=== PATIENT | male | born 1955 | race Caucasian/White ===

== ENCOUNTER 2019-09-17 15:30 | Outpatient (RCR) | payer MEDICARE, SELFPAY ==
--- NOTE | 2019-08-28 13:31 | PTOPEVAL ---
PHYSICAL THERAPY EVALUATION AND PLAN OF CARE 08-28-2019 The PT evaluation was completed for the diagnosis of decreased gait balance. The plan of treatment is 2x/week for 3 weeks. Thank you for referring Mr. Kirkland to [facility]. Please review, sign, date and return this plan of care JEREMI. I agree with and certify that the following plan of care is medically necessary. Referring Physician Date Attending Provider: Victor M Leslie MD *PT Outpatient Evaluation Start: 08/28/19 12:39 Document 08/28/19 12:35 [facility] Outpatient Past Medical History Neurological History Hx Other Neurological Disorders Yes: cerebral aneurysm-sugery '98 Cardiovascular History Hx Hypercholesterolemia Yes: meds Hx Hypertension Yes: meds Respiratory History Hx Respiratory Disorders No Significant History Gastrointestinal History Hx Gastrointestinal Disorders No Significant History Genitourinary History Hx Genitourinary Disorders No Significant History Musculoskeletal History Hx Arthritis Yes: R and L knee arthritis Hematological History Hx Hematological Disorders No Significant History Endocrine History Hx Endocrine Disorders No Significant History HEENT History Hx HEENT Disorders No Significant History Integumentary History Hx Skin Disorders No Significant History Psychosocial History Hx Anxiety Yes: meds control Hx Depression Yes: on meds Evaluation Information Problem Diagnosis balance disturbance Onset Jun 2019 Subjective Information reports gradual increase in Query Text:As Reported By Patient/ falls and off balance with Family walking; in Jul reports 3 falls-1- slipped getting out of bathtub ; 2- slipped on ice outside; 3 - fell getting out of car; Previous Treatments Previous Treatments For This Problem no previous PT for balance/ walking Prior Level of Function Activity Level (Last 3 Months) Occupation retired/disability Hand Dominance Right Medications Home Meds (Include: OTC, RX, Vitamins, atorvastatin, fluoxetine, Herbals, Dose, Route,and Frequency) omeprazole, Query Text:Home Med Entries Will No Longer Recall From Past Visits. Home Meds Must Be Re-entered With Each Visit. Home Setting Home Type House,Multiple Levels Living Situation With Relatives Support Available Local Family Support Mobility Assistive Devices (Used Last 3 None,Cane, Small Based Quad Months) Bathroom Environment Bathtub, Standard Bathing Equipment
--- NOTE | 2019-09-03 12:25 | PCPTNOTE ---
Patient called & cancelled scheduled appointment this date due to weather
--- NOTE | 2019-09-05 12:52 | PCPTNOTE ---
Patient called & cancelled scheduled appointment this date due to illness
--- NOTE | 2019-09-17 16:12 | PTOPEVAL ---
PHYSICAL THERAPY DISCHARGE 09-17-2019 Zenon has received 5 Physical Therapy sessions, from August 28 to today, for the diagnosis of balance issues. Compared to the initial evaluation: increased strength of L ankle DF and PF; improved Kelly balance score; TUG and SLS on L are the same; he has been educated on a home exercise program and is going to obtain a L AFO to prevent L toe drag. The goals were partially achieved. He will be discharged at this time. And is to continue with his home exercises and obtain an ankle brace. Thank you for referring Mr. Kirkland to [facility]. Please review, sign, date and return this discharge plan of care [facility]. I agree with and certify that the following discharge. Referring Physician Date Attending Provider: Victor M Leslie MD *PT Outpatient Discharge Document 09/17/19 15:37 KENNY (Rec: 09/17/19 16:12 KENNY [id number]) Subjective Information Zenon reports: doing his leg Query Text:As Reported By Patient/ exercises, feel like legs are Family stronger; using cane when going out, but not in his house; Pain Assessment Timing of Pain Assessment Timing of Pain Assessment Assessment Self Report Self Report Pain Level 0 Pain Scale Pain Scale Used Numeric (1 - 10) Self Report Pain Assessment Bilateral Knee(s) Reported Pain Level 0 Pain Score Pain Score 0: Self Report Lower Extremity Muscle Strength Testing General Lower Extremity Strength Gross Lower Extremity Strength -sitting: L ankle DF to 5-10' x 25 reps; ankle circles with decreased control; ankle inversion/eversion with heel on ground--decreased strength: inversion 3-/5 and eversion 2+/5; stand with one UE support, B PF x 20 reps; Balance Assessment Kelly Balance Assessment Sitting to Standing Independent w/out Hands Unsupported Stance Ability Safely- 2 minutes Sitting Unsupported, Feet on Floor Safely- 2 minutes Standing to Sitting Safely, Minimal Hand Use Transfer Ability Safely, Minimal Hand Use Unsupported Stance- Eyes Closed Safely, 10 seconds Unsupported Stance- Feet Together Independent, 1 minute Reaching Forward while Standing Confidently, 10 inches supervisor shipping Object From Floor Independent/Safe Look Behind Shoulder - Standing Shifts Weight Well Turning 360 Degrees Turns slowly, but safely Unsupported Stance, Alternating Feet on (I)- 8 Steps in 20 secs Stair Unsupported Tandem Stance Small Step- 30 seconds Unilateral Leg Stance Lifts Leg/Holds > 3 secs KELLY Balance Evaluation Total Score (/56 50 points) Time Up Go (TUG) T
== END 2019-09-18 09:32 | disposition home or self-care (01) ==
LOC: ANHPT 15:30
PROVIDERS: PCP Family Medicine; Visit Provider Family Medicine
DX: R26.9 Unspecified abnormalities of gait and mobility (principal)
CPT/HCPCS: 97110; 97161

== ENCOUNTER 2019-11-20 08:10 | Outpatient (CLI) | payer MEDICARE, SELFPAY ==
[2019-11-20 08:43] LABS: Alanine Aminotransferase 13 U/L (4-50); Albumin Level 4.3 g/dL (3.5-5.1); Alkaline Phosphatase 61 U/L (38-126); Aspartate Amino Transferase 21 U/L (17-59); Bilirubin,Total 0.6 mg/dL (0.2-1.3); Blood Urea Nitrogen 14 mg/dL (9-20); Carbon Dioxide 30 mmol/L (22-30); Chloride 104 mmol/L (98-107); Cholesterol 167 mg/dL (0-200); Creatine Kinase 51 U/L (55-170); Estimated Glomerular Filt Rate > 60; Glucose 89 mg/dL (75-110); HDL Direct 49 mg/dL; Potassium 4.3 mmol/L (3.4-5.0); Sodium 140 mmol/L (137-145); Triglycerides 85 mg/dL (<150)
[2019-11-20 08:54] LABS: LDL Cholesterol Direct 94 mg/dL
[2019-11-20 09:16] LABS: Vitamin D 25 Hydroxy 61.7 ng/mL
== END 2019-11-20 08:11 | disposition home or self-care (01) ==
PROVIDERS: PCP Family Medicine; Visit Provider Family Medicine
DX: E78.2 Mixed hyperlipidemia (principal); E55.9 Vitamin D deficiency, unspecified
CPT/HCPCS: 36415; 80053; 80061; 82306; 82550

== ENCOUNTER 2020-06-09 10:51 | Outpatient (CLI) | payer MEDICARE, SELFPAY ==
[2020-06-09 12:49] LABS: Vitamin D 25 Hydroxy 62.5 ng/mL
== END 2020-06-09 10:52 | disposition home or self-care (01) ==
LOC: ANHLAB 10:54
PROVIDERS: PCP Family Medicine; Visit Provider Nurse Practitioner Family
DX: E55.9 Vitamin D deficiency, unspecified (principal)
CPT/HCPCS: 36415; 82306

== ENCOUNTER 2020-10-05 13:19 | Emergency (ER) | payer MEDICARE, SELFPAY ==
[2020-10-05 13:21] VITALS: BP 198/91; PULSE 60; RESP 20; TEMP 36.7; O2SAT 100
[2020-10-05 15:32] VITALS: BP 195/105; PULSE 61; RESP 18; TEMP 36.7; O2SAT 100
--- NOTE | 2020-10-05 15:37 | ECG_ITS ---
Measurements Intervals [place] Rate: 66 P: 57 AK: 231 QRS: 8 QRSD: 97 T: 28 QT: 396 QTc: 415 Interpretive Statements SINUS RHYTHM WITH FIRST DEGREE AV BLOCK VOLTAGE CRITERIA FOR LVH BASELINE ARTIFACT- I, II, III, V3 ABNORMAL ECG Electronically Signed On 10-05-2020 16:35:32 DISABILITY INSURANCE CLAIM EXAMINER by Carlos Caal D.O.
[2020-10-05 15:55] LABS: Basophils Percent Auto 0.5 % (0.2-1.2); Eosinophils Absolute Auto 0.1 K/mm3 (0-0.3); Hematocrit 38.7 % (42.0-52.0); Hemoglobin 12.9 g/dL (14.0-18.0); Immature Granulocyte Absolute 0.02 K/mm3 (0.00-0.031); Immature Granulocyte Percent A 0.4 % (0-0.5); Lymphocytes Percent Auto 25.6 % (18.3-44.2); Mean Corpuscular HGB Conc 33.3 g/dl (32-36); Mean Corpuscular Hemoglobin 28.8 pg (26-34); Mean Corpuscular Volume 86.4 fl (80-100); Mean Platelet Volume 8.9 fl (7.4-10.4); Monocytes Absolute Auto 0.5 K/mm3 (0.1-0.6); Neutrophils Absolute Auto 3.4 K/mm3 (1.3-6.7); Neutrophils Percent Auto 62.5 % (45.5-73.1); Platelet Count Result 201 k/mm3 (150-375); Red Blood Count 4.48 M/mm3 (4.6-6.20); White Blood Count 5.5 K/mm3 (4.5-10.0)
[2020-10-05 16:05] LABS: Anion Gap 5 mmol/L (8-16); Blood Urea Nitrogen 12 mg/dL (9-20); Calcium 8.9 mg/dL (8.4-10.2); Carbon Dioxide 32 mmol/L (22-30); Chloride 104 mmol/L (98-107); Estimated CRCL calculation 104 ml/min; Estimated Glomerular Filt Rate > 60; Glucose 83 mg/dL (75-110); Potassium 3.8 mmol/L (3.4-5.0); Sodium 141 mmol/L (137-145)
--- NOTE | 2020-10-05 16:29 | ED.GENADULT ---
HPI - General Adult General Chief complaint: Recheck/Abnormal Lab/Rx Stated complaint: elevated bp Time Seen by Provider: 10/05/20 15:36 History of Present Illness HPI narrative: Patient is a 65 y/o male complaining of high blood pressure for last 1-2 weeks. He states that his BP was 190/100 prior to arrival. He is on metoprolol and he is compliant. He denies any headache, chest pain, SOB or other complaints. Related Data Allergies Allergy/AdvReac Type Severity Reaction Status Date / Time No Known Allergies Allergy Verified 10/05/20 15:35 Review of Systems Constitutional: Constitutional: Denies chills, Denies fever(s), Denies headache(s) and Denies weakness Eyes: Eyes: Denies blurry vision ENT: Denies headache(s) and Denies neck pain Cardiovascular: Cardiovascular: Denies chest pain and Denies dyspnea Respiratory: Respiratory: Denies cough and Denies dyspnea Gastrointestinal: Gastrointestinal: Denies abdominal pain, Denies diarrhea, Denies nausea and Denies vomiting Genitourinary: Genitourinary: Denies hematuria and Denies dysuria Musculoskeletal: Musculoskeletal: Denies back pain and Denies neck pain Neurologic: Denies headache(s) and Denies weakness [facility] Social History Social History Smoking status: Never smoker Alcohol intake: never Exam Const: General: no acute distress and well developed Orientation/consciousness: oriented to person, oriented to place, oriented to time and patient oriented x3 HENMT: Head: normocephalic Ears: external ears normal General nose exam: Normal external nose present Eyes: General: appearance normal, both eyes and all related structures Conjunctivae: conjunctivae normal Neck: Neck: normal visual inspection and full ROM Chest: Chest palpation & inspection: normal inspection of the chest and no tenderness Resp: Effort & Inspection: normal respiratory effort Auscultation: clear to auscultation bilaterally Cardio: Rate: regular rate Rhythm: regular rhythm GI: GI Palp: No abdominal tenderness and Yes Soft to palpation Skin: General skin exam: normal color and turgor normal Neuro: General: oriented to person, oriented to place, oriented to time and patient oriented x3 Cognition (Neuro): normal cognition Extrem: General: normal to inspection, full ROM and no pedal edema Psych: Appearance: grossly normal Mental Status: mental status grossly normal Affect: normal affect Course Vital Signs Vital signs: Vital Signs Temperature 36.7 C 10/05/20 13:21 Pulse Rate 60 10/05/20 13:21 Respiratory Rate 20 10/05/20 13:21 Blood Pressure 198/91 H 10/05/20 13:21 Pulse Oximetry 100 10/05/20 13:21 Temperature 36.7 C 10/05/20 15:32 Pulse Rate 59 L 10/05/20 18:40 Respiratory Rate 18 10/05/20 18:40 Blood Pressure 154/96 H 10/05/20 18:40 Pulse Oximetry 95 10/05/20 18:40 Medical Decision Making Vital Signs Vital Signs: Vital Signs Temperature 36.7 C 10/05/20 13:21 Pulse Rate 60 10/05/20 13:21 Respiratory Rate 20 10/05/20 13:21 Blood Pressure 198/91 H 10/05/20 13:21 Pulse Oximetry 100 10/05/20 13:21 Temperature 36.7 C 10/05/20 15:32 Pulse Rate 59 L 10/05/20 18:40 Respiratory Rate 18 10/05/20 18:40 Blood Pressure 154/96 H 10/05/20 18:40 Pulse Oximetry 95 10/05/20 18:40 Lab Data Result diagrams: 10/05/20 15:45 10/05/20 15:45 Labs: Lab Results 10/05/20 10/05/20 Range/Units 15:45 15:45 WBC 5.5 (4.5-10.0) K/mm3 RBC 4.48 L (4.6-6.20) M/mm3 Hgb 12.9 L (14.0-18.0) g/dL Hct 38.7 L (42.0-52.0) % MCV 86.4 (80-100) fl MCH 28.8 (26-34) pg MCHC 33.3 (32-36) g/dl RDW 14.0 (11.5-14.5) % Plt Count 201 (150-375) k/mm3 MPV 8.9 (7.4-10.4) fl Immature Gran % (Auto) 0.4 (0-0.5) % Neut % (Auto) 62.5 (45.5-73.1) % Lymph % (Auto) 25.6 (18.3-44.2) % [place] % (Auto) 9.0 H (2.6-8.5
[2020-10-05 16:52] VITALS: BP 177/107; PULSE 62; RESP 20; O2SAT 99
[2020-10-05] MEDS: hydroCHLOROthiazide 25 MG TABLET PO (17:18)
[2020-10-05] MEDS: lisinopriL 20 MG TABLET PO (17:18)
[2020-10-05 17:36] VITALS: BP 160/94; PULSE 52; RESP 18; O2SAT 97
[2020-10-05 18:40] VITALS: BP 154/96; PULSE 59; RESP 18; O2SAT 95
== END 2020-10-05 18:41 | disposition home or self-care (01) ==
PROVIDERS: Emergency Provider Emergency Medicine; PCP Family Medicine
DX: I10 Essential (primary) hypertension (principal); I44.0 Atrioventricular block, first degree; R94.31 Abnormal electrocardiogram [ECG] [EKG]
CPT/HCPCS: 36415; 80048; 85025; 93005; 99283; A9270

== ENCOUNTER 2020-11-25 07:42 | Outpatient (CLI) | payer MEDICARE, SELFPAY ==
[2020-11-25 08:07] LABS: Basophils Absolute Auto 0.1 K/mm3 (0.0-0.1); Basophils Percent Auto 0.7 % (0.2-1.2); Eosinophils Absolute Auto 0.4 K/mm3 (0-0.3); Hematocrit 42.3 % (42.0-52.0); Hemoglobin 14.3 g/dL (14.0-18.0); Immature Granulocyte Absolute 0.01 K/mm3 (0.00-0.031); Immature Granulocyte Percent A 0.1 % (0-0.5); Lymphocytes Absolute Auto 2.41 K/mm3 (0.9-3.2); Lymphocytes Percent Auto 34.3 % (18.3-44.2); Mean Corpuscular HGB Conc 33.8 g/dl (32-36); Mean Corpuscular Hemoglobin 29.6 pg (26-34); Mean Corpuscular Volume 87.6 fl (80-100); Mean Platelet Volume 8.6 fl (7.4-10.4); Monocytes Absolute Auto 0.6 K/mm3 (0.1-0.6); Neutrophils Absolute Auto 3.6 K/mm3 (1.3-6.7); Neutrophils Percent Auto 50.9 % (45.5-73.1); Platelet Count Result 233 k/mm3 (150-375); Red Blood Count 4.83 M/mm3 (4.6-6.20); Red Cell Distribution Width 13.3 % (11.5-14.5)
[2020-11-25 08:18] LABS: Alanine Aminotransferase 16 U/L (4-50); Albumin Level 4.2 g/dL (3.5-5.1); Alkaline Phosphatase 55 U/L (38-126); Anion Gap 5 mmol/L (8-16); Aspartate Amino Transferase 24 U/L (17-59); Bilirubin,Total 0.7 mg/dL (0.2-1.3); Blood Urea Nitrogen 12 mg/dL (9-20); Carbon Dioxide 36 mmol/L (22-30); Chloride 100 mmol/L (98-107); Cholesterol 168 mg/dL (0-200); Estimated Glomerular Filt Rate > 60; Glucose 98 mg/dL (75-110); HDL Direct 54 mg/dL; Potassium 3.5 mmol/L (3.4-5.0); Sodium 141 mmol/L (137-145); Triglycerides 127 mg/dL (<150)
[2020-11-25 08:28] LABS: LDL Cholesterol Direct 85 mg/dL
[2020-11-25 08:46] LABS: Creatinine Urine 163.4 mg/dL
[2020-11-25 08:48] LABS: Total Triiodothyronine (T3) 1.05 NG/ML (0.97-1.69)
[2020-11-25 08:51] LABS: MALB Creatinine Ratio 5.9 mg/g (0-30); Microalbumin Urine Random 9.6 mg/L (0-16.7)
[2020-11-25 08:56] LABS: Prostate Specific Antigen 1.1 ng/mL (< OR = 4.0)
[2020-11-25 09:27] LABS: Free T4 Free Thyroxine 0.99 ng/mL (0.78-2.19)
== END 2020-11-25 07:43 | disposition home or self-care (01) ==
PROVIDERS: PCP Family Medicine; Visit Provider Nurse Practitioner
DX: F41.1 Generalized anxiety disorder (principal); F32.9 Major depressive disorder, single episode, unspecified; I10 Essential (primary) hypertension; E78.2 Mixed hyperlipidemia; E55.9 Vitamin D deficiency, unspecified; R80.9 Proteinuria, unspecified; Z12.5 Encounter for screening for malignant neoplasm of prostate
CPT/HCPCS: 36415; 80053; 80061; 82043; 82306; 84153; 84439; 84443; 84480; 85025; G0103

== ENCOUNTER 2021-07-07 08:22 | Outpatient (CLI) | payer MEDICARE, SELFPAY ==
--- NOTE | ~2021-07-07 | CT_ITS ---
EXAMINATION: CTA abd aorta runoff DATE: 07/07/2021 09:37 INDICATION: Ascending aortic aneurysm TECHNIQUE: Computed tomographic angiography (CTA) of the abdomen, pelvis, and both lower extremities was performed with 150 mL Omnipaque-350 intravenous contrast. The dose-length product (DLP) was 1202. 44 mGy-cm. Maximum intensity projection 3D-reconstructions of the arteries were created by the techno logist on a separate workstation. Automated exposure control and iterative reconstruction technique w ere employed. COMPARISON: None. FINDINGS: ABDOMINAL AORTA AND ITS BRANCHES: There is no aneurysm or dissection of the abdominal aorta. Calcified atherosclerosis is noted. The ce liac axis, superior mesenteric artery, and inferior mesenteric artery appear normal at their origins. Single renal arteries are present bilaterally. PELVIC VASCULATURE: There is calcified atherosclerosis without hemodynamically significant stenosis. RIGHT LOWER EXTREMITY VASCULATURE: There is calcified atherosclerosis of the superficial femoral artery and distal common femoral artery without hemodynamically significant stenosis. The popliteal artery demonstrates atherosclerosis with out hemodynamically significant stenosis. There is atherosclerosis and mild stenosis at the origins o f the anterior and posterior tibial arteries. The peroneal artery is diminutive in its distal aspect. There is a two-vessel runoff at the ankle. LEFT LOWER EXTREMITY VASCULATURE: There is calcified atherosclerosis of the distal common femoral artery and the superficial femoral ar shadi without hemodynamically significant stenosis. There is calcified atherosclerosis of the poplitea l artery without hemodynamically significant stenosis. The anterior and posterior tibial arteries are diminutive in the distal aspects. There is a single vessel posterior tibial artery runoff at the ank le. ADDITIONAL FINDINGS: The liver, spleen, pancreas, gallbladder, and adrenal glands are normal. No pathologically enlarged a bdominal or pelvic lymph nodes are identified. There is no free intraperitoneal gas or evidence of neha wel obstruction. Cysts of the kidneys measure up to 4.6 cm on the right. There is a fat-containing ri ght inguinal hernia. Minimal dependent atelectasis is present in the lung bases. The heart size is no rmal. Calcified loose bodies are noted in the left Arreola's cyst. IMPRESSION: 1. Two-vessel runoff of the right ankle and one vessel runoff at the left ankle. Additional findings as detailed above. Reviewed, dictated and finalized at location A. VITIES ASSISTANT IMPRESSION: 1. Two-vessel runoff of the right ankle and one vessel runoff at the left ankle . Additional findings as detailed above.
--- NOTE | ~2021-07-07 | CT_ITS ---
EXAMINATION: CTA chest DATE: 07/07/2021 16:18 INDICATION: Thoracic aortic aneurysm TECHNIQUE: Computed tomographic angiography (CTA) of the chest was performed with 100 mL Omnipque-350 intravenous contrast. Maximum intensity projection 3D-reconstructions of the aorta and other arterie s were constructed by the technologist on a separate workstation. The dose-length product (DLP) was 4 63.51 mGy-cm. Automated exposure control and iterative reconstruction technique were employed. COMPARISON: None. FINDINGS: There is a 4.5 cm fusiform aneurysm of the ascending aorta measured at the level of the mulugeta n pulmonary artery. There is no dissection. There is mild dependent atelectasis. No pleural effusion or pneumothorax is identified. There is calcified coronary artery atherosclerosis. The heart size is normal. There are no pathologically enlarged thoracic lymph nodes. Cysts of the visualized kidneys me asure up to 4.2 cm on the right. There is advanced osteoarthritis of the right glenohumeral joint. Th ere is a questionable fracture of the proximal right humerus. Internal stabilization hardware is note d in the left humerus. Calcified loose bodies are noted in the right shoulder. IMPRESSION: 1. 4.5 cm fusiform aneurysm of the ascending aorta. No dissection. Reviewed, dictated and finalized at location A. UMER RELATIONS COMPLAINT CLERK
[2021-07-07 09:08] LABS: Alanine Aminotransferase 25 U/L (4-50); Albumin Level 4.3 g/dL (3.5-5.1); Alkaline Phosphatase 56 U/L (38-126); Anion Gap 6 mmol/L (8-16); Aspartate Amino Transferase 28 U/L (17-59); Bilirubin,Total 0.4 mg/dL (0.2-1.3); Blood Urea Nitrogen 26 mg/dL (9-20); Calcium 9.2 mg/dL (8.4-10.2); Carbon Dioxide 33 mmol/L (22-30); Chloride 98 mmol/L (98-107); Cholesterol 150 mg/dL (0-200); Estimated Glomerular Filt Rate > 60; Glucose 106 mg/dL (65-110); HDL Direct 64 mg/dL; Potassium 3.4 mmol/L (3.4-5.0); Sodium 137 mmol/L (137-145); Triglycerides 46 mg/dL (<150)
[2021-07-07 09:18] LABS: Estimated Glomerular Filt Rate > 60
[2021-07-07 09:20] LABS: LDL Cholesterol Direct 71 mg/dL
== END 2021-07-07 08:23 | disposition home or self-care (01) ==
PROVIDERS: PCP Internal Medicine; Visit Provider Internal Medicine
DX: I71.2 Thoracic aortic aneurysm, without rupture (principal); E78.5 Hyperlipidemia, unspecified; E55.9 Vitamin D deficiency, unspecified; I71.4 Abdominal aortic aneurysm, without rupture
CPT/HCPCS: 36415; 71275; 75635; 80053; 80061; 82306; Q9967

== ENCOUNTER 2021-07-21 13:09 | Outpatient (CLI) | payer MEDICARE, SELFPAY ==
[2021-07-21 13:28] LABS: Basophils Percent Auto 0.4 % (0.2-1.2); Eosinophils Percent Auto 0.7 % (0-4.4); Hematocrit 42.3 % (42.0-52.0); Hemoglobin 14.3 g/dL (14.0-18.0); Immature Granulocyte Absolute 0.02 K/mm3 (0.00-0.031); Immature Granulocyte Percent A 0.4 % (0-0.5); Lymphocytes Absolute Auto 0.85 K/mm3 (0.9-3.2); Lymphocytes Percent Auto 18.4 % (18.3-44.2); Mean Corpuscular HGB Conc 33.8 g/dl (32-36); Mean Corpuscular Hemoglobin 30.2 pg (26-34); Mean Corpuscular Volume 89.2 fl (80-100); Mean Platelet Volume 8.3 fl (7.4-10.4); Monocytes Absolute Auto 0.6 K/mm3 (0.1-0.6); Monocytes Percent Auto 13.9 % (2.6-8.5); Neutrophils Absolute Auto 3.1 K/mm3 (1.3-6.7); Neutrophils Percent Auto 66.2 % (45.5-73.1); Platelet Count Result 174 k/mm3 (150-375); Red Blood Count 4.74 M/mm3 (4.6-6.20); Red Cell Distribution Width 13.2 % (11.5-14.5); White Blood Count 4.6 K/mm3 (4.5-10.0)
[2021-07-21 13:52] LABS: Alanine Aminotransferase 39 U/L (4-50); Albumin Level 4.3 g/dL (3.5-5.1); Alkaline Phosphatase 56 U/L (38-126); Anion Gap 8 mmol/L (8-16); Aspartate Amino Transferase 45 U/L (17-59); Bilirubin,Total 0.6 mg/dL (0.2-1.3); Blood Urea Nitrogen 22 mg/dL (9-20); Calcium 8.7 mg/dL (8.4-10.2); Carbon Dioxide 32 mmol/L (22-30); Chloride 92 mmol/L (98-107); Cholesterol 154 mg/dL (0-200); Creatine Kinase 190 U/L (55-170); Estimated Glomerular Filt Rate > 60; Glucose 95 mg/dL (65-110); HDL Direct 49 mg/dL; Magnesium 1.9 mg/dL (1.6-2.3); Sodium 132 mmol/L (137-145); Triglycerides 101 mg/dL (<150)
[2021-07-21 14:03] LABS: LDL Cholesterol Direct 71 mg/dL
[2021-07-21 14:43] LABS: Vitamin D 25 Hydroxy 66.7 ng/mL
== END 2021-07-21 13:10 | disposition home or self-care (01) ==
LOC: ANHLAB 13:13
PROVIDERS: PCP Internal Medicine; Visit Provider Internal Medicine
DX: E78.5 Hyperlipidemia, unspecified (principal); E55.9 Vitamin D deficiency, unspecified; R25.2 Cramp and spasm; U07.1 COVID-19
CPT/HCPCS: 36415; 80053; 80061; 82306; 82550; 83735; 85025

== ENCOUNTER 2021-08-17 01:00 | Day surgery (SDC) | payer MEDICARE, SELFPAY ==
[2021-08-10 11:20] VITALS: BMI 25.1
--- NOTE | 2021-08-17 07:15 | WPDANESEPPF ---
Anes - Initial Pre Proc Eval Procedure: Operation Date: 08/17/21 09:00 Proposed Procedures p Screening Colonoscopy - Rafa Reyna MD Date/Time: 08/17/21 07:15 Surgeon: Rafa Reyna MD Pre Op Diagnosis: family hx of colon ca Patient Data Age: 66 Gender: M Height: 1.73 m Weight: 75 kg Allergies Allergy/AdvReac Type Severity Reaction Status Date / Time No Known Allergies Allergy Verified 08/17/21 07:50 Home Medications Medication Instructions Recorded Confirmed Type aspirin [Adult Low Dose Aspirin] 81 mg PO DAILY 08/10/21 08/17/21 History atorvastatin 20 mg PO DAILY 08/10/21 08/17/21 History benzonatate 100 mg PO TID PRN 08/10/21 08/17/21 History calcium carbonate-vitamin D3 1 tablet PO DAILY 08/10/21 08/17/21 History [Calcium 600 with Vitamin D3] donepezil 10 mg PO DAILY 08/10/21 08/17/21 History ergocalciferol (vitamin D2) 50,000 unit PO WEEKLY 08/10/21 08/17/21 History escitalopram oxalate 20 mg PO DAILY 08/10/21 08/17/21 History krill oil 500 mg PO DAILY 08/10/21 08/17/21 History lisinopril-hydrochlorothiazide 1 tablet PO DAILY 08/10/21 08/17/21 History metoprolol succinate 100 mg PO DAILY 08/10/21 08/17/21 History multivit with min-folic acid 1 tablet PO DAILY 08/10/21 08/17/21 History [Adult One Daily Multivitamin] omeprazole 20 mg PO DAILY 08/10/21 08/17/21 History Patient hx anesthesia problems: none Family hx anesthesia problems: none Results Review: All pre-operative results and documents have been reviewed as part of the pre-operative evaluation. [facility] Past Medical History Medical History (Updated 08/17/21 @ 07:16 by Diogo Dunham DO) Anxiety CVA (cerebral vascular accident) Dementia Hyperlipidemia Hypertension PVD (peripheral vascular disease) Surgical History Surgical History (Updated 08/17/21 @ 07:16 by Diogo Dunham DO) H/O cerebral aneurysm repair Social History Social History Smoking status: Never smoker Tobacco type: cigarettes Alcohol intake: never Living arrangements: with family Spiritual care concerns: No Anes - Eval Final PreProcedure Day of Procedure 08/17/21 07:15 Patient weight: overweight Heart: regular rate and rhythm Lungs: clear to auscultation and normal air movement Airway: Mallampati scale class II Neurological: alert and oriented Last oral intake: >/= 8 hours ASA classification: III Emergent: no Anesthetic plan: proceed Anesthesia type and monitoring: general GIVS and standard monitoring Results Review: All pre-operative results and documents have been reviewed as part of the pre-operative evaluation. Informed Consent: The patient's anesthetic plan and its attendant risks and benefits were discussed with the patient/family/POA. Questions were solicited and answers provided to the satisfaction of the patient/family/POA.
[2021-08-17 07:40] VITALS: BP 131/83; PULSE 73; RESP 16; TEMP 36.7; O2SAT 100; BMI 25.0
[2021-08-17] MEDS: LACTATED RINGERS 1,000 ML 150 ML IV CONT (08:04)
--- NOTE | 2021-08-17 08:49 | PM.HPGS ---
History of Present Illness History of Present Illness Consent: Risks, benefits, and alternatives have been discussed and questions answered. Patient agrees to proceed with procedure. Chief complaint: family hx of colon ca Narrative: Zenon Kirkland is a 66 year old male here for first screening colonoscopy, sister had colon cancer. Review of Systems Constitutional: Constitutional: Denies headache(s) and Denies weakness Eyes: Eyes: Denies blurry vision ENT: Reports Normal hearing present, Denies headache(s) and Denies neck pain Cardiovascular: Cardiovascular: Denies chest pain and Denies dyspnea Respiratory: Respiratory: Denies dyspnea Gastrointestinal: Gastrointestinal: Reports no additional gastrointestinal complaints Genitourinary: Genitourinary: Denies dysuria Musculoskeletal: Musculoskeletal: Denies neck pain Integumentary/Breasts: Skin/Breast: Denies dry skin Neurologic: Reports Normal hearing present, Denies headache(s) and Denies weakness Psychiatric: Psychiatric: Denies anxiety Endocrine: Endocrine: Denies change in body appearance Hematologic/Lymphatic: Hematologic/Lymphatic: Denies easy bleeding Allergic/Immunologic: Allergic/Immunologic: Denies urticaria PMFSH Past Medical History Medical History (Updated 08/17/21 @ 08:49 by Rafa Reyna MD) Anxiety CVA (cerebral vascular accident) Dementia Family history of colon cancer requiring screening colonoscopy Hyperlipidemia Hypertension PVD (peripheral vascular disease) Surgical History Surgical History (Updated 08/17/21 @ 07:16 by Diogo Dunham DO) H/O cerebral aneurysm repair Social History Social History Smoking status: Never smoker Tobacco type: cigarettes Alcohol intake: never Living arrangements: with family Spiritual care concerns: No Meds Home Medications and Allergies Home Medications Medication Instructions Recorded Confirmed Type aspirin [Adult Low Dose Aspirin] 81 mg PO DAILY 08/10/21 08/17/21 History atorvastatin 20 mg PO DAILY 08/10/21 08/17/21 History benzonatate 100 mg PO TID PRN 08/10/21 08/17/21 History calcium carbonate-vitamin D3 1 tablet PO DAILY 08/10/21 08/17/21 History [Calcium 600 with Vitamin D3] donepezil 10 mg PO DAILY 08/10/21 08/17/21 History ergocalciferol (vitamin D2) 50,000 unit PO WEEKLY 08/10/21 08/17/21 History escitalopram oxalate 20 mg PO DAILY 08/10/21 08/17/21 History krill oil 500 mg PO DAILY 08/10/21 08/17/21 History lisinopril-hydrochlorothiazide 1 tablet PO DAILY 08/10/21 08/17/21 History metoprolol succinate 100 mg PO DAILY 08/10/21 08/17/21 History multivit with min-folic acid 1 tablet PO DAILY 08/10/21 08/17/21 History [Adult One Daily Multivitamin] omeprazole 20 mg PO DAILY 08/10/21 08/17/21 History Allergies Allergy/AdvReac Type Severity Reaction Status Date / Time No Known Allergies Allergy Verified 08/17/21 07:50 Vital Signs Vital Signs - 24 hr 08/17/21 07:40 Temperature 98.0 F Pulse Rate 73 Respiratory Rate 16 Blood Pressure 131/83 Pulse Oximetry 100 Exam Const: General: comfortable and no acute distress HENMT: General nose exam: Normal nares present Eyes: General: appearance normal, both eyes and all related structures Neck: Neck: no JVD Resp: Auscultation: clear to auscultation bilaterally Cardio: Rate: regular rate Rhythm: regular rhythm GI: Inspection: non-distended GI Palp: Yes Soft to palpation Skin: General skin exam: normal color Neuro: General: gait normal Speech: normal speech Extrem: General: normal to inspection Psych: Mental Status: mental status grossly normal Assessment and Plan Assessment and plan (1) Family history of colon cancer requiring screening colonoscopy: Code(s): Z80.0 - Family history of malignant neoplasm of digestive organs Status: Acute Assessment and Plan: colonoscopy
[2021-08-17 09:16] VITALS: BP 86/54; PULSE 58; RESP 18; O2SAT 96
[2021-08-17 09:26] VITALS: BP 95/59; PULSE 56; RESP 16; O2SAT 98
[2021-08-17 09:36] VITALS: BP 121/72; PULSE 54; RESP 17; O2SAT 100
== END 2021-08-17 09:53 | disposition home or self-care (01) ==
PROVIDERS: PCP Internal Medicine; Visit Provider Internal Medicine Gastroenterology
PROC: 0DJD8ZZ Inspection of Lower Intestinal Tract, Via Natural or Artificial Opening Endoscopic (ICD-10-PCS; CPT 45378; principal; 2021-08-17 09:00)
DX: Z12.11 Encounter for screening for malignant neoplasm of colon (principal); D12.0 Benign neoplasm of cecum; D12.2 Benign neoplasm of ascending colon; K63.5 Polyp of colon; K64.8 Other hemorrhoids; Z80.0 Family history of malignant neoplasm of digestive organs; I10 Essential (primary) hypertension; E78.5 Hyperlipidemia, unspecified; F03.90 Unspecified dementia, unspecified severity, without behavioral disturbance, psychotic disturbance, mood disturbance, and anxiety; I73.9 Peripheral vascular disease, unspecified; Z86.73 Personal history of transient ischemic attack (TIA), and cerebral infarction without residual deficits; F41.9 Anxiety disorder, unspecified; Z79.82 Long term (current) use of aspirin
CPT/HCPCS: 45385; 88305; J2704; J7120

== ENCOUNTER 2021-11-17 08:59 | Outpatient (CLI) | payer MEDICARE, SELFPAY ==
--- NOTE | ~2021-11-17 | DEXA_ITS ---
Bone Density Report Name: ETTA KEARNEY Age: 66 Sex: Male Ethnicity: White Date of : 1955 Indication: height loss; prior fracture; Referring Provider: SANDI, PROSPER [place] Study: Bone densitometry was performed. Exam Date: November 17, 2021 Accession number: [id number] Bone Density: Region BMD T-score Z-score Classification AP Spine(L1, L2) 1.400 3.2 3.9 Normal Femoral Neck (Left) 0.844 -0.6 0.4 Normal Total Hip (Left) 0.960 -0.5 0.0 Normal Femoral Neck (Right) 0.809 -0.9 0.2 Normal Total Hip (Right) 0.938 -0.6 -0.1 Normal Total Hip Mean 0.949 -0.6 -0.1 Normal World Health Organization criteria for BMD impression classify patients as: Normal (T-score at or above -1.0), Osteopenia (T-score between -1.0 and -2.5), or Osteoporosis (T-score at or below -2.5). 10-year Fracture Risk: FRAX not reported because: All T-scores for Spine Total, Hip Total, Femoral Neck at or above -1.0 Clinical Information Provided by Patient: Has had a low trauma fracture Has used the following medications: Vitamin D, Calcium Patient maximum height was 68 Impression: The patient has normal bone mass. The patient has risk factors, including: previous fracture. Discussion: BONE DENSITY IS ABOVE THE MINIMUM DESIRABLE LEVEL AT ALL SKELETAL SITES TESTED. This patient?s bone mineral density is above the minimum desirable level (T-score -1.0 or better) at all sites measured. The patient should follow a healthful lifestyle (good nutrition with adequate calcium and vitamin D, and appropriate weight-bearing exercise). Follow-Up: Consider repeating this study in 5 years or sooner if there is some new clinical indication. Reported by: LASHANDA on 11/17/2021 9:23:00 AM. Reviewed, dictated and finalized at location AKyara WALTER
== END 2021-11-17 09:00 | disposition home or self-care (01) ==
PROVIDERS: PCP Internal Medicine; Visit Provider Internal Medicine
DX: M85.89 Other specified disorders of bone density and structure, multiple sites (principal)
CPT/HCPCS: 77080

== ENCOUNTER 2021-12-15 09:50 | Outpatient (CLI) | payer MEDICARE, SELFPAY ==
[2021-12-15 10:35] LABS: Appearance Urine Clear (Clear); Bilirubin Urine Negative (Negative); Blood Urine Negative (Negative); Color Urine Yellow (Yellow); Glucose Urine UA Negative (Negative); Ketones Urine Negative (Negative); Leukocyte Esterase Ur Negative LEU/UL (Negative); Nitrate Urine Negative (Negative); Protein Urine Negative (Negative); Specific Grav Ur 1.025 (1.001-1.035); Urobilinogen Urine 0.2 mg/dL (<2.0)
[2021-12-15 10:45] LABS: Add Urine Microscopic? NO
[2021-12-15 10:45] LABS: Basophils Absolute Auto 0.1 K/mm3 (0.0-0.1); Basophils Percent Auto 0.8 % (0.2-1.2); Eosinophils Absolute Auto 0.2 K/mm3 (0-0.3); Eosinophils Percent Auto 2.7 % (0-4.4); Immature Granulocyte Absolute 0.02 K/mm3 (0.00-0.031); Immature Granulocyte Percent A 0.3 % (0-0.5); Lymphocytes Absolute Auto 1.34 K/mm3 (0.9-3.2); Lymphocytes Percent Auto 21.3 % (18.3-44.2); Mean Corpuscular HGB Conc 32.5 g/dl (32-36); Mean Corpuscular Hemoglobin 29.9 pg (26-34); Mean Platelet Volume 8.9 fl (7.4-10.4); Monocytes Absolute Auto 0.6 K/mm3 (0.1-0.6); Neutrophils Absolute Auto 4.1 K/mm3 (1.3-6.7); Neutrophils Percent Auto 64.9 % (45.5-73.1); Platelet Count Result 229 k/mm3 (150-375); Red Blood Count 4.35 M/mm3 (4.6-6.20); Red Cell Distribution Width 13.6 % (11.5-14.5); White Blood Count 6.3 K/mm3 (4.5-10.0)
[2021-12-15 11:18] LABS: Alanine Aminotransferase 17 U/L (6-50); Alkaline Phosphatase 46 U/L (38-126); Anion Gap 9 mmol/L (8-16); Aspartate Amino Transferase 27 U/L (17-59); Bilirubin,Total 0.5 mg/dL (0.2-1.3); Blood Urea Nitrogen 24 mg/dL (9-20); Calcium 8.7 mg/dL (8.4-10.2); Carbon Dioxide 33 mmol/L (22-30); Chloride 98 mmol/L (98-107); Estimated Glomerular Filt Rate > 60; Glucose 99 mg/dL (65-110); Potassium 3.8 mmol/L (3.4-5.0); Sodium 140 mmol/L (137-145)
[2021-12-15 11:56] LABS: Free T4 Free Thyroxine 0.97 ng/mL (0.78-2.19)
[2021-12-15 12:04] LABS: Prostate Specific Antigen 0.9 ng/mL (< OR = 4.0)
[2021-12-19 13:01] LABS: Testosterone Free 47.3 pg/mL (35.0-155.0); Testosterone Total 411 ng/dL (250-1100)
== END 2021-12-15 09:51 | disposition home or self-care (01) ==
LOC: ANHLAB 10:01
PROVIDERS: PCP Internal Medicine; Visit Provider Internal Medicine
DX: R53.83 Other fatigue (principal); E04.1 Nontoxic single thyroid nodule; R35.1 Nocturia; R63.4 Abnormal weight loss
CPT/HCPCS: 36415; 80053; 81003; 84153; 84402; 84403; 84439; 84443; 85025

== ENCOUNTER 2021-12-27 14:09 | Outpatient (CLI) | payer MEDICARE, SELFPAY ==
--- NOTE | ~2021-12-27 | US_ITS ---
EXAMINATION: US thyroid DATE: 12/27/2021 14:46 INDICATION: Thyroid nodule. TECHNIQUE: Multiple ultrasound images of the thyroid were obtained. COMPARISON: None. FINDINGS: The right thyroid lobe measures 4.8 x 2.4 x 1.7 cm. The left thyroid lobe measures 5.2 x 1.6 x 1.8 c m. In the right thyroid lobe, there is a 7 mm solid, isoechoic, wider than tall nodule with ill-defi rick margin and macrocalcifications (TI-RADS TR4). IMPRESSION: 1. Small thyroid nodule, likely not clinically significant. No follow-up is needed. Reviewed, dictated and finalized at location A. IMPRESSION: 1. Small thyroid nodule, likely not clinically significant. No follow-up is nee ded.
--- NOTE | ~2021-12-27 | CT_ITS ---
EXAMINATION: CTA chest DATE: 12/27/2021 14:56 INDICATION: Abdominal aortic aneurysm TECHNIQUE: Computed tomographic angiography (CTA) of the chest was performed with 100 mL Omnipaque-35 0 intravenous contrast. Volume-rendered 3D-reconstructions of the aorta and large arteries were const ructed by the technologist on a separate workstation. Automated exposure control and iterative recons truction technique were employed. The dose-length product was 433.78 mGy-cm. COMPARISON: 07/07/2021 FINDINGS: No significant interval change in a 4.6 x 4.6 cm fusiform ascending thoracic aortic aneurysm. Descend ing thoracic and suprarenal abdominal aorta are normal in caliber. No dissection. Mosaic attenuation in the dependent right lower lobe both groundglass opacity likely related to atelectasis with several small more lucent regions of subsegmental air trapping likely related to small airway disease. No pn eumonia, pulmonary edema, pleural effusion or pneumothorax. Small calcified left lower lobe nodule co nsistent with old granulomatous disease. Heart size is normal. Atherosclerotic coronary artery calcif ication. No pathologically enlarged thoracic lymphadenopathy. Bilateral renal cysts, the larger on th e right measuring 4.8 cm. Severe lower cervical and moderate to thoracic and upper lumbar spondylosis . Moderate left and severe right glenohumeral osteoarthritis. IMPRESSION: 1. 4.6 cm fusiform ascending thoracic aortic aneurysm. Reviewed, dictated and finalized at location B.
== END 2021-12-27 14:10 | disposition home or self-care (01) ==
PROVIDERS: PCP Internal Medicine; Visit Provider Internal Medicine
DX: I71.2 Thoracic aortic aneurysm, without rupture (principal); E04.1 Nontoxic single thyroid nodule
CPT/HCPCS: 71275; 76536; Q9967

== ENCOUNTER 2022-01-03 08:28 | Outpatient (CLI) | payer MEDICARE, SELFPAY ==
[2022-01-03 08:47] LABS: Basophils Absolute Auto 0.1 K/mm3 (0.0-0.1); Basophils Percent Auto 0.8 % (0.2-1.2); Eosinophils Absolute Auto 0.2 K/mm3 (0-0.3); Eosinophils Percent Auto 3.7 % (0-4.4); Hematocrit 39.5 % (42.0-52.0); Hemoglobin 13.5 g/dL (14.0-18.0); Immature Granulocyte Absolute 0.01 K/mm3 (0.00-0.031); Immature Granulocyte Percent A 0.2 % (0-0.5); Immature Reticulocyte Fraction 8.9 % (3.0-15.9); Lymphocytes Absolute Auto 1.53 K/mm3 (0.9-3.2); Lymphocytes Percent Auto 24.7 % (18.3-44.2); Mean Corpuscular HGB Conc 34.2 g/dl (32-36); Mean Corpuscular Hemoglobin 30.6 pg (26-34); Mean Corpuscular Volume 89.6 fl (80-100); Mean Platelet Volume 8.5 fl (7.4-10.4); Monocytes Absolute Auto 0.6 K/mm3 (0.1-0.6); Monocytes Percent Auto 9.2 % (2.6-8.5); Neutrophils Absolute Auto 3.8 K/mm3 (1.3-6.7); Neutrophils Percent Auto 61.4 % (45.5-73.1); Platelet Count Result 198 k/mm3 (150-375); Red Blood Count 4.41 M/mm3 (4.6-6.20); Red Cell Distribution Width 13.5 % (11.5-14.5); Reticulocyte Hemoglobin Conten 35.5 pg (28.2-35.7); Reticulocyte Percent 1.01 % (0.7-4.3); Reticulocytes Absolute 0.04 B/L (32.2-175.7); White Blood Count 6.2 K/mm3 (4.5-10.0)
[2022-01-03 09:19] LABS: Iron 77 ug/dL (49-181)
[2022-01-03 09:29] LABS: Percent Iron Saturation 25 % (20-50)
[2022-01-03 10:06] LABS: Folic Acid 19.4 ng/mL (2.76->20); Vitamin B12 > 1000.0 pg/mL (239-931)
== END 2022-01-03 08:29 | disposition home or self-care (01) ==
LOC: ANHLAB 08:31
PROVIDERS: PCP Internal Medicine; Visit Provider Internal Medicine
DX: D64.9 Anemia, unspecified (principal)
CPT/HCPCS: 36415; 82607; 82728; 82746; 83540; 83550; 85025; 85046

== ENCOUNTER 2022-01-17 12:22 | Outpatient (CLI) | payer MEDICARE, SELFPAY ==
[2022-01-17 13:09] LABS: Basophils Percent Auto 0.6 % (0.2-1.2); Eosinophils Absolute Auto 0.1 K/mm3 (0-0.3); Eosinophils Percent Auto 1.8 % (0-4.4); Hematocrit 40.7 % (42.0-52.0); Hemoglobin 13.5 g/dL (14.0-18.0); Immature Granulocyte Absolute 0.01 K/mm3 (0.00-0.031); Immature Granulocyte Percent A 0.1 % (0-0.5); Lymphocytes Absolute Auto 1.16 K/mm3 (0.9-3.2); Lymphocytes Percent Auto 16.3 % (18.3-44.2); Mean Corpuscular HGB Conc 33.2 g/dl (32-36); Mean Corpuscular Hemoglobin 30.3 pg (26-34); Mean Corpuscular Volume 91.3 fl (80-100); Mean Platelet Volume 8.5 fl (7.4-10.4); Monocytes Absolute Auto 0.7 K/mm3 (0.1-0.6); Neutrophils Absolute Auto 5.1 K/mm3 (1.3-6.7); Neutrophils Percent Auto 71.2 % (45.5-73.1); Platelet Count Result 266 k/mm3 (150-375); Red Blood Count 4.46 M/mm3 (4.6-6.20); Red Cell Distribution Width 13.2 % (11.5-14.5); White Blood Count 7.1 K/mm3 (4.5-10.0)
== END 2022-01-17 12:23 | disposition home or self-care (01) ==
PROVIDERS: PCP Internal Medicine; Visit Provider Internal Medicine
DX: D64.9 Anemia, unspecified (principal)
CPT/HCPCS: 36415; 85025

== ENCOUNTER 2022-05-16 14:38 | Outpatient (CLI) | payer MEDICARE, SELFPAY ==
[2022-05-16 15:51] LABS: Basophils Percent Auto 0.6 % (0.2-1.2); Eosinophils Absolute Auto 0.1 K/mm3 (0-0.3); Eosinophils Percent Auto 1.4 % (0-4.4); Hematocrit 40.8 % (42.0-52.0); Hemoglobin 13.5 g/dL (14.0-18.0); Immature Granulocyte Absolute 0.03 K/mm3 (0.00-0.031); Immature Granulocyte Percent A 0.5 % (0-0.5); Lymphocytes Absolute Auto 1.24 K/mm3 (0.9-3.2); Mean Corpuscular HGB Conc 33.1 g/dl (32-36); Mean Corpuscular Hemoglobin 31.3 pg (26-34); Mean Corpuscular Volume 94.4 fl (80-100); Mean Platelet Volume 9.2 fl (7.4-10.4); Monocytes Absolute Auto 0.5 K/mm3 (0.1-0.6); Neutrophils Absolute Auto 4.7 K/mm3 (1.3-6.7); Neutrophils Percent Auto 71.5 % (45.5-73.1); Platelet Count Result 235 k/mm3 (150-375); Red Blood Count 4.32 M/mm3 (4.6-6.20); Red Cell Distribution Width 13.4 % (11.5-14.5); White Blood Count 6.5 K/mm3 (4.5-10.0)
[2022-05-21 02:26] LABS: Albumin 4.2 g/dL (3.8-4.8); Alpha 1 Globulin 0.3 g/dL (0.2-0.3); Alpha 2 Globulin 0.6 g/dL (0.5-0.9); Beta 1 Globulin 0.4 g/dL (0.4-0.6); Gamma Globulin 0.9 g/dL (0.8-1.7); Protein, Total 6.7 g/dL (6.1-8.1)
[2022-05-21 22:51] LABS: Total Protein/Creatinine Ratio 117 mg/g creat (25-148)
== END 2022-05-16 14:39 | disposition home or self-care (01) ==
LOC: ANHLAB 14:44
PROVIDERS: PCP Internal Medicine; Visit Provider Internal Medicine
DX: R63.4 Abnormal weight loss (principal); D64.9 Anemia, unspecified
CPT/HCPCS: 36415; 82570; 84155; 84156; 84165; 84166; 85025

== ENCOUNTER 2022-06-01 13:04 | Observation (INO) | payer MEDICARE, SELFPAY ==
--- NOTE | ~2022-06-01 | CT_ITS ---
EXAMINATION: CT cervical spine wo con DATE: 06/01/2022 13:56 INDICATION: Fall with head injury TECHNIQUE: Computed tomography (CT) of the cervical spine was performed without intravenous contrast. Automated exposure control and iterative reconstruction technique were employed. The dose-length pro duct was 334.59 mGy-cm. COMPARISON: None FINDINGS: Straightening of the normal cervical lordosis. 3 mm anterolisthesis C4 on C5, 2 mm anterolisthesis C7 on T1 and T1-2 millimeters retrolisthesis C6 on C7. Vertebral body heights are normal. No fractures. Severe disc height loss with degenerative endplate changes at C3-C4, moderate to severe disc height loss at C5-C6 and C6-C7. Moderate disc height loss at C4-C5 and C7-T1 and mild disc height loss at C2 -C3. Posterior disc osteophyte complexes resulting in mild central canal stenosis at C3-C4, C5-C6 and C6-C7. Multilevel severe bilateral cervical facet and uncovertebral osteoarthritis. This contributes to moderate neural foraminal stenosis at the majority of the levels on both the left and right sides of the cervical spine. Atherosclerotic calcification at the bilateral carotid bulbs. Cervical soft t issues are otherwise unremarkable. Visualized apices of lungs are clear. IMPRESSION: 1. Severe cervical spondylosis. No acute osseous abnormality. Reviewed, dictated and finalized at location B.
--- NOTE | ~2022-06-01 | CT_ITS ---
EXAMINATION: CT brain wo con DATE: 06/01/2022 13:55 INDICATION: Fall with headache and dizziness TECHNIQUE: Computed tomography (CT) of the head was performed without intravenous contrast. Sagittal and coronal reconstructions were performed. The mA was adjusted according to patient size. Iterative reconstruction technique was employed. The dose-length product was 605.33 mGy-cm. COMPARISON: head CT dated 04/21/2004 FINDINGS: Again seen are postoperative change of prior right temporal craniotomy with aneurysm clip along the c ourse of the right middle cerebral artery at the sylvian fissure. No fracture. No acute intracranial hemorrhage, acute infarction or abnormal extra axial fluid collection. There is mild scattered white matter hypoattenuation consistent with chronic small vessel ischemic disease. Ventricles are normal a nd symmetric. No mass/mass effect. The orbits, paranasal sinuses and mastoid air cells are normal. IMPRESSION: 1. No fracture or acute intracranial process. 2. Chronic postoperative of right temporal craniotomy and likely right middle cerebral artery aneurys m clipping. Reviewed, dictated and finalized at location B. IMPRESSION: 1. No fracture or acute intracranial process. 2. Chronic postoperative of right temporal craniotomy and likely right middle c erebral artery aneurysm clipping.
--- NOTE | ~2022-06-01 | XR_ITS ---
XR chest 1V portable DATE: 06/01/2022 19:02 INDICATION: Right-sided paralysis. Weakness. L4 fracture. TECHNIQUE: Portable AP chest on 06/18/2022 0856 hours COMPARISON: 12/27/2021 CTA chest FINDINGS: Normal heart size. Aortic calcification of hilar or mediastinal enlargement. No pulmonary infiltrate or consolidation, pleural effusion or pulmonary vascular congestion or pneumo thorax. There is dextroscoliosis and degenerative spurring of the thoracic spine. There is severe osteoarthritic change at both glenohumeral joints. Plate and screws of left humeral s haft. IMPRESSION: No active cardiopulmonary disease Reviewed, dictated and finalized at location A.
--- NOTE | ~2022-06-01 | US_ITS ---
EXAMINATION:US venous doppler LE BI INDICATION:Weakness of the legs TECHNIQUE: Multiple grayscale, color flow and Doppler images of the right and left lower extremity de ep venous systems were obtained and reviewed. COMPARISON:No prior studies for comparison. FINDINGS: The common femoral, superficial femoral and popliteal veins demonstrate normal respiratory variation, augmentation and compressibility. Color flow is also seen within the posterior tibial, pe roneal, greater saphenous and profunda veins. IMPRESSION: 1: No lower extremity deep venous thrombosis. Reviewed, dictated and finalized at location A.
--- NOTE | ~2022-06-01 | CT_ITS ---
EXAMINATION: CT lumbar spine wo con DATE: 06/01/2022 13:56 INDICATION: Low back pain. Fall. TECHNIQUE: Computed tomography (CT) of the lumbar spine was performed without intravenous contrast. A utomated exposure control and iterative reconstruction technique were employed. The dose-length produ ct was 596.88 mGy-cm. COMPARISON: None FINDINGS: There is 15 degrees levoscoliosis of lumbar spine. There are chronic bilateral L5 pars defe cts. There is 6 mm anterolisthesis of L5 on S1. There is 3 mm retrolisthesis of T12 on L1 and L4 on L 5. There is mild chronic anterior wedging of T12 and L1 vertebral bodies. There is severely decreased disc height from T12-L1 through L5-S1 with endplate remodeling. The following disc levels are specif ically discussed: L1-L2: The disc is bulging. There is severe bilateral facet joint osteoarthritis. There is moderate b ilateral neural foraminal stenosis. There is mild central canal stenosis. L2-L3: The disc is bulging. There is severe bilateral facet joint osteoarthritis. There is moderate b ilateral neural foraminal stenosis. There is mild central canal stenosis. L3-L4: The disc is bulging. There is moderate right and severe left facet joint osteoarthritis. There is moderate bilateral neural foraminal stenosis. There is mild central canal stenosis. L4-L5: The disc is bulging. There is severe bilateral facet joint osteoarthritis. There is moderate b ilateral neural foraminal stenosis. There is mild central canal stenosis. L5-S1: The disc is bulging. There is severe bilateral facet joint osteoarthritis. There is moderate b ilateral neural foraminal stenosis. There is mild central canal stenosis. IMPRESSION: 1. Severe lumbar spondylosis. 2. Lumbar levoscoliosis. 3. Chronic bilateral L5 pars defects with grade 1 anterolisthesis of L5 on S1. Reviewed, dictated and finalized at location A.
--- NOTE | ~2022-06-01 | US_ITS ---
EXAMINATION: US carotid duplex BI DATE: 06/02/2022 08:38 INDICATION: Syncope TECHNIQUE: Grayscale, color Doppler, and pulsed Doppler images of the cervical carotid arteries were obtained. The degree of vessel stenosis is placed in one of the following categories: normal, <50%, 5 0-69%, >=70% but less than near-occlusion, near-occlusion, or total occlusion. Note that percent sten osis relative to normal distal artery lumen diameter is indirectly measured from velocity measurement s as described by Manjeet, et al. Radiology 2003; 229:340-346. Notes: Normal: Peak systolic velocity <125 centimeters/sec and no plaque <50%. Peak systolic velocity <125 ( EDV <40; ICA/CCA PSV ratio <2.0; used these factors only a tandem lesions or low cardiac output or co ntralateral disease) 50-69 %: PSV 125-230 (EDV 40-100; ratio 2-4) >= 70% but less than near occlusion: PSV greater than 230 (EDV > 100; ratio> 4.0) Near Occlusion: PSV that is variable; markedly narrowed lumen Occlusion: Absent flow on color/spectral Doppler and no lumen on zapien scale. COMPARISON: None. FINDINGS: RIGHT: The right common carotid artery (CCA) peak systolic velocity (PSV) is 83 cm/s. The right internal car otid artery (ICA) PSV is 71 cm/s. The right ICA end-diastolic velocity (EDV) is 27 cm/s. The right IC A/CCA PSV ratio is 0.9. The external carotid artery (ECA) PSV is 122 cm/s. There is antegrade flow in the right vertebral artery. LEFT: The left CCA PSV is 82 cm/s. The left ICA PSV is 77 cm/s. The left ICA EDV is 27 cm/s. The left ICA/C CA PSV ratio is 0.9. The ECA PSV is 142 cm/s. There is antegrade flow in the left vertebral artery. IMPRESSION: 1. Less than 50% stenosis in the right internal carotid artery by sonographic criteria. 2. Less than 50% stenosis in the left internal carotid artery by sonographic criteria. Reviewed, dictated and finalized at location A. IMPRESSION: 1. Less than 50% stenosis in the right internal carotid artery by sonographic louis nieves. 2. Less than 50% stenosis in the left internal carotid artery by sonographic braeden judd.
[2022-06-01 13:03] VITALS: BP 133/83; PULSE 71; RESP 20; TEMP 36.6; O2SAT 100
--- NOTE | 2022-06-01 13:08 | ECG_ITS ---
Measurements Intervals [place] Rate: 68 P: 53 CA: 236 QRS: 6 QRSD: 103 T: 17 QT: 264 QTc: 282 Interpretive Statements SINUS RHYTHM WITH FIRST DEGREE AV BLOCK NONSPECIFIC T-WAVE ABNORMALITY- INFERIOR LEADS BASELINE ARTIFACT- V3 BORDERLINE ECG COMPARED TO ECG 10/05/2020 15:52:56 T-WAVE ABNORMALITY NOW PRESENT Electronically Signed On 06-01-2022 13:29:35 CDT by Carlos Caal D.O.
--- NOTE | 2022-06-01 13:09 | ED.FALL ---
HPI - Fall General Chief Complaint: Fall Stated Complaint: fall Time Seen by Provider: 06/01/22 13:09 Source: patient, family and EMS Mode of arrival: EMS Limitations: no limitations History of Present Illness HPI Narrative: Patient is a 67-year-old male with a history of hypertension, hyperlipidemia, peripheral vascular disease, CVA with chronic left-sided weakness, presenting to the emergency department for evaluation of recent syncopal event and head trauma. Patient presents emergency department after visiting his primary care physician's office for syncopal event with fall and head trauma. On Sunday, patient states he walked into his bathroom when he lost consciousness, causing himself to hit his head on the toilet. Patient with unknown time of loss of consciousness. This was not witnessed. Patient states that since that time he has had increased weakness in the lower extremities due to back pain. Patient reports middle lower back pain which is aching in nature and worsened with movement. He denies difficulty with bowel or bladder function. He reports mild headache without vision changes, nausea, vomiting. He reports mild neck pain. Patient denies upper extremity pain, hip pain or pelvic pain. Patient was seen by his primary care physician and found to be hypotensive, blood pressure noted to be 80s/40s in office, reporting L4 midline lumbar pain. Patient takes a daily aspirin, no anticoagulation. Related Data Home Medications Medication Instructions Recorded Confirmed aspirin 81 mg tablet 81 mg PO DAILY 08/10/21 08/17/21 atorvastatin 20 mg tablet 20 mg PO DAILY 08/10/21 08/17/21 benzonatate 100 mg capsule 100 mg PO TID PRN Cough 08/10/21 08/17/21 calcium carbonate 600 mg-vitamin 1 tablet PO DAILY 08/10/21 08/17/21 D3 5 mcg (200 unit) tablet donepezil 10 mg tablet 10 mg PO DAILY 08/10/21 08/17/21 ergocalciferol (vitamin D2) 50,000 50,000 unit PO WEEKLY 08/10/21 08/17/21 unit tablet escitalopram oxalate 20 mg tablet 20 mg PO DAILY 08/10/21 08/17/21 krill oil 500 mg capsule 500 mg PO DAILY 08/10/21 08/17/21 lisinopril 20 1 tablet PO DAILY 08/10/21 08/17/21 mg-hydrochlorothiazide 12.5 mg tablet metoprolol succinate 100 mg 100 mg PO DAILY 08/10/21 08/17/21 tablet,extended release 24 hr multivitamin with minerals-folic 1 tablet PO DAILY 08/10/21 08/17/21 acid 0.4 mg tablet omeprazole 20 mg capsule,delayed 20 mg PO DAILY 08/10/21 08/17/21 release Allergies Allergy/AdvReac Type Severity Reaction Status Date / Time No Known Allergies Allergy Verified 08/17/21 07:50 Review of Systems Review of Systems: CONSTITUTIONAL: Denies fever, chills, or sweats. EYES: Denies visual changes, redness, or discharge. ENT: Denies rhinorrhea, congestion, sore throat, or otalgia. CARDIOVASCULAR: Patient denies prodromal symptoms prior to the syncopal event, denies chest pain, palpitations, or edema. RESPIRATORY: Denies cough or dyspnea. GASTROINTESTINAL: Denies abdominal pain, nausea, vomiting, or diarrhea. GENITOURINARY: Denies dysuria or hematuria. SKIN: Denies rash or itching. MUSCULOSKELETAL: Reports lower back pain without other joint pain or myalgias NEUROLOGIC: Denies headache, numbness, reports chronic left upper and left lower extremity weakness, reports increasing weakness generally PMFSH Past Medical History Medical History Anxiety CVA (cerebral vascular accident) Dementia Family history of colon cancer requiring screening colonoscopy Hyperlipidemia Hypertension PVD (peripheral vascular disease) Surgical History Surgical History H/O cerebral aneurysm repair Social History Social History Smoking status: Never smoker Tobacco type: cigarettes Alcohol intake: never Spiritual care concerns: No Exam Narrative: GENERAL: Awake, a
[2022-06-01] MEDS: SODIUM CHLORIDE 0.9% IV 1,000 ML 999 ML IV CONT (13:43)
[2022-06-01 13:45] LABS: Hematocrit 36.4 % (42.0-52.0); Hemoglobin 12.4 g/dL (14.0-18.0); Mean Corpuscular HGB Conc 34.1 g/dl (32-36); Mean Corpuscular Hemoglobin 31.5 pg (26-34); Mean Corpuscular Volume 92.4 fl (80-100); Mean Platelet Volume 8.6 fl (7.4-10.4); Platelet Count Result 186 k/mm3 (150-375); Red Blood Count 3.94 M/mm3 (4.6-6.20); Red Cell Distribution Width 13.2 % (11.5-14.5); White Blood Count 9.5 K/mm3 (4.5-10.0)
--- NOTE | 2022-06-01 13:50 | PC.NURSE ---
Patient to radiology
[2022-06-01 13:59] LABS: Anion Gap 11 mmol/L (8-16); Blood Urea Nitrogen 19 mg/dL (9-20); Calcium 8.4 mg/dL (8.4-10.2); Carbon Dioxide 28 mmol/L (22-30); Chloride 96 mmol/L (98-107); Estimated CRCL calculation 92 ml/min; Estimated Glomerular Filt Rate > 60; Glucose 98 mg/dL (65-110); Potassium 3.6 mmol/L (3.4-5.0); Sodium 135 mmol/L (137-145)
[2022-06-01 14:11] LABS: Troponin I < 0.012 ng/mL (0.000-0.034)
[2022-06-01 14:21] LABS: Appearance Urine Clear (Clear); Bilirubin Urine 1+ (Negative); Blood Urine Negative (Negative); Color Urine Yellow (Yellow); Glucose Urine UA Negative (Negative); Ketones Urine 3+ mg/dL (Negative); Leukocyte Esterase Ur Negative LEU/UL (Negative); Nitrate Urine Negative (Negative); Protein Urine Trace mg/dL (Negative); Urobilinogen Urine 0.2 mg/dL (<2.0); pH Urine 6.5 (5.0-9.0)
[2022-06-01 14:29] LABS: Mucus Urine Rare /lpf; Squamous Epithelial Cell Urine Rare /hpf (Few); WBC Urine 0-3 /hpf
[2022-06-01 14:33] LABS: Band Neutrophils Percent 5 % (0-6); Lymphocytes Absolute Manual 0.57 K/mm3 (1.1-4.5); Monocytes Absolute Manual 0.85 K/mm3 (0.1-0.90); Monocytes Percent Manual 9 % (3-9); Neutrophils Absolute Manual 8.07 K/mm3 (1.3-6.7); Neutrophils Percent Manual 80 % (46-73); Platelet Estimate Decreased (Adequate); Total Cells Counted 100
[2022-06-01 14:34] LABS: Schistocytes None Seen (NORMAL)
[2022-06-01 14:46] LABS: Add Urine Microscopic? YES
[2022-06-01 17:28] VITALS: BP 109/67; PULSE 79; RESP 21; O2SAT 100
[2022-06-01 18:03] VITALS: BP 116/62; PULSE 68; RESP 18; TEMP 36.8; O2SAT 97
[2022-06-01 18:25] VITALS: BMI 21.7
--- NOTE | 2022-06-01 18:37 | ADMGEN ---
This patient, Zenon Kirkland, was admitted to [facility] Surg Room 307-01 at 1720. Patient/family oriented to hospital policies and general routines including ID bracelet, bed and alarms, visiting hours, pain management, procedures, bathroom and other care routines, personal items, smoking policy, room service/diet, and visiting hours. Information on how to activate the Rapid Response Team has been discussed. Patient/Family are encouraged to report perceived risks to care and to ask questions if they do not understand what they are told or what they should do.
[2022-06-01] MEDS: ACETAMINOPHEN 325 MG TABLET 650 MG PO (18:40)
[2022-06-01 20:00] VITALS: PULSE 76
[2022-06-01 22:00] VITALS: BP 127/74; PULSE 70; RESP 20; TEMP 37.4; O2SAT 94
[2022-06-01 22:33] VITALS: O2SAT 95
--- NOTE | 2022-06-01 23:30 | PM.IMHP ---
H&P: HPI History of Present Illness Date/Time: 06/01/22 23:30 Chief Complaint: fall Narrative: this is a 67-year-old male patient who has a history of dementia, hyperlipidemia, hypertension peripheral vascular disease and a CVA with left-sided weakness. The patient came to the emergency room due to a syncopal event and head injury. Sunday night the patient got up to the bathroom and passed out and hit his head on the toilet. He lives with his brother and [id number]. The [id number] found him on the floor and called her in to get the patient up off the floor. The patient lost consciousness and is not aware of how long he has been on the floor. However he stated that he thinks his [id number] heard him fall and came in immediately. The patient has had increased weakness and severe back pain. The patient is having difficulty moving due to the back pain. He also has a mild headache. No visual changes. No nausea vomiting or diarrhea. He is telling me that his left-sided weakness is approximately the same as what it was before. The patient is having difficulty moving his legs due to his lower back pain. The patient followed up with his primary care doctor today and he was sent to the emergency room. His H&H is 12.4 and 36.4. Sodium is 135. Chloride 96. Troponin is negative. Patient's urine is negative for UTI. CT of the cervical spine was read as severe cervical spondylosi. Lumbar spine CT was read as severe lumbar spondylosis. Lumbar levoscoliosis. Chronic bilateral L5 pars defects with grade 1 anterior anterolisthesis of L5 on S1. Head CT was read as the following1. No fracture or acute intracranial process. 2. 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 The patient is being admitted to observation status on the date of service of 06/01/2022. _ Review of Systems Review of Systems: See HPI All systems reviewed & are unremarkable except as noted in HPI and below Constitutional: Constitutional: Reports as per HPI and Reports no additional constitutional complaints Eyes: Eyes: Reports as per HPI and Reports no additional eye complaints ENT: Reports system reviewed and no additional complaints, except as documented and Reports Normal hearing present Cardiovascular: Cardiovascular: Reports no additional cardiovascular complaints Respiratory: Respiratory: Reports no additional respiratory complaints and Reports no additional respiratory complaints Gastrointestinal: Gastrointestinal: Reports as per HPI and Reports no additional gastrointestinal complaints Musculoskeletal: Musculoskeletal: Reports no additional musculoskeletal complaints Integumentary/Breasts: Skin/Breast: Reports system reviewed and no additional complaints, except as docu and Reports as per HPI Neurologic: Reports system reviewed and no additional complaints, except as documented, Reports as per HPI and Reports Normal hearing present Psychiatric: Psychiatric: Reports no additional psychiatric complaints and Reports as per HPI Endocrine: Endocrine: Reports no additional endocrine complaints Hematologic/Lymphatic: Hematologic/Lymphatic: Reports no additional hematologic/lymphatic complaints Allergic/Immunologic: Allergic/Immunologic: Reports no additional allergic/immunologic complaints [facility] Past Medical History Medical History (Updated 06/01/22 @ 23:53 by Karina Miller NP) Anxiety Chronic GERD CVA (cerebral vascular accident) Dementia Depression with anxiety Family history of colon cancer requiring screening colonoscopy Hyperlipidemia Hypertension PVD (peripheral vascular disease) Surgical History Surgical History (Updated 06/01/22 @ 23:53 by Karina Miller NP) H/O cardiac catheterization H/O cerebral aneurysm repair H/O shoulder surgery right History of colonoscopy History of removal of pigmented skin lesion History of surgery on upper extremit
[2022-06-01] MEDS: traMADol HCL (*CRX) 25 MG TABLET PO (23:50)
[2022-06-02] VITALS (13 sets, daily range): BP systolic 93–133; BP diastolic 58–75; PULSE 55–84; RESP 16; TEMP 36.4–37.1; O2SAT 95–97
--- NOTE | 2022-06-02 | ECHO_ITS ---
Patient Info Name: Zenon Kirkland Age: 67 years : 1955 Gender: Male Ht: 67 in Wt: 138 lbs BSA: 1.72 m2 HR: 60 bpm BP: 127 / 74 mmHg Technical Quality: Good Exam Date: 06/02/2022 11:04 AM Exam Location: [facility] Patient Status: Outpatient Admit Date: 06/01/2022 Staff Ordering Physician: Karina Miller NP Automatic Spreader Operator: Lesly Cano RDCS Attending Provider: Kip Keane MD Referring Physician: Paul DUPONT; Exam Type: CA echo doppler color flow Study Info Indications - POSSIBLE CVA Complete two-dimensional, color flow and Doppler transthoracic echocardiogram is performed. Summary 1. Complete two-dimensional, color flow and Doppler transthoracic echocardiogram is performed. 2. Left ventricular chamber dimension is normal. 3. Left ventricular systolic function is normal, estimated at 60-65%. 4. The left ventricular diastolic function is normal. 5. E/e' 5 is not elevated. 6. Global longitudinal strain is normal at -19.8%. 7. Right ventricular chamber dimension is mildly enlarged. 8. Right ventricular systolic function is mildly reduced and with abnormal TAPSE 1.6 cm. 9. There is moderate aortic valve sclerosis. 10. There is mild to moderate aortic valve regurgitation. 11. There is mild tricuspid valve regurgitation. 12. No pulmonary hypertension, estimated pulmonary arterial systolic pressure is 38 mmHg. 13. There is mild pulmonic regurgitation. 14. Dilated inferior vena cava with >50% collapse upon inspiration consistent with elevated right atrial pressure, 10 mmHg. Left Ventricle E/e' 5 is not elevated. Global longitudinal strain is normal at -19.8%. Left ventricular chamber dimension is normal. Left ventricular systolic function is normal, estimated at 60-65%. The left ventricular diastolic function is normal. Right Ventricle Right ventricular systolic function is mildly reduced and with abnormal TAPSE 1.6 cm. Right ventricular chamber dimension is mildly enlarged. Left Atria Left atrial chamber dimension is normal. Right Atria Right atrial chamber dimension is normal. Aortic Valve The aortic valve is trileaflet. There is moderate aortic valve sclerosis. There is no aortic valve stenosis. There is mild to moderate aortic valve regurgitation. Pulmonic Valve There is mild pulmonic regurgitation. Mitral Valve There is no mitral valve stenosis. There is no mitral valve regurgitation. Tricuspid Valve There is mild tricuspid valve regurgitation. No pulmonary hypertension, estimated pulmonary arterial systolic pressure is 38 mmHg. Pericardium/Pleural There is no pericardial effusion. Inferior Vena Cava Dilated inferior vena cava with >50% collapse upon inspiration consistent with elevated right atrial pressure, 10 mmHg. Aorta The aortic root size at the sinus of Valsalva is normal. Left Ventricular Outflow Tract Name Value Normal LVOT 2D LVOT Diameter 2.2 cm LVOT Doppler LVOT Peak Gradient 5 mmHg LVOT Mean Gradient 3 mmHg LVOT VTI 23 cm
[2022-06-02 01:11] LABS: SARS-CoV-2 RNA PCR Negative
[2022-06-02] MEDS: traMADol HCL (*CRX) 25 MG TABLET PO (06:32)
[2022-06-02 06:36] LABS: Basophils Percent Auto 0.1 % (0.2-1.2); Hematocrit 32.9 % (42.0-52.0); Hemoglobin 11.3 g/dL (14.0-18.0); Immature Granulocyte Absolute 0.05 K/mm3 (0.00-0.031); Immature Granulocyte Percent A 0.6 % (0-0.5); Lymphocytes Absolute Auto 0.51 K/mm3 (0.9-3.2); Lymphocytes Percent Auto 6.5 % (18.3-44.2); Mean Corpuscular HGB Conc 34.3 g/dl (32-36); Mean Corpuscular Hemoglobin 31.4 pg (26-34); Mean Corpuscular Volume 91.4 fl (80-100); Mean Platelet Volume 8.9 fl (7.4-10.4); Monocytes Absolute Auto 1.1 K/mm3 (0.1-0.6); Monocytes Percent Auto 13.5 % (2.6-8.5); Neutrophils Absolute Auto 6.2 K/mm3 (1.3-6.7); Neutrophils Percent Auto 79.3 % (45.5-73.1); Platelet Count Result 171 k/mm3 (150-375); Red Cell Distribution Width 13.5 % (11.5-14.5); White Blood Count 7.8 K/mm3 (4.5-10.0)
[2022-06-02 07:29] LABS: Alanine Aminotransferase 19 U/L (6-50); Albumin Level 3.6 g/dL (3.5-5.1); Alkaline Phosphatase 44 U/L (38-126); Anion Gap 7 mmol/L (8-16); Aspartate Amino Transferase 26 U/L (17-59); Bilirubin,Total 0.7 mg/dL (0.2-1.3); Blood Urea Nitrogen 13 mg/dL (9-20); Carbon Dioxide 29 mmol/L (22-30); Chloride 98 mmol/L (98-107); Estimated CRCL calculation 80 ml/min; Estimated Glomerular Filt Rate > 60; Glucose 113 mg/dL (65-110); Magnesium 1.9 mg/dL (1.6-2.3); Potassium 3.3 mmol/L (3.4-5.0); Sodium 134 mmol/L (137-145)
--- NOTE | 2022-06-02 08:38 | PM.IMPN ---
Progress Note: A&P Assessment and Plan (1) Syncope: Code(s): R55 - Syncope and collapse Status: Acute Assessment and Plan: - MRI cancelled due to cerebral aneurysm clips - pt unsure whether or not the fall caused LOC or if he lost consciousness and then fell. - The CT of the brain is normal. - patient is on telemetry at this time. - echo has been ordered and waiting results - Carotid Doppler revealed <50% stenosis in both carotids - Venous Doppler negative for DVT (2) Weakness: Code(s): R53.1 - Weakness Status: Acute Assessment and Plan: - PT OT evaluation ordered - The patient does walk with a 4 pronged cane. - patient has a history of dementia it could be part of his dementia. - neurology has been consulted. - the patient has been complaining of lower back pain neurosurgery has been consulted for his back pain. - critical care unit nurse has been consulted for possible rehab. - continue holding his atorvastatin and hydrochlorothiazide for now due to his weakness. (3) Falls frequently: Code(s): R29.6 - Repeated falls Status: Acute Assessment and Plan: -Neurosurgery has been consulted for back pain -MRI has been cancelled due cerebral aneurysm clippings (4) Back pain: Code(s): M54.9 - Dorsalgia, unspecified Status: Acute Assessment and Plan: -pt has significant back pain since falling -pt unable to roll on his side, sit up, or move legs without eliciting pain -pt denies lower extremity numbness and tingling -pt states that he did not have back pain before his fall and did not taking any pain medication at home. pt discussed with hospitalist yesterday that he has chronic lower back pain but when asked today pt stated that he does not and that this back pain is a new problem. (5) Hyperlipidemia: Code(s): E78.5 - Hyperlipidemia, unspecified Status: Acute Assessment and Plan: - continue holding his atorvastatin for now due to his weakness. (6) CVA (cerebral vascular accident): Code(s): I63.9 - Cerebral infarction, unspecified Status: Acute Assessment and Plan: -The patient stated that he had an old CVA that affected his left side. -The patient has some mild weakness to his left upper and left lower extremity. (7) Anxiety: Code(s): F41.9 - Anxiety disorder, unspecified Status: Acute Assessment and Plan: -continue with Lexapro. (8) Dementia: Code(s): F03.90 - Unspecified dementia, unspecified severity, without behavioral disturbance, psychotic disturbance, mood disturbance, and anxiety Status: Acute Assessment and Plan: -Continue with Aricept (9) Hypertension: Code(s): I10 - Essential (primary) hypertension Status: Acute Assessment and Plan: - continue lisinopril - holding hydrochlorothiazide Time Spent With Patient Time with patient: Greater than 35 minutes Subjective Date/time seen: 06/02/22 08:38 Interval history: Patient laying in bed and appears to be in discomfort. Review of Systems Constitutional: Constitutional: Reports as per HPI, Denies body ache(s), Denies chills, Denies fatigue and Denies lethargy Eyes: Eyes: Reports no additional eye complaints ENT: Reports system reviewed and no additional complaints, except as documented, Reports Normal hearing present, Denies dysphagia and Denies nasal congestion Cardiovascular: Cardiovascular: Reports no additional cardiovascular complaints, Denies chest pain, Denies pedal edema, Denies leg edema and Denies lightheadedness Respiratory: Respiratory: Reports no additional respiratory complaints, Reports no additional respiratory complaints, Denies cough, Denies dyspnea and Denies dyspnea on exertion Gastrointestinal: Gastrointestinal: Reports as per HPI, Reports no additional gastrointestinal complaints, Denies abdominal pain, Denie
[2022-06-02 08:50] LABS: Thyroid Stimulating Hormone Reflex 0.993 uIU/mL (0.465-4.68)
[2022-06-02] MEDS: ASPIRIN 81 MG CHEWABLE TABLET PO (09:04)
[2022-06-02] MEDS: PANTOPRAZOLE 40 MG TABLET PO (09:04)
[2022-06-02] MEDS: METOPROLOL SUCCINATE EXT REL 100 MG TABCR PO (09:04)
[2022-06-02] MEDS: ACETAMINOPHEN 325 MG TABLET 650 MG PO (09:04)
[2022-06-02] MEDS: lisinopriL 20 MG TABLET PO (09:04)
[2022-06-02] MEDS: THERAPEUTIC MULTIVITAMINS/MINERALS TAB (*BKC) 1 TABLET PO (09:04)
[2022-06-02] MEDS: DONEPEZIL HCL 10 MG TABLET PO (09:04)
[2022-06-02] MEDS: ESCITALOPRAM OXALATE 10 MG TABLET 20 MG PO (09:04)
[2022-06-02] MEDS: POTASSIUM CHLORIDE 20 MEQ TABLET 40 MEQ PO (09:05)
--- NOTE | 2022-06-02 10:08 | WPDNEURCNPN ---
Assessment and Plan Assessment and plan (1) Back pain: Code(s): M54.9 - Dorsalgia, unspecified Status: Acute (2) CVA (cerebral vascular accident): Code(s): I63.9 - Cerebral infarction, unspecified Status: Acute (3) Weakness: Code(s): R53.1 - Weakness Status: Acute Plan considering the syncopal episode at home in addition to the history of previous cerebrovascular accident and there is no evidence of any acute fracture physical therapy will be involved with improved the generalize condition and weakness Consult date: 06/02/22 HPI: Zenon Kirkland is a 67 year old male admitted to the hospital through the emergency room for the complaints of recent syncopal episode with head trauma. Patient carries the diagnosis of 1. Hypertension 2. Hyperlipidemia 3. Peripheral vascular disease 4. Cerebrovascular accident with chronic left-sided weakness on Sunday the patient walk due in to his bathroom when he became unconscious for unclear time and was not witnessed by anyone he was noted to have increasing weakness in the lower extremities with the complaints of low back pain mainly located in the middle lower back aching in nature and worse with the movements without difficulties in bowel or bladder control also complained of mild headache without any visual difficulties initially was seen by his primary care physician where he was found to be hypotensive with blood pressure in 80s in 40s in the office and complaining of midline lumbar pain his medications included aspirin 81 mg daily donepezil 10 mg daily [place] rope REM 20 mg daily and metoprolol 100 mg daily. [facility] Past Medical History Medical History (Updated 06/02/22 @ 10:56 by Jonna Christine PA-C) Anxiety Chronic GERD CVA (cerebral vascular accident) Dementia Depression with anxiety Family history of colon cancer requiring screening colonoscopy Hyperlipidemia Hypertension PVD (peripheral vascular disease) Surgical History Surgical History (Updated 06/01/22 @ 23:53 by Karina Miller NP) H/O cardiac catheterization H/O cerebral aneurysm repair H/O shoulder surgery right History of colonoscopy History of removal of pigmented skin lesion History of surgery on upper extremity last Family History Family History (Updated 06/01/22 @ 23:44 by Karina Miller NP) Unknown Family history unknown Social History Social History (Updated 06/01/22 @ 23:52 by Karina Miller NP) Social History: the patient stated that he lives with his brother and [id number]-qk-qcp. His trbzpm-ly-shl Ginny is the durable power business attorney for health care for him. The patient is and has no children. 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 The patient is a former smoker and quit several years ago. He states that he does not use alcohol marijuana or any other illicit drugs. Code status full code Smoking status: Former smoker Alcohol intake: never Substance use: never Has the Lack of Transportation Kept You From Medical Appointments or From Getting Medications?: No Within the Past 12 Months, Were You Worried Whether Your Food Would Run Out Before You Got Money to Buy More?: Never True What is Your Housing Situation Today?: I Have Housing Are You Worried That in the Next 2 Months, You May Not Have Your Own Housing to Live In?: No Do You Have Trouble Paying Your Heating Or Electricity Bill?: No Do You Have Trouble Paying For Medicines?: No Are You Currently Unemployed and Looking for Work?: No Highest Level of Education Completed: Trade/Vocational Certificate Do You Have Trouble With Childcare or the Care of a Family Member?: No Spiritual care concerns: No Meds Home Medications and Allergies Home Medications Medication Instructions Recorded Confirmed Type aspirin 81 mg tablet 81 mg PO DAILY 08/10/21 06/01/22 History atorvastatin 20 mg tablet 20 mg PO DAILY 08/10/21 06/01/22 History benzonatate 100 mg capsule
--- NOTE | 2022-06-02 12:36 | WPDNEUROSGPN ---
Subjective Date/time seen: 06/02/22 12:36 Called regarding Mr. Kirkland due to a fall at home with a history of prior CVA Patient had what sounds like a syncopal episode at home Presents with axial back pain CT Head shows chronic findings with known history of aneurysm clipping CT cervical and lumbar spine show significant multilevel spondylotic changes but without acute fracture or changes concerning for acute stenosis Patient notes back pain (per hospitalist team who I spoke with today and ED notes) but does not have focal deficits. ED records document > 4/5 strenght in lower extremities limited in terms of ROM by back pain but per hospitalist dina has intact strength when in bed Agree with plans for control of back pain with mobilization with PT and OT Agree with plans for neurology consultation Patient unable to have MRI due to history of aneurysm clipping If jacquelynnet does not mobilize with PT or has worsening of symptoms please contact the neurosurgery team. I am happy to see patient or give additioal input if necessary. On discussion with hospitalist team we agreed that they would work to manage the patient's symtpoms and reconsult if there were concern for neurological deficts requiring consultation Objective Data Vital Signs Vital Signs: Vital Signs - 24 hr 06/01/22 13:03 06/01/22 17:28 06/01/22 18:03 Temperature 97.8 F 98.2 F Pulse Rate 71 79 68 Respiratory Rate 20 21 H 18 Blood Pressure 133/83 109/67 116/62 Pulse Oximetry 100 100 97 Oxygen Delivery Room Air 06/01/22 20:00 06/01/22 22:00 06/02/22 00:00 Temperature 99.4 F Pulse Rate 76 70 79 Respiratory Rate 20 Blood Pressure 127/74 Pulse Oximetry 94 Oxygen Delivery 06/01/22 22:33 06/02/22 04:00 06/02/22 06:00 Temperature 98.4 F Pulse Rate 84 76 Respiratory Rate 16 Blood Pressure 133/75 Pulse Oximetry 95 95 Oxygen Delivery Room Air 06/02/22 09:04 Temperature Pulse Rate 76 Respiratory Rate Blood Pressure Pulse Oximetry Oxygen Delivery Intake/Output Intake/Output: Intake & Output 05/30/22 05/31/22 06/01/22 06/02/22 23:59 23:59 23:59 23:59 Intake Total 1000 340 Output Total 1070 Balance 1000 -730 Meds/Results Medications: Active Medications Generic Name Dose Route Start Last Admin Trade Name Freq PRN Reason Stop Dose Admin Acetaminophen 650 mg 06/01/22 16:16 06/02/22 09:04 Acetaminophen 325 Mg Tablet PO 650 mg Q4H PRN Administration Mild Pain (1-3) or Fever Hydrocodone Bitart/Acetaminophen 1 tab 06/02/22 10:39 Hydrocodone/Acetaminophen (*Crx) 5-325 Mg Tablet PO Q4H PRN Pain Rated 7 or Greater Aspirin 81 mg 06/02/22 08:00 06/02/22 09:04 Aspirin 81 Mg Chewable Tablet PO 81 mg DAILY@0800 [facility] Administration Benzonatate 100 mg 06/01/22 23:26 Benzonatate 100 Mg Capsule PO TID PRN Cough Calcium Carbonate 500 mg 06/02/22 09:00 06/02/22 09:04 Calcium/Vitamin D 500 Mg Tablet PO 500 mg QAM [facility] Administration Donepezil HCl 10 mg 06/02/22 09:00 06/02/22 09:04 Donepezil Hcl 10 Mg Tablet PO 10 mg DAILY [facility] Administration Escitalopram Oxalate 20 mg 06/02/22 09:00 06/02/22 09:04 Escitalopram Oxalate 10 Mg Tablet PO 20 mg DAILY [facility] Administration Lisinopril 20 mg 06/02/22 09:00 06/02/22 09:04 Lisinopril 20 Mg Tablet PO 20 mg QAM [facility] Administration Metoprolol Succinate 100 mg 06/02/22 09:00 06/02/22 09:04 Metoprolol Succinate Ext Rel 100 Mg Tabcr PO 100 mg DAILY [facility] Administration Miscellaneous Information 0 each 06/01/22 23:50 Ergocalciferol- What Day Of The Week Does The Patient Take Vitamin-D? XX 07/01/22 23:49 CLARIFY [facility] Multivitamins/Calcium 1 tablet 06/02/22 09:00 06/02/22 09:04 Therapeutic Multivitamins/Minerals Tab (*Bkc) PO 1 tablet DAILY [facility] Administration Non-Formulary Medication 50,000 unit 06/08/22 09:00 Ergocalciferol (Vitamin D2) PO 07/08/22
[2022-06-02] MEDS: ONDANSETRON INJ 4 MG/2 ML VIAL IV PUSH (16:45)
[2022-06-02] MEDS: HYDROcodone/acetaminophen (*CRX) 5-325 MG TABLET 1 TAB PO (19:37)
[2022-06-02] MEDS: TIZANIDINE HCL 2 MG TABLET PO (19:37)
[2022-06-03] VITALS (11 sets, daily range): BP systolic 91–173; BP diastolic 52–81; PULSE 44–66; RESP 14–16; TEMP 36.6–37.4; O2SAT 95–99
[2022-06-03] MEDS: HYDROcodone/acetaminophen (*CRX) 5-325 MG TABLET 1 TAB PO ×2 (01:05→13:45)
[2022-06-03 06:46] LABS: Hematocrit 31.3 % (42.0-52.0); Hemoglobin 10.3 g/dL (14.0-18.0); Mean Corpuscular HGB Conc 32.9 g/dl (32-36); Mean Corpuscular Hemoglobin 31.1 pg (26-34); Mean Corpuscular Volume 94.6 fl (80-100); Mean Platelet Volume 9.2 fl (7.4-10.4); Platelet Count Result 166 k/mm3 (150-375); Red Blood Count 3.31 M/mm3 (4.6-6.20); Red Cell Distribution Width 13.6 % (11.5-14.5); White Blood Count 8.5 K/mm3 (4.5-10.0)
[2022-06-03 06:49] LABS: Anion Gap 7 mmol/L (8-16); Blood Urea Nitrogen 18 mg/dL (9-20); Carbon Dioxide 30 mmol/L (22-30); Chloride 97 mmol/L (98-107); Estimated CRCL calculation 70 ml/min; Estimated Glomerular Filt Rate > 60; Glucose 154 mg/dL (65-110); Magnesium 2.1 mg/dL (1.6-2.3); Potassium 3.5 mmol/L (3.4-5.0); Sodium 134 mmol/L (137-145)
[2022-06-03] MEDS: THERAPEUTIC MULTIVITAMINS/MINERALS TAB (*BKC) 1 TABLET PO (08:56)
[2022-06-03] MEDS: traMADol HCL (*CRX) 25 MG TABLET PO (08:56)
[2022-06-03] MEDS: lisinopriL 20 MG TABLET PO (08:56)
[2022-06-03] MEDS: ESCITALOPRAM OXALATE 10 MG TABLET 20 MG PO (08:56)
[2022-06-03] MEDS: DONEPEZIL HCL 10 MG TABLET PO (08:56)
[2022-06-03] MEDS: PANTOPRAZOLE 40 MG TABLET PO (08:56)
[2022-06-03] MEDS: ASPIRIN 81 MG CHEWABLE TABLET PO (08:56)
[2022-06-03] MEDS: TIZANIDINE HCL 2 MG TABLET PO (10:05)
--- NOTE | 2022-06-03 15:29 | PM.IMPN ---
Progress Note: A&P Assessment and Plan (1) Syncope: Code(s): R55 - Syncope and collapse Status: Acute (2) Weakness: Code(s): R53.1 - Weakness Status: Acute (3) Falls frequently: Code(s): R29.6 - Repeated falls Status: Acute (4) Back pain: Code(s): M54.9 - Dorsalgia, unspecified Status: Acute (5) Hyperlipidemia: Code(s): E78.5 - Hyperlipidemia, unspecified Status: Acute (6) CVA (cerebral vascular accident): Code(s): I63.9 - Cerebral infarction, unspecified Status: Acute (7) Anxiety: Code(s): F41.9 - Anxiety disorder, unspecified Status: Acute (8) Dementia: Code(s): F03.90 - Unspecified dementia, unspecified severity, without behavioral disturbance, psychotic disturbance, mood disturbance, and anxiety Status: Acute (9) Hypertension: Code(s): I10 - Essential (primary) hypertension Status: Acute Plan 06/02/22 - MRI cancelled due to cerebral aneurysm clips - pt unsure whether or not the fall caused LOC or if he lost consciousness and then fell. - The CT of the brain is normal. - patient is on telemetry at this time. - echo has been ordered and waiting results - Carotid Doppler revealed <50% stenosis in both carotids - Venous Doppler negative for DVT - PT OT evaluation ordered - The patient does walk with a 4 pronged cane. - patient has a history of dementia it could be part of his dementia. - neurology has been consulted. - the patient has been complaining of lower back pain neurosurgery has been consulted for his back pain. - daytime caregiver has been consulted for possible rehab. - continue holding his atorvastatin and hydrochlorothiazide for now due to his weakness. -Neurosurgery has been consulted for back pain -MRI has been cancelled due cerebral aneurysm clippings -pt has significant back pain since falling -pt unable to roll on his side, sit up, or move legs without eliciting pain -pt denies lower extremity numbness and tingling -pt states that he did not have back pain before his fall and did not taking any pain medication at home.? pt discussed with hospitalist yesterday that he has chronic lower back pain but when asked today pt stated that he does not and that this back pain is a new problem. - continue holding his atorvastatin for now due to his weakness. -The patient stated that he had an old CVA that affected his left side.? -The patient has some mild weakness to his left upper and left? lower extremity. -continue with Lexapro. ?-Continue with Aricept - continue lisinopril - holding hydrochlorothiazide 06/03/22 control of back pain diazepam x1 methocarbamo and ibuprofenl TID, norco and percocet PRN morphine IV x breakthrough mobilization with PT and OT neurology consultation appreciated Patient unable to have MRI due to history of aneurysm clipping is having R sided pain w plantar extension Subjective Date/time seen: 06/03/22 15:29 patient reporting severe back pain and controlled with tramadol and tizanidine Exam Narrative: GEN: NAD, AAOx3, cooperative HEENT: NCAT, MMM, EOMI Neck: no JVD Heart: S1S2 RRR Lungs: CTA B/l Abd: soft, NT, ND, bowel sounds normoactive Ext: moves all, no cyanosis, no clubbing, no edema, pain with movement Neuro: cognition intact, no focal neurological deficits Psych: mood reduced, affect congruent flattened, poor eye contact Objective Data Vital Signs Vital Signs: Vital Signs - 24 hr 06/02/22 16:00 06/02/22 19:40 06/02/22 19:42 Temperature Pulse Rate 73 Respiratory Rate Blood Pressure 102/69 103/70 Pulse Oximetry Oxygen Delivery 06/02/22 19:45 06/02/22 20:08 06/02/22 20:00 Temperature 98.7 F Pulse Rate 60 60 Respiratory Rate 16 16 Blood Pressure 93/75 L 102/69 Pulse Oximetry 96 96 Oxygen Delivery Room Air 06/02/22 20:00 06/03/22 00:00 06/03/22 05:18 Temperature 97.9 F Pulse Rate 57 L 66 60 Respiratory Ra
[2022-06-03] MEDS: oxyCODONE/ACETAMINOPHEN (*CRX) 5-325 MG TABLET 1 TABLET PO (16:50)
[2022-06-03] MEDS: diazePAM (*CRX) 5 MG TABLET PO (16:50)
[2022-06-03] MEDS: IBUPROFEN 400 MG TABLET 800 MG PO (16:50)
[2022-06-03] MEDS: methocarbamoL 750 MG TABLET PO (22:03)
[2022-06-04] VITALS (11 sets, daily range): BP systolic 94–138; BP diastolic 62–76; PULSE 47–66; RESP 14–21; TEMP 36.6–37.9; O2SAT 97–100
--- NOTE | 2022-06-04 01:14 | PC.NURSE ---
Daylight Savings Time For Daylight Savings Time Ending in the Fall - Clocks are moved back. For Daylight Savings Time Beginning in the Spring - Clocks are moved ahead. For [facility], the time of change occurs at 0200 hrs. Time is taken from the service observer chief. This entry on the patient's chart recognizes the change in time reflected during documentation. Example: 2 entries for vital signs may be charted for 0200 hrs.
[2022-06-04] MEDS: oxyCODONE/ACETAMINOPHEN (*CRX) 5-325 MG TABLET 1 TABLET PO (04:20)
[2022-06-04] MEDS: IBUPROFEN 400 MG TABLET 800 MG PO ×3 (08:21→17:31)
[2022-06-04] MEDS: THERAPEUTIC MULTIVITAMINS/MINERALS TAB (*BKC) 1 TABLET PO (08:22)
[2022-06-04] MEDS: ASPIRIN 81 MG CHEWABLE TABLET PO (08:22)
[2022-06-04] MEDS: DONEPEZIL HCL 10 MG TABLET PO (08:23)
[2022-06-04] MEDS: methocarbamoL 750 MG TABLET PO ×4 (08:23→22:05)
[2022-06-04] MEDS: PANTOPRAZOLE 40 MG TABLET PO (08:23)
[2022-06-04] MEDS: ERGOCALCIFEROL 50,000 UNITS CAPSULE 50000 UNITS PO (08:23)
[2022-06-04] MEDS: ESCITALOPRAM OXALATE 10 MG TABLET 20 MG PO (08:23)
[2022-06-04] MEDS: lisinopriL 20 MG TABLET PO (08:29)
[2022-06-04] MEDS: METOPROLOL SUCCINATE EXT REL 50 MG TABCR PO (08:29)
[2022-06-04] MEDS: ACETAMINOPHEN 325 MG TABLET 650 MG PO (10:14)
[2022-06-04 16:52] LABS: Glucose Point of Care 134 mg/dl (65-105)
--- NOTE | 2022-06-04 17:52 | PM.IMPN ---
Progress Note: A&P Assessment and Plan (1) Back pain: Code(s): M54.9 - Dorsalgia, unspecified Status: Acute (2) Chronic GERD: Code(s): K21.9 - Gastro-esophageal reflux disease without esophagitis Status: Acute (3) Depression with anxiety: Code(s): F41.8 - Other specified anxiety disorders Status: Acute (4) Hypertension: Code(s): I10 - Essential (primary) hypertension Status: Acute (5) Dementia: Code(s): F03.90 - Unspecified dementia, unspecified severity, without behavioral disturbance, psychotic disturbance, mood disturbance, and anxiety Status: Acute (6) Anxiety: Code(s): F41.9 - Anxiety disorder, unspecified Status: Acute (7) CVA (cerebral vascular accident): Code(s): I63.9 - Cerebral infarction, unspecified Status: Chronic (8) Hyperlipidemia: Code(s): E78.5 - Hyperlipidemia, unspecified Status: Acute (9) Weakness: Code(s): R53.1 - Weakness Status: Acute (10) Falls frequently: Code(s): R29.6 - Repeated falls Status: Acute (11) Syncope: Code(s): R55 - Syncope and collapse Status: Acute Plan 06/02/22 - MRI cancelled due to cerebral aneurysm clips - pt unsure whether or not the fall caused LOC or if he lost consciousness and then fell. - The CT of the brain is normal. - patient is on telemetry at this time. - echo has been ordered and waiting results - Carotid Doppler revealed <50% stenosis in both carotids - Venous Doppler negative for DVT - PT OT evaluation ordered - The patient does walk with a 4 pronged cane. - patient has a history of dementia it could be part of his dementia. - neurology has been consulted. - the patient has been complaining of lower back pain neurosurgery has been consulted for his back pain. - palliative care specialist has been consulted for possible rehab. - continue holding his atorvastatin and hydrochlorothiazide for now due to his weakness. -Neurosurgery has been consulted for back pain -MRI has been cancelled due cerebral aneurysm clippings -pt has significant back pain since falling -pt unable to roll on his side, sit up, or move legs without eliciting pain -pt denies lower extremity numbness and tingling -pt states that he did not have back pain before his fall and did not taking any pain medication at home.? pt discussed with hospitalist yesterday that he? has chronic lower back pain but when asked today pt stated that he does not and that this back pain is a new problem. - continue holding his atorvastatin for now due to his weakness. -The patient stated that he had an old CVA that affected his left side.? -The patient has some mild weakness to his left upper and left? lower extremity. -continue with Lexapro. ?-Continue with Aricept - continue lisinopril - holding hydrochlorothiazide 06/03/22 control of back pain diazepam x1 methocarbamol and ibuprofen TID, norco and percocet PRN morphine IV x breakthrough mobilization with PT and OT neurology consultation appreciated Patient unable to have MRI due to history of aneurysm clipping is having R sided pain w plantar extension 06/04/22 syncope workup negative cont telemetry pain improved , no use of morphine today was able to work w PT /OT anticipate dc to SNF tomorrow c/s palliative care specialist for dc planning Subjective Date/time seen: 06/04/22 17:52 pt feeling much better pain improved, no use of morphine today able to work w PT Review of Systems Review of Systems: All systems reviewed & are unremarkable except as noted in HPI and below Exam Narrative: GEN: NAD, AAOx3, cooperative HEENT: NCAT, MMM, EOMI Neck: no JVD Heart: S1S2 RRR Lungs: CTA B/l Ext: moves all, no cyanosis, no clubbing, no edema, less pain with movement today Neuro: cognition intact, no focal neurological deficits Psych: mood and affect congruent Objective Data Vital Signs Vital Signs: Vital Signs - 24 hr
[2022-06-05] VITALS (7 sets, daily range): BP systolic 102–108; BP diastolic 61–69; PULSE 56–66; RESP 16–18; TEMP 36.8–36.9; O2SAT 98–100
[2022-06-05] MEDS: oxyCODONE/ACETAMINOPHEN (*CRX) 5-325 MG TABLET 1 TABLET PO (00:14)
[2022-06-05] MEDS: ONDANSETRON INJ 4 MG/2 ML VIAL IV PUSH (06:20)
[2022-06-05] MEDS: THERAPEUTIC MULTIVITAMINS/MINERALS TAB (*BKC) 1 TABLET PO (08:23)
[2022-06-05] MEDS: ESCITALOPRAM OXALATE 10 MG TABLET 20 MG PO (08:23)
[2022-06-05] MEDS: PANTOPRAZOLE 40 MG TABLET PO (08:23)
[2022-06-05] MEDS: ASPIRIN 81 MG CHEWABLE TABLET PO (08:23)
[2022-06-05] MEDS: lisinopriL 20 MG TABLET PO (08:23)
[2022-06-05] MEDS: methocarbamoL 750 MG TABLET PO ×3 (08:24→16:53)
[2022-06-05] MEDS: METOPROLOL SUCCINATE EXT REL 50 MG TABCR PO (08:24)
[2022-06-05] MEDS: DONEPEZIL HCL 10 MG TABLET PO (08:24)
[2022-06-05] MEDS: IBUPROFEN 400 MG TABLET 800 MG PO (08:26)
[2022-06-05] MEDS: HYDROcodone/acetaminophen (*CRX) 5-325 MG TABLET 1 TAB PO (11:20)
[2022-06-05 17:11] LABS: EDCOVIDSCREEN Negative (Negative)
--- NOTE | 2022-06-05 18:34 | PM.DS ---
DS: Admitting Diagnosis Discharge Date 06/05/22 Admitting Diagnosis (1) Weakness: ?Code(s): R53.1 - Weakness ?Status:?Acute (2) Syncope: ?Code(s): R55 - Syncope and collapse ?Status:?Acute (3) Hyperlipidemia: ?Code(s): E78.5 - Hyperlipidemia, unspecified ?Status:?Acute? (4) CVA (cerebral vascular accident): ?Code(s): I63.9 - Cerebral infarction, unspecified ?Status:?Acute ? (5) Anxiety: ?Code(s): F41.9 - Anxiety disorder, unspecified ?Status:?Acute ? (6) Dementia: ?Code(s): F03.90 - Unspecified dementia, unspecified severity, without behavioral disturbance, psychotic disturbance, mood disturbance, and anxiety ?Status:?Acute ? ? ? (7) Hypertension: ?Code(s): I10 - Essential (primary) hypertension ?Status:?Acute (8) Falls frequently: ?Code(s): R29.6 - Repeated falls ?Status:?Acute ? DS: Summary Hospital Course Reason for hospitalization: Chief Complaint: fall Narrative: ?this is a 67-year-old male patient who has a history of dementia, hyperlipidemia, hypertension peripheral vascular disease and a CVA with left-sided weakness.? The patient came to the emergency room due to a syncopal event and head injury. ? Sunday the patient got up to the bathroom and passed out and hit his head on the toilet.? He lives with his brother and qyyktw-nr-haw.? The xcflye-sz-agx? found him on the floor and called her in to get the patient up off the floor.? The patient lost consciousness and is not aware of how long he has been on the floor.? However he stated that he thinks his libdnt-cx-yyw heard him fall and came in immediately.? The patient has had increased weakness and severe back pain.? The patient is having difficulty moving due to the back pain.? He also has a mild headache.? No visual changes.? No nausea vomiting or diarrhea.? He is telling me that his left-sided weakness is approximately the same as what it was before.? The patient is having difficulty moving his legs due to his lower back pain.? The patient followed up with his primary care doctor today and he was sent to the emergency room.? His H&H is 12.4 and 36.4.? Sodium is 135.? Chloride 96.? Troponin is negative.? Patient's urine is negative for UTI.? CT of the cervical spine was read as severe cervical spondylosi. Lumbar spine CT was read as severe lumbar spondylosis.? Lumbar levoscoliosis.? Chronic bilateral L5 pars defects with grade 1 ? anterior?anterolisthesis?of L5 on S1.? Head CT was read as the following1. No fracture or acute intracranial process. 2. 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 The patient is being admitted to observation status on the date of service of 06/01/2022. Hospital Course: 06/02/22 - MRI cancelled due to cerebral aneurysm clips - pt unsure whether or not the fall caused LOC or if he lost consciousness and then fell. - The CT of the brain is normal. - patient is on telemetry at this time. - echo has been ordered and waiting results - Carotid Doppler revealed <50% stenosis in both carotids - Venous Doppler negative for DVT - PT OT evaluation ordered - The patient does walk with a 4 pronged cane. - patient has a history of dementia it could be part of his dementia. - neurology has been consulted. - the patient has been complaining of lower back pain neurosurgery has been consulted for his back pain. - career development manager has been consulted for possible rehab. - continue holding his atorvastatin and hydrochlorothiazide for now due to his weakness. -Neurosurgery has been consulted for back pain -MRI has been cancelled due cerebral aneurysm clippings -pt has significant back pain since falling -pt unable to roll on his side, sit up, or move legs without eliciting pain -pt denies lower extremity numbness and tingling -pt states that he did not have back pain before his fall and did not taking an
== END 2022-06-05 20:15 ==
LOC: ANHED 14:19 → ANH3MEDSUR 16:55
PROVIDERS: Hospitalist; Internal Medicine Critical Care Medicine; Nurse Practitioner; Admitting Provider Internal Medicine; Emergency Provider Emergency Medicine; PCP Internal Medicine; Visit Provider Internal Medicine
DX: I69.354 Hemiplegia and hemiparesis following cerebral infarction affecting left non-dominant side (principal); R55 Syncope and collapse; M54.9 Dorsalgia, unspecified; M62.81 Muscle weakness (generalized); R29.6 Repeated falls; E78.5 Hyperlipidemia, unspecified; F41.9 Anxiety disorder, unspecified; F03.90 Unspecified dementia, unspecified severity, without behavioral disturbance, psychotic disturbance, mood disturbance, and anxiety; I10 Essential (primary) hypertension; S09.90XA Unspecified injury of head, initial encounter; W22.8XXA Striking against or struck by other objects, initial encounter; Y92.002 Bathroom of unspecified non-institutional (private) residence as the place of occurrence of the external cause; M54.2 Cervicalgia; Z20.822 Contact with and (suspected) exposure to COVID-19; I44.0 Atrioventricular block, first degree; I08.3 Combined rheumatic disorders of mitral, aortic and tricuspid valves; R94.31 Abnormal electrocardiogram [ECG] [EKG]; M47.816 Spondylosis without myelopathy or radiculopathy, lumbar region; M47.812 Spondylosis without myelopathy or radiculopathy, cervical region; I73.9 Peripheral vascular disease, unspecified; D64.9 Anemia, unspecified; Z87.891 Personal history of nicotine dependence; Z98.890 Other specified postprocedural states; Z79.82 Long term (current) use of aspirin; Z79.899 Other long term (current) drug therapy
CPT/HCPCS: 36415; 51701; 70450; 71045; 72125; 72131; 80048; 80053; 81001; 82948; 83735; 84443; 84484; 85025; 85027; 86140; 87426; 93005; 93306; 93880; 93970; 96360; 96361; 96374; 96376; 97110; 97116; 97162; 97166; 97530; 97535; 99285; A9270; C9803; G0378; J2405; J7030; U0003; U0005

== ENCOUNTER 2022-06-19 13:03 | Emergency (ER) | payer MEDICARE, SELFPAY ==
--- NOTE | ~2022-06-19 | CT_ITS ---
EXAMINATION: CT abd pelvis lumbar wo con DATE: 06/19/2022 14:09 INDICATION: Fall. Abdominal injury. Tailbone pain. TECHNIQUE: Computed tomography (CT) of the abdomen and pelvis and lumbar spine was performed without intravenous contrast. Automated exposure control and iterative reconstruction technique were employed . The dose-length product was 346.16 mGy-cm. COMPARISON: CT lumbar spine 06/01/2022, abdomen and pelvis 07/07/2021 FINDINGS: CT ABDOMEN AND PELVIS: The visualized portions of the lung bases demonstrate minimal atelectasis. No pleural effusion. The heart size is normal. There are coronary artery calcifications. No pericardial effusion. The liver, gallbladder, spleen, pancreas, and right adrenal gland are normal. There is [facility] thickening of left adrenal gland, likely benign. There are cysts in the kidneys measuring up to 4 .3 cm on the right. There is a 2 mm stone in right kidney. The bladder is markedly distended. The pro state is mildly enlarged. There are no dilated loops of bowel. The appendix is normal. There are no p athologically enlarged lymph nodes. There is no free intraperitoneal fluid. CT LUMBAR SPINE: There is 11 degrees levoscoliosis of lumbar spine. There are chronic bilateral L5 pa rs defects. There is 7 mm anterolisthesis of L5 on S1. There is 3 mm retrolisthesis of T12 on L1, L1 on L2, and L4 on L5. There is mild chronic anterior wedging of T12 and L1 vertebral bodies. There is moderately decreased disc height at T12-L1 and severely decreased disc height from L1-L2 through L5-S 1. The following disc levels are specifically discussed: T12-L1: The disc is bulging. There is severe bilateral facet joint osteoarthritis. There is mild bila teral neural foraminal stenosis. There is mild central canal stenosis. L1-L2: The disc is bulging. There is severe bilateral facet joint osteoarthritis. There is moderate b ilateral neural foraminal stenosis. There is mild central canal stenosis. L2-L3: The disc is bulging. There is severe bilateral facet joint osteoarthritis. There is moderate b ilateral neural foraminal stenosis. There is mild central canal stenosis. L3-L4: The disc is bulging. There is moderate right and severe left facet joint osteoarthritis. There is moderate bilateral neural foraminal stenosis. There is mild central canal stenosis. L4-L5: The disc is bulging. There is severe bilateral facet joint osteoarthritis. There is moderate b ilateral neural foraminal stenosis. There is mild central canal stenosis. L5-S1: The disc is bulging. There is moderate right and severe left facet joint osteoarthritis. There is moderate bilateral neural foraminal stenosis. There is no central canal stenosis. IMPRESSION: 1. Severe lumbar spondylosis. 2. Lumbar levoscoliosis. 3. Chronic bilateral L5 pars defects with grade 1 anterolisthesis of L5 on S1. Reviewed, dictated and finalized at location A. SERVICE SUPERVISOR
[2022-06-19 13:06] VITALS: BP 130/80; PULSE 57; RESP 18; TEMP 36.6; O2SAT 100
--- NOTE | 2022-06-19 13:50 | ED.FALL ---
HPI - Fall General Chief Complaint: Fall Stated Complaint: GLF, tailbone pain Time Seen by Provider: 06/19/22 13:16 History of Present Illness HPI Narrative: Patient is a 67-year-old male here for evaluation of tailbone pain after a fall today. Patient was leaving his rehab facility where he was admitted for weakness and chronic back pain, states that in the parking lot while he was getting into the car, the wind pushed the door towards the patient, causing him to fall on his buttocks. No head injury or LOC. He was able to stand up for several seconds afterwards but was unable to walk due to pain in his tailbone. He denies any saddle anesthesia, incontinence or retention of bowel or bladder. States that he feels weak. Reportedly he was discharged early from the group home due to insurance issues. He was supposed to be discharged with a walker but was not sent home with one. Related Data Home Medications Medication Instructions Recorded Confirmed aspirin 81 mg tablet 81 mg PO DAILY 08/10/21 06/01/22 atorvastatin 20 mg tablet 20 mg PO DAILY 08/10/21 06/01/22 benzonatate 100 mg capsule 100 mg PO TID PRN Cough 08/10/21 06/01/22 calcium carbonate 600 mg-vitamin 1 tablet PO DAILY 08/10/21 06/01/22 D3 5 mcg (200 unit) tablet donepezil 10 mg tablet 10 mg PO DAILY 08/10/21 06/01/22 ergocalciferol (vitamin D2) 50,000 50,000 unit PO WEEKLY 08/10/21 06/01/22 unit tablet escitalopram oxalate 20 mg tablet 20 mg PO DAILY 08/10/21 06/01/22 krill oil 500 mg capsule 500 mg PO DAILY 08/10/21 06/01/22 lisinopril 20 1 tablet PO DAILY 08/10/21 06/01/22 mg-hydrochlorothiazide 12.5 mg tablet metoprolol succinate 100 mg 100 mg PO DAILY 08/10/21 06/01/22 tablet,extended release 24 hr multivitamin with minerals-folic 1 tablet PO DAILY 08/10/21 06/01/22 acid 0.4 mg tablet omeprazole 20 mg capsule,delayed 20 mg PO DAILY 08/10/21 06/01/22 release quetiapine 25 mg tablet 25 mg PO HS 06/02/22 06/02/22 Allergies Allergy/AdvReac Type Severity Reaction Status Date / Time No Known Allergies Allergy Verified 08/17/21 07:50 Review of Systems Review of Systems: Gen: Denies fevers or chills Eyes: Denies eye pain or visual change ENT: Denies congestion Respiratory: Denies shortness of breath or cough CV: Denies chest pain or palpitations GI: Denies abdominal pain nausea, emesis or diarrhea : denies burning, urgency, frequency or hematuria Musculoskeletal: Reports back pain. Neuro: Denies numbness, tingling, weakness or focal weakness Skin: Denies rash Except as documented, all other systems reviewed and negative [facility] Past Medical History Medical History Anxiety Chronic GERD CVA (cerebral vascular accident) Dementia Depression with anxiety Family history of colon cancer requiring screening colonoscopy Hyperlipidemia Hypertension PVD (peripheral vascular disease) Surgical History Surgical History H/O cardiac catheterization H/O cerebral aneurysm repair H/O shoulder surgery right History of colonoscopy History of removal of pigmented skin lesion History of surgery on upper extremity last Family History Family History (Updated 06/01/22 @ 23:44 by Karina Miller NP) Unknown Family history unknown Social History Social History (Updated 06/01/22 @ 23:52 by Karina Miller NP) Social History: the patient stated that he lives with his brother and fsvmib-tg-vsk. His rajwpu-bv-ejl Ginny is the durable power real estate attorney for health care for him. The patient is and has no children. 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 The patient is a former smoker and quit several years ago. He states that he does not use alcohol marijuana or any other illicit drugs. Code status full code Smoking status: Former smoker Alcohol intake: never Substance use: never Lack of Transp
[2022-06-19] MEDS: HYDROcodone/acetaminophen (*CRX) 5-325 MG TABLET 1 TAB PO (13:52)
[2022-06-19 16:24] VITALS: BP 132/92; PULSE 59; RESP 17; O2SAT 99
== END 2022-06-19 16:28 | disposition home or self-care (01) ==
PROVIDERS: Emergency Provider Emergency Medicine; PCP Internal Medicine
DX: S39.92XA Unspecified injury of lower back, initial encounter (principal); F03.90 Unspecified dementia, unspecified severity, without behavioral disturbance, psychotic disturbance, mood disturbance, and anxiety; E78.5 Hyperlipidemia, unspecified; I10 Essential (primary) hypertension; I73.9 Peripheral vascular disease, unspecified; K21.9 Gastro-esophageal reflux disease without esophagitis; F41.8 Other specified anxiety disorders; Z86.73 Personal history of transient ischemic attack (TIA), and cerebral infarction without residual deficits; Z79.82 Long term (current) use of aspirin; Z87.891 Personal history of nicotine dependence; M47.816 Spondylosis without myelopathy or radiculopathy, lumbar region; W18.39XA Other fall on same level, initial encounter
CPT/HCPCS: 72131; 74176; 99284; A9270

== ENCOUNTER 2022-06-21 08:16 | Outpatient (CLI) | payer MEDICARE, SELFPAY ==
[2022-06-21 09:30] LABS: Appearance Urine Clear (Clear); Basophils Percent Auto 0.3 % (0.2-1.2); Bilirubin Urine Negative (Negative); Blood Urine Negative (Negative); Color Urine Yellow (Yellow); Eosinophils Percent Auto 0.3 % (0-4.4); Glucose Urine UA Negative (Negative); Hematocrit 31.2 % (42.0-52.0); Hemoglobin 10.3 g/dL (14.0-18.0); Immature Granulocyte Absolute 0.04 K/mm3 (0.00-0.031); Immature Granulocyte Percent A 0.5 % (0-0.5); Ketones Urine Negative (Negative); Leukocyte Esterase Ur Negative LEU/UL (Negative); Lymphocytes Absolute Auto 0.86 K/mm3 (0.9-3.2); Lymphocytes Percent Auto 11.4 % (18.3-44.2); Mean Corpuscular Hemoglobin 30.4 pg (26-34); Monocytes Absolute Auto 0.6 K/mm3 (0.1-0.6); Monocytes Percent Auto 7.9 % (2.6-8.5); Neutrophils Percent Auto 79.6 % (45.5-73.1); Nitrate Urine Negative (Negative); Platelet Count Result 342 k/mm3 (150-375); Protein Urine Trace mg/dL (Negative); Red Blood Count 3.39 M/mm3 (4.6-6.20); Red Cell Distribution Width 12.6 % (11.5-14.5); White Blood Count 7.6 K/mm3 (4.5-10.0)
[2022-06-21 09:34] LABS: Alanine Aminotransferase 20 U/L (6-50); Albumin Level 3.8 g/dL (3.5-5.1); Alkaline Phosphatase 84 U/L (38-126); Anion Gap 10 mmol/L (8-16); Aspartate Amino Transferase 28 U/L (17-59); Bilirubin,Total 0.6 mg/dL (0.2-1.3); Blood Urea Nitrogen 12 mg/dL (9-20); Calcium 8.5 mg/dL (8.4-10.2); Carbon Dioxide 30 mmol/L (22-30); Chloride 95 mmol/L (98-107); Estimated Glomerular Filt Rate > 60; Glucose 99 mg/dL (65-110); Potassium 3.5 mmol/L (3.4-5.0); Sodium 135 mmol/L (137-145)
[2022-06-21 10:06] LABS: RBC Urine 0-2 /hpf (0-2); Squamous Epithelial Cell Urine Rare /hpf (Few); WBC Urine 0-3 /hpf
[2022-06-21 10:17] LABS: Add Urine Microscopic? YES
[2022-06-21 10:26] LABS: Platelet Estimate Adequate (Adequate); Schistocytes None Seen (NORMAL)
== END 2022-06-21 08:17 | disposition home or self-care (01) ==
PROVIDERS: PCP Internal Medicine; Visit Provider Internal Medicine
DX: D64.9 Anemia, unspecified (principal); M47.816 Spondylosis without myelopathy or radiculopathy, lumbar region; I10 Essential (primary) hypertension; E78.5 Hyperlipidemia, unspecified; R31.29 Other microscopic hematuria; L89.90 Pressure ulcer of unspecified site, unspecified stage
CPT/HCPCS: 36415; 80053; 81001; 85025

== ENCOUNTER 2022-07-05 10:47 | Inpatient (IN) | payer MEDICARE, MEDICAID, SELFPAY ==
[2022-07-05] VITALS (31 sets, daily range): BP systolic 114–164; BP diastolic 70–90; PULSE 62–100; RESP 14–25; TEMP 36–36.9; O2SAT 95–100; BMI 21.9
--- NOTE | ~2022-07-05 | CT_ITS ---
EXAMINATION: CT biopsy muscle DATE: 07/06/2022 15:05 INDICATION: L4-L5 discitis and osteomyelitis with bilateral psoas muscle abscesses TECHNIQUE: The procedure including the risks and benefits was discussed with the patient. Risks discu ssed included bleeding, infection, nerve injury and allergic reaction. The patient understood the ris ks and agreed to proceed. The skin overlying the right posterior paralumbar region was prepped and d raped in usual sterile fashion. Anesthetic was administered with 1% lidocaine subcutaneously. A 16 gauge outer needle was advanced under CT guidance into the region of the paravertebral fluid collecti on at the level of the L4-L5 disc spaces within the margin of the rim of small displaced bone fragmen ts. Approximately 2 mL of slightly turbid yellowish-orange fluid was aspirated. An 18 gauge core biop sy needle was then advanced into the lesion region and a total of 6 core biopsy specimens were obtain ed, 2 placed in a sterile cup and 4 in formalin. The outer needle was removed and the entry site was cleaned and dressed. There were no immediate complications. The dose-length product was 220.98 mGy-c m. FINDINGS: CT images demonstrate the outer needle tip within a paravertebral fluid collection peripher al to the narrowed L4-L5 disc space and within the more peripheral rim of displaced bone fragments ar ising from the eroded endplates. IMPRESSION: 1. Successful CT-guided aspiration and biopsy of fluid and tissue at the periphery of L4-L5 discitis and osteomyelitis. Reviewed, dictated and finalized at location A. PING ROOM CLEANER IMPRESSION: 1. Successful CT-guided aspiration and biopsy of fluid and tissue at the periph ruiz of L4-L5 discitis and osteomyelitis.
--- NOTE | ~2022-07-05 | XR_ITS ---
XR lumbar spine 2-3V 07/05/2022 11:41 Indication: Status post fall. Low back pain. Procedure: 4 views lumbar spine Comparison: CT dated 06/19/2022 Findings: There is mild chronic wedge compression deformities of T11 and T12. There is severe degener ative disc disease at all lumbar levels. There is advanced facet hypertrophy of the lower lumbar spin e. There is grade 1 spondylolisthesis at L5-S1. There is levoscoliosis. No acute fracture is identifi ed. Impression: 1: No acute fracture. 2: Severe lumbar spondylosis with levoscoliosis. Reviewed, dictated and finalized at location A. ITY CONTROL MICROBIOLOGIST Impression: 1: No acute fracture. 2: Severe lumbar spondylosis with levoscoliosis.
--- NOTE | ~2022-07-05 | CT_ITS ---
EXAMINATION: CT pelvis wo con DATE: 07/05/2022 12:59 INDICATION: Left hip and pelvic pain after fall TECHNIQUE: Computed tomography (CT) of the pelvis was performed without intravenous contrast. The dos e-length product was 152.92 mGy-cm. Automated exposure control and iterative reconstruction technique were employed. COMPARISON: CT dated 06/19/2022 FINDINGS: There is mild osteoarthritis of the hips. There is lytic destruction of the endplates at L4 -5. There is possible pathologic fracture of L5. Findings are suspicious for discitis/osteomyelitis. There is soft tissue extending anterior to the disc space in the retroperitoneal region, likely relat ed to the disc process. Recommend correlation with MRI of the lumbar spine with/without contrast. The re is grade 1 spondylolisthesis at L5-S1 secondary to spondylolysis. There is severe lower lumbar spo ndylosis. There is a coccygeal fracture, age indeterminate. No acute hip fracture is identified. IMPRESSION: 1. Lytic destruction at L4-5 endplates, compatible with discitis/osteomyelitis with possible patholog ic fracture at L5. There is associated soft tissue extending anterior to the disc space. Recommend fu rther evaluation with MRI with contrast. Dr. Go Bai discussed with Dr. Scot Roberts MD at 07/05/2022 13:19 SEMI TRUCK DRIVER. Reviewed, dictated and finalized at location A. TRUCK DRIVER IMPRESSION: 1. Lytic destruction at L4-5 endplates, compatible with discitis/osteomyelitis with possible pathologic fracture at L5. There is associated soft tissue extend ing anterior to the disc space. Recommend further evaluation with MRI with cont rast. Dr. Go Bai discussed with Dr. Scot Roberts MD at 07/05/2022 13:19 SEMI TRUCK DRIVER.
--- NOTE | ~2022-07-05 | XR_ITS ---
EXAMINATION: XR chest 2V 07/05/2022 11:41 INDICATION: Weakness. Falls. PROCEDURE: 2 view chest COMPARISON: Comparison to multiple prior studies sequentially, with oldest reviewed study dated 10/23. FINDINGS: The lungs are clear. The cardiomediastinal silhouette is within normal limits. There are no pleural effusions. There is no pneumothorax suspected. There is scoliosis. There is advanced deg enerative change of the glenohumeral joints. The lungs are hyperinflated which is consistent with, bu t not diagnostic of chronic obstructive pulmonary disease. IMPRESSION: 1: NO ACUTE CARDIOPULMONARY DISEASE. Reviewed, dictated and finalized at location A. P DEALER
--- NOTE | ~2022-07-05 | CT_ITS ---
EXAMINATION: CT cervical spine wo con DATE: 07/06/2022 09:18 INDICATION: Myelopathy. TECHNIQUE: Computed tomography (CT) of the cervical spine was performed without intravenous contrast. Automated exposure control and iterative reconstruction technique were employed. The dose-length pro duct was 395.55 mGy-cm. COMPARISON: CT cervical spine 06/01/2022 FINDINGS: There is kyphosis of cervical spine. There is 2 mm anterolisthesis of C4 on C5, 2 mm retrol isthesis of C5 on C6 and C6 on C7, and 3 mm anterolisthesis of C7 on T1. There is severely decreased disc height at C3-C4, mildly decreased disc height at C4-C5, severely decreased disc height at C5-C6 and C6-C7, and moderately decreased disc height at C7-T1. There is interbody fusion at C5-C6. The fol lowing disc levels are specifically discussed: C2-C3: There is mild right and severe left uncovertebral joint osteoarthritis. There is severe bilate ral facet joint osteoarthritis. There is mild right and moderate left neural foraminal stenosis. Ther e is mild central canal stenosis. C3-C4: There is ankylosis of the uncovertebral joints with severe hypertrophy. There is ankylosis of the facet joints with severe hypertrophy. There is moderate bilateral neural foraminal stenosis. Ther e is moderate central canal stenosis. C4-C5: There is severe right and moderate left uncovertebral joint osteoarthritis. There is severe bi lateral facet joint osteoarthritis. There is moderate bilateral neural foraminal stenosis. There is m ild central canal stenosis. C5-C6: There is ankylosis of the uncovertebral joints with severe hypertrophy. There is moderate bila teral facet joint osteoarthritis. There is mild bilateral neural foraminal stenosis. There is mild ce ntral canal stenosis. C6-C7: There is severe bilateral uncovertebral joint osteoarthritis. There is moderate bilateral face t joint osteoarthritis. There is moderate bilateral neural foraminal stenosis. There is mild central canal stenosis. C7-T1: There is mild bilateral uncovertebral joint osteoarthritis. There is severe bilateral facet galina int osteoarthritis. There is mild bilateral neural foraminal stenosis. There is no central canal sten osis. IMPRESSION: 1. Severe cervical spondylosis, stable from 06/01/2022. Reviewed, dictated and finalized at location E. B NURSE
--- NOTE | ~2022-07-05 | CT_ITS ---
EXAMINATION: CT lumbar spine w con DATE: 07/05/2022 17:04 INDICATION: Discitis/osteomyelitis TECHNIQUE: Computed tomography (CT) of the lumbar spine was performed with 100 cc Omnipaque 350 intra venous contrast. The dose-length product was 449.25 mGy-cm. Automated exposure control and iterative reconstruction technique were employed. COMPARISON: CT pelvis dated 07/05/2022, CT lumbar spine dated 07/05/2022 FINDINGS: There are bilateral renal cysts. There is atherosclerosis and ectasia of the aorta and laura c arteries. There is bladder wall thickening. There are 5 lumbar type vertebral bodies. There is mild levoscoliosis. There is erosive change at the L4-L5 endplates with lytic destruction. There is multi level degenerative retrolisthesis, most severe at L5-S1. There is advanced multilevel disc narrowing at all lumbar levels. There are bilateral L5 pars interarticularis defects with grade 1 spondylolisth esis. There is abnormal soft tissue extending anteriorly to the L4-5 disc space as well as laterally. There are small ring-enhancing lesions in the psoas muscles bilaterally, consistent with psoas absce sses. The largest on the right measures 11 x 7 mm. IMPRESSION: 1. Discitis/osteomyelitis at L4-5 with soft tissue extension anterior to the endplate. There is also abnormal ring-enhancing lesions of the psoas muscles bilaterally, consistent with small abscesses. Co rrelate with follow-up MRI examination to assess for epidural extension of infection. 2: Severe lumbar spondylosis. Reviewed, dictated and finalized at location A. TEACHER IMPRESSION: 1. Discitis/osteomyelitis at L4-5 with soft tissue extension anterior to the en dplate. There is also abnormal ring-enhancing lesions of the psoas muscles bila terally, consistent with small abscesses. Correlate with follow-up MRI examinat ion to assess for epidural extension of infection. 2: Severe lumbar spondylosis.
--- NOTE | ~2022-07-05 | XR_ITS ---
XR hip LT min 3V w AP pelvis 07/05/2022 11:41 Indication: Left hip pain after fall Procedure: AP pelvis and 3 views left hip Comparison: 08/18/2019 Findings: There is mild osteoarthritis of the hips. Pelvic rings are intact. No fracture or traumatic malalignment. No significant soft tissue abnormality. Sacral foramen are symmetric. Impression: 1: No acute fracture. Reviewed, dictated and finalized at location A. L BUILDING ASSEMBLER Impression: 1: No acute fracture.
--- NOTE | ~2022-07-05 | CT_ITS ---
EXAMINATION: CT lumbar spine wo con DATE: 07/05/2022 15:06 INDICATION: low back pain, L5 frac . TECHNIQUE: Computed tomography (CT) of the lumbar spine was performed without intravenous contrast. A utomated exposure control and iterative reconstruction technique were employed. The dose-length produ ct was 364.13 mGy-cm. COMPARISON: CT pelvis, same date. CT abdomen/pelvis lumbar 06/19/2022. CT lumbar spine 06/01/2022. FINDINGS: Urinary bladder wall thickening atherosclerotic aortic and arterial calcifications. Multiple bilatera l simple renal cysts. 5 nonrib-bearing lumbar-type vertebral bodies. Lumbar scoliosis. Partial erosion of the left L5 pedic le. Multilevel degenerative grade 1 listheses, worst at L5-S1, stable. Stable mild presumed physiolog ic wedging at the thoracolumbar junction. Significant interval endplate erosion at L4-5, with a maría melonie soft tissue mass and mild loss of L5 vertebral body height. Multilevel severe degenerative disc disease at the remaining lumbar levels. Bilateral L5 pars defects. Multilevel severe facet arthropat hy. Multilevel severe bilateral neural foraminal narrowing. Severe central canal narrowing at L4-5. IMPRESSION: Osteomyelitis discitis at L4-5 with mild L5 vertebral body height loss and a L4-[address] ease also refer to the report on the pending lumbar spine MRI for additional detail. Reviewed, dictated and finalized at location K. GER PSYCHOLOGY IMPRESSION: Osteomyelitis discitis at L4-5 with mild L5 vertebral body height loss and a L4 -5 paraspinal mass. Please also refer to the report on the pending lumbar spine MRI for additional detail.
--- NOTE | 2022-07-05 10:59 | ECG_ITS ---
Measurements Intervals [place] Rate: 62 P: 67 WA: 219 QRS: 52 QRSD: 89 T: 48 QT: 411 QTc: 419 Interpretive Statements SINUS RHYTHM WITH FIRST DEGREE AV BLOCK NONSPECIFIC ST AND T-WAVE ABNORMALITY COMPARED TO ECG 06/01/2022 13:11:46 NO SIGNIFICANT CHANGES Electronically Signed On 07-05-2022 15:08:43 MATERNAL FETAL PHYSICIAN by Sandra Richardson M.D.
[2022-07-05 11:17] LABS: Basophils Percent Auto 0.6 % (0.2-1.2); Eosinophils Percent Auto 0.3 % (0-4.4); Hematocrit 33.7 % (42.0-52.0); Hemoglobin 11.1 g/dL (14.0-18.0); Immature Granulocyte Absolute 0.02 K/mm3 (0.00-0.031); Immature Granulocyte Percent A 0.3 % (0-0.5); Lymphocytes Absolute Auto 1.06 K/mm3 (0.9-3.2); Mean Corpuscular HGB Conc 32.9 g/dl (32-36); Mean Corpuscular Hemoglobin 29.8 pg (26-34); Mean Corpuscular Volume 90.3 fl (80-100); Mean Platelet Volume 7.6 fl (7.4-10.4); Monocytes Absolute Auto 0.6 K/mm3 (0.1-0.6); Monocytes Percent Auto 8.2 % (2.6-8.5); Neutrophils Absolute Auto 5.4 K/mm3 (1.3-6.7); Neutrophils Percent Auto 75.6 % (45.5-73.1); Platelet Count Result 369 k/mm3 (150-375); Red Blood Count 3.73 M/mm3 (4.6-6.20); Red Cell Distribution Width 13.4 % (11.5-14.5); White Blood Count 7.1 K/mm3 (4.5-10.0)
[2022-07-05 11:26] LABS: Alanine Aminotransferase 21 U/L (6-50); Alkaline Phosphatase 91 U/L (38-126); Anion Gap 9 mmol/L (8-16); Aspartate Amino Transferase 31 U/L (17-59); Bilirubin,Total 0.4 mg/dL (0.2-1.3); Blood Urea Nitrogen 19 mg/dL (9-20); Calcium 8.7 mg/dL (8.4-10.2); Carbon Dioxide 33 mmol/L (22-30); Chloride 96 mmol/L (98-107); Estimated CRCL calculation 92 ml/min; Estimated Glomerular Filt Rate > 60; Glucose 101 mg/dL (65-110); Potassium 3.9 mmol/L (3.4-5.0); Sodium 138 mmol/L (137-145)
--- NOTE | 2022-07-05 12:36 | ED.FALL ---
HPI - Fall General Chief Complaint: Fall Stated Complaint: fall with pain in left lower back and hip Time Seen by Provider: 07/05/22 11:56 History of Present Illness HPI Narrative: 67-year-old male presenting to the emergency department for evaluation of some left hip pain. Patient reports that he fell from his bed this morning as he was trying to get to the commode and injured his left hip. Patient denies striking his head and denies loss consciousness. Patient's primary complaint is left hip pain but denies any other pain or injury. Patient denies any recent illnesses. Patient states he has had longstanding back pain for approximate last 2 months but denies any prior history of cancer and denies any prior history of back surgery. Related Data Home Medications Medication Instructions Recorded Confirmed aspirin 81 mg tablet 81 mg PO DAILY 08/10/21 06/01/22 atorvastatin 20 mg tablet 20 mg PO DAILY 08/10/21 06/01/22 benzonatate 100 mg capsule 100 mg PO TID PRN Cough 08/10/21 06/01/22 calcium carbonate 600 mg-vitamin 1 tablet PO DAILY 08/10/21 06/01/22 D3 5 mcg (200 unit) tablet donepezil 10 mg tablet 10 mg PO DAILY 08/10/21 06/01/22 ergocalciferol (vitamin D2) 50,000 50,000 unit PO WEEKLY 08/10/21 06/01/22 unit tablet escitalopram oxalate 20 mg tablet 20 mg PO DAILY 08/10/21 06/01/22 krill oil 500 mg capsule 500 mg PO DAILY 08/10/21 06/01/22 lisinopril 20 1 tablet PO DAILY 08/10/21 06/01/22 mg-hydrochlorothiazide 12.5 mg tablet metoprolol succinate 100 mg 100 mg PO DAILY 08/10/21 06/01/22 tablet,extended release 24 hr multivitamin with minerals-folic 1 tablet PO DAILY 08/10/21 06/01/22 acid 0.4 mg tablet omeprazole 20 mg capsule,delayed 20 mg PO DAILY 08/10/21 06/01/22 release quetiapine 25 mg tablet 25 mg PO HS 06/02/22 06/02/22 Allergies Allergy/AdvReac Type Severity Reaction Status Date / Time No Known Allergies Allergy Verified 07/05/22 10:48 Review of Systems Review of Systems: CONSTITUTIONAL: Denies fever, chills, or sweats. EYES: Denies visual changes, redness, or discharge. ENT: Denies rhinorrhea, congestion, sore throat, or otalgia. CARDIOVASCULAR: Denies chest pain, palpitations, or edema. RESPIRATORY: Denies cough or dyspnea. GASTROINTESTINAL: Denies abdominal pain, nausea, vomiting, or diarrhea. GENITOURINARY: Denies dysuria or hematuria. SKIN: Denies rash or itching. MUSCULOSKELETAL: Left hip pain NEUROLOGIC: Denies headache, numbness, or weakness. [facility] Past Medical History Medical History Anxiety Chronic GERD CVA (cerebral vascular accident) Dementia Depression with anxiety Family history of colon cancer requiring screening colonoscopy Hyperlipidemia Hypertension PVD (peripheral vascular disease) Surgical History Surgical History H/O cardiac catheterization H/O cerebral aneurysm repair H/O shoulder surgery right History of colonoscopy History of removal of pigmented skin lesion History of surgery on upper extremity last Family History Family History (Updated 06/01/22 @ 23:44 by Karina Miller NP) Unknown Family history unknown Social History Social History (Updated 06/01/22 @ 23:52 by Karina Miller NP) Social History: the patient stated that he lives with his brother and [id number]. His [id number] Ginny is the durable power civil rights attorney for health care for him. The patient is and has no children. 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 The patient is a former smoker and quit several years ago. He states that he does not use alcohol marijuana or any other illicit drugs. Code status full code Smoking status: Former smoker Alcohol intake: never Substance use: never Lack of Transportation: No Lack of Food: Never True Current Housing: I Have Housing Concerned About Future Housing: No Difficulty Pay
[2022-07-05 13:38] LABS: CRP 4.1 mg/dL (<1.0)
[2022-07-05 14:18] LABS: Appearance Urine Clear (Clear); Bilirubin Urine Negative (Negative); Blood Urine Negative (Negative); Color Urine Yellow (Yellow); Glucose Urine UA Negative (Negative); Ketones Urine Negative (Negative); Leukocyte Esterase Ur Negative LEU/UL (Negative); Nitrate Urine Negative (Negative); Protein Urine Negative (Negative); Specific Grav Ur 1.015 (1.001-1.035); Urobilinogen Urine 0.2 mg/dL (<2.0); pH Urine 6.5 (5.0-9.0)
[2022-07-05 14:25] LABS: Erythrocyte Sedimentation Rate 99 mm/hr (0-20)
[2022-07-05 14:28] LABS: Immature Reticulocyte Fraction 19.5 % (3.0-15.9); Reticulocytes Absolute 0.09 B/L (32.2-175.7)
[2022-07-05 14:28] LABS: Add Urine Microscopic? NO
[2022-07-05 15:30] LABS: Influenza A QL RT-PCR Negative (Negative); Influenza B QL RT-PCR Negative (Negative); SARS-CoV-2 RNA PCR Negative
--- NOTE | 2022-07-05 20:30 | PM.IMHP ---
H&P: HPI History of Present Illness Date/Time: 07/05/22 20:30 Chief Complaint: fall Narrative: This is a 67-year-old male with past medical history significant for cerebrovascular accident, GERD, dementia, depression with anxiety, peripheral vascular disease, hypertension, hyperlipidemia, recurrent falls. patient comes to the emergency room today after he fell, no loss of consciousness, patient states that he lost his balance when he was holding on to his car door while getting out of his car, although patient has been falling quite frequently recently 2 weeks ago he had a fall as well, no lightheadedness, no dizziness, no vertigo, no diaphoresis, no loss of consciousness, no chest pain, no PND no orthopnea, has had constipation denies urinary retention has saddle anesthesia denies paresthesia of bilateral lower extremity, denies fevers, rigors, chills, no cough, no sputum production. preliminary workup in the emergency room CT of lumbar spine was significant for: IMPRESSION: 1. Discitis/osteomyelitis at L4-5 with soft tissue extension anterior to the endplate. There is also abnormal ring-enhancing lesions of the psoas muscles bilaterally, consistent with small abscesses. Correlate with follow-up MRI examination to assess for epidural extension of infection. 2: Severe lumbar spondylosis. patient is been admitted for further evaluation management and treatment. Review of Systems Review of Systems: recurrent falls Constitutional: Constitutional: Denies body ache(s), Denies chills, Denies fatigue, Denies fever(s), Reports frequent falls, Denies lethargy, Denies malaise, Denies night sweats and Denies weakness Eyes: Eyes: Denies change in vision ENT: Denies dysphagia, Denies vertigo, Denies dizziness and Denies odynophagia Cardiovascular: Cardiovascular: Denies chest pain, Denies leg edema, Denies lightheadedness, Denies radiating jaw, neck or arm pain, Denies palpitations and Denies dyspnea Respiratory: Respiratory: Denies chest congestion, Denies cough, Denies excessive phlegm production, Denies pain on inspiration and Denies wheezing Gastrointestinal: Gastrointestinal: Denies abdominal pain, Denies dyspepsia, Denies heartburn, Denies diarrhea, Denies nausea and Denies vomiting Genitourinary: Genitourinary: Denies dysuria Musculoskeletal: Musculoskeletal: Reports back pain, Denies myalgias, Denies joint swelling, Denies limited range of motion, Denies muscle weakness and Reports numbness ( saddle anesthesia) Integumentary/Breasts: Skin/Breast: Denies rash Neurologic: Denies syncope, Reports frequent falls, Denies focal weakness, Reports numbness ( saddle anesthesia), Reports Sensory deficit (Neuro), Denies paresthesias and Denies weakness Endocrine: Endocrine: Denies cold intolerance, Denies flushing, Denies heat intolerance, Denies polyphagia, Denies polydipsia and Denies palpitations Hematologic/Lymphatic: Hematologic/Lymphatic: Reports no additional hematologic/lymphatic complaints and Reports as per HPI Allergic/Immunologic: Allergic/Immunologic: Reports no additional allergic/immunologic complaints and Reports as per HPI [facility] Past Medical History Medical History Anxiety Chronic GERD CVA (cerebral vascular accident) Dementia Depression with anxiety Family history of colon cancer requiring screening colonoscopy Hyperlipidemia Hypertension PVD (peripheral vascular disease) Surgical History Surgical History H/O cardiac catheterization H/O cerebral aneurysm repair H/O shoulder surgery right History of colonoscopy History of removal of pigmented skin lesion History of surgery on upper extremity last Family History Family History Unknown Family history unknown Social History Social History (Updated 06/01/22 @ 23:52 by Karina Miller,
--- NOTE | 2022-07-05 21:35 | ADMGEN ---
This patient, Zenon Kirkland, was admitted to 3 [facility] Surg Room 330-01 @ 2029. Patient/family oriented to hospital policies and general routines including ID bracelet, bed and alarms, visiting hours, pain management, procedures, bathroom and other care routines, personal items, smoking policy, room service/diet, and visiting hours. Information on how to activate the Rapid Response Team has been discussed. Patient/Family are encouraged to report perceived risks to care and to ask questions if they do not understand what they are told or what they should do.
[2022-07-06] MEDS: oxyCODONE HCL (*CRX) 5 MG TAB IR PO ×3 (00:41→21:36)
[2022-07-06] MEDS: HYDROcodone/acetaminophen (*CRX) 5-325 MG TABLET 1 TAB PO (05:32)
[2022-07-06 06:00] VITALS: BP 141/84; PULSE 62; RESP 18; TEMP 36.5; O2SAT 98
--- NOTE | 2022-07-06 08:22 | WPDNEUROSGCN ---
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 He has no neurologic deficit on this basis. He also has some hyper reflexia, and a history of some imbalance and loss of dexterity. This may relate to his cerebrovascular disease. This is also consistent with a possible cervical myelopathy that is mild. Plan Recommendations: For management of his probable diskitis osteomyelitis he will need a disc space aspiration /biopsy via Interventional Radiology. He will then need infectious disease consult and long-term management of his probable spinal infection. I understand that this may require transfer to another hospital. This will require probably 6-8 weeks of IV antibiotics and possibly oral antibiotics subsequently. He will need long-term follow-up with an infectious disease specialist. I am going to arrange for him to have a lumbosacral corset to wear when he is out of bed for comfort and stabilization. He also will require a workup for possible cervical myelopathy. Unfortunately, we are unable to perform an MRI because of his aneurysm clips. I will order a CT scan of the cervical spine. A myelogram CT scan may become important in determining whether there is spinal cord compression. This will require a lumbar puncture. We will need to try to defer this until after the lumbar infection has been sufficiently treated. I discussed this with the patient and his power of ip attorney Ginny Kati. her phone number is [phone]. They are aware that I should be contacted immediately with any deterioration in his neurologic status. I will need to see him back in approximately 6-8 weeks time for follow-up of his diskitis and this possible early cervical myelopathy. 60 minutes were spent in the activities documented in this note. Greater than 50% of time was spent [id number] with the patient. Review of Systems Review of Systems: He denies any recent problems with fevers, chills, sweats, excessive weight change, chest pain, shortness of breath, abdominal pain, nausea, vomiting, diarrhea, blood in the stool or urine. He denies any recent infections . [facility] Past Medical History Medical History Anxiety Chronic GERD CVA (cerebral vascular accident) Dementia Depression with anxiety Family history of colon cancer requiring screening colonoscopy Hyperlipidemia Hypertension PVD (peripheral vascular disease) Surgical History Surgical History H/O cardiac catheterization H/O cerebral aneurysm repair H/O shoulder surgery right History of colonoscopy History of removal of pigmented skin lesion History of surgery on upper extremity last Family History Family History Unknown Family history unknown Social History Social History (Updated 06/01/22 @ 23:52 by Karina Miller NP) Social History: the patient stated that he lives with his brother and [id number]. His [id number] Ginny is the durable power ip attorney for health care for him. The patient is and has no children. 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 The patient is a former smoker and quit several years ago. He states that he does not use alcohol marijuana or any other illicit drugs. Code status full code Smoking status: Former smoker Alcohol intake: never Substance use: never Lack of Transportation: No Lack of Food: Never True Current Housing: I Have Housing Concerned About Future Housing: No Difficulty Paying Gas/Electric Bills: No Difficulty Paying for Meds: No Currently Unemployed: No Education: Trade/Vocatio
[2022-07-06 10:50] LABS: INR 1.2; Prothrombin Time 14.5 Seconds (11.1-14.7)
[2022-07-06 10:51] LABS: Partial Thromboplastin Time 32.1 SECONDS (22.3-36.8)
[2022-07-06] MEDS: THERAPEUTIC MULTIVITAMINS/MINERALS TAB (*BKC) 1 TABLET PO (12:13)
[2022-07-06] MEDS: ESCITALOPRAM OXALATE 10 MG TABLET 20 MG PO (12:13)
[2022-07-06] MEDS: PANTOPRAZOLE 40 MG TABLET PO (12:13)
[2022-07-06 12:14] VITALS: PULSE 75
[2022-07-06] MEDS: lisinopriL 20 MG TABLET PO (12:14)
[2022-07-06] MEDS: hydroCHLOROthiazide 12.5 MG CAPSULE PO (12:14)
[2022-07-06] MEDS: DONEPEZIL HCL 5 MG TABLET PO (12:14)
[2022-07-06] MEDS: DICLOFENAC SOD 25 MG TABLET.EC 50 MG PO ×2 (12:14→16:39)
[2022-07-06] MEDS: METOPROLOL SUCCINATE EXT REL 50 MG TABCR PO (12:14)
[2022-07-06] MEDS: buPROPion HCL XL (24 HR) 150 MG TABCR PO (12:14)
[2022-07-06] MEDS: ATORVASTATIN 20 MG TABLET PO (12:16)
--- NOTE | 2022-07-06 14:12 | PM.IMPN ---
Progress Note: A&P Assessment and Plan (1) Discitis of lumbar region: Code(s): M46.46 - Discitis, unspecified, lumbar region Status: Acute Assessment and Plan: Patient admitted to regular medical floor MRI of lumbar spine in a.m. neurosurgery consult supportive care 07/06/2022 interval history, patient is laying in the bed has no new complaints, patient is seen by spinal surgeon, , patient does not need any surgical intervention however there significant risk of spinal infection and patient will need biopsy to r/o OM, I spoke with Dr. Martell, IR, has revieved spinal CT scan and will do biopsy, Spoke with [facility] pharmacy and suggested with can treatment like he has meningitis with ceftriaxone 2g q12 and vacomycin per pharmacy, will start abx after biopsy, will follow up spinal culture and further recommendation to follow. will continue to monitor once patient, once clinically stable will have PT/OT evaluate patient, patient will be seen spinal surgeon and further recommendation to follow. (2) Back pain: Code(s): M54.9 - Dorsalgia, unspecified Status: Acute Assessment and Plan: chronic back pain pain management supportive care (3) Chronic GERD: Code(s): K21.9 - Gastro-esophageal reflux disease without esophagitis Status: Acute Assessment and Plan: continue PPI (4) Hypertension: Code(s): I10 - Essential (primary) hypertension Status: Acute Assessment and Plan: continue home meds continue to monitor (5) Falls frequently: Code(s): R29.6 - Repeated falls Status: Acute Assessment and Plan: likely secondary to neurogenic claudication neurosurgery has been consulted however patient with no significant muscle atrophy in bilateral lower extremities Subjective Date/time seen: 07/06/22 14:12 fall HPI-Narrative: ?This is a 67-year-old male with past medical history significant for cerebrovascular accident, GERD, dementia, depression with anxiety, peripheral vascular disease, hypertension, hyperlipidemia, recurrent falls. patient comes to the emergency room today after he fell, no loss of consciousness, patient states that he lost his balance when he was? holding on to his? car door while getting out of his car, although patient has been falling quite frequently recently 2 weeks ago he had a fall as well, no lightheadedness, no dizziness, no vertigo, no diaphoresis, no loss of consciousness, no chest pain, no PND no orthopnea, has had constipation denies urinary retention has saddle anesthesia denies paresthesia of bilateral lower extremity, denies fevers, rigors, chills, no cough, no sputum production. preliminary workup in the emergency room CT of lumbar spine was significant for: 07/06/2022 interval history, patient is laying in the bed has no new complaints, patient is seen by spinal surgeon, , patient does not need any surgical intervention however there significant risk of spinal infection and patient will need biopsy to r/o OM, I spoke with Dr. Martell, IR, has revieved spinal CT scan and will do biopsy, Spoke with ID pharmacy and suggested with can treatment like he has meningitis with ceftriaxone 2g q12 and vacomycin per pharmacy, will start abx after biopsy, will follow up spinal culture and further recommendation to follow. will continue to monitor once patient, once clinically stable will have PT/OT evaluate patient, patient will be seen spinal surgeon and further recommendation to follow. Review of Systems Review of Systems: He denies any recent problems with fevers, chills, sweats, excessive weight change, chest pain, shortness of breath, abdominal pain, nausea, vomiting, diarrhea, blood in the stool or urine. He denies any recent infections . Constitutional: Constitutional: Denies body ache(s), Denies chills, Denies fatigue, Denies fever(s), Reports frequent falls, Denies lethargy, Denies malaise, Denies night sweats and Denie
[2022-07-06 15:26] VITALS: BP 131/84; PULSE 55; RESP 16; TEMP 36.6; O2SAT 97
[2022-07-06] MEDS: cefTRIAXone 2 GM in SODIUM CHLORIDE 0.9% IV 100 ML 200 ML IVPB (16:38)
[2022-07-06 22:00] VITALS: BP 111/62; PULSE 62; RESP 14; TEMP 36.9; O2SAT 100
[2022-07-07] MEDS: cefTRIAXone 2 GM in SODIUM CHLORIDE 0.9% IV 100 ML 200 ML IVPB ×2 (02:36→15:02)
[2022-07-07 06:00] VITALS: BP 153/82; PULSE 56; RESP 16; TEMP 36.3; O2SAT 98
[2022-07-07 07:08] LABS: Hematocrit 31.3 % (42.0-52.0); Mean Corpuscular HGB Conc 31.9 g/dl (32-36); Mean Corpuscular Hemoglobin 29.5 pg (26-34); Mean Corpuscular Volume 92.3 fl (80-100); Platelet Count Result 343 k/mm3 (150-375); Red Blood Count 3.39 M/mm3 (4.6-6.20); Red Cell Distribution Width 13.4 % (11.5-14.5); White Blood Count 6.2 K/mm3 (4.5-10.0)
[2022-07-07 07:17] LABS: Alanine Aminotransferase 17 U/L (6-50); Albumin Level 3.3 g/dL (3.5-5.1); Alkaline Phosphatase 75 U/L (38-126); Anion Gap 2 mmol/L (8-16); Aspartate Amino Transferase 23 U/L (17-59); Bilirubin,Total 0.3 mg/dL (0.2-1.3); Blood Urea Nitrogen 15 mg/dL (9-20); Calcium 7.9 mg/dL (8.4-10.2); Carbon Dioxide 36 mmol/L (22-30); Chloride 97 mmol/L (98-107); Estimated CRCL calculation 90 ml/min; Estimated Glomerular Filt Rate > 60; Glucose 95 mg/dL (65-110); Magnesium 2.1 mg/dL (1.6-2.3); Potassium 3.8 mmol/L (3.4-5.0); Sodium 135 mmol/L (137-145)
[2022-07-07] MEDS: ATORVASTATIN 20 MG TABLET PO (09:25)
[2022-07-07] MEDS: hydroCHLOROthiazide 12.5 MG CAPSULE PO (09:25)
[2022-07-07] MEDS: ESCITALOPRAM OXALATE 10 MG TABLET 20 MG PO (09:25)
[2022-07-07] MEDS: ASPIRIN 81 MG ENTERIC TABLET PO (09:25)
[2022-07-07] MEDS: lisinopriL 20 MG TABLET PO (09:25)
[2022-07-07] MEDS: DONEPEZIL HCL 5 MG TABLET PO (09:25)
[2022-07-07] MEDS: DICLOFENAC SOD 25 MG TABLET.EC 50 MG PO ×2 (09:25→17:18)
[2022-07-07] MEDS: THERAPEUTIC MULTIVITAMINS/MINERALS TAB (*BKC) 1 TABLET PO (09:25)
[2022-07-07] MEDS: buPROPion HCL XL (24 HR) 150 MG TABCR PO (09:25)
[2022-07-07] MEDS: PANTOPRAZOLE 40 MG TABLET PO (09:25)
[2022-07-07 09:29] VITALS: BP 138/69; PULSE 63
[2022-07-07] MEDS: METOPROLOL SUCCINATE EXT REL 50 MG TABCR PO (09:29)
--- NOTE | 2022-07-07 10:35 | PC.NURSE ---
Spoke with sister Ginny and gave her an update on patients condition.
[2022-07-07 13:57] VITALS: BP 114/69; PULSE 56; RESP 16; TEMP 36.6; O2SAT 99
--- NOTE | 2022-07-07 15:10 | PM.IMPN ---
Progress Note: A&P Assessment and Plan (1) Discitis of lumbar region: Code(s): M46.46 - Discitis, unspecified, lumbar region Status: Acute Assessment and Plan: Patient admitted to regular medical floor MRI of lumbar spine in a.m. neurosurgery consult supportive care 07/07/2022 interval history, patient is laying in the bed has no new complaints, patient was seen by spinal surgeon, , patient does not need any surgical intervention however there significant risk of spinal infection and on 07/06 patient had biopsy to r/o OM, by Dr. Martell, IR, on 07/06 Spoke with ID pharmacy and suggested we can treatment like he has meningitis with ceftriaxone 2g q12 and vacomycin per pharmacy,on 07/06 started abx after biopsy, will follow up spinal culture and further recommendation to follow. will continue to monitor once patient, once clinically stable will have PT/OT evaluate patient, patient will be seen spinal surgeon and further recommendation to follow. (2) Back pain: Code(s): M54.9 - Dorsalgia, unspecified Status: Acute Assessment and Plan: chronic back pain pain management supportive care (3) Chronic GERD: Code(s): K21.9 - Gastro-esophageal reflux disease without esophagitis Status: Acute Assessment and Plan: continue PPI (4) Hypertension: Code(s): I10 - Essential (primary) hypertension Status: Acute Assessment and Plan: continue home meds continue to monitor (5) Falls frequently: Code(s): R29.6 - Repeated falls Status: Acute Assessment and Plan: likely secondary to neurogenic claudication neurosurgery has been consulted however patient with no significant muscle atrophy in bilateral lower extremities Subjective Date/time seen: 07/07/22 15:10 07/07/2022 interval history, patient is laying in the bed has no new complaints, patient was seen by spinal surgeon, , patient does not need any surgical intervention however there significant risk of spinal infection and on 07/06 patient had biopsy to r/o OM, by Dr. Martell, IR, on 07/06 Spoke with ID pharmacy and suggested we can treatment like he has meningitis with ceftriaxone 2g q12 and vacomycin per pharmacy,on 07/06 started abx after biopsy, will follow up spinal culture and further recommendation to follow. will continue to monitor once patient, once clinically stable will have PT/OT evaluate patient, patient will be seen spinal surgeon and further recommendation to follow. Review of Systems Constitutional: Constitutional: Denies body ache(s), Denies chills, Denies fatigue, Denies fever(s), Reports frequent falls, Denies lethargy, Denies malaise, Denies night sweats and Denies weakness Exam Narrative: Patient is comfortable, NAD HEENT: eyes are clear and none icteric LUNGS: normal respiratory effort ABD: not distended Lower extremities: no edema SKIN: nonjaundiced Neuro: grossly intact. Objective Data Vital Signs Vital Signs: Vital Signs - 24 hr 07/06/22 15:26 07/06/22 22:00 07/06/22 20:00 Temperature 97.9 F 98.4 F Pulse Rate 55 L 62 Respiratory Rate 16 14 Blood Pressure 131/84 111/62 Pulse Oximetry 97 100 Oxygen Delivery Room Air 07/07/22 06:00 07/07/22 09:29 07/07/22 09:25 Temperature 97.4 F L Pulse Rate 56 L 63 Respiratory Rate 16 Blood Pressure 153/82 H Pulse Oximetry 98 Oxygen Delivery Room Air 07/07/22 09:29 07/07/22 13:57 Temperature 97.9 F Pulse Rate 56 L Respiratory Rate 16 Blood Pressure 138/69 114/69 Pulse Oximetry 99 Oxygen Delivery Intake/Output Intake/Output: Intake & Output 07/04/22 07/05/22 07/06/22 07/07/22 23:59 23:59 23:59 23:59 Intake Total 890 1040 Output Total 650 Balance 240 1040 Meds/Results Medications: Active Medications Generic Name Dose Route Start Last Admin Trade Name Freq PRN Reason Stop Dose Admin Hydrocodone Bitart/Acetaminophen 1 tab 12
[2022-07-07] MEDS: oxyCODONE HCL (*CRX) 5 MG TAB IR PO (18:00)
[2022-07-07 22:00] VITALS: BP 132/80; PULSE 58; RESP 18; TEMP 35.9; O2SAT 98
[2022-07-07 22:11] LABS: Vancomycin Trough 10.5 ug/mL (10.0-20.0)
[2022-07-08] MEDS: cefTRIAXone 2 GM in SODIUM CHLORIDE 0.9% IV 100 ML 200 ML IVPB ×2 (02:38→14:47)
[2022-07-08 06:00] VITALS: BP 134/82; PULSE 56; RESP 14; TEMP 36.3; O2SAT 98
[2022-07-08] MEDS: oxyCODONE HCL (*CRX) 5 MG TAB IR PO ×2 (08:19→18:20)
[2022-07-08] MEDS: THERAPEUTIC MULTIVITAMINS/MINERALS TAB (*BKC) 1 TABLET PO (08:22)
[2022-07-08] MEDS: ESCITALOPRAM OXALATE 10 MG TABLET 20 MG PO (08:22)
[2022-07-08] MEDS: PANTOPRAZOLE 40 MG TABLET PO (08:22)
[2022-07-08] MEDS: ASPIRIN 81 MG ENTERIC TABLET PO (08:22)
[2022-07-08] MEDS: lisinopriL 20 MG TABLET PO (08:22)
[2022-07-08] MEDS: METOPROLOL SUCCINATE EXT REL 50 MG TABCR PO (08:22)
[2022-07-08] MEDS: buPROPion HCL XL (24 HR) 150 MG TABCR PO (08:22)
[2022-07-08] MEDS: DICLOFENAC SOD 25 MG TABLET.EC 50 MG PO ×2 (08:22→18:09)
[2022-07-08] MEDS: DONEPEZIL HCL 5 MG TABLET PO (08:25)
[2022-07-08] MEDS: ATORVASTATIN 20 MG TABLET PO (08:25)
[2022-07-08] MEDS: hydroCHLOROthiazide 12.5 MG CAPSULE PO (08:25)
[2022-07-08 08:37] LABS: Hematocrit 29.8 % (42.0-52.0); Hemoglobin 9.8 g/dL (14.0-18.0); Mean Corpuscular HGB Conc 32.9 g/dl (32-36); Mean Corpuscular Hemoglobin 29.5 pg (26-34); Mean Corpuscular Volume 89.8 fl (80-100); Mean Platelet Volume 8.1 fl (7.4-10.4); Platelet Count Result 353 k/mm3 (150-375); Red Blood Count 3.32 M/mm3 (4.6-6.20); Red Cell Distribution Width 13.3 % (11.5-14.5); White Blood Count 6.9 K/mm3 (4.5-10.0)
[2022-07-08 08:52] LABS: Alanine Aminotransferase 19 U/L (6-50); Albumin Level 3.4 g/dL (3.5-5.1); Alkaline Phosphatase 74 U/L (38-126); Anion Gap 5 mmol/L (8-16); Aspartate Amino Transferase 25 U/L (17-59); Bilirubin,Total 0.2 mg/dL (0.2-1.3); Blood Urea Nitrogen 14 mg/dL (9-20); Carbon Dioxide 32 mmol/L (22-30); Chloride 97 mmol/L (98-107); Estimated CRCL calculation 105 ml/min; Estimated Glomerular Filt Rate > 60; Glucose 89 mg/dL (65-110); Magnesium 2.1 mg/dL (1.6-2.3); Potassium 3.7 mmol/L (3.4-5.0); Sodium 134 mmol/L (137-145)
[2022-07-08 10:57] LABS: CRP 1.1 mg/dL (<1.0)
--- NOTE | 2022-07-08 13:18 | PM.IMPN ---
Progress Note: A&P Assessment and Plan (1) Discitis of lumbar region: Code(s): M46.46 - Discitis, unspecified, lumbar region Status: Acute Assessment and Plan: Patient admitted to regular medical floor MRI of lumbar spine in a.. neurosurgery consult supportive care 07/08/2022 interval history, patient is laying in the bed has no new complaints, on 07/06 patient was seen by spinal surgeon, patient does not need any surgical intervention however there significant risk of spinal infection and on 07/06 patient had biopsy to r/o OM, by Dr. Martell, IR, on 07/06 Spoke with ID pharmacy and suggested we can treatment like he has meningitis with ceftriaxone 2g q12 and vacomycin per pharmacy,on 07/06 started abx after biopsy, will follow up spinal and blood culture so far no growth will continue to monitor and further recommendation to follow. once clinically stable will have PT/OT evaluate patient, patient will be seen spinal surgeon and further recommendation to follow. (2) Back pain: Code(s): M54.9 - Dorsalgia, unspecified Status: Acute Assessment and Plan: chronic back pain pain management supportive care (3) Chronic GERD: Code(s): K21.9 - Gastro-esophageal reflux disease without esophagitis Status: Acute Assessment and Plan: continue PPI (4) Hypertension: Code(s): I10 - Essential (primary) hypertension Status: Acute Assessment and Plan: continue home meds continue to monitor (5) Falls frequently: Code(s): R29.6 - Repeated falls Status: Acute Assessment and Plan: likely secondary to neurogenic claudication neurosurgery has been consulted however patient with no significant muscle atrophy in bilateral lower extremities Subjective Date/time seen: 07/08/22 13:18 07/08/2022 interval history, patient is laying in the bed has no new complaints, on 07/06 patient was seen by spinal surgeon, patient does not need any surgical intervention however there significant risk of spinal infection and on 07/06 patient had biopsy to r/o OM, by Dr. Martell, IR, on 07/06 Spoke with ID pharmacy and suggested we can treatment like he has meningitis with ceftriaxone 2g q12 and vacomycin per pharmacy,on 07/06 started abx after biopsy, will follow up spinal and blood culture so far no growth will continue to monitor and further recommendation to follow. once clinically stable will have PT/OT evaluate patient, patient will be seen spinal surgeon and further recommendation to follow. Review of Systems Constitutional: Constitutional: Denies body ache(s), Denies chills, Denies fatigue, Denies fever(s), Reports frequent falls, Denies lethargy, Denies malaise, Denies night sweats and Denies weakness Exam Narrative: Patient is comfortable, NAD HEENT: eyes are clear and none icteric LUNGS: normal respiratory effort ABD: not distended Lower extremities: no edema SKIN: nonjaundiced Neuro: grossly intact. Objective Data Vital Signs Vital Signs: Vital Signs - 24 hr 07/07/22 13:57 07/07/22 20:00 07/07/22 22:00 Temperature 97.9 F 96.6 F L Pulse Rate 56 L 58 L Respiratory Rate 16 18 Blood Pressure 114/69 132/80 Pulse Oximetry 99 98 Oxygen Delivery Room Air 07/08/22 06:00 Temperature 97.3 F L Pulse Rate 56 L Respiratory Rate 14 Blood Pressure 134/82 Pulse Oximetry 98 Oxygen Delivery Intake/Output Intake/Output: Intake & Output 07/05/22 07/06/22 07/07/22 07/08/22 23:59 23:59 23:59 23:59 Intake Total 890 1362 2030 Output Total 650 820 Balance 473 001 0739 Meds/Results Medications: Active Medications Generic Name Dose Route Start Last Admin Trade Name Freq PRN Reason Stop Dose Admin Hydrocodone Bitart/Acetaminophen 1 tab 07/06/22 02:15 07/06/22 05:32 Hydrocodone/Acetaminophen (*Crx) 5-325 Mg Tablet PO 1 tab Q6H PRN Administration Pain Rated 4-6 Aspirin 81 mg 07/06/22 09:00
[2022-07-08] MEDS: HYDROcodone/acetaminophen (*CRX) 5-325 MG TABLET 1 TAB PO (13:39)
[2022-07-08] MEDS: SODIUM CHLORIDE 0.9% IV 100 ML (13:40)
[2022-07-08 14:00] VITALS: BP 109/63; PULSE 58; RESP 16; TEMP 36; O2SAT 97
[2022-07-08 22:00] VITALS: BP 123/69; PULSE 55; RESP 18; TEMP 36.7; O2SAT 99
[2022-07-09] MEDS: cefTRIAXone 2 GM in SODIUM CHLORIDE 0.9% IV 100 ML 200 ML IVPB ×2 (02:11→16:01)
[2022-07-09 06:00] VITALS: BP 157/77; PULSE 55; RESP 16; TEMP 36.3; O2SAT 100
[2022-07-09 07:22] LABS: Hematocrit 31.9 % (42.0-52.0); Hemoglobin 10.4 g/dL (14.0-18.0); Mean Corpuscular HGB Conc 32.6 g/dl (32-36); Mean Corpuscular Hemoglobin 29.8 pg (26-34); Mean Corpuscular Volume 91.4 fl (80-100); Mean Platelet Volume 7.9 fl (7.4-10.4); Platelet Count Result 301 k/mm3 (150-375); Red Blood Count 3.49 M/mm3 (4.6-6.20); Red Cell Distribution Width 13.3 % (11.5-14.5); White Blood Count 6.9 K/mm3 (4.5-10.0)
[2022-07-09 07:36] LABS: Alanine Aminotransferase 20 U/L (6-50); Albumin Level 3.3 g/dL (3.5-5.1); Alkaline Phosphatase 72 U/L (38-126); Anion Gap 1 mmol/L (8-16); Aspartate Amino Transferase 27 U/L (17-59); Bilirubin,Total 0.1 mg/dL (0.2-1.3); Blood Urea Nitrogen 12 mg/dL (9-20); CRP 0.9 mg/dL (<1.0); Carbon Dioxide 35 mmol/L (22-30); Chloride 96 mmol/L (98-107); Estimated CRCL calculation 90 ml/min; Estimated Glomerular Filt Rate > 60; Glucose 104 mg/dL (65-110); Potassium 3.5 mmol/L (3.4-5.0); Sodium 132 mmol/L (137-145)
[2022-07-09] MEDS: hydroCHLOROthiazide 12.5 MG CAPSULE PO (09:39)
[2022-07-09] MEDS: buPROPion HCL XL (24 HR) 150 MG TABCR PO (09:39)
[2022-07-09] MEDS: THERAPEUTIC MULTIVITAMINS/MINERALS TAB (*BKC) 1 TABLET PO (09:39)
[2022-07-09] MEDS: lisinopriL 20 MG TABLET PO (09:39)
[2022-07-09] MEDS: ATORVASTATIN 20 MG TABLET PO (09:39)
[2022-07-09] MEDS: ASPIRIN 81 MG ENTERIC TABLET PO (09:39)
[2022-07-09] MEDS: DICLOFENAC SOD 25 MG TABLET.EC 50 MG PO ×2 (09:39→16:02)
[2022-07-09 09:40] VITALS: PULSE 54
[2022-07-09] MEDS: PANTOPRAZOLE 40 MG TABLET PO (09:40)
[2022-07-09] MEDS: ESCITALOPRAM OXALATE 10 MG TABLET 20 MG PO (09:40)
[2022-07-09] MEDS: DONEPEZIL HCL 5 MG TABLET PO (09:40)
[2022-07-09] MEDS: METOPROLOL SUCCINATE EXT REL 50 MG TABCR PO (09:40)
[2022-07-09] MEDS: oxyCODONE HCL (*CRX) 5 MG TAB IR PO (09:51)
[2022-07-09 11:24] LABS: Vancomycin Trough 13.6 ug/mL (10.0-20.0)
[2022-07-09 14:00] VITALS: BP 129/70; PULSE 57; RESP 17; TEMP 36.1; O2SAT 99
--- NOTE | 2022-07-09 14:03 | PM.IMPN ---
Progress Note: A&P Assessment and Plan (1) Discitis of lumbar region: Code(s): M46.46 - Discitis, unspecified, lumbar region Status: Acute Assessment and Plan: Patient admitted to regular medical floor MRI of lumbar spine in a.. neurosurgery consult supportive care 07/09/2022 interval history, patient is laying in the bed has no new complaints, on 07/06 patient was seen by spinal surgeon, patient does not need any surgical intervention however there significant risk of spinal infection and on 07/06 patient had biopsy to r/o OM, by Dr. Martell, IR, on 07/06 Spoke with ID pharmacy and suggested we can treatment like he has meningitis with ceftriaxone 2g q12 and vacomycin per pharmacy,on 07/06 started abx after biopsy, will follow up spinal and blood culture so far no growth, will continue to monitor and further recommendation to follow. once clinically stable will have PT/OT evaluate patient, patient will be seen spinal surgeon and further recommendation to follow. (2) Back pain: Code(s): M54.9 - Dorsalgia, unspecified Status: Acute Assessment and Plan: chronic back pain pain management supportive care (3) Chronic GERD: Code(s): K21.9 - Gastro-esophageal reflux disease without esophagitis Status: Acute Assessment and Plan: continue PPI (4) Hypertension: Code(s): I10 - Essential (primary) hypertension Status: Acute Assessment and Plan: continue home meds continue to monitor (5) Falls frequently: Code(s): R29.6 - Repeated falls Status: Acute Assessment and Plan: likely secondary to neurogenic claudication neurosurgery has been consulted however patient with no significant muscle atrophy in bilateral lower extremities Subjective Date/time seen: 07/09/22 14:03 07/09/2022 interval history, patient is laying in the bed has no new complaints, on 07/06 patient was seen by spinal surgeon, patient does not need any surgical intervention however there significant risk of spinal infection and on 07/06 patient had biopsy to r/o OM, by Dr. Martell, IR, on 07/06 Spoke with ID pharmacy and suggested we can treatment like he has meningitis with ceftriaxone 2g q12 and vacomycin per pharmacy,on 07/06 started abx after biopsy, will follow up spinal and blood culture so far no growth, will continue to monitor and further recommendation to follow. once clinically stable will have PT/OT evaluate patient, patient will be seen spinal surgeon and further recommendation to follow. Review of Systems Constitutional: Constitutional: Denies body ache(s), Denies chills, Denies fatigue, Denies fever(s), Reports frequent falls, Denies lethargy, Denies malaise, Denies night sweats and Denies weakness Exam Narrative: Patient is comfortable, NAD HEENT: eyes are clear and none icteric LUNGS: normal respiratory effort ABD: not distended Lower extremities: no edema SKIN: nonjaundiced Neuro: grossly intact. Objective Data Vital Signs Vital Signs: Vital Signs - 24 hr 07/08/22 22:00 07/08/22 20:00 07/09/22 06:00 Temperature 98.1 F 97.4 F L Pulse Rate 55 L 55 L Respiratory Rate 18 16 Blood Pressure 123/69 157/77 H Pulse Oximetry 99 100 Oxygen Delivery Room Air 07/09/22 09:40 Temperature Pulse Rate 54 L Respiratory Rate Blood Pressure Pulse Oximetry Oxygen Delivery Intake/Output Intake/Output: Intake & Output 07/06/22 07/07/22 07/08/22 07/09/22 23:59 23:59 23:59 23:59 Intake Total 890 1362 3102 430 Output Total 650 820 250 Balance 156 650 2815 180 Meds/Results Medications: Active Medications Generic Name Dose Route Start Last Admin Trade Name Freq PRN Reason Stop Dose Admin Hydrocodone Bitart/Acetaminophen 1 tab 07/06/22 02:15 07/08/22 13:39 Hydrocodone/Acetaminophen (*Crx) 5-325 Mg Tablet PO 1 tab Q6H PRN Administration Pain Rated 4-6 Aspirin 81 mg 07/06/22 09:00 07/09
[2022-07-09 22:00] VITALS: BP 113/67; PULSE 57; RESP 20; TEMP 36.6; O2SAT 94
[2022-07-10] MEDS: cefTRIAXone 2 GM in SODIUM CHLORIDE 0.9% IV 100 ML 200 ML IVPB ×2 (02:23→14:52)
[2022-07-10 06:00] VITALS: BP 142/83; PULSE 56; RESP 18; TEMP 36.3; O2SAT 98
[2022-07-10 07:01] LABS: Hematocrit 30.9 % (42.0-52.0); Hemoglobin 9.9 g/dL (14.0-18.0); Mean Corpuscular Hemoglobin 28.7 pg (26-34); Mean Corpuscular Volume 89.6 fl (80-100); Platelet Count Result 312 k/mm3 (150-375); Red Blood Count 3.45 M/mm3 (4.6-6.20); Red Cell Distribution Width 13.4 % (11.5-14.5); White Blood Count 7.1 K/mm3 (4.5-10.0)
[2022-07-10 07:07] LABS: Alanine Aminotransferase 20 U/L (6-50); Albumin Level 3.4 g/dL (3.5-5.1); Alkaline Phosphatase 72 U/L (38-126); Anion Gap 4 mmol/L (8-16); Aspartate Amino Transferase 30 U/L (17-59); Bilirubin,Total 0.1 mg/dL (0.2-1.3); Blood Urea Nitrogen 12 mg/dL (9-20); CRP 1.3 mg/dL (<1.0); Calcium 7.9 mg/dL (8.4-10.2); Carbon Dioxide 34 mmol/L (22-30); Chloride 94 mmol/L (98-107); Estimated CRCL calculation 90 ml/min; Estimated Glomerular Filt Rate > 60; Glucose 83 mg/dL (65-110); Potassium 3.4 mmol/L (3.4-5.0); Sodium 132 mmol/L (137-145)
[2022-07-10] MEDS: oxyCODONE HCL (*CRX) 5 MG TAB IR PO ×2 (07:49→16:08)
[2022-07-10 07:57] VITALS: PULSE 66
[2022-07-10] MEDS: DICLOFENAC SOD 25 MG TABLET.EC 50 MG PO ×2 (07:57→16:08)
[2022-07-10] MEDS: DONEPEZIL HCL 5 MG TABLET PO (07:57)
[2022-07-10] MEDS: PANTOPRAZOLE 40 MG TABLET PO (07:57)
[2022-07-10] MEDS: buPROPion HCL XL (24 HR) 150 MG TABCR PO (07:57)
[2022-07-10] MEDS: ASPIRIN 81 MG ENTERIC TABLET PO (07:57)
[2022-07-10] MEDS: hydroCHLOROthiazide 12.5 MG CAPSULE PO (07:57)
[2022-07-10] MEDS: METOPROLOL SUCCINATE EXT REL 50 MG TABCR PO (07:57)
[2022-07-10] MEDS: lisinopriL 20 MG TABLET PO (07:57)
[2022-07-10] MEDS: ESCITALOPRAM OXALATE 10 MG TABLET 20 MG PO (07:57)
[2022-07-10] MEDS: ATORVASTATIN 20 MG TABLET PO (07:57)
[2022-07-10] MEDS: THERAPEUTIC MULTIVITAMINS/MINERALS TAB (*BKC) 1 TABLET PO (07:57)
[2022-07-10] MEDS: POTASSIUM CHLORIDE 20 MEQ TABLET 40 MEQ PO (08:04)
[2022-07-10 14:00] VITALS: BP 104/65; PULSE 59; RESP 16; TEMP 36; O2SAT 98
--- NOTE | 2022-07-10 15:19 | PM.IMPN ---
Progress Note: A&P Assessment and Plan (1) Discitis of lumbar region: Code(s): M46.46 - Discitis, unspecified, lumbar region Status: Acute Assessment and Plan: Patient admitted to regular medical floor MRI of lumbar spine in a.m. neurosurgery consult supportive care 07/10/2022 interval history, patient is laying in the bed has no new complaints, on 07/06 patient was seen by spinal surgeon, patient does not need any surgical intervention however there significant risk of spinal infection and on 07/06 patient had biopsy to r/o OM, by Dr. Martell, IR, on 07/06 Spoke with ID pharmacy and suggested we can treatment like he has meningitis with ceftriaxone 2g q12 and vacomycin per pharmacy,on 07/06 started abx after biopsy, will follow up spinal and blood culture so far no growth, will continue to monitor and further recommendation to follow.Patient has no complains, once clinically stable will have PT/OT evaluate patient, patient will have spinal surgeon re-evaluate the patient and further recommendation to follow. (2) Back pain: Code(s): M54.9 - Dorsalgia, unspecified Status: Acute Assessment and Plan: chronic back pain pain management supportive care (3) Chronic GERD: Code(s): K21.9 - Gastro-esophageal reflux disease without esophagitis Status: Acute Assessment and Plan: continue PPI (4) Hypertension: Code(s): I10 - Essential (primary) hypertension Status: Acute Assessment and Plan: continue home meds continue to monitor (5) Falls frequently: Code(s): R29.6 - Repeated falls Status: Acute Assessment and Plan: likely secondary to neurogenic claudication neurosurgery has been consulted however patient with no significant muscle atrophy in bilateral lower extremities Subjective Date/time seen: 07/10/22 15:19 07/10/2022 interval history, patient is laying in the bed has no new complaints, on 07/06 patient was seen by spinal surgeon, patient does not need any surgical intervention however there significant risk of spinal infection and on 07/06 patient had biopsy to r/o OM, by Dr. Martell, IR, on 07/06 Spoke with ID pharmacy and suggested we can treatment like he has meningitis with ceftriaxone 2g q12 and vacomycin per pharmacy,on 07/06 started abx after biopsy, will follow up spinal and blood culture so far no growth, will continue to monitor and further recommendation to follow.Patient has no complains, once clinically stable will have PT/OT evaluate patient, patient will have spinal surgeon re-evaluate the patient and further recommendation to follow. Review of Systems Constitutional: Constitutional: Denies body ache(s), Denies chills, Denies fatigue, Denies fever(s), Reports frequent falls, Denies lethargy, Denies malaise, Denies night sweats and Denies weakness Exam Narrative: Patient is comfortable, NAD HEENT: eyes are clear and none icteric LUNGS: normal respiratory effort ABD: not distended Lower extremities: no edema SKIN: nonjaundiced Neuro: grossly intact. Objective Data Vital Signs Vital Signs: Vital Signs - 24 hr 07/09/22 20:00 07/09/22 22:00 07/10/22 06:00 Temperature 97.9 F 97.4 F L Pulse Rate 57 L 56 L Respiratory Rate 20 18 Blood Pressure 113/67 142/83 H Pulse Oximetry 94 98 Oxygen Delivery Room Air 07/10/22 07:57 07/10/22 07:50 Temperature Pulse Rate 66 Respiratory Rate Blood Pressure Pulse Oximetry Oxygen Delivery Room Air Intake/Output Intake/Output: Intake & Output 07/07/22 07/08/22 07/09/22 07/10/22 23:59 23:59 23:59 23:59 Intake Total 1362 3102 1610 1190 Output Total 820 950 Balance 542 3102 660 1190 Meds/Results Medications: Active Medications Generic Name Dose Route Start Last Admin Trade Name Freq PRN Reason Stop Dose Admin Hydrocodone Bitart/Acetaminophen 1 tab 07/06/22 02:15 07/08/22 13:39 Hydrocodone/Acetaminophe
[2022-07-10] MEDS: diazePAM (*CRX) 2 MG TABLET PO (15:52)
--- NOTE | 2022-07-10 16:15 | PC.NURSE ---
This nurse was called to patient's room during PT eval to assess patient. Physical therapist attempted to stand patient with walker. Patient unable to extend left leg entirely to bear weight. LLE muscles noted to spasm and bent at the knee. Patient noted pain and discomfort was a 10/10. Focused neuro assessment completed. Patient noted to be able to lay leg flat with no discomfort when laying flat in bed. This nurse notified Dr. Peña office of condition update. Office noted would update Dr. Gonzalez and he will call back with questions if needed or come assess if felt medically indicated. This nurse updated patient. Patient laying in bed with call light in reach.
[2022-07-10 22:00] VITALS: BP 110/73; PULSE 70; RESP 16; TEMP 36.6; O2SAT 99
[2022-07-10] MEDS: HYDROcodone/acetaminophen (*CRX) 5-325 MG TABLET 1 TAB PO (23:20)
[2022-07-10 23:35] LABS: Vancomycin Trough 17.2 ug/mL (10.0-20.0)
[2022-07-11] MEDS: oxyCODONE HCL (*CRX) 5 MG TAB IR PO ×2 (01:34→20:42)
[2022-07-11] MEDS: cefTRIAXone 2 GM in SODIUM CHLORIDE 0.9% IV 100 ML 200 ML IVPB ×2 (02:53→14:27)
[2022-07-11 06:00] VITALS: BP 109/62; PULSE 50; RESP 20; TEMP 36.6; O2SAT 98
[2022-07-11 06:38] LABS: Hematocrit 31.3 % (42.0-52.0); Hemoglobin 10.2 g/dL (14.0-18.0); Mean Corpuscular HGB Conc 32.6 g/dl (32-36); Mean Corpuscular Hemoglobin 29.9 pg (26-34); Mean Corpuscular Volume 91.8 fl (80-100); Platelet Count Result 310 k/mm3 (150-375); Red Blood Count 3.41 M/mm3 (4.6-6.20); Red Cell Distribution Width 13.6 % (11.5-14.5)
[2022-07-11 07:00] LABS: Alanine Aminotransferase 25 U/L (6-50); Albumin Level 3.3 g/dL (3.5-5.1); Alkaline Phosphatase 75 U/L (38-126); Anion Gap 4 mmol/L (8-16); Aspartate Amino Transferase 28 U/L (17-59); Bilirubin,Total 0.1 mg/dL (0.2-1.3); Blood Urea Nitrogen 15 mg/dL (9-20); CRP 1.2 mg/dL (<1.0); Calcium 7.9 mg/dL (8.4-10.2); Carbon Dioxide 34 mmol/L (22-30); Chloride 94 mmol/L (98-107); Estimated CRCL calculation 90 ml/min; Estimated Glomerular Filt Rate > 60; Glucose 82 mg/dL (65-110); Potassium 3.6 mmol/L (3.4-5.0); Sodium 132 mmol/L (137-145)
[2022-07-11 08:00] VITALS: PULSE 50; RESP 20; O2SAT 98
[2022-07-11] MEDS: buPROPion HCL XL (24 HR) 150 MG TABCR PO (08:29)
[2022-07-11] MEDS: hydroCHLOROthiazide 12.5 MG CAPSULE PO (08:29)
[2022-07-11] MEDS: ESCITALOPRAM OXALATE 10 MG TABLET 20 MG PO (08:29)
[2022-07-11] MEDS: ASPIRIN 81 MG ENTERIC TABLET PO (08:30)
[2022-07-11] MEDS: ATORVASTATIN 20 MG TABLET PO (08:30)
[2022-07-11] MEDS: PANTOPRAZOLE 40 MG TABLET PO (08:30)
[2022-07-11] MEDS: DICLOFENAC SOD 25 MG TABLET.EC 50 MG PO ×2 (08:30→17:26)
[2022-07-11] MEDS: lisinopriL 20 MG TABLET PO (08:30)
[2022-07-11] MEDS: THERAPEUTIC MULTIVITAMINS/MINERALS TAB (*BKC) 1 TABLET PO (08:30)
[2022-07-11] MEDS: DONEPEZIL HCL 5 MG TABLET PO (08:30)
[2022-07-11] MEDS: METOPROLOL SUCCINATE EXT REL 50 MG TABCR PO (08:30)
[2022-07-11 13:41] VITALS: BP 118/74; PULSE 55; RESP 18; TEMP 36.2; O2SAT 99
[2022-07-11] MEDS: diazePAM (*CRX) 2 MG TABLET PO ×2 (14:27→20:41)
--- NOTE | 2022-07-11 17:24 | WPDNEUROSGPN ---
Subjective Date/time seen: 07/11/22 17:24 Interval history: I spoke with Dr. Rosenberg today regarding this patient. He remains neurologically stable. He is controlling his bowel and bladder function. He has no motor or sensory deficit in his lower extremities. On July 06, he had a percutaneous biopsy of the disc space. The pathology report is consistent with osteomyelitis. The culture results are pending. He remains on broad-spectrum antibiotics. The CT scan of his cervical spine shows advanced spondylosis and some areas of possible mild to moderate central canal stenosis. I would like to see the patient back in approximately 6-8 weeks. We will obtain plain x-rays of his lumbar spine at that time. He will need close follow-up with the infectious disease services and outpatient to follow his serologies and his clinical status and manage his long-term IV antibiotic therapy. I should be contacted immediately with any deterioration in his neurologic status. He should continue to wear his brace for comfort and stabilization when he is out of bed. He may eventually require workup for possible cervical myelopathy. This may require a cervical myelogram CT study. Preferably, this would be performed once the lumbar infection has reliably cleared. Objective Data Vital Signs Vital Signs: Vital Signs - 24 hr 07/10/22 22:00 07/10/22 23:00 07/11/22 06:00 Temperature 97.8 F 97.8 F Pulse Rate 70 50 L Respiratory Rate 16 20 Blood Pressure 110/73 109/62 Pulse Oximetry 99 98 Oxygen Delivery Room Air 07/11/22 08:00 07/11/22 13:41 Temperature 97.2 F L Pulse Rate 50 L 55 L Respiratory Rate 20 18 Blood Pressure 118/74 Pulse Oximetry 98 99 Oxygen Delivery Room Air Intake/Output Intake/Output: Intake & Output 07/08/22 07/09/22 07/10/22 07/11/22 23:59 23:59 23:59 23:59 Intake Total 3102 1610 2030 890 Output Total 950 1100 1050 Balance 3102 660 930 -160 Meds/Results Medications: Active Medications Generic Name Dose Route Start Last Admin Trade Name Freq PRN Reason Stop Dose Admin Hydrocodone Bitart/Acetaminophen 1 tab 07/06/22 02:15 07/10/22 23:20 Hydrocodone/Acetaminophen (*Crx) 5-325 Mg Tablet PO 1 tab Q6H PRN Administration Pain Rated 4-6 Aspirin 81 mg 12/08/22 09:00 07/11/22 08:30 Aspirin 81 Mg Enteric Tablet PO 81 mg QAM JAZMÍN Administration Atorvastatin Calcium 20 mg 07/06/22 09:00 07/11/22 08:30 Atorvastatin 20 Mg Tablet PO 20 mg DAILY JAZMÍN Administration Bupropion HCl 150 mg 07/06/22 09:00 07/11/22 08:29 Bupropion Hcl Xl (24 Hr) 150 Mg Tabcr PO 150 mg DAILY JAZMÍN Administration Diazepam 2 mg 07/06/22 02:15 07/11/22 14:27 Diazepam (*Crx) 2 Mg Tablet PO 2 mg TID PRN Administration muscle spasm Diclofenac Sodium 50 mg 07/06/22 09:00 07/11/22 08:30 Diclofenac Sod 25 Mg Tablet.Ec PO 50 mg BID JAZMÍN Administration Donepezil HCl 5 mg 07/06/22 09:00 07/11/22 08:30 Donepezil Hcl 5 Mg Tablet PO 5 mg DAILY JAZMÍN Administration Escitalopram Oxalate 20 mg 07/06/22 09:00 07/11/22 08:29 Escitalopram Oxalate 10 Mg Tablet PO 20 mg DAILY JAZMÍN Administration Hydrochlorothiazide 12.5 mg 07/06/22 09:00 07/11/22 08:29 Hydrochlorothiazide 12.5 Mg Capsule PO 12.5 mg QAM JAZMÍN Administration Ceftriaxone Sodium 2 gm/ 100 mls @ 200 mls/hr 07/06/22 14:00 07/11/22 14:27 Sodium Chloride IVPB 200 mls/hr Q12H JAZMÍN Administration Vancomycin HCl 1,750 mg in 500 mls @ 250 mls/hr 07/09/22 12:00 07/11/22 12:42 Vancomycin 1,750 Mg/D5w 500 Ml IVPB 250 mls/hr Q12H JAZMÍN Administration Lisinopril 20 mg 07/06/22 09:00 07/11/22 08:30 Lisinopril 20 Mg Tablet PO 20 mg QAM JAZMÍN Administration Metoprolol Succinate 50 mg 07/06/22 09:00 07/11/22 08:30 Metoprolol Succinate Ext Rel 50 Mg Tabcr PO 50 mg DAILY JAZMÍN Administration Multivitamins/Calcium 1 tablet 07/06/22 09:00 07/11/22 08:30 Th
--- NOTE | 2022-07-11 18:09 | PM.IMPN ---
Progress Note: A&P Assessment and Plan (1) Discitis of lumbar region: Code(s): M46.46 - Discitis, unspecified, lumbar region Status: Acute Assessment and Plan: Patient admitted to regular medical floor MRI of lumbar spine in a.m. neurosurgery consult supportive care 07/11/2022 interval history, patient is laying in the bed has no new complaints, on 07/06 patient was seen by spinal surgeon, patient does not need any surgical intervention however there significant risk of spinal infection and on 07/06 patient had biopsy to r/o OM, by Dr. Martell, IR, the biopsy report is concerning for osteomyelitis however biopsy culture has no growth so far similarly blood culture has no growth, on 07/06 Spoke with ID pharmacy and suggested we can treatment like he has meningitis with ceftriaxone 2g q12 and vacomycin per pharmacy,on 07/06 started abx after biopsy, will follow up spinal and blood culture so far no growth, will continue to monitor and further recommendation to follow.Patient has no complains, he has control over his bowel and bladder he denies any numbness in his lower extremities or groin area, he denies any fever or chills, patient will need minimum 4-6 weeks of IV antibiotic, please discuss with ID pharmacist for more details, patient is working with PT/OT to evaluate and treat patient, patient will have spinal surgeon re-evaluate the patient and further recommendation to follow. (2) Back pain: Code(s): M54.9 - Dorsalgia, unspecified Status: Acute Assessment and Plan: chronic back pain pain management supportive care (3) Chronic GERD: Code(s): K21.9 - Gastro-esophageal reflux disease without esophagitis Status: Acute Assessment and Plan: continue PPI (4) Hypertension: Code(s): I10 - Essential (primary) hypertension Status: Acute Assessment and Plan: continue home meds continue to monitor (5) Falls frequently: Code(s): R29.6 - Repeated falls Status: Acute Assessment and Plan: likely secondary to neurogenic claudication neurosurgery has been consulted however patient with no significant muscle atrophy in bilateral lower extremities Subjective Date/time seen: 07/11/22 18:09 07/11/2022 interval history, patient is laying in the bed has no new complaints, on 07/06 patient was seen by spinal surgeon, patient does not need any surgical intervention however there significant risk of spinal infection and on 07/06 patient had biopsy to r/o OM, by Dr. Martell, IR, the biopsy report is concerning for osteomyelitis however biopsy culture has no growth so far similarly blood culture has no growth, on 07/06 Spoke with ID pharmacy and suggested we can treatment like he has meningitis with ceftriaxone 2g q12 and vacomycin per pharmacy,on 07/06 started abx after biopsy, will follow up spinal and blood culture so far no growth, will continue to monitor and further recommendation to follow.Patient has no complains, he has control over his bowel and bladder he denies any numbness in his lower extremities or groin area, he denies any fever or chills, patient will need minimum 4-6 weeks of IV antibiotic, please discuss with ID pharmacist for more details, patient is working with PT/OT to evaluate and treat patient, patient will have spinal surgeon re-evaluate the patient and further recommendation to follow. Review of Systems Constitutional: Constitutional: Denies body ache(s), Denies chills, Denies fatigue, Denies fever(s), Reports frequent falls, Denies lethargy, Denies malaise, Denies night sweats and Denies weakness Exam Narrative: Patient is comfortable, NAD HEENT: eyes are clear and none icteric LUNGS: normal respiratory effort ABD: not distended Lower extremities: no edema SKIN: nonjaundiced Neuro: grossly intact. Objective Data Vital Signs Vital Signs: Vital Signs - 24 hr 07/10/22 22:00 07/10/22 23:00 07/11/22 06
[2022-07-11 19:24] VITALS: BP 103/57; PULSE 56; RESP 18; TEMP 36.1; O2SAT 99
[2022-07-12] MEDS: cefTRIAXone 2 GM in SODIUM CHLORIDE 0.9% IV 100 ML 200 ML IVPB ×2 (02:56→15:05)
[2022-07-12 03:21] VITALS: BP 115/65; PULSE 49; RESP 18; TEMP 36.1; O2SAT 100
[2022-07-12 06:45] LABS: Hematocrit 32.5 % (42.0-52.0); Hemoglobin 10.4 g/dL (14.0-18.0); Mean Corpuscular Hemoglobin 28.7 pg (26-34); Mean Corpuscular Volume 89.8 fl (80-100); Mean Platelet Volume 8.1 fl (7.4-10.4); Platelet Count Result 310 k/mm3 (150-375); Red Blood Count 3.62 M/mm3 (4.6-6.20); Red Cell Distribution Width 13.6 % (11.5-14.5); White Blood Count 5.7 K/mm3 (4.5-10.0)
[2022-07-12 07:03] LABS: Alanine Aminotransferase 26 U/L (6-50); Albumin Level 3.4 g/dL (3.5-5.1); Alkaline Phosphatase 74 U/L (38-126); Anion Gap 3 mmol/L (8-16); Aspartate Amino Transferase 27 U/L (17-59); Bilirubin,Total 0.2 mg/dL (0.2-1.3); Blood Urea Nitrogen 13 mg/dL (9-20); CRP 0.8 mg/dL (<1.0); Calcium 7.9 mg/dL (8.4-10.2); Carbon Dioxide 36 mmol/L (22-30); Chloride 96 mmol/L (98-107); Estimated CRCL calculation 90 ml/min; Estimated Glomerular Filt Rate > 60; Glucose 81 mg/dL (65-110); Sodium 135 mmol/L (137-145)
[2022-07-12] MEDS: DICLOFENAC SOD 25 MG TABLET.EC 50 MG PO ×2 (08:06→17:01)
[2022-07-12 08:07] VITALS: PULSE 66
[2022-07-12] MEDS: METOPROLOL SUCCINATE EXT REL 50 MG TABCR PO (08:07)
[2022-07-12] MEDS: buPROPion HCL XL (24 HR) 150 MG TABCR PO (08:07)
[2022-07-12] MEDS: ESCITALOPRAM OXALATE 10 MG TABLET 20 MG PO (08:07)
[2022-07-12] MEDS: ATORVASTATIN 20 MG TABLET PO (08:07)
[2022-07-12] MEDS: ASPIRIN 81 MG ENTERIC TABLET PO (08:07)
[2022-07-12] MEDS: THERAPEUTIC MULTIVITAMINS/MINERALS TAB (*BKC) 1 TABLET PO (08:07)
[2022-07-12] MEDS: hydroCHLOROthiazide 12.5 MG CAPSULE PO (08:07)
[2022-07-12] MEDS: PANTOPRAZOLE 40 MG TABLET PO (08:10)
[2022-07-12] MEDS: lisinopriL 20 MG TABLET PO (08:10)
[2022-07-12] MEDS: DONEPEZIL HCL 5 MG TABLET PO (08:10)
--- NOTE | 2022-07-12 10:23 | PCNWS ---
Weekly nutritional screen. Patient is tolerating current diet with adequate intake. No weight loss reported. No nutritional needs at this time.
[2022-07-12 11:03] VITALS: O2SAT 98
--- NOTE | 2022-07-12 12:40 | PM.IMPN ---
Progress Note: A&P Assessment and Plan (1) Discitis of lumbar region: Code(s): M46.46 - Discitis, unspecified, lumbar region Status: Acute Assessment and Plan: Patient admitted to regular medical floor MRI of lumbar spine in a.m. neurosurgery consult supportive care 07/11/2022 interval history, patient is laying in the bed has no new complaints, on 07/06 patient was seen by spinal surgeon, patient does not need any surgical intervention however there significant risk of spinal infection and on 07/06 patient had biopsy to r/o OM, by Dr. Martell, IR, the biopsy report is concerning for osteomyelitis however biopsy culture has no growth so far similarly blood culture has no growth, on 07/06 Spoke with ID pharmacy and suggested we can treatment like he has meningitis with ceftriaxone 2g q12 and vacomycin per pharmacy,on 07/06 started abx after biopsy, will follow up spinal and blood culture so far no growth, will continue to monitor and further recommendation to follow.Patient has no complains, he has control over his bowel and bladder he denies any numbness in his lower extremities or groin area, he denies any fever or chills, patient will need minimum 4-6 weeks of IV antibiotic, please discuss with ID pharmacist for more details, patient is working with PT/OT to evaluate and treat patient, patient will have spinal surgeon re-evaluate the patient and further recommendation to follow. 07/12/2022: low back pain L4/L5 discitis. paraspinal mass s/p biopsy. neurosurgery consulted. clostridium raosum infection ceftriaxone 2 g iv q12hr. also on vancomycin. disucssed with ID Need antibiotics for 6 weeks total. No bacteremia Monitor for any worsening neurological sign Mild chronic anemia Mild hyponatremia Severe cervical spondylosis stable DVT prophylaxis SCDs Hypertension on lisinopril metoprolol hydrochlorothiazide Hyperlipidemia on atorvastatin Chest anxiety/depression Chronic GERD History of stroke Dementia Code status full code (2) Back pain: Code(s): M54.9 - Dorsalgia, unspecified Status: Acute Assessment and Plan: chronic back pain pain management supportive care (3) Chronic GERD: Code(s): K21.9 - Gastro-esophageal reflux disease without esophagitis Status: Acute Assessment and Plan: continue PPI (4) Hypertension: Code(s): I10 - Essential (primary) hypertension Status: Acute Assessment and Plan: continue home meds continue to monitor (5) Falls frequently: Code(s): R29.6 - Repeated falls Status: Acute Assessment and Plan: likely secondary to neurogenic claudication neurosurgery has been consulted however patient with no significant muscle atrophy in bilateral lower extremities Subjective Date/time seen: 07/12/22 12:40 Interval history: no new compalints. no fever, chills, sob, chest pain. reports back pain which prohibits from ambulation Review of Systems Review of Systems: All systems reviewed & are unremarkable except as noted in HPI and below Exam Narrative: Patient is comfortable, NAD HEENT: eyes are clear and none icteric LUNGS: normal respiratory effort, clear to auscultation ABD: not distended, soft, nontender Lower extremities: no edema , cyanosis, or clubbing SKIN: nonjaundiced Neuro: grossly intact.alert and oriented x 3 Objective Data Vital Signs Vital Signs: Vital Signs - 24 hr 07/11/22 13:41 07/11/22 19:24 07/12/22 03:21 Temperature 97.2 F L 97 F L 96.9 F L Pulse Rate 55 L 56 L 49 L Respiratory Rate 18 18 18 Blood Pressure 118/74 103/57 L 115/65 Pulse Oximetry 99 99 100 Oxygen Delivery 07/12/22 08:07 07/12/22 11:03 Temperature Pulse Rate 66 Respiratory Rate Blood Pressure Pulse Oximetry 98 Oxygen Delivery Room Air Intake/Output Intake/Output: Intake & Output 07/09/22 07/10/22 07/11/22 07/12/22 23:59 23:59 23:59 23:59 Intake Total 16
--- NOTE | 2022-07-12 12:55 | PCOTNOTE ---
Attempted to see patient twice this date. First attempt, patient declined activity out of bed or edge of bed due to pain. RN notified. Attempted this pm, however patient reported he had still not received a pain pill. RN at break at this time. Charge nurse notified.
[2022-07-12 14:00] VITALS: BP 100/60; PULSE 57; RESP 18; TEMP 36.4; O2SAT 98
[2022-07-12] MEDS: HYDROcodone/acetaminophen (*CRX) 5-325 MG TABLET 1 TAB PO (14:14)
[2022-07-12] MEDS: metroNIDAZOLE 250 MG TABLET 500 MG PO (17:01)
[2022-07-12 21:33] VITALS: BP 104/58; PULSE 55; RESP 18; TEMP 36.6; O2SAT 97
[2022-07-13] MEDS: metroNIDAZOLE 250 MG TABLET 500 MG PO ×5 (00:28→23:54)
[2022-07-13] MEDS: cefTRIAXone 2 GM in SODIUM CHLORIDE 0.9% IV 100 ML 200 ML IVPB ×2 (03:36→13:58)
[2022-07-13 05:36] VITALS: BP 161/83; PULSE 62; RESP 18; TEMP 36.6; O2SAT 99
[2022-07-13 07:39] LABS: Hematocrit 31.2 % (42.0-52.0); Hemoglobin 10.1 g/dL (14.0-18.0); Mean Corpuscular HGB Conc 32.4 g/dl (32-36); Mean Corpuscular Hemoglobin 28.7 pg (26-34); Mean Corpuscular Volume 88.6 fl (80-100); Mean Platelet Volume 8.1 fl (7.4-10.4); Platelet Count Result 294 k/mm3 (150-375); Red Blood Count 3.52 M/mm3 (4.6-6.20); Red Cell Distribution Width 13.7 % (11.5-14.5)
[2022-07-13 07:59] LABS: Alanine Aminotransferase 25 U/L (6-50); Albumin Level 3.4 g/dL (3.5-5.1); Alkaline Phosphatase 74 U/L (38-126); Anion Gap 3 mmol/L (8-16); Aspartate Amino Transferase 27 U/L (17-59); Bilirubin,Total 0.2 mg/dL (0.2-1.3); Blood Urea Nitrogen 15 mg/dL (9-20); CRP 0.8 mg/dL (<1.0); Calcium 7.9 mg/dL (8.4-10.2); Carbon Dioxide 34 mmol/L (22-30); Chloride 94 mmol/L (98-107); Estimated CRCL calculation 90 ml/min; Estimated Glomerular Filt Rate > 60; Glucose 79 mg/dL (65-110); Magnesium 2.1 mg/dL (1.6-2.3); Potassium 3.9 mmol/L (3.4-5.0); Sodium 131 mmol/L (137-145)
[2022-07-13] MEDS: oxyCODONE HCL (*CRX) 5 MG TAB IR PO ×2 (09:27→17:15)
[2022-07-13] MEDS: ESCITALOPRAM OXALATE 10 MG TABLET 20 MG PO (09:29)
[2022-07-13 09:30] VITALS: PULSE 60
[2022-07-13] MEDS: ATORVASTATIN 20 MG TABLET PO (09:30)
[2022-07-13] MEDS: lisinopriL 20 MG TABLET PO (09:30)
[2022-07-13] MEDS: buPROPion HCL XL (24 HR) 150 MG TABCR PO (09:30)
[2022-07-13] MEDS: ASPIRIN 81 MG ENTERIC TABLET PO (09:30)
[2022-07-13] MEDS: THERAPEUTIC MULTIVITAMINS/MINERALS TAB (*BKC) 1 TABLET PO (09:30)
[2022-07-13] MEDS: DONEPEZIL HCL 5 MG TABLET PO (09:30)
[2022-07-13] MEDS: hydroCHLOROthiazide 12.5 MG CAPSULE PO (09:30)
[2022-07-13] MEDS: METOPROLOL SUCCINATE EXT REL 50 MG TABCR PO (09:30)
[2022-07-13] MEDS: DICLOFENAC SOD 25 MG TABLET.EC 50 MG PO ×2 (09:30→17:09)
[2022-07-13] MEDS: PANTOPRAZOLE 40 MG TABLET PO (11:46)
[2022-07-13 14:00] VITALS: BP 128/74; PULSE 60; RESP 18; TEMP 36.6; O2SAT 97
--- NOTE | 2022-07-13 17:27 | PM.IMPN ---
Progress Note: A&P Assessment and Plan (1) Discitis of lumbar region: Code(s): M46.46 - Discitis, unspecified, lumbar region Status: Acute Assessment and Plan: Patient admitted to regular medical floor MRI of lumbar spine in a.m. neurosurgery consult supportive care 07/11/2022 interval history, patient is laying in the bed has no new complaints, on 07/06 patient was seen by spinal surgeon, patient does not need any surgical intervention however there significant risk of spinal infection and on 07/06 patient had biopsy to r/o OM, by Dr. Martell, IR, the biopsy report is concerning for osteomyelitis however biopsy culture has no growth so far similarly blood culture has no growth, on 07/06 Spoke with ID pharmacy and suggested we can treatment like he has meningitis with ceftriaxone 2g q12 and vacomycin per pharmacy,on 07/06 started abx after biopsy, will follow up spinal and blood culture so far no growth, will continue to monitor and further recommendation to follow.Patient has no complains, he has control over his bowel and bladder he denies any numbness in his lower extremities or groin area, he denies any fever or chills, patient will need minimum 4-6 weeks of IV antibiotic, please discuss with ID pharmacist for more details, patient is working with PT/OT to evaluate and treat patient, patient will have spinal surgeon re-evaluate the patient and further recommendation to follow. (2) Back pain: Code(s): M54.9 - Dorsalgia, unspecified Status: Acute Assessment and Plan: chronic back pain pain management supportive care (3) Chronic GERD: Code(s): K21.9 - Gastro-esophageal reflux disease without esophagitis Status: Acute Assessment and Plan: continue PPI (4) Hypertension: Code(s): I10 - Essential (primary) hypertension Status: Acute Assessment and Plan: continue home meds continue to monitor (5) Falls frequently: Code(s): R29.6 - Repeated falls Status: Acute Assessment and Plan: likely secondary to neurogenic claudication neurosurgery has been consulted however patient with no significant muscle atrophy in bilateral lower extremities Plan low back pain L4/L5 discitis. paraspinal mass s/p biopsy. neurosurgery consulted. clostridium raosum infection ceftriaxone 2 g iv q24 hr. also on vancomycin. disucssed with ID pharmacist. stop date:08/17/2022. vancomycin stopped. flagyl oral for 6 weeks as well. picc line placement. SNF placement. Need antibiotics for 6 weeks total. No bacteremia Monitor for any worsening neurological sign Mild chronic anemia Mild hyponatremia Severe cervical spondylosis stable DVT prophylaxis SCDs Hypertension on lisinopril metoprolol hydrochlorothiazide Hyperlipidemia on atorvastatin Chest anxiety/depression Chronic GERD History of stroke Dementia Code status full code Subjective Date/time seen: 07/13/22 17:27 Interval history: compalins of back pain .no weakness or tingling or numbness, no fever, chill, sob, cehst pain. Review of Systems Review of Systems: All systems reviewed & are unremarkable except as noted in HPI and below Exam Narrative: Patient is comfortable, NAD HEENT: eyes are clear and none icteric LUNGS: normal respiratory effort, clear to auscultation ABD: not distended, soft, nontender Lower extremities: no edema , cyanosis, or clubbing SKIN: nonjaundiced Neuro: grossly intact.alert and oriented x 3 Objective Data Vital Signs Vital Signs: Vital Signs - 24 hr 07/12/22 20:10 07/12/22 21:33 07/13/22 05:36 Temperature 98 F 97.9 F Pulse Rate 55 L 62 Respiratory Rate 18 18 Blood Pressure 104/58 L 161/83 H Pulse Oximetry 97 99 Oxygen Delivery Room Air 07/13/22 09:30 07/13/22 09:30 07/13/22 14:00 Temperature 97.8 F Pulse Rate 60 60 Respiratory Rate 18 Blood Pressure 128/74 Pulse Oximetry 97 Oxygen Delivery Room Air
[2022-07-13 20:00] VITALS: PULSE 60; RESP 18; O2SAT 97
[2022-07-13 20:31] VITALS: BP 124/72; PULSE 52; RESP 18; TEMP 36.1; O2SAT 97
[2022-07-14] MEDS: cefTRIAXone 2 GM in SODIUM CHLORIDE 0.9% IV 100 ML 200 ML IVPB ×2 (03:19→13:33)
[2022-07-14 03:29] VITALS: BP 123/68; PULSE 52; RESP 18; TEMP 36; O2SAT 96
[2022-07-14] MEDS: metroNIDAZOLE 250 MG TABLET 500 MG PO ×3 (06:00→16:53)
[2022-07-14 07:08] LABS: Hematocrit 30.5 % (42.0-52.0); Hemoglobin 9.9 g/dL (14.0-18.0); Mean Corpuscular HGB Conc 32.5 g/dl (32-36); Mean Corpuscular Hemoglobin 28.9 pg (26-34); Mean Corpuscular Volume 89.2 fl (80-100); Platelet Count Result 278 k/mm3 (150-375); Red Blood Count 3.42 M/mm3 (4.6-6.20); Red Cell Distribution Width 13.9 % (11.5-14.5); White Blood Count 5.3 K/mm3 (4.5-10.0)
[2022-07-14 07:27] LABS: Alanine Aminotransferase 28 U/L (6-50); Albumin Level 3.2 g/dL (3.5-5.1); Alkaline Phosphatase 78 U/L (38-126); Anion Gap 5 mmol/L (8-16); Aspartate Amino Transferase 29 U/L (17-59); Bilirubin,Total 0.2 mg/dL (0.2-1.3); Blood Urea Nitrogen 23 mg/dL (9-20); CRP 0.8 mg/dL (<1.0); Carbon Dioxide 34 mmol/L (22-30); Chloride 97 mmol/L (98-107); Estimated CRCL calculation 78 ml/min; Estimated Glomerular Filt Rate > 60; Glucose 79 mg/dL (65-110); Magnesium 2.1 mg/dL (1.6-2.3); Sodium 136 mmol/L (137-145)
[2022-07-14] MEDS: LIDOCAINE HCL 1% PF INJ 5 ML VIAL INFILTRATE (08:40)
[2022-07-14] MEDS: ESCITALOPRAM OXALATE 10 MG TABLET 20 MG PO (09:01)
[2022-07-14] MEDS: hydroCHLOROthiazide 12.5 MG CAPSULE PO (09:01)
[2022-07-14] MEDS: DICLOFENAC SOD 25 MG TABLET.EC 50 MG PO ×2 (09:01→16:53)
[2022-07-14 09:02] VITALS: PULSE 60
[2022-07-14] MEDS: THERAPEUTIC MULTIVITAMINS/MINERALS TAB (*BKC) 1 TABLET PO (09:02)
[2022-07-14] MEDS: METOPROLOL SUCCINATE EXT REL 50 MG TABCR PO (09:02)
[2022-07-14] MEDS: ATORVASTATIN 20 MG TABLET PO (09:02)
[2022-07-14] MEDS: lisinopriL 20 MG TABLET PO (09:02)
[2022-07-14] MEDS: DONEPEZIL HCL 5 MG TABLET PO (09:02)
[2022-07-14] MEDS: PANTOPRAZOLE 40 MG TABLET PO (09:02)
[2022-07-14] MEDS: ASPIRIN 81 MG ENTERIC TABLET PO (09:05)
[2022-07-14] MEDS: buPROPion HCL XL (24 HR) 150 MG TABCR PO (09:05)
[2022-07-14] MEDS: CENTRAL LINE FLUSH 10 ML IV PUSH (13:33)
[2022-07-14] MEDS: HYDROcodone/acetaminophen (*CRX) 5-325 MG TABLET 1 TAB PO (15:00)
[2022-07-14 15:22] VITALS: BP 125/73; PULSE 53; RESP 18; TEMP 36.6; O2SAT 98
--- NOTE | 2022-07-14 16:06 | PM.DS ---
DS: Admitting Diagnosis Discharge Date 07/14/2022 Admitting Diagnosis Back pain DS: Discharge Diagnosis Discharge Diagnosis (1) Back pain: Code(s): M54.9 - Dorsalgia, unspecified Status: Acute (2) Chronic GERD: Code(s): K21.9 - Gastro-esophageal reflux disease without esophagitis Status: Acute (3) Hypertension: Code(s): I10 - Essential (primary) hypertension Status: Acute (4) Falls frequently: Code(s): R29.6 - Repeated falls Status: Acute DS: Summary Hospital Course Hospital Course: Discitis of lumbar region: low back pain L4/L5 discitis. paraspinal mass s/p biopsy. neurosurgery consulted. clostridium raosum in culture from the biopsy ceftriaxone 2 g iv q24 hr.?he was also on vancomycin initially which has now been discontinued. discussed with ID pharmacits. will continue for total 6 weeks course. will give ceftriaxone iv and flagyl oral for total 6 weeks. stop date: 08/17/2022. PICC line placed. No bacteremia Monitor for any worsening neurological sign. he is able to move his extremities, except for due to pain. pain control with oxycodone prn and muscle relaxant Mild chronic anemia Mild hyponatremia Severe cervical spondylosis stable need fu as op basis. DVT prophylaxis SCDs Hypertension on lisinopril metoprolol hydrochlorothiazide Hyperlipidemia on atorvastatin Chest anxiety/depression Chronic GERD History of stroke Dementia Code status full code Time Spent with Patient Time attestation: Total time spent providing and/or coordinating discharge services:50 mins Exam Narrative: Patient is comfortable, NAD HEENT: eyes are clear and none icteric LUNGS: normal respiratory effort, clear to auscultation ABD: not distended, soft, nontender Lower extremities: no edema , cyanosis, or clubbing SKIN: nonjaundiced Neuro: grossly intact.alert and oriented x 3 DS: Data Data Completed and Pending Labs on day of discharge: Labs from last 24 hours 07/14/22 07/14/22 06:16 06:16 WBC 5.3 RBC 3.42 L Hgb 9.9 L Hct 30.5 L MCV 89.2 MCH 28.9 MCHC 32.5 RDW 13.9 Plt Count 278 MPV 8.0 Sodium 136 L Potassium 4.0 Chloride 97 L Carbon Dioxide 34 H Anion Gap 5 L BUN 23 H Creatinine 0.70 Estim Creat Clear Calc 78 Estimated GFR > 60 Glucose 79 Calcium 8.0 L Magnesium 2.1 Total Bilirubin 0.2 AST 29 ALT 28 Alkaline Phosphatase 78 C-Reactive Protein 0.8 Total Protein 6.0 L Albumin 3.2 L Imaging Radiologist's impression: ITS Impressions Chest X-Ray 07/05/22 11:45 IMPRESSION: 1: NO ACUTE CARDIOPULMONARY DISEASE. Hip/Pelvis X-Ray 07/05/22 11:47 Impression: 1: No acute fracture. Lumbar Spine X-Ray 07/05/22 12:09 Impression: 1: No acute fracture. 2: Severe lumbar spondylosis with levoscoliosis. Pelvis CT 07/05/22 13:13 IMPRESSION: 1. Lytic destruction at L4-5 endplates, compatible with discitis/osteomyelitis with possible pathologic fracture at L5. There is associated soft tissue extending anterior to the disc space. Recommend further evaluation with MRI with contrast. Dr. Go Bai discussed with Dr. Scot Roberts MD at 07/05/2022 13:19 BLIND TEACHER. Lumbar Sp[address] 07/05/22 15:20 IMPRESSION: Osteomyelitis discitis at L4-5 with mild L5 vertebral body height loss and a L4-5 paraspinal mass. Please also refer to the report on the pending lumbar spine MRI for additional detail. Lumbar Spine CT 07/05/22 17:04 IMPRESSION: 1. Discitis/osteomyelitis at L4-5 with soft tissue extension anterior to the endplate. There is also abnormal ring-enhancing lesions of the psoas muscles bilaterally, consistent with small abscesses. Correlate with follow-up MRI examination to assess for epidural extension of infection. 2: Severe lumbar spondylosis. Cervical Spine CT 07/06/22 09:21 IMPRESSION: 1. Severe cervical spondylosis, stable from 06/01/2022. Mus
[2022-07-14 17:42] LABS: EDCOVIDSCREEN Negative (Negative)
[2022-07-14 20:20] VITALS: PULSE 53; RESP 18; O2SAT 98
== END 2022-07-14 21:30 | DRG 501 ==
LOC: ANHED 13:11 → ANH3MEDSUR 19:30
PROVIDERS: Emergency Medicine; Family Medicine; Admitting Provider Student in an Organized Health Care Education/Training Program; Emergency Provider Emergency Medicine; PCP Internal Medicine; Visit Provider Internal Medicine
DX: M46.46 Discitis, unspecified, lumbar region (principal); M46.26 Osteomyelitis of vertebra, lumbar region; E78.5 Hyperlipidemia, unspecified; I10 Essential (primary) hypertension; I73.9 Peripheral vascular disease, unspecified; K21.9 Gastro-esophageal reflux disease without esophagitis; M48.062 Spinal stenosis, lumbar region with neurogenic claudication; M47.812 Spondylosis without myelopathy or radiculopathy, cervical region; R29.6 Repeated falls; B96.89 Other specified bacterial agents as the cause of diseases classified elsewhere; F03.90 Unspecified dementia, unspecified severity, without behavioral disturbance, psychotic disturbance, mood disturbance, and anxiety; F32.A Depression, unspecified; F41.9 Anxiety disorder, unspecified; Z20.822 Contact with and (suspected) exposure to COVID-19; Z87.891 Personal history of nicotine dependence; Z79.82 Long term (current) use of aspirin; Z86.73 Personal history of transient ischemic attack (TIA), and cerebral infarction without residual deficits; Z80.0 Family history of malignant neoplasm of digestive organs; Z23 Encounter for immunization
CPT/HCPCS: 20206; 36415; 36569; 71046; 72100; 72125; 72131; 72132; 72192; 73502; 77012; 80053; 80202; 81003; 83735; 85025; 85027; 85046; 85610; 85652; 85730; 86140; 87040; 87070; 87075; 87076; 87185; 87205; 87426; 87636; 88304; 90471; 90694; 93005; 97110; 97162; 97166; 97530; 97535; 99285; A9270; C1751; C9803; G0008; J0696; J3370; Q9967

== ENCOUNTER 2022-08-16 10:35 | Outpatient (CLI) | payer MEDICARE, MEDICAID, SELFPAY ==
--- NOTE | ~2022-08-16 | CT_ITS ---
Non-contrast CT scan of the Abdomen Clinical indication: Discitis Technique: 2.5 mm axial scans were obtained through the abdomen without intravenous or oral contrast. Dose reduction technique was used on this scan by utilizing automated exposure control and iterative reconstruction technique. The dose-length product (DLP) was 245.39 mGy-cm. COMPARISON: 06/19/2022 Findings: Images through the lung bases reveal no abnormalities. Stable nonobstructing right renal stone. Bilateral renal cysts are present. The liver, spleen, pancreas, gallbladder, and adrenals appear normal. There is no aortic aneurysm. Visualized bowel loops are unremarkable. No ascites. There is extensive erosive/destructive change centered about the L4-L5 disc space, suspicious for dis citis/osteomyelitis at this level. There is an approximate 1 cm retrolisthesis of L4 over L5. Degener ative disc changes are present in the remainder of the lumbar spine. Impression: Extensive erosive/destructive changes centered about the L4-L5 disc space, suspicious for osteomyelit is/discitis at this level. Consider MR for further imaging evaluation as indicated. Approximate 1 cm retrolisthesis of L4 over L5. Right nephrolithiasis. Reviewed, dictated and finalized at location . OFFICE MANAGER Impression: Extensive erosive/destructive changes centered about the L4-L5 disc space, susp icious for osteomyelitis/discitis at this level. Consider MR for further imagin g evaluation as indicated. Approximate 1 cm retrolisthesis of L4 over L5. Right nephrolithiasis.
--- NOTE | ~2022-08-16 | CT_ITS ---
Noncontrast CT scan of the lumbar spine CLINICAL HISTORY: Discitis TECHNIQUE: Axial noncontrast imaging of the lumbar spine was performed. Sagittal and coronal reformat diamond images were constructed. Dose reduction technique was used on this scan by utilizing automated ex posure control and iterative reconstruction technique. COMPARISON: 07/05/2022 FINDINGS: Extensive erosive/destructive changes centered about the L4-L5 disc space are again present , somewhat similar to prior exam. There is increased reactive sclerosis about the destructive changes . Retrolisthesis of L4 over L5 is present, measuring approximately 9 mm. Underlying chronic bilateral L5 pars interarticularis defects are present, with 7 mm anterolisthesis of L5 over S1. Additional moderate to severe degenerative disc narrowing is present at the remaining lumbar levels, similar to prior exam. At L1-L2, there is facet joint arthropathy with disc bulge and probable mild thecal sac compression. There is probable severe right neural foraminal narrowing and moderate left neural foraminal narrowin g. At L2-L3, disc bulge and facet arthropathy are present. No south spinal canal stenosis. There is mode rate to severe right neural foraminal narrowing and moderate left neural foraminal narrowing. At L3-L4, disc bulge and facet arthropathy resulting in probable mild to moderate thecal sac compress ion. There is moderate right neural foraminal narrowing and mild left neural foraminal narrowing. At L4-L5, disc bulge and facet arthropathy are present. There is probable moderate to possibly severe thecal sac compression. Evaluation for epidural abscess is limited on this exam. There is severe maryuri ateral neural foraminal compromise, left worse than right. At L5-S1, there is disc bulge and facet arthropathy. No definite canal stenosis. There is severe bila teral neural foraminal compromise. There is probable mild anterior paravertebral soft tissue thickening about the L4-L5 level, consisten t with underlying discitis present. No definite fluid collection evident on this exam. IMPRESSION: Osteomyelitis/discitis centered about the L4-L5 disc space, similar overall appearance to prior exam. Chronic L5 pars interarticularis defects, with 7 mm anterolisthesis of L5 over S1. 9 mm retrolisthesis of L4 over L5. Advanced degenerative spondylosis, as detailed above. There is multilevel thecal sac compression or n eural foraminal narrowing. Reviewed, dictated and finalized at location M. L [employer] HELIC[employer]TER IMPRESSION: Osteomyelitis/discitis centered about the L4-L5 disc space, similar overall marylu earance to prior exam. Chronic L5 pars interarticularis defects, with 7 mm anterolisthesis of L5 over S1. 9 mm retrolisthesis of L4 over L5. Advanced degenerative spondylosis, as detailed above. There is multilevel theca l sac compression or neural foraminal narrowing.
== END 2022-08-16 10:36 | disposition home or self-care (01) ==
PROVIDERS: PCP Internal Medicine; Visit Provider Internal Medicine
DX: M46.40 Discitis, unspecified, site unspecified (principal); M47.896 Other spondylosis, lumbar region; N20.0 Calculus of kidney
CPT/HCPCS: 72131; 74150

== ENCOUNTER 2022-08-19 14:47 | Emergency (ER) | payer MEDICARE, MEDICAID, SELFPAY ==
--- NOTE | ~2022-08-19 | CT_ITS ---
EXAMINATION: CT lumbar spine wo con DATE: 08/19/2022 15:35 INDICATION: trauma . TECHNIQUE: Computed tomography (CT) of the lumbar spine was performed without intravenous contrast. A utomated exposure control and iterative reconstruction technique were employed. The dose-length produ ct was 524.14 mGy-cm. COMPARISON: CT lumbar spine 08/16/2022. FINDINGS: 5 nonrib-bearing lumbar-type vertebral bodies. 4 mm retrolisthesis at L3-4. 6 mm anterolist hesis at L5-S1. Stable erosive change at the L4-5 disc space. Severe degenerative disc disease at all lumbar levels. Bilateral pars defect at L5. Multilevel severe facet arthropathy. Stable mild anterio r wedge deformity at T12. Multilevel severe neural foraminal narrowing. Multilevel moderate central c anal narrowing. Urinary bladder wall thickening. Atherosclerotic calcifications. Likely simple right renal cyst. IMPRESSION: No acute fracture or traumatic malalignment in the lumbar spine. Stable changes of osteoarthritis dis citis at L4-5. Reviewed, dictated and finalized at location K. IGURATION MANAGEMENT CONSULTANT IMPRESSION: No acute fracture or traumatic malalignment in the lumbar spine. Stable changes of osteoarthritis discitis at L4-5.
[2022-08-19 14:52] VITALS: BP 138/72; PULSE 60; RESP 16; TEMP 36.6; O2SAT 100
--- NOTE | 2022-08-19 17:21 | ED.FALL ---
HPI - Fall General Chief Complaint: Fall Stated Complaint: fall Time Seen by Provider: 08/19/22 17:13 History of Present Illness HPI Narrative: 67-year-old male presents from [facility] for injury sustained in a fall. Patient states that he has had multiple falls recently involving his lower back. Patient states today he was assisting a friend when he attempted to sit backwards into his wheelchair, but forgot to lock the brakes. This caused a wheelchair to roll backwards and patient landed on his lower back and buttocks. Patient is normally ambulatory. States that he was able to stand up after the injury. Denies any numbness or tingling in his legs. No saddle anesthesia. No changes with bowel or bladder habits. Pain is worse with rotation and lateral bend currently wearing back brace. Related Data Home Medications Medication Instructions Recorded Confirmed aspirin 81 mg tablet 81 mg PO DAILY 08/10/21 07/05/22 donepezil 10 mg tablet 5 mg PO DAILY 08/10/21 07/05/22 escitalopram oxalate 20 mg tablet 20 mg PO DAILY 08/10/21 07/05/22 metoprolol succinate 100 mg 50 mg PO DAILY 08/10/21 07/05/22 tablet,extended release 24 hr multivitamin with minerals-folic 1 tablet PO DAILY 08/10/21 07/05/22 acid 0.4 mg tablet omeprazole 20 mg capsule,delayed 20 mg PO DAILY 08/10/21 07/05/22 release atorvastatin 20 mg tablet 20 mg PO DAILY 07/05/22 07/05/22 bupropion HCl 150 mg 24 hr tablet, 150 mg PO DAILY 07/05/22 07/05/22 extended release diclofenac sodium 50 mg 50 mg PO BID 07/05/22 07/05/22 tablet,delayed release hydrocodone 5 mg-acetaminophen 325 1 tablet PO Q6H PRN Pain 07/05/22 07/05/22 mg tablet lisinopril 20 1 tablet PO DAILY 07/05/22 07/05/22 mg-hydrochlorothiazide 12.5 mg tablet Allergies Allergy/AdvReac Type Severity Reaction Status Date / Time No Known Allergies Allergy Verified 08/19/22 14:55 Review of Systems Review of Systems: CONSTITUTIONAL: Denies fever, chills, or sweats. EYES: Denies visual changes, redness, or discharge. ENT: Denies rhinorrhea, congestion, sore throat, or otalgia. CARDIOVASCULAR: Denies chest pain, palpitations, or edema. RESPIRATORY: Denies cough or dyspnea. GASTROINTESTINAL: Denies abdominal pain, nausea, vomiting, or diarrhea. GENITOURINARY: Denies dysuria or hematuria. SKIN: Denies rash or itching. MUSCULOSKELETAL: Reports lower back pain NEUROLOGIC: Denies headache, numbness, dizziness, or weakness. PSYCHIATRIC: Denies anxiety or depression. [facility] Past Medical History Medical History Anxiety Chronic GERD CVA (cerebral vascular accident) Dementia Depression with anxiety Family history of colon cancer requiring screening colonoscopy Hyperlipidemia Hypertension PVD (peripheral vascular disease) Surgical History Surgical History H/O cardiac catheterization H/O cerebral aneurysm repair H/O shoulder surgery right History of colonoscopy History of removal of pigmented skin lesion History of surgery on upper extremity last Family History Family History Unknown Family history unknown Social History Social History (Updated 06/01/22 @ 23:52 by Karina Miller NP) Social History: the patient stated that he lives with his brother and [id number]. His [id number] Ginny is the durable power reporting analyst for health care for him. The patient is and has no children. 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 The patient is a former smoker and quit several years ago. He states that he does not use alcohol marijuana or any other illicit drugs. Code status full code Smoking status: Former smoker Alcohol intake: never Substance use: never Lack of Transportation: No Lack of Food: Never True Current Housing: I Have Housing Concerned About Future Housing: No
[2022-08-19 17:31] VITALS: BP 129/84; PULSE 64; RESP 16; O2SAT 99
== END 2022-08-19 19:00 ==
PROVIDERS: Emergency Provider Nurse Practitioner Family; PCP Internal Medicine
DX: S30.0XXA Contusion of lower back and pelvis, initial encounter (principal); F03.90 Unspecified dementia, unspecified severity, without behavioral disturbance, psychotic disturbance, mood disturbance, and anxiety; E78.5 Hyperlipidemia, unspecified; K21.9 Gastro-esophageal reflux disease without esophagitis; F41.8 Other specified anxiety disorders; Z86.73 Personal history of transient ischemic attack (TIA), and cerebral infarction without residual deficits; Z79.82 Long term (current) use of aspirin; Z87.891 Personal history of nicotine dependence; W05.0XXA Fall from non-moving wheelchair, initial encounter
CPT/HCPCS: 72131; 99284

== ENCOUNTER 2022-09-02 08:05 | Outpatient (CLI) | payer MEDICARE, MEDICAID, SELFPAY ==
[2022-09-02 08:32] LABS: Hematocrit 37.2 % (42.0-52.0); Hemoglobin 12.1 g/dL (14.0-18.0); Mean Corpuscular HGB Conc 32.5 g/dl (32-36); Mean Corpuscular Hemoglobin 30.3 pg (26-34); Mean Platelet Volume 8.4 fl (7.4-10.4); Platelet Count Result 225 k/mm3 (150-375); Red Cell Distribution Width 15.4 % (11.5-14.5); White Blood Count 5.3 K/mm3 (4.5-10.0)
[2022-09-02 08:49] LABS: CRP 0.6 mg/dL (<1.0)
[2022-09-02 10:18] LABS: Erythrocyte Sedimentation Rate 22 mm/hr (0-20)
== END 2022-09-02 08:06 | disposition home or self-care (01) ==
PROVIDERS: PCP Internal Medicine; Visit Provider Nurse Practitioner Adult Health
DX: M47.812 Spondylosis without myelopathy or radiculopathy, cervical region (principal); M46.46 Discitis, unspecified, lumbar region; R55 Syncope and collapse
CPT/HCPCS: 36415; 85027; 85652; 86140

== ENCOUNTER 2022-09-13 08:23 | Outpatient (CLI) | payer MEDICARE, MEDICAID, SELFPAY ==
--- NOTE | ~2022-09-13 | CT_ITS ---
EXAMINATION: CT lumbar spine w con DATE: 09/13/2022 09:34 INDICATION: Back pain. TECHNIQUE: Computed tomography (CT) of the lumbar spine was performed with 100 mL Omnipaque 350 intra venous contrast. Automated exposure control and iterative reconstruction technique were employed. The dose-length product was 1051.51 mGy-cm. COMPARISON: CT lumbar spine 08/19/22, 08/16/22 FINDINGS: Partially visualized are cysts in the kidneys. There is 14 degrees levoscoliosis of lumbar spine. There is 3 mm retrolisthesis of T12 on L1 and L1 on L2, 6 mm retrolisthesis of L4 on L5, and 8 mm anterolisthesis of L5 on S1. There is mild chronic anterior wedging of T12 vertebral body. There is severely decreased disc height from T12-L1 through L5-S1 with vacuum disc phenomenon at all levels . At L4-L5, there are endplate erosions with 1/5 height loss of L4 and 2/5 height loss of L5. There a re chronic bilateral L5 pars defects. The following disc levels are specifically discussed: L1-L2: The disc is bulging. There is severe bilateral facet joint osteoarthritis. There is severe rig ht and moderate left neural foraminal stenosis. There is mild central canal stenosis. L2-L3: The disc is bulging. There is severe bilateral facet joint osteoarthritis. There is moderate b ilateral neural foraminal stenosis. There is mild central canal stenosis. L3-L4: The disc is bulging. There is moderate right and severe left facet joint osteoarthritis. There is moderate bilateral neural foraminal stenosis. There is moderate central canal stenosis. L4-L5: The disc is bulging. There is severe bilateral facet joint osteoarthritis. There is moderate b ilateral neural foraminal stenosis. There is mild central canal stenosis. L5-S1: The disc is bulging. There is moderate bilateral facet joint osteoarthritis. There is moderate bilateral neural foraminal stenosis. There is mild central canal stenosis. IMPRESSION: 1. Discitis/osteomyelitis at L4-L5, stable from 08/16/2022. 2. Severe lumbar spondylosis. 3. Chronic bilateral L5 pars defects with grade 1 anterolisthesis of L5 on S1. Reviewed, dictated and finalized at location A. SHIP SUPERVISOR
[2022-09-13 09:27] LABS: Estimated Glomerular Filt Rate > 60
== END 2022-09-13 08:24 | disposition home or self-care (01) ==
PROVIDERS: PCP Internal Medicine; Visit Provider Nurse Practitioner Adult Health
DX: M46.46 Discitis, unspecified, lumbar region (principal); M47.896 Other spondylosis, lumbar region
CPT/HCPCS: 72132; Q9967

== ENCOUNTER 2022-09-14 02:42 | Outpatient (CLI) | payer MEDICARE, MEDICAID, SELFPAY ==
[2022-09-06 09:50] VITALS: BMI 23.7
--- NOTE | 2022-09-06 09:50 | PC.NURSE ---
Pre Radiology instructions Report to the outpatient ana laura palmakelso on date _09/14/22 @ 0830____ Procedure Time: 1030____ YOU MAY BE MONITORED AT HOSPITAL FOR UP TO 4 HOURS AFTER YOUR PROCEDURE. A visitors will be allowed to accompany the patient into the hospital. ?The visitor will be instructed to remain with patient at all times or leave the building due to restrictions.? We will allow the visitor to come back to the postoperative area when patient is ready.? NO children visitors allowed at this time. You and your visitor will be asked to self-screen and do not enter if you have any COVID symptoms. A mask is OPTIONAL within the hospital. Patients are to have no food or drink 6 hours prior to procedure time Driving will be restricted after the procedure, you must have a person to drive you home. Labs will be drawn in preop area and once reviewed, you will be taken to radiology area for procedure. When the procedure is completed, you will be taken to outpatient where you will be monitored for several hours. You may have one visitor in this area. Other than holding anti-coagulants, patient may take other medication(s) as scheduled. Prior to your appointment date patients are instructed to hold anti-coagulants after discussing with ordering provider to stop. If unable to discontinue anti-coagulants please notify radiologist. ? No aspirin or warfarin (Coumadin) for 7 days prior to the procedure. ? No clopidogrel (Plavix), ticagrelor (Brilinta), prasugrel (Effient) or dabigatran (Pradaxa) for 5 days prior to the procedure. ? No rivaroxaban (Xarelto), apixaban (Eliquis), dipyridamole (Aggrenox or Persantine) or cilostazol (Pletal) for 2 days prior to the procedure. Medications to discontinue per physician: _ASPIRIN 7 DAYS PRE OP Date to take last dose: _09/06/22 Please leave all valuables, including medications, at home the day of procedure. The hospital will not accept responsibility for valuables. Wear comfortable, loose fitting clothing.? Follow any additional instructions given to you from ordering provider. Telephone instructions given to __PT'S SISTER IN LAW RAMESH AND FAXED TO [facility] ATTEN : MATEUSZ and asked if any additional questions and then verbalized understanding. Patient advised to call scheduling provider office or registration scheduling [phone] if any additional questions.
--- NOTE | ~2022-09-14 | XR_ITS ---
EXAMINATION: 1. CT cervical spine w con 2. XR myelogram spine cervical DATE: 09/14/2022 10:17 INDICATION: Neck pain. TECHNIQUE: The procedure including the risks, benefits, and alternatives was discussed with the patie nt. Risks discussed included headache, bleeding, and infection. The patient understood the risks and agreed to proceed. A timeout was performed to verify the patient's name, date of , and proced ure to be performed. The skin overlying the L2-L3 level was prepped and draped in usual sterile fash ion. Subcutaneous 1% lidocaine was used for local anesthesia. A 22 gauge spinal needle was advanced under fluoroscopic guidance. 10 mL Omnipaque 300 was injected. The needle was removed and the entry site was cleaned and dressed. There were no immediate complications. The table and patient were tilt ed with the patient's head down to allow contrast to flow to the cervical spine. Fluoroscopy exposure time was 0.5 minutes. The total number of images was 4. Computed tomography (CT) of the cervical spi ne was performed without intravenous contrast. Automated exposure control and iterative reconstructio n technique were employed. The dose-length product was 395.04 mGy-cm. COMPARISON: CT cervical spine 07/06/2022 FINDINGS: CERVICAL MYELOGRAM: Real-time fluoroscopy demonstrates the needle at the L2-L3 level. There is indent ation of the thecal sac at multiple levels that will be further described on the postmyelogram CT. POST MYELOGRAM CERVICAL SPINE CT: There is 3 degrees dextrocurvature of cervical spine. There is 3 mm anterolisthesis of C4 on C5, 2 mm retrolisthesis of C5 on C6 and C6 on C7, and 3 mm anterolisthesis of C7 on T1. There is kyphosis of cervical spine. Vertebral body heights are normal. There is mildly decreased disc height at C2-C3, severely decreased disc height at C3-C4, moderately decreased disc he ight at C4-C5, severely decreased disc height at C5-C6 and C6-C7, and moderately decreased disc heigh t at C7-T1 with endplate remodeling. The following disc levels are specifically discussed: C2-C3: There is moderate right and severe left uncovertebral joint osteoarthritis. There is severe bi lateral facet joint osteoarthritis. There is mild right and moderate left neural foraminal stenosis. There is mild central canal stenosis. C3-C4: There is severe bilateral uncovertebral joint osteoarthritis. There is severe bilateral facet joint osteoarthritis. There is moderate bilateral neural foraminal stenosis. There is moderate centra l canal stenosis. There is focal volume loss of the spinal cord, consistent with myelomalacia. C4-C5: There is severe right and mild left uncovertebral joint osteoarthritis. There is severe bilate ral facet joint osteoarthritis. There is moderate bilateral neural foraminal stenosis. There is mild central canal stenosis. C5-C6: There is severe bilateral uncovertebral joint osteoarthritis. There is moderate bilateral face t joint osteoarthritis. There is mild bilateral neural foraminal stenosis. There is mild central pete l stenosis. C6-C7: There is severe bilateral uncovertebral joint osteoarthritis. There is moderate bilateral face t joint osteoarthritis. There is mild right and moderate left neural foraminal stenosis. There is mil d central canal stenosis. C7-T1: There is mild bilateral uncovertebral joint osteoarthritis. There is severe bilateral facet galina int osteoarthritis. There is mild bilateral neural foraminal stenosis. There is mild central canal st enosis. IMPRESSION: 1. Myelomalacia at C3-C4. 2. Severe cervical spondylosis. Reviewed, dictated and finalized at location A. ERCIAL REAL ESTATE AGENT IMPRESSION: 1. Myelomalacia at C3-C4. 2. Severe cervical spondylosis. IMPRESSION: 1. Myelomalaci
[2022-09-14 09:05] VITALS: BP 136/79; PULSE 59; RESP 14; TEMP 36.9; O2SAT 99
[2022-09-14 09:08] LABS: Mean Platelet Volume 8.5 fl (7.4-10.4); Platelet Count Result 202 k/mm3 (150-375)
[2022-09-14 09:21] LABS: Prothrombin Time 13.2 Seconds (11.1-14.7)
[2022-09-14 10:20] VITALS: BP 133/83; PULSE 54; RESP 16; O2SAT 99
[2022-09-14 10:35] VITALS: BP 125/80; PULSE 55; RESP 16; O2SAT 100
[2022-09-14 10:50] VITALS: BP 117/69; PULSE 50; RESP 14; O2SAT 99
[2022-09-14 11:05] VITALS: BP 118/64; PULSE 49; RESP 16; O2SAT 98
[2022-09-14 12:05] VITALS: BP 120/70; PULSE 52; RESP 16; O2SAT 100
--- NOTE | 2022-09-14 12:20 | SUR.PHASEII ---
1220- Patient has met discharge criteria per MD's orders. Patient voided and changed into clothing for discharge home.
== END 2022-09-14 12:37 | disposition home or self-care (01) ==
PROVIDERS: PCP Internal Medicine; Referring Provider Nurse Practitioner Adult Health; Visit Provider Radiology Diagnostic Radiology
DX: M47.12 Other spondylosis with myelopathy, cervical region (principal); M47.812 Spondylosis without myelopathy or radiculopathy, cervical region
CPT/HCPCS: 36415; 62302; 72126; 85049; 85610

== ENCOUNTER 2022-09-23 16:57 | Emergency (ER) | payer MEDICARE, MEDICAID, SELFPAY ==
--- NOTE | ~2022-09-23 | XR_ITS ---
EXAM: XR hip LT 2V w AP pelvis DATE: 09/23/2022 18:28 HISTORY: hip pain s/p fall . COMPARISON: 07/05/2022. FINDINGS: Normal mineralization. No fracture or dislocation. No lytic or blastic lesion. Severe lumb ar degenerative disc disease. Moderate bilateral hip osteoarthritis. No erosion or periosteal change. Soft tissues within normal limits. IMPRESSION: No acute osseous finding in the pelvis or left hip. Reviewed, dictated and finalized at location K. NICAL SALES SUPPORT MANAGER
--- NOTE | ~2022-09-23 | CT_ITS ---
EXAMINATION: CT brain wo con DATE: 09/23/2022 18:19 INDICATION: fall, head injury, on AC . TECHNIQUE: Computed tomography (CT) of the head was performed without intravenous contrast. The mA wa s adjusted according to patient size. Iterative reconstruction technique was employed. The dose-lengt h product was 681.00 mGy-cm. COMPARISON: 06/01/2022. FINDINGS: No acute intracranial hemorrhage or extra-axial fluid collection. No hydrocephalus, mass, or herniation. Exit vacuo dilation of the right lateral ventricle. No acute ischemic infarct. Unremarkable dural venous sinus attenuation. No acute osseous abnormality. Right temporal craniotomy defect. The aerated spaces are clear. Mild atrophy and chronic white matter change. Right temporal encephalomalacia. Atherosclerotic intrac ranial calcification. Right middle cranial fossa aneurysm clip. IMPRESSION: No acute intracranial process. Reviewed, dictated and finalized at [facility] K. SPORTATION EQUIPMENT PAINTER
--- NOTE | ~2022-09-23 | CT_ITS ---
EXAMINATION: CT cervical spine wo con DATE: 09/23/2022 18:19 INDICATION: pain after fall TECHNIQUE: Computed tomography (CT) of the cervical spine was performed without intravenous contrast. Automated exposure control and iterative reconstruction technique were employed. The dose-length pro duct was 408.37 mGy-cm. COMPARISON: 09/14/2022. FINDINGS: Vertebral Body Alignment: Intact. Reversed cervical lordosis. Multilevel stable listheses. Craniocervical and atlantoaxial alignment: Severe degenerative change. Alignment intact. Osseous structures/fracture: No evidence of a lytic or blastic process in the visualized spine. No e vidence of acute fracture. . Cervical soft tissues: The paraspinal soft tissues planes are maintained. Degenerative changes: Multilevel severe degenerative disc disease and facet arthropathy. Multilevel m oderate bilateral neural foraminal narrowing and central canal narrowing. IMPRESSION: No acute fracture or traumatic malalignment in the cervical spine. Reviewed, dictated and finalized at location K. OW GLASS CUTTER OFF
[2022-09-23 16:59] VITALS: BP 134/85; PULSE 54; RESP 16; TEMP 36.6; O2SAT 100
--- NOTE | 2022-09-23 17:20 | ED.FALL ---
HPI - Fall General Chief Complaint: Fall Stated Complaint: fall, hi Time Seen by Provider: 09/23/22 17:11 History of Present Illness HPI Narrative: Patient is a 67-year-old male here for evaluation after a fall. Patient states that while he was transferring from a wheelchair to another chair he sustained a fall, causing him to strike his forehead against the ground. He denies loss of consciousness. He was able to get up back in the chair with assistance. Currently complaining of acute on chronic left hip pain and headache. He takes 81 mg aspirin. He was in his usual state of health this morning and per chart review it is noted he has frequent falls. He uses a wheelchair at baseline, and is currently wearing a back brace. Related Data Home Medications Medication Instructions Recorded Confirmed aspirin 81 mg tablet 81 mg PO DAILY 08/10/21 09/06/22 donepezil 10 mg tablet 5 mg PO DAILY 08/10/21 09/06/22 escitalopram oxalate 20 mg tablet 20 mg PO DAILY 08/10/21 09/06/22 metoprolol succinate 100 mg 50 mg PO DAILY 08/10/21 09/06/22 tablet,extended release 24 hr multivitamin with minerals-folic 1 tablet PO DAILY 08/10/21 09/06/22 acid 0.4 mg tablet omeprazole 20 mg capsule,delayed 20 mg PO DAILY 08/10/21 09/06/22 release atorvastatin 20 mg tablet 20 mg PO DAILY 07/05/22 09/06/22 bupropion HCl 150 mg 24 hr tablet, 150 mg PO DAILY 07/05/22 09/06/22 extended release diclofenac sodium 50 mg 50 mg PO BID 07/05/22 09/06/22 tablet,delayed release hydrocodone 5 mg-acetaminophen 325 1 tablet PO Q6H PRN Pain 07/05/22 09/06/22 mg tablet lisinopril 20 1 tablet PO DAILY 07/05/22 09/06/22 mg-hydrochlorothiazide 12.5 mg tablet buspirone 5 mg tablet 5 mg PO BID 09/06/22 09/06/22 diazepam 2 mg tablet 2 mg PO PRN PRN Muscle Spasm 09/06/22 09/06/22 Allergies Allergy/AdvReac Type Severity Reaction Status Date / Time No Known Allergies Allergy Verified 09/06/22 09:38 Review of Systems Review of Systems: Gen.: Denies fevers or chills Eyes: Denies eye pain or visual change ENT: Denies congestion Respiratory: Denies shortness of breath or cough CV: Denies chest pain or palpitations GI: Denies abdominal pain nausea, emesis or diarrhea denies burning, urgency, frequency or hematuria Musculoskeletal: Reports back pain Neuro: Reports frontal headache. Denies numbness, tingling, weakness or focal weakness Skin: Denies rash Except as documented, all other systems reviewed and negative [facility] Past Medical History Medical History Anxiety Cervical spondylosis Chronic GERD CVA (cerebral vascular accident) Dementia Depression with anxiety Family history of colon cancer requiring screening colonoscopy Hyperlipidemia Hypertension PVD (peripheral vascular disease) Surgical History Surgical History H/O cardiac catheterization H/O cerebral aneurysm repair H/O shoulder surgery right History of colonoscopy History of removal of pigmented skin lesion History of surgery on upper extremity last Family History Family History Unknown Family history unknown Social History Social History Social History: the patient stated that he lives with his brother and [id number]. His [id number] Ginny is the durable power state's attorney for health care for him. The patient is and has no children. 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 The patient is a former smoker and quit several years ago. He states that he does not use alcohol marijuana or any other illicit drugs. Code status full code Smoking status: Former smoker Alcohol intake: never Substance use: never Lack of Transportation: No Lack of Food: Never True Current Housing: I Have Housing Concerned About Future Hous
[2022-09-23] MEDS: HYDROcodone/acetaminophen (*CRX) 5-325 MG TABLET 1 TAB PO (17:33)
[2022-09-23 19:15] VITALS: BP 128/86; PULSE 62; RESP 16; O2SAT 99
== END 2022-09-23 19:20 ==
PROVIDERS: Emergency Provider Physician Assistant; PCP Internal Medicine
DX: S00.81XA Abrasion of other part of head, initial encounter (principal); S79.912A Unspecified injury of left hip, initial encounter; F03.90 Unspecified dementia, unspecified severity, without behavioral disturbance, psychotic disturbance, mood disturbance, and anxiety; E78.5 Hyperlipidemia, unspecified; I10 Essential (primary) hypertension; I73.9 Peripheral vascular disease, unspecified; K21.9 Gastro-esophageal reflux disease without esophagitis; F41.8 Other specified anxiety disorders; Z86.73 Personal history of transient ischemic attack (TIA), and cerebral infarction without residual deficits; Z79.82 Long term (current) use of aspirin; Z87.891 Personal history of nicotine dependence; W05.0XXA Fall from non-moving wheelchair, initial encounter
CPT/HCPCS: 70450; 72125; 73502; 99284; A9270

== ENCOUNTER 2022-10-02 18:48 | Emergency (ER) | payer MEDICARE, MEDICAID, SELFPAY ==
--- NOTE | ~2022-10-02 | XR_ITS ---
EXAMINATION: XR pelvis 1-2V DATE: 10/03/2022 01:37 INDICATION: Left pelvic pain. Fall. TECHNIQUE: An anteroposterior view of the pelvis was obtained. COMPARISON: Pelvis and left hip radiographs 09/23/2022 FINDINGS: There is lumbar levoscoliosis and severe spondylosis. No fracture. There is moderate osteoa rthritis of the hips. IMPRESSION: 1. Moderate osteoarthritis of the hips. Reviewed, dictated and finalized at location A. CAL RECORDS SUPERVISOR
--- NOTE | ~2022-10-02 | CT_ITS ---
EXAMINATION: CT lumbar spine wo con DATE: 10/03/2022 02:03 INDICATION: Low back injury. Fall. TECHNIQUE: Computed tomography (CT) of the lumbar spine was performed without intravenous contrast. A utomated exposure control and iterative reconstruction technique were employed. The dose-length produ ct was 572.38 mGy-cm. COMPARISON: Lumbar spine CT 09/13/2022 FINDINGS: There is a 2.2 cm cyst in left kidney. There is 10 degrees levoscoliosis of lumbar spine. T here are chronic bilateral L5 pars defects. There is 3 mm additional listhesis of T12 on L1, L1 on L2 , and L2 on L3, 5 mm retrolisthesis of L4 on L5, and 6 mm anterolisthesis of L5 on S1. There is mild chronic anterior wedging of T11-L1 vertebral bodies. There is severely decreased disc height from T12 -L1 through L5-S1 with endplate remodeling. There are erosions of the endplates at L4-L5 with 1/5 hei ght loss of L4 and 2/5 height loss of L5. The following disc levels are specifically discussed: L1-L2: The disc is bulging. There is severe bilateral facet joint osteoarthritis. There is moderate b ilateral neural foraminal stenosis. There is mild central canal stenosis. L2-L3: The disc is bulging. There is severe bilateral facet joint osteoarthritis. There is moderate b ilateral neural foraminal stenosis. There is mild central canal stenosis. L3-L4: The disc is bulging. There is moderate right and severe left facet joint osteoarthritis. There is moderate bilateral neural foraminal stenosis. There is mild central canal stenosis. L4-L5: The disc is bulging. There is severe bilateral facet joint osteoarthritis. There is moderate b ilateral neural foraminal stenosis. There is mild central canal stenosis. L5-S1: The disc is bulging. There is severe bilateral facet joint osteoarthritis. There is moderate b ilateral neural foraminal stenosis. There is no central canal stenosis. IMPRESSION: 1. Discitis/osteomyelitis at L4-L5, stable from 09/13/2022. 2. Stable severe lumbar spondylosis. 3. Chronic bilateral L5 pars defects with grade 1 anterolisthesis of L5 on S1. 4. Lumbar levoscoliosis. Reviewed, dictated and finalized at location A. SAW INSPECTOR
[2022-10-02 19:12] VITALS: BP 115/67; PULSE 56; RESP 16; TEMP 36.9; O2SAT 100
[2022-10-02 22:22] VITALS: BP 128/73; PULSE 52; RESP 18; O2SAT 100
--- NOTE | 2022-10-03 01:41 | ED.GENADULT ---
HPI - General Adult General Chief complaint: Fall Stated complaint: fall, incontinence Time Seen by Provider: 10/03/22 01:10 History of Present Illness HPI narrative: 67-year-old male presenting ED following a fall at the detention. Patient said that he was trying to get up from bed because he has been having urinary urgency and frequency. While getting up he tripped and fell landed on his right buttock. jail then sent into the ER for evaluation. This time patient is actually denying any pain to his buttocks or lower back despite previous L4-L5 fractures. Denies numbness tingling or weakness to the lower extremities. He denies fever, chills, chest pain difficulty breathing or abdominal pain. He denies head trauma or blood thinners. Related Data Home Medications Medication Instructions Recorded Confirmed aspirin 81 mg tablet 81 mg PO DAILY 08/10/21 09/06/22 donepezil 10 mg tablet 5 mg PO DAILY 08/10/21 09/06/22 escitalopram oxalate 20 mg tablet 20 mg PO DAILY 08/10/21 09/06/22 metoprolol succinate 100 mg 50 mg PO DAILY 08/10/21 09/06/22 tablet,extended release 24 hr multivitamin with minerals-folic 1 tablet PO DAILY 08/10/21 09/06/22 acid 0.4 mg tablet omeprazole 20 mg capsule,delayed 20 mg PO DAILY 08/10/21 09/06/22 release atorvastatin 20 mg tablet 20 mg PO DAILY 07/05/22 09/06/22 bupropion HCl 150 mg 24 hr tablet, 150 mg PO DAILY 07/05/22 09/06/22 extended release diclofenac sodium 50 mg 50 mg PO BID 07/05/22 09/06/22 tablet,delayed release hydrocodone 5 mg-acetaminophen 325 1 tablet PO Q6H PRN Pain 07/05/22 09/06/22 mg tablet lisinopril 20 1 tablet PO DAILY 07/05/22 09/06/22 mg-hydrochlorothiazide 12.5 mg tablet buspirone 5 mg tablet 5 mg PO BID 09/06/22 09/06/22 diazepam 2 mg tablet 2 mg PO PRN PRN Muscle Spasm 09/06/22 09/06/22 Allergies Allergy/AdvReac Type Severity Reaction Status Date / Time No Known Allergies Allergy Verified 09/06/22 09:38 [facility] Past Medical History Medical History Anxiety Cervical spondylosis Chronic GERD CVA (cerebral vascular accident) Dementia Depression with anxiety Family history of colon cancer requiring screening colonoscopy Hyperlipidemia Hypertension PVD (peripheral vascular disease) Surgical History Surgical History H/O cardiac catheterization H/O cerebral aneurysm repair H/O shoulder surgery right History of colonoscopy History of removal of pigmented skin lesion History of surgery on upper extremity last Family History Family History Unknown Family history unknown Social History Social History Social History: the patient stated that he lives with his brother and [id number]. His [id number] Ginny is the durable power director of athletics for health care for him. The patient is and has no children. 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 The patient is a former smoker and quit several years ago. He states that he does not use alcohol marijuana or any other illicit drugs. Code status full code Smoking status: Former smoker Alcohol intake: never Substance use: never Lack of Transportation: No Lack of Food: Never True Current Housing: I Have Housing Concerned About Future Housing: No Difficulty Paying Gas/Electric Bills: No Difficulty Paying for Meds: No Currently Unemployed: No Education: Trade/Vocational Certificate Difficulty w/ Childcare or Family Care: No Living arrangements: with family Spiritual care concerns: No Exam Narrative: APPEARANCE: No apparent distress., he is wearing a brace Head: atraumatic. EYES: EOMI, NOSE: Atraumatic NECK: Trachea midline RESPIRATORY: No increased rate of breathing CARDIOVASCULAR: RRR, ABDOMINAL: Non-distended MUSCULOSKELET
[2022-10-03] MEDS: ACETAMINOPHEN 500 MG TABLET 1000 MG PO (02:16)
[2022-10-03 02:20] LABS: Appearance Urine Clear (Clear); Bilirubin Urine Negative (Negative); Blood Urine Negative (Negative); Color Urine Yellow (Yellow); Glucose Urine UA Negative (Negative); Ketones Urine Negative (Negative); Leukocyte Esterase Ur Negative LEU/UL (Negative); Nitrate Urine Negative (Negative); Protein Urine Negative (Negative); Specific Grav Ur 1.021 (1.001-1.035); Urobilinogen Urine 0.2 mg/dL (<2.0)
[2022-10-03 02:21] LABS: Basophils Percent Auto 0.6 % (0.2-1.2); Eosinophils Absolute Auto 0.3 K/mm3 (0-0.3); Eosinophils Percent Auto 3.7 % (0-4.4); Hematocrit 38.6 % (42.0-52.0); Hemoglobin 12.6 g/dL (14.0-18.0); Immature Granulocyte Absolute 0.02 K/mm3 (0.00-0.031); Immature Granulocyte Percent A 0.3 % (0-0.5); Lymphocytes Absolute Auto 2.07 K/mm3 (0.9-3.2); Lymphocytes Percent Auto 30.7 % (18.3-44.2); Mean Corpuscular HGB Conc 32.6 g/dl (32-36); Mean Corpuscular Hemoglobin 30.3 pg (26-34); Mean Corpuscular Volume 92.8 fl (80-100); Mean Platelet Volume 8.8 fl (7.4-10.4); Monocytes Absolute Auto 0.7 K/mm3 (0.1-0.6); Monocytes Percent Auto 10.7 % (2.6-8.5); Neutrophils Absolute Auto 3.6 K/mm3 (1.3-6.7); Platelet Count Result 209 k/mm3 (150-375); Red Blood Count 4.16 M/mm3 (4.6-6.20); Red Cell Distribution Width 14.4 % (11.5-14.5); White Blood Count 6.7 K/mm3 (4.5-10.0)
[2022-10-03 02:26] LABS: Alanine Aminotransferase 21 U/L (6-50); Albumin Level 4.1 g/dL (3.5-5.1); Alkaline Phosphatase 71 U/L (38-126); Anion Gap 6 mmol/L (8-16); Aspartate Amino Transferase 29 U/L (17-59); Bilirubin,Total 0.5 mg/dL (0.2-1.3); Blood Urea Nitrogen 20 mg/dL (9-20); Calcium 8.4 mg/dL (8.4-10.2); Carbon Dioxide 31 mmol/L (22-30); Chloride 103 mmol/L (98-107); Estimated CRCL calculation 96 ml/min; Estimated Glomerular Filt Rate > 60; Glucose 84 mg/dL (65-110); Potassium 3.6 mmol/L (3.4-5.0); Sodium 140 mmol/L (137-145)
[2022-10-03 02:27] LABS: Add Urine Microscopic? YES
[2022-10-03 06:00] VITALS: BP 110/68; PULSE 65; RESP 16; O2SAT 98
== END 2022-10-03 06:00 ==
PROVIDERS: Emergency Provider Emergency Medicine; PCP Internal Medicine
DX: S39.92XA Unspecified injury of lower back, initial encounter (principal); R29.6 Repeated falls; F03.90 Unspecified dementia, unspecified severity, without behavioral disturbance, psychotic disturbance, mood disturbance, and anxiety; E78.5 Hyperlipidemia, unspecified; I10 Essential (primary) hypertension; I73.9 Peripheral vascular disease, unspecified; K21.9 Gastro-esophageal reflux disease without esophagitis; F41.8 Other specified anxiety disorders; Z87.891 Personal history of nicotine dependence; Z79.82 Long term (current) use of aspirin; M47.816 Spondylosis without myelopathy or radiculopathy, lumbar region; M46.46 Discitis, unspecified, lumbar region; M46.26 Osteomyelitis of vertebra, lumbar region; W01.0XXA Fall on same level from slipping, tripping and stumbling without subsequent striking against object, initial encounter
CPT/HCPCS: 36415; 72131; 72170; 80053; 81001; 85025; 99284; A9270

== ENCOUNTER 2022-10-27 18:52 | Emergency (ER) | payer MEDICARE, MEDICAID, SELFPAY ==
--- NOTE | ~2022-10-27 | CT_ITS ---
EXAMINATION: CT brain wo con INDICATION: Head injury COMPARISON: 09/23/2022 TECHNIQUE: Standard unenhanced head CT. The dose-length product (DLP) was 605.33 mGy-cm. The mA was a djusted according to patient size. Iterative reconstruction technique was employed. FINDINGS: There is no acute intraparenchymal hemorrhage. No evidence of mass lesion. No evidence of a cute infarction. There are changes of aneurysm clipping in the right temporal fossa with encephalomal acia in the anterior aspect of the right temporal lobe and ex vacuo enlargement of the right lateral ventricle. Intracranial calcified cerebral atherosclerosis is noted. There are no extra-axial collect ions. There is no mass effect or midline shift. The orbits and soft tissues are unremarkable. The vis ualized sinuses and mastoid air cells are well aerated. IMPRESSION: 1. No acute intracranial abnormality. 2. Age related findings. Reviewed, dictated and finalized at location F.
[2022-10-27 18:57] VITALS: BP 148/81; PULSE 53; RESP 19; O2SAT 100
[2022-10-27 19:15] VITALS: BP 131/73; PULSE 54; RESP 17; TEMP 36.7; O2SAT 99
--- NOTE | 2022-10-27 20:15 | ED.FALL ---
HPI - Fall General Chief Complaint: Fall Stated Complaint: fall Source: RN notes reviewed History of Present Illness HPI Narrative: Patient presents emergency department from [facility] via EMS for a fall. Patient states he is currently at rehab for a lumbar spine fracture. He states that he was in wheelchair and was standing to transfer when one of the wheels was locked and the other was not causing him to fall states he fell forward striking the right side of his head. States he did not have any loss of consciousness. Since that time he is reported a mild headache and he also notes that he has had some mild blurred vision. He denies any neck pain he denies any chest pain shortness of breath abdominal pain numbness or tingling in the extremities or any other symptoms. He denies striking his eye patient states that the blurred vision was in both eyes equally Related Data Home Medications Medication Instructions Recorded Confirmed aspirin 81 mg tablet 81 mg PO DAILY 08/10/21 09/06/22 donepezil 10 mg tablet 5 mg PO DAILY 08/10/21 09/06/22 escitalopram oxalate 20 mg tablet 20 mg PO DAILY 08/10/21 09/06/22 metoprolol succinate 100 mg 50 mg PO DAILY 08/10/21 09/06/22 tablet,extended release 24 hr multivitamin with minerals-folic 1 tablet PO DAILY 08/10/21 09/06/22 acid 0.4 mg tablet omeprazole 20 mg capsule,delayed 20 mg PO DAILY 08/10/21 09/06/22 release atorvastatin 20 mg tablet 20 mg PO DAILY 07/05/22 09/06/22 bupropion HCl 150 mg 24 hr tablet, 150 mg PO DAILY 07/05/22 09/06/22 extended release diclofenac sodium 50 mg 50 mg PO BID 07/05/22 09/06/22 tablet,delayed release hydrocodone 5 mg-acetaminophen 325 1 tablet PO Q6H PRN Pain 07/05/22 09/06/22 mg tablet lisinopril 20 1 tablet PO DAILY 07/05/22 09/06/22 mg-hydrochlorothiazide 12.5 mg tablet buspirone 5 mg tablet 5 mg PO BID 09/06/22 09/06/22 diazepam 2 mg tablet 2 mg PO PRN PRN Muscle Spasm 09/06/22 09/06/22 Allergies Allergy/AdvReac Type Severity Reaction Status Date / Time No Known Allergies Allergy Verified 10/05/22 10:41 Review of Systems Review of Systems: Gen.: Denies fevers or chills Eyes: See HPI ENT: Denies congestion Respiratory: Denies shortness of breath or cough CV: Denies chest pain or palpitations GI: Denies abdominal pain nausea, emesis or diarrhea Musculoskeletal: Denies back pain or muscle pain Neuro: Denies numbness, tingling, weakness or focal weakness Skin: Denies rash Except as documented, all other systems reviewed and negative PMFSH Past Medical History Medical History Anxiety Cervical spondylosis Chronic GERD CVA (cerebral vascular accident) Dementia Depression with anxiety Family history of colon cancer requiring screening colonoscopy Hyperlipidemia Hypertension PVD (peripheral vascular disease) Surgical History Surgical History H/O cardiac catheterization H/O cerebral aneurysm repair H/O shoulder surgery right History of colonoscopy History of removal of pigmented skin lesion History of surgery on upper extremity last Family History Family History Unknown Family history unknown Social History Social History Social History: the patient stated that he lives with his brother and [id number]. His [id number] Ginny is the durable power ip attorney for health care for him. The patient is and has no children. 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 The patient is a former smoker and quit several years ago. He states that he does not use alcohol marijuana or any other illicit drugs. Code status full code Smoking status: Former smoker Alcohol intake: never Substance use: never Lack of Transportation: No Lack of Food: Never True Current Housing: I Have Housing
[2022-10-27] MEDS: ACETAMINOPHEN 500 MG TABLET 1000 MG PO (20:17)
[2022-10-27 21:30] VITALS: BP 136/65; PULSE 54; RESP 19; O2SAT 96
[2022-10-27 21:41] VITALS: BP 140/82; PULSE 55; RESP 19; O2SAT 100
[2022-10-27 23:55] VITALS: BP 136/89; PULSE 60; RESP 17; O2SAT 99
== END 2022-10-27 23:55 | disposition home or self-care (01) ==
PROVIDERS: Emergency Provider Emergency Medicine; PCP Internal Medicine
DX: S00.93XA Contusion of unspecified part of head, initial encounter (principal); H53.8 Other visual disturbances; I10 Essential (primary) hypertension; E78.5 Hyperlipidemia, unspecified; F03.90 Unspecified dementia, unspecified severity, without behavioral disturbance, psychotic disturbance, mood disturbance, and anxiety; Z86.73 Personal history of transient ischemic attack (TIA), and cerebral infarction without residual deficits; Z87.891 Personal history of nicotine dependence; W05.0XXA Fall from non-moving wheelchair, initial encounter
CPT/HCPCS: 70450; 99284; A9270

== ENCOUNTER 2022-11-16 09:42 | Outpatient (CLI) | payer MEDICARE, MEDICAID, SELFPAY ==
--- NOTE | 2022-11-16 11:00 | NEURO_ITS ---
Impression: # Complains of numbness and pain in hands. # Normal nerve conduction study. # No Carpal Tunnel Syndrome or ulnar neuropathy. # Normal needle/EMG exam. # Clinical correlation recommended. Nerve Conduction Studies Anti Sensory Summary Table Stim Site NR Peak (ms) P-T Amp (?V) Site1 Site2 Delta-P (ms) Dist (cm) Julian (m/s) Left Median Anti Sensory (2-3nd Digit) Wrist 2.8 41.0 Wrist 2-3nd Digit 2.8 14.0 50 Wrist 2.9 40.5 Wrist 2-3nd Digit 2.8 14.0 50 Right Median Anti Sensory (2-3nd Digit) Wrist 3.5 24.7 Wrist 2-3nd Digit 3.5 14.0 40 Wrist 3.7 14.5 Wrist 2-3nd Digit 3.5 14.0 40 Left Radial Anti Sensory (Base 1st Digit) Wrist 1.9 25.5 Wrist Base 1st Digit 1.9 0.0 Right Radial Anti Sensory (Base 1st Digit) Wrist 2.4 10.4 Wrist Base 1st Digit 2.4 0.0 Left Ulnar Anti Sensory (5th Digit) Wrist 2.1 40.1 Wrist 5th Digit 2.1 14.0 67 Right Ulnar Anti Sensory (5th Digit) Wrist 2.3 46.1 Wrist 5th Digit 2.3 14.0 61 Motor Summary Table Stim Site NR Onset (ms) O-P Amp (mV) Site1 Site2 Delta-0 (ms) Dist (cm) Julian (m/s) Left Median Motor (Abd Poll Brev) Wrist 2.8 3.3 Elbow Wrist 4.9 28.0 57 Elbow 7.7 2.5 Right Median Motor (Abd Poll Brev) Wrist 3.8 3.2 Elbow Wrist 5.7 32.0 56 Elbow 9.5 2.1 Left Ulnar Motor (Abd Dig Minimi) Wrist 2.3 5.7 A Elbow Wrist 4.9 29.0 59 A Elbow 7.2 4.0 Right Ulnar Motor (Abd Dig Minimi) Wrist 2.3 5.0 A Elbow Wrist 5.2 30.0 58 A Elbow 7.5 3.8 F Wave Studies NR F-Lat (ms) L-R F-Lat (ms) Left Median (Mrkrs) (Abd Poll Brev) 28.95 0.00 Right Median (Mrkrs) (Abd Poll Brev) 28.95 0.00 Left Ulnar (Mrkrs) (Abd Dig Min) 27.97 0.70 Right Ulnar (Mrkrs) (Abd Dig Min) 27.27 0.70 EMG Side Muscle Nerve Root Ins Act Fibs Amp Dur Recrt Comment Right 1stDorInt Ulnar C8-T1 Nml Nml Nml Nml Nml Right Ext Indicis Radial (Post Int) C7-8 Nml Nml Nml Nml Nml Right Ext Digitorum Radial (Post Int) C7-8 Nml Nml Nml Nml Nml Right BrachioRad Radial C5-6 Nml Nml Nml Nml Nml Right PronatorTeres Median C6-7 Nml Nml Nml Nml Nml Right Abd Poll Brev Median C8-T1 Nml Nml Nml Nml Nml Left 1stDorInt Ulnar C8-T1 Nml Nml Nml Nml Nml Left Ext Indicis Radial (Post Int) C7-8 Nml Nml Nml Nml Nml Left Ext Digitorum Radial (Post Int) C7-8 Nml Nml Nml Nml Nml Left BrachioRad Radial C5-6 Nml Nml Nml Nml Nml Left PronatorTeres Median C6-7 Nml Nml Nml Nml Nml Left Abd Poll Brev Median C8-T1 Nml Nml Nml Nml Nml Right ABD Dig Min Ulnar C8-T1 Nml Nml Nml Nml Nml Left ABD Dig Min Ulnar C8-T1 Nml Nml Nml Nml Nml MTDD
== END 2022-11-16 09:43 | disposition home or self-care (01) ==
LOC: ANHNEURO 09:44
PROVIDERS: PCP Internal Medicine; Visit Provider Neurological Surgery
DX: R20.2 Paresthesia of skin (principal)
CPT/HCPCS: 95886; 95911

== ENCOUNTER → 2022-11-20 08:51 | Outpatient (CLI) | payer MEDICARE, MEDICAID, SELFPAY ==
--- NOTE | ~2022-11-20 | CT_ITS ---
EXAMINATION: CT brain wo con DATE: 11/20/2022 09:11 INDICATION: Head injury. Tinnitus. TECHNIQUE: Computed tomography (CT) of the head was performed without intravenous contrast. The mA wa s adjusted according to patient size. Iterative reconstruction technique was employed. The dose-lengt h product was 726.40 mGy-cm. COMPARISON: Head CT 10/27/2022 FINDINGS: There are changes of right-sided craniotomy. There is a surgical clip in the right sylvian fissure. There is chronic encephalomalacia involving right frontotemporal region. There is no intracr anial hemorrhage, acute infarction, or abnormal intracranial mass lesion. There is ex vacuo dilatatio n of right lateral ventricle. There is mild mucosal thickening in the paranasal sinuses. The orbits a re normal. The mastoid air cells are normal. IMPRESSION: 1. Chronic encephalomalacia in right frontotemporal region. Reviewed, dictated and finalized at location A.
== END ==
PROVIDERS: PCP Hospitalist; Visit Provider Hospitalist
DX: R42 Dizziness and giddiness (principal)
CPT/HCPCS: 70450

== ENCOUNTER 2022-12-06 11:10 | Emergency (ER) | payer OTHER, SELFPAY ==
--- NOTE | ~2022-12-06 | CT_ITS ---
EXAMINATION: CT brain wo con DATE: 12/06/2022 12:24 INDICATION: Head injury TECHNIQUE: Computed tomography (CT) of the head was performed without intravenous contrast. Sagittal and coronal reconstructions were performed. The mA was adjusted according to patient size. Iterative reconstruction technique was employed. The dose-length product was 605.33 mGy-cm. COMPARISON: head CT dated 11/20/22 FINDINGS: No fracture. Again seen are postoperative changes and chronic right temporal craniotomy with likely a neurysm clip at the right sylvian fissure. Stable appearance of chronic mild encephalomalacia in the right frontotemporal region mild ex vacuo dilation of the frontal and temporal horns of the right lat eral ventricle. No acute intracranial hemorrhage, acute infarction or abnormal extra axial fluid damien ection. No mass/mass effect. Mucosal thickening in the bilateral ethmoid and maxillary sinuses. The orbits and mastoid air cells are normal. Intracranial calcified cerebral atherosclerosis is noted. IMPRESSION: 1. Stable appearance of chronic and subtle malacia in the right frontotemporal region where there are changes of prior right temporal craniotomy and aneurysm clip in the right sylvian fissure. Reviewed, dictated and finalized at location A.
[2022-12-06 11:09] VITALS: BP 131/86; PULSE 60; TEMP 36.9; O2SAT 97
[2022-12-06 11:15] VITALS: BP 131/86; PULSE 67; RESP 18; TEMP 36.9; O2SAT 95
[2022-12-06 12:40] VITALS: BP 120/72; PULSE 52; O2SAT 97
[2022-12-06 13:20] VITALS: BP 112/74; PULSE 62; RESP 19; O2SAT 99
--- NOTE | 2022-12-06 13:25 | ED.FALL ---
HPI - Fall General Chief Complaint: Fall Stated Complaint: fall - hit head Time Seen by Provider: 12/06/22 11:48 History of Present Illness HPI Narrative: Patient is a 67-year-old male who presents ER status post minor head injury. Patient history of intracranial hemorrhage from aneurysm in the past. Patient would like to be evaluated make sure there is no bleeding related to his fall. He fell onto his hands and knees and then struck his head. No LOC. No change in vision or hearing. Patient takes a baby aspirin. Related Data Home Medications Medication Instructions Recorded Confirmed aspirin 81 mg tablet 81 mg PO DAILY 08/10/21 09/06/22 donepezil 10 mg tablet 5 mg PO DAILY 08/10/21 09/06/22 escitalopram oxalate 20 mg tablet 20 mg PO DAILY 08/10/21 09/06/22 metoprolol succinate 100 mg 50 mg PO DAILY 08/10/21 09/06/22 tablet,extended release 24 hr multivitamin with minerals-folic 1 tablet PO DAILY 08/10/21 09/06/22 acid 0.4 mg tablet omeprazole 20 mg capsule,delayed 20 mg PO DAILY 08/10/21 09/06/22 release atorvastatin 20 mg tablet 20 mg PO DAILY 07/05/22 09/06/22 bupropion HCl 150 mg 24 hr tablet, 150 mg PO DAILY 07/05/22 09/06/22 extended release diclofenac sodium 50 mg 50 mg PO BID 07/05/22 09/06/22 tablet,delayed release hydrocodone 5 mg-acetaminophen 325 1 tablet PO Q6H PRN Pain 07/05/22 09/06/22 mg tablet lisinopril 20 1 tablet PO DAILY 07/05/22 09/06/22 mg-hydrochlorothiazide 12.5 mg tablet buspirone 5 mg tablet 5 mg PO BID 09/06/22 09/06/22 diazepam 2 mg tablet 2 mg PO PRN PRN Muscle Spasm 09/06/22 09/06/22 Allergies Allergy/AdvReac Type Severity Reaction Status Date / Time No Known Allergies Allergy Verified 10/05/22 10:41 Review of Systems Review of Systems: All systems reviewed & are unremarkable except as noted in HPI and below Constitutional: Constitutional: Denies chills, Denies fatigue and Denies fever(s) Eyes: Eyes: Denies change in vision Neurologic: Denies syncope, Denies headache(s), Denies focal weakness and Denies numbness PMFSH Past Medical History Medical History Anxiety Cervical spondylosis Chronic GERD CVA (cerebral vascular accident) Dementia Depression with anxiety Family history of colon cancer requiring screening colonoscopy Hyperlipidemia Hypertension PVD (peripheral vascular disease) Surgical History Surgical History H/O cardiac catheterization H/O cerebral aneurysm repair H/O shoulder surgery right History of colonoscopy History of removal of pigmented skin lesion History of surgery on upper extremity last Family History Family History Unknown Family history unknown Social History Social History Social History: the patient stated that he lives with his brother and [id number]. His [id number] Ginny is the durable power managing attorney for health care for him. The patient is and has no children. The patient is retired from [employer]. The patient is a former smoker and quit several years ago. He states that he does not use alcohol marijuana or any other illicit drugs. Code status full code Smoking status: Former smoker Alcohol intake: never Substance use: never Lack of Transportation: No Lack of Food: Never True Current Housing: I Have Housing Concerned About Future Housing: No Difficulty Paying Gas/Electric Bills: No Difficulty Paying for Meds: No Currently Unemployed: No Education: Trade/Vocational Certificate Difficulty w/ Childcare or Family Care: No Living arrangements: with family Spiritual care concerns: No Exam Narrative: GENERAL: Well-appearing, well-nourished, and in no acute distress. HEAD: Normocephalic, atraumatic. EYES: PERRL and EOMI. ENT: Mucous
--- NOTE | 2022-12-06 13:44 | PC.NURSE ---
report called to Hillary at [facility]
== END 2022-12-06 13:45 | disposition home or self-care (01) ==
PROVIDERS: Emergency Provider Emergency Medicine; PCP Hospitalist
DX: S09.90XA Unspecified injury of head, initial encounter (principal); F03.90 Unspecified dementia, unspecified severity, without behavioral disturbance, psychotic disturbance, mood disturbance, and anxiety; E78.5 Hyperlipidemia, unspecified; I10 Essential (primary) hypertension; I73.9 Peripheral vascular disease, unspecified; K21.9 Gastro-esophageal reflux disease without esophagitis; F41.8 Other specified anxiety disorders; Z86.73 Personal history of transient ischemic attack (TIA), and cerebral infarction without residual deficits; Z87.891 Personal history of nicotine dependence; Z79.82 Long term (current) use of aspirin; W19.XXXA Unspecified fall, initial encounter
CPT/HCPCS: 70450; 99284

== ENCOUNTER 2022-12-10 22:20 | Emergency (ER) | payer OTHER, SELFPAY ==
[2022-12-10 22:18] VITALS: BP 149/82; PULSE 59; RESP 18; TEMP 36.6; O2SAT 98
--- NOTE | 2022-12-10 22:31 | ED.FALL ---
HPI - Fall General Chief Complaint: Fall <Giselle Mcbride PA-C - Last Filed: 12/11/22 02:58> Stated Complaint: fall <Giselle Mcbride PA-C - Last Filed: 12/11/22 02:58> Time Seen by Provider: 12/10/22 22:21 <Giselle Mcbride PA-C - Last Filed: 12/11/22 02:58> History of Present Illness HPI Narrative: 67 y/o M reports via EMS from [facility] after a fall that occurred just prior to arrival. Pt states he was attempting to transfer himself from his bed to his wheelchair, lost his footing and fell the ground, landing on all 4's. Denies hitting his head or losing consciousness. He is only complaining of low back pain which is unchanged from his baseline. Patient was diagnosed with an L4-L5 fracture in June due to a fall. States since his fall in June, he has had numbness in his RUE. He denies chest pain, SOB, headache, new onset focal numbness or weakness, extremity pain, pedal anesthesia, loss of bowel or bladder control or retention, fever. Patient reports he has a prescription of oxycodone for pain at home. <Giselle Mcbride PA-C - Last Filed: 12/11/22 02:58> Related Data Home Medications: Home Medications Medication Instructions Recorded Confirmed aspirin 81 mg tablet 81 mg PO DAILY 08/10/21 09/06/22 donepezil 10 mg tablet 5 mg PO DAILY 08/10/21 09/06/22 escitalopram oxalate 20 mg tablet 20 mg PO DAILY 08/10/21 09/06/22 metoprolol succinate 100 mg 50 mg PO DAILY 08/10/21 09/06/22 tablet,extended release 24 hr multivitamin with minerals-folic 1 tablet PO DAILY 08/10/21 09/06/22 acid 0.4 mg tablet omeprazole 20 mg capsule,delayed 20 mg PO DAILY 08/10/21 09/06/22 release atorvastatin 20 mg tablet 20 mg PO DAILY 07/05/22 09/06/22 bupropion HCl 150 mg 24 hr tablet, 150 mg PO DAILY 07/05/22 09/06/22 extended release diclofenac sodium 50 mg 50 mg PO BID 07/05/22 09/06/22 tablet,delayed release hydrocodone 5 mg-acetaminophen 325 1 tablet PO Q6H PRN Pain 07/05/22 09/06/22 mg tablet lisinopril 20 1 tablet PO DAILY 07/05/22 09/06/22 mg-hydrochlorothiazide 12.5 mg tablet buspirone 5 mg tablet 5 mg PO BID 09/06/22 09/06/22 diazepam 2 mg tablet 2 mg PO PRN PRN Muscle Spasm 09/06/22 09/06/22 <Giselle Mcbride PA-C - Last Filed: 12/11/22 02:58> Allergies/Adverse Reactions: Allergies Allergy/AdvReac Type Severity Reaction Status Date / Time No Known Allergies Allergy Verified 12/10/22 22:31 <Giselle Mcbride PA-C - Last Filed: 12/11/22 02:58> Review of Systems Review of Systems: CONSTITUTIONAL: Denies fever, chills EYES: Denies visual changes, redness, or discharge. ENT: Denies rhinorrhea, congestion, sore throat, or otalgia. CARDIOVASCULAR: Denies chest pain, palpitations, or edema. RESPIRATORY: Denies cough or dyspnea. GASTROINTESTINAL: Denies abdominal pain, nausea, vomiting, or diarrhea. GENITOURINARY: Denies dysuria or hematuria. SKIN: Denies rash or itching. MUSCULOSKELETAL: See HPI NEUROLOGIC: Denies headache, numbness, dizziness, or weakness. PSYCHIATRIC: Denies anxiety or depression. <Giselle Mcbride PA-C - Last Filed: 12/11/22 02:58> [facility] Past Medical History Medical History: Medical History Anxiety Cervical spondylosis Chronic GERD CVA (cerebral vascular accident) Dementia Depression with anxiety Family history of colon cancer requiring screening colonoscopy Hyperlipidemia Hypertension PVD (peripheral vascular disease) <Giselle Mcbride PA-C - Last Filed: 12/11/22 02:58> Surgical History Surgical History: Surgical History H/O cardiac catheterization H/O cerebral aneurysm repair H/O shoulder surgery right History of colonoscopy History of removal of pigmented skin lesion History of surgery on upper extremity last <Giselle Mcbride PA-C - Last Filed: 12/11/22 02:58> Family
[2022-12-10 23:12] VITALS: BP 134/81; PULSE 56; RESP 15; O2SAT 99
[2022-12-11 01:33] VITALS: BP 140/85; PULSE 60; RESP 16
--- NOTE | 2022-12-11 01:47 | PC.NURSE ---
EMS arrived to transport pt, bedside report given
== END 2022-12-11 01:48 ==
LOC: ANHED 22:46
PROVIDERS: Emergency Provider Physician Assistant; PCP Hospitalist
DX: M54.50 Low back pain, unspecified (principal); F03.90 Unspecified dementia, unspecified severity, without behavioral disturbance, psychotic disturbance, mood disturbance, and anxiety; E78.5 Hyperlipidemia, unspecified; I10 Essential (primary) hypertension; I73.9 Peripheral vascular disease, unspecified; K21.9 Gastro-esophageal reflux disease without esophagitis; F41.8 Other specified anxiety disorders; Z86.73 Personal history of transient ischemic attack (TIA), and cerebral infarction without residual deficits; Z87.891 Personal history of nicotine dependence; W06.XXXA Fall from bed, initial encounter
CPT/HCPCS: 99282

== ENCOUNTER 2022-12-21 05:56 | Emergency (ER) | payer OTHER, SELFPAY ==
--- NOTE | ~2022-12-21 | CT_ITS ---
CT Facial Bones and Cervical Spine Clinical Indication: Status post fall Technique: Contiguous axial scans were obtained through the facial bones and cervical spine followed by coronal and sagittal reconstructions. Dose reduction technique was used on this scan by utilizing automated exposure control and iterative reconstruction technique. The dose-length product (DLP) was 654.86 mGy-cm. Findings: CT facial bones: No fractures are identified. The visualized paranasal sinuses are clear. Intraorbita l soft tissues appear normal. CT cervical spine: No fracture identified. 3 mm anterolisthesis of C4 over C5 present. 3 mm retrolist hesis of C5 over C6 noted. 2 mm anterolisthesis of C7 over T1 noted.. There is mild reversal normal c ervical lordosis. There is severe degenerative disc narrowing at C3-C4, C5-C6, and C6-C7. There is se jaylen degenerative change at the articulation of the odontoid process with the anterior arch of C1. Th ere is left neural foraminal narrowing at C2-C3 related to prominent left facet arthropathy. There is right neural foraminal narrowing at C3-C4 with probable mild central canal stenosis, disc osteophyte complex, and bilateral facet arthropathy. There is probable mild bilateral neural foraminal narrowin g at C4-C5 predominantly related to facet arthropathy bilaterally. There is bilateral neural foramina l narrowing at C5-C6 and C6-C7 as well. No prevertebral soft tissue swelling. Impression: No fracture is seen in the facial bones. No fracture or subluxation of the cervical spine. Advanced degenerative spondylosis of the cervical spine, with multiple grade 1 listheses, as detailed above. Reviewed, dictated and finalized at [facility]. Impression: No fracture is seen in the facial bones. No fracture or subluxation of the cervical spine. Advanced degenerative spondylosis of the cervical spine, with multiple grade 1 listheses, as detailed above.
--- NOTE | ~2022-12-21 | CT_ITS ---
Non-contrast Head CT History: Status post fall COMPARISON: 12/06/2022 Technique: Axial non-contrast imaging of the brain was performed. Dose reduction technique was used on this scan by utilizing automated exposure control and iterative reconstruction technique. The dose -length product (DLP) was 681.00 mGy-cm. Findings: There is no evidence of intracranial hemorrhage, mass lesion, or acute infarct. Stable pro bable focal encephalomalacia the right temporal lobe with right temporal craniotomy and aneurysm clip . The ventricles and subarachnoid spaces are normal in size. The calvarium otherwise appears normal . The visualized paranasal sinuses and mastoid air cells are clear. Impression: No acute abnormality seen. Stable encephalomalacia and postoperative changes in the right temporal region. Reviewed, dictated and finalized at [facility]. Impression: No acute abnormality seen. Stable encephalomalacia and postoperative changes in the right temporal region.
[2022-12-21 05:56] VITALS: BP 160/82; PULSE 56; RESP 12; TEMP 36.3; O2SAT 100
[2022-12-21] MEDS: ACETAMINOPHEN 500 MG TABLET 1000 MG PO (06:09)
--- NOTE | 2022-12-21 06:28 | ED.FALL ---
HPI - Fall General Chief Complaint: Fall <Ishan Higuera MD - Last Filed: 12/21/22 06:58> Stated Complaint: glf <Ishan Higuera MD - Last Filed: 12/21/22 06:58> Time Seen by Provider: 12/21/22 06:04 <Ishan Higuera MD - Last Filed: 12/21/22 06:58> History of Present Illness HPI Narrative: This is a 67-year-old male, with past history of peripheral artery disease on aspirin, brought in by EMS after a ground-level fall at his [facility]. Patient states he was getting out of bed, when he slipped and fell striking the right side of his head on the floor. He denies loss of consciousness. He denies chest pain, palpitations, lightheadedness or shortness of breath before or after the fall. He complains of 7/10 right-sided facial and head pain. <Ishan Higuera MD - Last Filed: 12/21/22 06:58> Related Data Home Medications: Home Medications Medication Instructions Recorded Confirmed aspirin 81 mg tablet 81 mg PO DAILY 08/10/21 12/21/22 donepezil 10 mg tablet 5 mg PO DAILY 08/10/21 12/21/22 escitalopram oxalate 20 mg tablet 20 mg PO DAILY 08/10/21 12/21/22 metoprolol succinate 100 mg 50 mg PO DAILY 08/10/21 12/21/22 tablet,extended release 24 hr multivitamin with minerals-folic 1 tablet PO DAILY 08/10/21 12/21/22 acid 0.4 mg tablet omeprazole 20 mg capsule,delayed 20 mg PO DAILY 08/10/21 12/21/22 release atorvastatin 20 mg tablet 20 mg PO DAILY 07/05/22 12/21/22 bupropion HCl 150 mg 24 hr tablet, 150 mg PO DAILY 07/05/22 12/21/22 extended release diclofenac sodium 50 mg 50 mg PO BID 07/05/22 12/21/22 tablet,delayed release hydrocodone 5 mg-acetaminophen 325 1 tablet PO Q6H PRN Pain 07/05/22 12/21/22 mg tablet lisinopril 20 1 tablet PO DAILY 07/05/22 12/21/22 mg-hydrochlorothiazide 12.5 mg tablet buspirone 5 mg tablet 5 mg PO BID 09/06/22 12/21/22 diazepam 2 mg tablet 2 mg PO PRN PRN Muscle Spasm 09/06/22 09/06/22 ondansetron 4 mg oral soluble film 4 mg PO Q6H PRN Nausea 12/21/22 12/21/22 <Ishan Higuera MD - Last Filed: 12/21/22 06:58> Allergies/Adverse Reactions: Allergies Allergy/AdvReac Type Severity Reaction Status Date / Time No Known Allergies Allergy Verified 12/10/22 22:31 <Ishan Higuera MD - Last Filed: 12/21/22 06:58> Review of Systems Review of Systems: CONSTITUTIONAL: Denies fever, chills, or sweats. EYES: Denies visual changes, redness, or discharge. CARDIOVASCULAR: Denies chest pain, palpitations, or edema. RESPIRATORY: Denies cough or dyspnea. GASTROINTESTINAL: Denies abdominal pain, nausea, vomiting, or diarrhea. GENITOURINARY: Denies dysuria or hematuria. SKIN: Denies rash or itching. MUSCULOSKELETAL: Denies back pain, joint pain, or myalgia. NEUROLOGIC: Headache denies numbness, dizziness, or weakness. PSYCHIATRIC: Denies anxiety or depression. <Ishan Higuera MD - Last Filed: 12/21/22 06:58> PMF Past Medical History Medical History: Medical History Anxiety Cervical spondylosis Chronic GERD CVA (cerebral vascular accident) Dementia Depression with anxiety Family history of colon cancer requiring screening colonoscopy Hyperlipidemia Hypertension PVD (peripheral vascular disease) <Ishan Higuera MD - Last Filed: 12/21/22 06:58> Surgical History Surgical History: Surgical History H/O cardiac catheterization H/O cerebral aneurysm repair H/O shoulder surgery right History of colonoscopy History of removal of pigmented skin lesion History of surgery on upper extremity last <Ishan Higuera MD - Last Filed: 12/21/22 06:58> Family History Family History: Family History Unknown Family history unknown <Ishan Higuera MD - Last Filed: 12/21/22 06:58> Social History Social History: Soc
[2022-12-21 06:58] VITALS: BP 117/79; PULSE 52; RESP 15; O2SAT 98
--- NOTE | 2022-12-21 07:26 | PC.NURSE ---
[facility] called for [facility] return-waiting for acceptance
--- NOTE | 2022-12-21 07:49 | PC.NURSE ---
report given to Tiffanie at [facility]
[2022-12-21 08:30] VITALS: BP 132/79; PULSE 55; RESP 13; O2SAT 97
== END 2022-12-21 08:32 ==
PROVIDERS: Emergency Provider Preventive Medicine Aerospace Medicine; PCP Hospitalist
DX: S00.83XA Contusion of other part of head, initial encounter (principal); F03.90 Unspecified dementia, unspecified severity, without behavioral disturbance, psychotic disturbance, mood disturbance, and anxiety; I73.9 Peripheral vascular disease, unspecified; I10 Essential (primary) hypertension; E78.5 Hyperlipidemia, unspecified; F41.8 Other specified anxiety disorders; Z86.73 Personal history of transient ischemic attack (TIA), and cerebral infarction without residual deficits; Z87.891 Personal history of nicotine dependence; Z79.82 Long term (current) use of aspirin; W06.XXXA Fall from bed, initial encounter
CPT/HCPCS: 70450; 70486; 72125; 99284; A9270

== ENCOUNTER 2023-02-03 19:22 | Emergency (ER) | payer OTHER, SELFPAY ==
[2023-02-03] VITALS (12 sets, daily range): BP systolic 137–147; BP diastolic 77–89; PULSE 54; RESP 17; TEMP 36.6–36.7; O2SAT 96–100
--- NOTE | ~2023-02-03 | CT_ITS ---
EXAMINATION: CT facial & cervical spine wo DATE: 02/03/2023 19:43 INDICATION: Fall head injury forehead abrasion/nasal abrasion TECHNIQUE: Computed tomography (CT) of the maxillofacial region and cervical spine was performed with out intravenous contrast. Automated exposure control and iterative reconstruction technique were empl oyed. The dose-length product was 465.68 mGy-cm. COMPARISON: 12/21/2022 FINDINGS: CERVICAL: Vertebral Body Alignment: Unchanged 2 mm anterolisthesis at C4-5. Unchanged 2 mm retrolisthesis at C5 -6. Unchanged 3 mm anterolisthesis at C7-T1. Reversed lordosis centered at C5. Craniocervical and atlantoaxial alignment: Moderate severe degenerative change. Alignment intact. Osseous structures/fracture: No evidence of a lytic or blastic process in the visualized spine. No e vidence of acute fracture. Cervical soft tissues: The paraspinal soft tissues planes are maintained. Degenerative changes: Multilevel severe degenerative disc disease and facet arthropathy. Multilevel s evere bilateral neural foraminal narrowing. No severe central canal narrowing. FACE: Soft Tissues: Mild bifrontal and left cheek soft tissue swelling. Facial bones: No acute fracture. No lytic or blastic process. Eyes: The globes are intact. The soft tissue planes of the orbits are maintained. Paranasal Sinuses: Mild somewhat nodular appearing mucosal thickening in the ethmoid air cells and i nferior maxillary sinuses, the remaining aerated spaces are clear. Foreign Bodies: No radiopaque foreign bodies. Other Findings: None. IMPRESSION: No acute fracture or traumatic malalignment in the cervical spine. No acute facial bone fracture. Reviewed, dictated and finalized at location [facility]. IMPRESSION: No acute fracture or traumatic malalignment in the cervical spine. No acute fac ial bone fracture.
--- NOTE | ~2023-02-03 | CT_ITS ---
EXAMINATION: CT brain wo con DATE: 02/03/2023 19:43 INDICATION: Fall head injury on aspirin . TECHNIQUE: Computed tomography (CT) of the head was performed without intravenous contrast. The mA wa s adjusted according to patient size. Iterative reconstruction technique was employed. The dose-lengt h product was 681.00 mGy-cm. COMPARISON: 12/21/2022. FINDINGS: No acute intracranial hemorrhage or extra-axial fluid collection. No hydrocephalus, mass, or herniation. No acute ischemic infarct. Unremarkable dural venous sinus attenuation. No acute osseous abnormality. The aerated spaces are clear. Right sided craniotomy defect. Aneurysm clip in the right middle fossa. Right temporal encephalomalac ia. Mild atrophy and chronic white matter change. Atherosclerotic intracranial calcification. Ex vacu o dilation of the right frontal and temporal horns. IMPRESSION: No acute intracranial process. Reviewed, dictated and finalized at location [facility].
--- NOTE | 2023-02-03 19:31 | ED.GENADULT ---
HPI - General Adult General Chief complaint: Fall Stated complaint: FALL; HIT HEAD Time Seen by Provider: 02/03/23 19:24 History of Present Illness HPI narrative: Patient is a 67-year-old gentleman who presents the emergency department with chief complaint of head injury. Patient reports that he had a ground-level fall at the facility where he lives that reports that he struck his forehead on the concrete floor and reports that he has a small abrasion to his nose and reports that he has some pain in his neck. Patient denies loss of consciousness reports that he takes a daily aspirin Related Data Home Medications Medication Instructions Recorded Confirmed aspirin 81 mg tablet 81 mg PO DAILY 08/10/21 12/21/22 donepezil 10 mg tablet 5 mg PO DAILY 08/10/21 12/21/22 escitalopram oxalate 20 mg tablet 20 mg PO DAILY 08/10/21 12/21/22 metoprolol succinate 100 mg 50 mg PO DAILY 08/10/21 12/21/22 tablet,extended release 24 hr multivitamin with minerals-folic 1 tablet PO DAILY 08/10/21 12/21/22 acid 0.4 mg tablet omeprazole 20 mg capsule,delayed 20 mg PO DAILY 08/10/21 12/21/22 release atorvastatin 20 mg tablet 20 mg PO DAILY 07/05/22 12/21/22 bupropion HCl 150 mg 24 hr tablet, 150 mg PO DAILY 07/05/22 12/21/22 extended release diclofenac sodium 50 mg 50 mg PO BID 07/05/22 12/21/22 tablet,delayed release hydrocodone 5 mg-acetaminophen 325 1 tablet PO Q6H PRN Pain 07/05/22 12/21/22 mg tablet lisinopril 20 1 tablet PO DAILY 07/05/22 12/21/22 mg-hydrochlorothiazide 12.5 mg tablet buspirone 5 mg tablet 5 mg PO BID 09/06/22 12/21/22 diazepam 2 mg tablet 2 mg PO PRN PRN Muscle Spasm 09/06/22 09/06/22 ondansetron 4 mg oral soluble film 4 mg PO Q6H PRN Nausea 12/21/22 12/21/22 Allergies Allergy/AdvReac Type Severity Reaction Status Date / Time No Known Allergies Allergy Verified 12/10/22 22:31 Review of Systems Review of Systems: A 10 system review of systems was completed on the patient and is negative except for what is stated in the HPI. Nursing and ancillary documentation was reviewed. [facility] Past Medical History Medical History Anxiety Cervical spondylosis Chronic GERD CVA (cerebral vascular accident) Dementia Depression with anxiety Family history of colon cancer requiring screening colonoscopy Hyperlipidemia Hypertension PVD (peripheral vascular disease) Surgical History Surgical History H/O cardiac catheterization H/O cerebral aneurysm repair H/O shoulder surgery right History of colonoscopy History of removal of pigmented skin lesion History of surgery on upper extremity last Family History Family History Unknown Family history unknown Social History Social History Social History: the patient stated that he lives with his brother and [id number]. His [id number] Ginny is the durable power contract attorney for health care for him. The patient is and has no children. The patient is retired from [employer]. The patient is a former smoker and quit several years ago. He states that he does not use alcohol marijuana or any other illicit drugs. Code status full code Smoking status: Former smoker Alcohol intake: never Substance use: never Lack of Transportation: No Lack of Food: Never True Current Housing: I Have Housing Concerned About Future Housing: No Difficulty Paying Gas/Electric Bills: No Difficulty Paying for Meds: No Currently Unemployed: No Education: Trade/Vocational Certificate Difficulty w/ Childcare or Family Care: No Living arrangements: with family Spiritual care concerns: No Exam Narrative: GENERAL: Well-appearing, well-nourished, and in no acute distress. HEAD: Normocep
== END 2023-02-03 21:25 ==
PROVIDERS: Emergency Provider Emergency Medicine; PCP Hospitalist
DX: S00.83XA Contusion of other part of head, initial encounter (principal); S00.31XA Abrasion of nose, initial encounter; S16.1XXA Strain of muscle, fascia and tendon at neck level, initial encounter; R29.6 Repeated falls; F03.90 Unspecified dementia, unspecified severity, without behavioral disturbance, psychotic disturbance, mood disturbance, and anxiety; I10 Essential (primary) hypertension; I73.9 Peripheral vascular disease, unspecified; E78.5 Hyperlipidemia, unspecified; K21.9 Gastro-esophageal reflux disease without esophagitis; Z86.73 Personal history of transient ischemic attack (TIA), and cerebral infarction without residual deficits; Z87.891 Personal history of nicotine dependence; Z79.82 Long term (current) use of aspirin; W18.30XA Fall on same level, unspecified, initial encounter
CPT/HCPCS: 70450; 70486; 72125; 99284

== ENCOUNTER 2023-03-06 20:00 | Emergency (ER) | payer OTHER, SELFPAY ==
--- NOTE | ~2023-03-06 | CT_ITS ---
EXAMINATION: CT brain wo con DATE: 03/06/2023 20:55 INDICATION: fall . TECHNIQUE: Computed tomography (CT) of the head was performed without intravenous contrast. The mA wa s adjusted according to patient size. Iterative reconstruction technique was employed. The dose-lengt h product was 681.00 mGy-cm. COMPARISON: 02/03/2023. FINDINGS: No acute intracranial hemorrhage or extra-axial fluid collection. No hydrocephalus, mass, or herniation. No acute ischemic infarct. Unremarkable dural venous sinus attenuation. No acute osseous abnormality. Old right frontotemporal craniotomy. The aerated spaces are clear. Mild atrophy and chronic white matter change. Atherosclerotic intracranial calcification. Aneurysm cl ip in the right middle cranial fossa. Right temporal encephalomalacia. Ex vacuo dilation of the left frontal and temporal horns. Old bilateral basal ganglia lacunar infarcts. IMPRESSION: No acute intracranial process. Reviewed, dictated and finalized at location [facility].
--- NOTE | ~2023-03-06 | CT_ITS ---
EXAMINATION: CT cervical spine wo con DATE: 03/06/2023 20:55 INDICATION: fall TECHNIQUE: Computed tomography (CT) of the cervical spine was performed without intravenous contrast. Automated exposure control and iterative reconstruction technique were employed. The dose-length pro duct was 536.56 mGy-cm. COMPARISON: 02/01/2023. FINDINGS: Vertebral Body Alignment: Intact. Stable reversed lordosis and multilevel listheses. Craniocervical and atlantoaxial alignment: Severe degenerative change. Alignment intact. Osseous structures/fracture: No evidence of a lytic or blastic process in the visualized spine. No e vidence of acute fracture. Cervical soft tissues: The paraspinal soft tissues planes are maintained. Degenerative changes: Multilevel severe degenerative disc disease and severe bilateral neural foramin al narrowing. Congenitally narrow appearing canal, no severe central canal narrowing. IMPRESSION: No acute fracture or traumatic malalignment in the cervical spine. Reviewed, dictated and finalized at location [facility].
[2023-03-06 20:31] VITALS: BP 137/84; PULSE 73; RESP 16; TEMP 36.4; O2SAT 97
[2023-03-06 22:09] VITALS: BP 123/92; PULSE 90; RESP 18; TEMP 36.9; O2SAT 92
[2023-03-06 23:13] VITALS: BP 110/80; PULSE 68; RESP 16; O2SAT 97
--- NOTE | 2023-03-06 23:30 | PC.NURSE ---
pt sts that he fell out of the shower and hit the back of his head.A small hematoma is noted. No bleeding and neuro is intact
--- NOTE | 2023-03-06 23:30 | ED.FALL ---
HPI - Fall General Chief Complaint: Fall <Giselle Mcbride PA-C - Last Filed: 03/07/23 02:46> Stated Complaint: fell out of wheelchair, hit back of head <Giselle Mcbride PA-C - Last Filed: 03/07/23 02:46> Time Seen by Provider: 03/06/23 22:29 <Giselle Mcbride PA-C - Last Filed: 03/07/23 02:46> History of Present Illness HPI Narrative: 67-year-old male with history of normal pressure hydrocephalus, GERD, hypertension, dementia, CVA reports for evaluation from [facility] after a fall that occurred prior to arrival. 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 States he hit the left occiput of his head on the ground, denies LOC. He is currently reporting midline cervical pain. He denies pain elsewhere including back pain, chest pain or shortness of breath, abdominal pain, upper or lower extremity pain. He denies headache, vision changes, focal numbness or weakness. <Giselle Mcbride PA-C - Last Filed: 03/07/23 02:46> Related Data Home Medications: Home Medications Medication Instructions Recorded Confirmed aspirin 81 mg tablet 81 mg PO DAILY 08/10/21 12/21/22 donepezil 10 mg tablet 5 mg PO DAILY 08/10/21 12/21/22 escitalopram oxalate 20 mg tablet 20 mg PO DAILY 08/10/21 12/21/22 metoprolol succinate 100 mg 50 mg PO DAILY 08/10/21 12/21/22 tablet,extended release 24 hr multivitamin with minerals-folic 1 tablet PO DAILY 08/10/21 12/21/22 acid 0.4 mg tablet omeprazole 20 mg capsule,delayed 20 mg PO DAILY 08/10/21 12/21/22 release atorvastatin 20 mg tablet 20 mg PO DAILY 07/05/22 12/21/22 bupropion HCl 150 mg 24 hr tablet, 150 mg PO DAILY 07/05/22 12/21/22 extended release diclofenac sodium 50 mg 50 mg PO BID 07/05/22 12/21/22 tablet,delayed release hydrocodone 5 mg-acetaminophen 325 1 tablet PO Q6H PRN Pain 07/05/22 12/21/22 mg tablet lisinopril 20 1 tablet PO DAILY 07/05/22 12/21/22 mg-hydrochlorothiazide 12.5 mg tablet buspirone 5 mg tablet 5 mg PO BID 09/06/22 12/21/22 diazepam 2 mg tablet 2 mg PO PRN PRN Muscle Spasm 09/06/22 09/06/22 ondansetron 4 mg oral soluble film 4 mg PO Q6H PRN Nausea 12/21/22 12/21/22 <Giselle Mcbride PA-C - Last Filed: 03/07/23 02:46> Allergies/Adverse Reactions: Allergies Allergy/AdvReac Type Severity Reaction Status Date / Time No Known Allergies Allergy Verified 12/10/22 22:31 <Giselle Mcbride PA-C - Last Filed: 03/07/23 02:46> Review of Systems Review of Systems: CONSTITUTIONAL: Denies fever, chills EYES: Denies visual changes, redness, or discharge. ENT: Denies rhinorrhea, congestion, sore throat, or otalgia. CARDIOVASCULAR: Denies chest pain, palpitations, or edema. RESPIRATORY: Denies cough or dyspnea. GASTROINTESTINAL: Denies abdominal pain, nausea, vomiting, or diarrhea. GENITOURINARY: Denies dysuria or hematuria. SKIN: Denies rash or itching. MUSCULOSKELETAL: See HPI NEUROLOGIC: See HPI PSYCHIATRIC: Denies anxiety or depression. <Giselle Mcbride PA-C - Last Filed: 03/07/23 02:46> [facility] Past Medical History Medical History: Medical History Anxiety Cervical spondylosis Chronic GERD CVA (cerebral vascular accident) Dementia Depression with anxiety Family history of colon cancer requiring screening colonoscopy Hyperlipidemia Hypertension PVD (peripheral vascular disease) <Giselle Mcbride PA-C - Last Filed: 03/07/23 02:46> Surgical History Surgical History: Surgical History H/O cardiac catheterization H/O cerebral aneurysm repair H/O shoulder surgery right History of colonoscopy History of removal of pigmented skin lesion History of surgery on upper extremity last <Giselle Mcbride PA-C - Last Filed: 03/07/23 02:46> Family History Family Histo
[2023-03-06 23:42] VITALS: PULSE 68; RESP 16; O2SAT 95
[2023-03-06 23:45] VITALS: BP 110/82; PULSE 62; RESP 20; O2SAT 94
[2023-03-06] MEDS: ACETAMINOPHEN 500 MG TABLET 1000 MG PO (23:50)
[2023-03-07] VITALS: PULSE 60; RESP 21
--- NOTE | 2023-03-07 00:09 | PC.NURSE ---
report given to j carlos. ems is Enroute
--- NOTE | 2023-03-07 00:24 | PC.NURSE ---
TRANSPORT TO [facility] DECIDED: [id number] CALLED CLAIRE @ 0009; ACCEPTED; ETA: 0230 CALLED NAYE- DECLINED; NO TRANSPORT EMS CALLED JANNA- DECLINED; SHORT STAFFED NO TRANSPORT EMS CALLED REDDY @ 0019; ACCEPTED; ETA: 0115 CANCELED CLAIRE @ 0025
== END 2023-03-07 02:11 ==
PROVIDERS: Emergency Provider Physician Assistant; PCP Hospitalist
DX: S16.1XXA Strain of muscle, fascia and tendon at neck level, initial encounter (principal); S09.90XA Unspecified injury of head, initial encounter; F41.9 Anxiety disorder, unspecified; K21.9 Gastro-esophageal reflux disease without esophagitis; F03.90 Unspecified dementia, unspecified severity, without behavioral disturbance, psychotic disturbance, mood disturbance, and anxiety; F32.A Depression, unspecified; I10 Essential (primary) hypertension; E78.5 Hyperlipidemia, unspecified; Z86.73 Personal history of transient ischemic attack (TIA), and cerebral infarction without residual deficits; G91.2 (Idiopathic) normal pressure hydrocephalus; W07.XXXA Fall from chair, initial encounter
CPT/HCPCS: 70450; 72125; 99284; A9270

== ENCOUNTER 2023-05-15 21:41 | Emergency (ER) | payer OTHER, SELFPAY ==
--- NOTE | ~2023-05-15 | XR_ITS ---
EXAMINATION: XR chest 1V portable DATE: 05/15/2023 22:14 INDICATION: Fever and cough. TECHNIQUE: A single frontal view of the chest was obtained. COMPARISON: Chest 2 views 07/05/2022 FINDINGS: There is mild elevation of right hemidiaphragm. No pneumonia, pleural effusion, or pneumoth orax. The heart size is normal. There is plate and screw fixation of left humerus. IMPRESSION: 1. No acute cardiopulmonary disease. Reviewed, dictated and finalized at location [facility].
[2023-05-15 21:40] VITALS: BP 135/82; PULSE 59; RESP 19; TEMP 37.3; O2SAT 97
[2023-05-15 22:01] VITALS: BP 126/77; PULSE 56; RESP 22; O2SAT 97
[2023-05-15 22:03] VITALS: O2SAT 98
[2023-05-15 22:46] LABS: SARS-CoV-2 RNA PCR Positive (Negative)
--- NOTE | 2023-05-15 23:20 | ED.GENADULT ---
HPI - General Adult General Chief complaint: Fever Stated complaint: NOT FEELING WELL Time Seen by Provider: 05/15/23 22:53 Source: patient Mode of arrival: ambulatory Limitations: no limitations History of Present Illness HPI narrative: This is a 67-year-old male who presents to the ED via EMS from [facility] for chief complaint of fevers and generally feeling unwell beginning this afternoon. Patient reports he had a temperature of 100.4 around 1730. He has additional complaints of possible high blood pressure. Patient reports slight cough over the last day or so. Denies shortness of breath, chest pain, leg swelling, headache, LOC, abdominal pain, nausea, vomiting. [facility] recent history of lumbar spine fracture. Related Data Home Medications Medication Instructions Recorded Confirmed aspirin 81 mg tablet 81 mg PO DAILY 08/10/21 12/21/22 donepezil 10 mg tablet 5 mg PO DAILY 08/10/21 12/21/22 escitalopram oxalate 20 mg tablet 20 mg PO DAILY 08/10/21 12/21/22 metoprolol succinate 100 mg 50 mg PO DAILY 08/10/21 12/21/22 tablet,extended release 24 hr multivitamin with minerals-folic 1 tablet PO DAILY 08/10/21 12/21/22 acid 0.4 mg tablet omeprazole 20 mg capsule,delayed 20 mg PO DAILY 08/10/21 12/21/22 release atorvastatin 20 mg tablet 20 mg PO DAILY 07/05/22 12/21/22 bupropion HCl 150 mg 24 hr tablet, 150 mg PO DAILY 07/05/22 12/21/22 extended release diclofenac sodium 50 mg 50 mg PO BID 07/05/22 12/21/22 tablet,delayed release hydrocodone 5 mg-acetaminophen 325 1 tablet PO Q6H PRN Pain 07/05/22 12/21/22 mg tablet lisinopril 20 1 tablet PO DAILY 07/05/22 12/21/22 mg-hydrochlorothiazide 12.5 mg tablet buspirone 5 mg tablet 5 mg PO BID 09/06/22 12/21/22 diazepam 2 mg tablet 2 mg PO PRN PRN Muscle Spasm 09/06/22 09/06/22 ondansetron 4 mg oral soluble film 4 mg PO Q6H PRN Nausea 12/21/22 12/21/22 Allergies Allergy/AdvReac Type Severity Reaction Status Date / Time No Known Allergies Allergy Verified 05/15/23 21:45 Review of Systems Review of Systems: All systems as dictated in [facility] Past Medical History Medical History Anxiety Cervical spondylosis Chronic GERD CVA (cerebral vascular accident) Dementia Depression with anxiety Family history of colon cancer requiring screening colonoscopy Hyperlipidemia Hypertension PVD (peripheral vascular disease) Surgical History Surgical History H/O cardiac catheterization H/O cerebral aneurysm repair H/O shoulder surgery right History of colonoscopy History of removal of pigmented skin lesion History of surgery on upper extremity last Family History Family History Unknown Family history unknown Social History Social History Social History: the patient stated that he lives with his brother and [id number]. His [id number] Ginny is the durable power claims attorney for health care for him. The patient is and has no children. 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 The patient is a former smoker and quit several years ago. He states that he does not use alcohol marijuana or any other illicit drugs. Code status full code Smoking status: Former smoker Alcohol intake: never Substance use: never Lack of Transportation: No Lack of Food: Never True Current Housing: I Have Housing Concerned About Future Housing: No Difficulty Paying Gas/Electric Bills: No Difficulty Paying for Meds: No Currently Unemployed: No Education: Trade/Vocational Certificate Difficulty w/ Childcare or Family Care: No Living arrangements: with family Spiritual care concerns: No Exam Narrative: GENERAL: Well-appearing, well-nourished, and in no acute distr
[2023-05-15 23:24] LABS: Basophils Percent Auto 0.4 % (0.2-1.2); Eosinophils Absolute Auto 0.1 K/mm3 (0-0.3); Eosinophils Percent Auto 1.8 % (0-4.4); Hematocrit 37.7 % (42.0-52.0); Hemoglobin 12.2 g/dL (14.0-18.0); Immature Granulocyte Absolute 0.02 K/mm3 (0.00-0.031); Immature Granulocyte Percent A 0.3 % (0-0.5); Lymphocytes Absolute Auto 1.01 K/mm3 (0.9-3.2); Lymphocytes Percent Auto 13.9 % (18.3-44.2); Mean Corpuscular HGB Conc 32.4 g/dl (32-36); Mean Corpuscular Hemoglobin 30.5 pg (26-34); Mean Corpuscular Volume 94.3 fl (80-100); Mean Platelet Volume 9.1 fl (7.4-10.4); Monocytes Absolute Auto 0.7 K/mm3 (0.1-0.6); Monocytes Percent Auto 9.4 % (2.6-8.5); Neutrophils Absolute Auto 5.4 K/mm3 (1.3-6.7); Neutrophils Percent Auto 74.2 % (45.5-73.1); Platelet Count Result 188 k/mm3 (150-375); Red Cell Distribution Width 13.5 % (11.5-14.5); White Blood Count 7.3 K/mm3 (4.5-10.0)
[2023-05-15 23:31] VITALS: BP 130/80; PULSE 54; RESP 14; O2SAT 100
[2023-05-15 23:37] LABS: Alanine Aminotransferase 25 U/L (6-50); Albumin Level 4.1 g/dL (3.5-5.1); Alkaline Phosphatase 57 U/L (38-126); Anion Gap 7 mmol/L (8-16); Aspartate Amino Transferase 30 U/L (17-59); Bilirubin,Total 0.5 mg/dL (0.2-1.3); Blood Urea Nitrogen 29 mg/dL (9-20); Calcium 8.4 mg/dL (8.4-10.2); Carbon Dioxide 28 mmol/L (22-30); Chloride 101 mmol/L (98-107); Estimated CRCL calculation 66 ml/min; Estimated Glomerular Filt Rate > 60; Glucose 87 mg/dL (65-110); Potassium 3.9 mmol/L (3.4-5.0); Sodium 136 mmol/L (137-145)
[2023-05-16 00:47] VITALS: BP 131/76; PULSE 57; RESP 18; O2SAT 98
[2023-05-16 01:15] VITALS: PULSE 64; RESP 15
[2023-05-16 01:46] VITALS: BP 129/81; PULSE 58; RESP 16
[2023-05-16 02:31] VITALS: BP 144/75; PULSE 57; RESP 16; O2SAT 99
[2023-05-16 04:01] VITALS: BP 137/89; PULSE 64; RESP 20; O2SAT 98
== END 2023-05-16 04:38 ==
PROVIDERS: Emergency Medicine; Emergency Provider Physician Assistant; PCP Hospitalist
DX: U07.1 COVID-19 (principal); F03.90 Unspecified dementia, unspecified severity, without behavioral disturbance, psychotic disturbance, mood disturbance, and anxiety; I10 Essential (primary) hypertension; I73.9 Peripheral vascular disease, unspecified; E78.5 Hyperlipidemia, unspecified; F41.8 Other specified anxiety disorders; Z86.73 Personal history of transient ischemic attack (TIA), and cerebral infarction without residual deficits; Z87.891 Personal history of nicotine dependence; Z79.82 Long term (current) use of aspirin
CPT/HCPCS: 36415; 71045; 80053; 85025; 87635; 99283

== ENCOUNTER 2023-05-19 05:59 | Emergency (ER) | payer OTHER, SELFPAY ==
--- NOTE | ~2023-05-19 | CT_ITS ---
EXAMINATION: CT brain wo con DATE: 05/19/2023 07:53 INDICATION: Head injury TECHNIQUE: Computed tomography (CT) of the head was performed without intravenous contrast. The dose- length product was 605.33 mGy-cm. Automated exposure control and iterative reconstruction technique w ere employed. COMPARISON: CT dated 03/06/2023 FINDINGS: There is a right temporal parietal craniotomy defect. There is aneurysm clips of the right middle cranial fossa. There is mild encephalomalacia of the right temporal lobe. There is mild ventri culomegaly. No midline shift. There is intracranial atherosclerosis. There are scattered mild periven tricular and subcortical white matter changes, most likely related to small vessel ischemic disease ( microangiopathy). Small chronic bilateral lacunar infarctions. Mild mucosal thickening of the ethmoid and sphenoid sinuses. Mastoids are pneumatized. There is right frontal scalp hematoma. IMPRESSION: 1. No acute intracranial abnormality. 2: Mild ventriculomegaly, likely ex vacuo. Postoperative changes consistent with aneurysm repair righ t middle cranial fossa with overlying craniotomy defect. Reviewed, dictated and finalized at location [facility]. IMPRESSION: 1. No acute intracranial abnormality. 2: Mild ventriculomegaly, likely ex vacuo. Postoperative changes consistent wit h aneurysm repair right middle cranial fossa with overlying craniotomy defect.
[2023-05-19 06:00] VITALS: BP 133/87; PULSE 64; RESP 14; TEMP 36.4; O2SAT 99
--- NOTE | 2023-05-19 08:26 | ED.FALL ---
HPI - Fall General Chief Complaint: Fall Stated Complaint: fall Time Seen by Provider: 05/19/23 07:00 History of Present Illness HPI Narrative: Patient is a 68-year-old male who presents ER status post fall out of bed. Reports he rolled out of 5:30 in the morning. He struck his head on the ground. No LOC. He has a 1 cm abrasion to the forehead with some soft tissue swelling. No change in vision or hearing. No additional complaints. No neck pain Related Data Home Medications Medication Instructions Recorded Confirmed aspirin 81 mg tablet 81 mg PO DAILY 08/10/21 12/21/22 donepezil 10 mg tablet 5 mg PO DAILY 08/10/21 12/21/22 escitalopram oxalate 20 mg tablet 20 mg PO DAILY 08/10/21 12/21/22 metoprolol succinate 100 mg 50 mg PO DAILY 08/10/21 12/21/22 tablet,extended release 24 hr multivitamin with minerals-folic 1 tablet PO DAILY 08/10/21 12/21/22 acid 0.4 mg tablet omeprazole 20 mg capsule,delayed 20 mg PO DAILY 08/10/21 12/21/22 release atorvastatin 20 mg tablet 20 mg PO DAILY 07/05/22 12/21/22 bupropion HCl 150 mg 24 hr tablet, 150 mg PO DAILY 07/05/22 12/21/22 extended release diclofenac sodium 50 mg 50 mg PO BID 07/05/22 12/21/22 tablet,delayed release hydrocodone 5 mg-acetaminophen 325 1 tablet PO Q6H PRN Pain 07/05/22 12/21/22 mg tablet lisinopril 20 1 tablet PO DAILY 07/05/22 12/21/22 mg-hydrochlorothiazide 12.5 mg tablet buspirone 5 mg tablet 5 mg PO BID 09/06/22 12/21/22 diazepam 2 mg tablet 2 mg PO PRN PRN Muscle Spasm 09/06/22 09/06/22 ondansetron 4 mg oral soluble film 4 mg PO Q6H PRN Nausea 12/21/22 12/21/22 Allergies Allergy/AdvReac Type Severity Reaction Status Date / Time No Known Allergies Allergy Verified 05/19/23 06:06 Review of Systems Review of Systems: All systems reviewed & are unremarkable except as noted in HPI and below Constitutional: Constitutional: Denies chills and Denies fever(s) Eyes: Eyes: Denies change in vision Integumentary/Breasts: Skin/Breast: Reports erythema Comments: Ordered abrasion Neurologic: Denies syncope, Denies headache(s), Denies focal weakness and Denies numbness PMFSH Past Medical History Medical History Anxiety Cervical spondylosis Chronic GERD CVA (cerebral vascular accident) Dementia Depression with anxiety Family history of colon cancer requiring screening colonoscopy Hyperlipidemia Hypertension PVD (peripheral vascular disease) Surgical History Surgical History H/O cardiac catheterization H/O cerebral aneurysm repair H/O shoulder surgery right History of colonoscopy History of removal of pigmented skin lesion History of surgery on upper extremity last Family History Family History Unknown Family history unknown Social History Social History Social History: the patient stated that he lives with his brother and [id number]. His [id number]-pja Ginny is the durable power litigation attorney for health care for him. The patient is and has no children. 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 The patient is a former smoker and quit several years ago. He states that he does not use alcohol marijuana or any other illicit drugs. Code status full code Smoking status: Former smoker Alcohol intake: never Substance use: never Lack of Transportation: No Lack of Food: Never True Current Housing: I Have Housing Concerned About Future Housing: No Difficulty Paying Gas/Electric Bills: No Difficulty Paying for Meds: No Currently Unemployed: No Education: Trade/Vocational Certificate Difficulty w/ Childcare or Family Care: No Living arrangements: with family Spiritual care concerns: No Exam Narrative: GENERAL: Well-appearing, well-nourished, and
--- NOTE | 2023-05-19 08:28 | PC.NURSE ---
0826 attempted to call [facility] to give report, no answer.
--- NOTE | 2023-05-19 08:31 | PC.NURSE ---
0831 attempted to call report, no answer.
== END 2023-05-19 09:06 | disposition home or self-care (01) ==
PROVIDERS: Emergency Provider Emergency Medicine; PCP Hospitalist
DX: S00.81XA Abrasion of other part of head, initial encounter (principal); F03.90 Unspecified dementia, unspecified severity, without behavioral disturbance, psychotic disturbance, mood disturbance, and anxiety; I10 Essential (primary) hypertension; I73.9 Peripheral vascular disease, unspecified; E78.5 Hyperlipidemia, unspecified; K21.9 Gastro-esophageal reflux disease without esophagitis; M47.812 Spondylosis without myelopathy or radiculopathy, cervical region; F41.8 Other specified anxiety disorders; Z86.73 Personal history of transient ischemic attack (TIA), and cerebral infarction without residual deficits; Z79.82 Long term (current) use of aspirin; Z87.891 Personal history of nicotine dependence; G93.89 Other specified disorders of brain; W06.XXXA Fall from bed, initial encounter
CPT/HCPCS: 12011; 70450; 99284

== ENCOUNTER 2023-09-12 11:29 | Emergency (ER) | payer MEDICARE, SELFPAY ==
--- NOTE | ~2023-09-12 | CT_ITS ---
EXAMINATION: CT brain wo con DATE: 09/12/2023 12:36 INDICATION: Fall. Struck head on nightstand. TECHNIQUE: Computed tomography (CT) of the head was performed without intravenous contrast. The mA wa s adjusted according to patient size. Iterative reconstruction technique was employed. Exam dose: 68 1.00 mGy-cm total exam DLP. COMPARISON: 05/19/2023 CT brain FINDINGS: Aneurysm clip in the right anterior temporal area, with overlying bone flap in position. Bilateral vertebral artery and bilateral carotid siphon internal carotid artery calcifications. Nonsp ecific mildly diminished attenuation of the cerebral white matter, likely due to chronic small vessel ischemic changes. No intracranial mass lesion or hemorrhage is evident. No recent cerebrovascular accident. No midline shift or mass effect. No subdural or epidural hematoma is detected. No fracture or bone destruction of the cranial vault. IMPRESSION: Status post right aneurysm surgical repair with bone flap in place Cerebral atherosclerosis No acute intracranial finding or skull fracture Reviewed, dictated and finalized at [facility]. Reviewed, dictated and finalized at location [facility]. PROCUREMENT COORDINATOR
--- NOTE | ~2023-09-12 | CT_ITS ---
EXAMINATION: CT cervical spine wo con DATE: 09/12/2023 12:36 INDICATION: Head injury. TECHNIQUE: Computed tomography (CT) of the cervical spine was performed without intravenous contrast. Automated exposure control and iterative reconstruction technique were employed. The dose-length pro duct was 513.57 mGy-cm. COMPARISON: CT cervical spine 03/06/2023 FINDINGS: There is kyphosis of cervical spine. There is 2 mm anterolisthesis of C3 on C4 and C4 on C5 , 2 mm retrolisthesis of C5 on C6 and C6 on C7, and 2 mm anterolisthesis of C7 on T1. There is severe ly decreased disc height at C3-C4, mildly decreased disc height at C4-C5, severely decreased disc hei ght at C5-C6 and C6-C7, and moderately decreased disc height at C7-T1. The following disc levels are specifically discussed: C2-C3: There is severe bilateral uncovertebral joint osteoarthritis. There is severe bilateral facet joint osteoarthritis. There is mild right and moderate left neural foraminal stenosis. There is mild central canal stenosis. C3-C4: There is severe bilateral uncovertebral joint osteoarthritis. There is severe bilateral facet joint osteoarthritis. There is moderate bilateral neural foraminal stenosis. There is moderate centra l canal stenosis. C4-C5: There is severe right and moderate left uncovertebral joint osteoarthritis. There is severe bi lateral facet joint osteoarthritis. There is moderate bilateral neural foraminal stenosis. There is m ild central canal stenosis. C5-C6: There is severe bilateral uncovertebral joint osteoarthritis. There is severe right and modera te left facet joint osteoarthritis. There is mild bilateral neural foraminal stenosis. There is mild central canal stenosis. C6-C7: There is severe bilateral uncovertebral joint osteoarthritis. There is severe bilateral facet joint osteoarthritis. There is mild right and moderate left neural foraminal stenosis. There is mild central canal stenosis. C7-T1: There is mild bilateral uncovertebral joint osteoarthritis. There is severe bilateral facet galina int osteoarthritis. There is mild bilateral neural foraminal stenosis. There is no central canal sten osis. IMPRESSION: 1. No fracture. 2. Severe cervical spondylosis. Reviewed, dictated and finalized at location [facility]. EMS SECURITY CONSULTANT
[2023-09-12 11:36] VITALS: BP 157/84; PULSE 57; RESP 16; TEMP 36.5; O2SAT 100
--- NOTE | 2023-09-12 12:47 | ED.FALL ---
HPI - Fall General Chief Complaint: Fall Stated Complaint: fall Time Seen by Provider: 09/12/23 11:58 History of Present Illness HPI Narrative: Patient is a 68-year-old male who presents to the emergency department this afternoon fall. Patient states that he was being transferred from his wheelchair to his bed when he fell down and tried to brace himself using his right. Patient states that he did end up hitting his head against the nightstand 8 along the left side of his forehead/temporal region. Patient denies any loss of consciousness and remembers the full event. He denies any blood thinner use. Patient does have a small abrasion to his left forehead/temporal region. When asked regarding any additional pain including hip pain and chest pain and rib pain, patient denies all of the above. Patient is able to move his bilateral upper and lower extremity spontaneously. The remainder of history of present illness and review of systems negative unless stated otherwise in HPI. Related Data Home Medications Medication Instructions Recorded Confirmed aspirin 81 mg tablet 81 mg PO DAILY 08/10/21 12/21/22 donepezil 10 mg tablet 5 mg PO DAILY 08/10/21 12/21/22 escitalopram oxalate 20 mg tablet 20 mg PO DAILY 08/10/21 12/21/22 metoprolol succinate 100 mg 50 mg PO DAILY 08/10/21 12/21/22 tablet,extended release 24 hr multivitamin with minerals-folic 1 tablet PO DAILY 08/10/21 12/21/22 acid 0.4 mg tablet omeprazole 20 mg capsule,delayed 20 mg PO DAILY 08/10/21 12/21/22 release atorvastatin 20 mg tablet 20 mg PO DAILY 07/05/22 12/21/22 bupropion HCl 150 mg 24 hr tablet, 150 mg PO DAILY 07/05/22 12/21/22 extended release diclofenac sodium 50 mg 50 mg PO BID 07/05/22 12/21/22 tablet,delayed release hydrocodone 5 mg-acetaminophen 325 1 tablet PO Q6H PRN Pain 07/05/22 12/21/22 mg tablet lisinopril 20 1 tablet PO DAILY 07/05/22 12/21/22 mg-hydrochlorothiazide 12.5 mg tablet buspirone 5 mg tablet 5 mg PO BID 09/06/22 12/21/22 diazepam 2 mg tablet 2 mg PO PRN PRN Muscle Spasm 09/06/22 09/06/22 ondansetron 4 mg oral soluble film 4 mg PO Q6H PRN Nausea 12/21/22 12/21/22 Allergies Allergy/AdvReac Type Severity Reaction Status Date / Time No Known Allergies Allergy Verified 05/19/23 06:06 Review of Systems Review of Systems: All systems are reviewed and are negative unless stated otherwise in the HPI. PMFSH Past Medical History Medical History Anxiety Cervical spondylosis Chronic GERD CVA (cerebral vascular accident) Dementia Depression with anxiety Family history of colon cancer requiring screening colonoscopy Hyperlipidemia Hypertension PVD (peripheral vascular disease) Surgical History Surgical History H/O cardiac catheterization H/O cerebral aneurysm repair H/O shoulder surgery right History of colonoscopy History of removal of pigmented skin lesion History of surgery on upper extremity last Family History Family History Unknown Family history unknown Social History Social History Social History: the patient stated that he lives with his brother and [id number]. His humafo-xa-fjg Ginny is the durable power trade mark attorney for health care for him. The patient is and has no children. 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 The patient is a former smoker and quit several years ago. He states that he does not use alcohol marijuana or any other illicit drugs. Code status full code Smoking status: Former smoker Alcohol intake: never Substance use: never Lack of Transportation: No Lack of Food: Never True Current Housing: I Have Housing Concerned About Future Housing: No Difficulty Paying Gas/Electric Bills: No Difficulty Paying for Meds: No C
[2023-09-12 13:04] VITALS: BP 142/80; PULSE 80; RESP 16; O2SAT 99
== END 2023-09-12 13:51 | disposition home or self-care (01) ==
PROVIDERS: Emergency Provider Emergency Medicine; PCP Hospitalist
DX: S00.81XA Abrasion of other part of head, initial encounter (principal); F03.90 Unspecified dementia, unspecified severity, without behavioral disturbance, psychotic disturbance, mood disturbance, and anxiety; E78.5 Hyperlipidemia, unspecified; I10 Essential (primary) hypertension; I73.9 Peripheral vascular disease, unspecified; K21.9 Gastro-esophageal reflux disease without esophagitis; F41.8 Other specified anxiety disorders; Z79.82 Long term (current) use of aspirin; Z87.891 Personal history of nicotine dependence; W01.190A Fall on same level from slipping, tripping and stumbling with subsequent striking against furniture, initial encounter
CPT/HCPCS: 70450; 72125; 99284

== ENCOUNTER 2023-12-01 17:29 | Emergency (ER) | payer MEDICARE, SELFPAY ==
[2023-12-01] VITALS (7 sets, daily range): BP systolic 123–173; BP diastolic 72–93; PULSE 58–72; RESP 12–19; TEMP 37.1; O2SAT 96–100
--- NOTE | ~2023-12-01 | CT_ITS ---
EXAMINATION: CT facial & cervical spine wo DATE: 12/01/2023 19:23 INDICATION: fall TECHNIQUE: Computed tomography (CT) of the maxillofacial region and cervical spine was performed with out intravenous contrast. Automated exposure control and iterative reconstruction technique were empl oyed. The dose-length product was 449.55 mGy-cm. COMPARISON: CT C-spine 09/12/2023 FINDINGS: CERVICAL: Vertebral Body Alignment: Stable multilevel degenerative listheses. Craniocervical and atlantoaxial alignment: Severe degenerative change. Alignment intact. Osseous structures/fracture: No evidence of a lytic or blastic process in the visualized spine. No e vidence of acute fracture. Cervical soft tissues: The paraspinal soft tissues planes are maintained. Degenerative changes: Multilevel severe degenerative disc disease and facet arthropathy. Severe left neural foraminal narrowing at C2-3. No severe central canal narrowing. FACE: Soft Tissues: Bilateral forehead swelling and soft tissue swelling of the anterior nose. Facial bones: Mildly depressed comminuted nasal bone fractures. No lytic or blastic process. Eyes: The globes are intact. The soft tissue planes of the orbits are maintained. Paranasal Sinuses: Minimal inferior right maxillary mucosal thickening. Small left maxillary retenti on cyst/polyp and air-fluid level. Foreign Bodies: No radiopaque foreign bodies. Other Findings: None. IMPRESSION: Mildly depressed nasal fracture. Trace left sphenoid fluid may be secondary to acute sinusitis or mucosal hemorrhage from trauma. No acute fracture or traumatic malalignment detected in the cervical spine Reviewed, dictated and finalized at [facility]. IMPRESSION: Mildly depressed nasal fracture. Trace left sphenoid fluid may be secondary to acute sinusitis or mucosal hemorr alexander from trauma. No acute fracture or traumatic malalignment detected in the cervical spine
--- NOTE | ~2023-12-01 | CT_ITS ---
EXAMINATION: CT brain wo con DATE: 12/01/2023 19:23 INDICATION: fall . TECHNIQUE: Computed tomography (CT) of the head was performed without intravenous contrast. The mA wa s adjusted according to patient size. Iterative reconstruction technique was employed. The dose-lengt h product was 605.33 mGy-cm. COMPARISON: 09/12/2023. FINDINGS: Very small volume slightly hyperdense extra-axial fluid collection overlying the right frontal convex ity measuring up to 2 mm in thickness. No hydrocephalus, mass, or herniation. No acute ischemic infarct. Unremarkable dural venous sinus attenuation. No acute osseous abnormality. Small left sphenoid retention cyst/polyp. Small air-fluid level in left sphenoid sinus. The remaining aerated spaces are clear. Right frontotemporal craniotomy. Aneurysm clip in the right middle cranial fossa. Ex vacuo dilation o f the right frontal horn. Mild atrophy and chronic white matter change. Atherosclerotic intracranial calcification. Bilateral l ens replacements. IMPRESSION: Very small volume subdural hemorrhage over the right frontal convexity. Measuring up to 2 mm in thick ness. Small air-fluid level in the left sphenoid sinus, may represent changes of acute sinusitis or small v olume mucosal hemorrhage in the setting of trauma. Results reported telephonically to RADHA Blair by Dr. Wu at 7:31 PM on 12/01/2023. Reviewed, dictated and finalized at [facility]. IMPRESSION: Very small volume subdural hemorrhage over the right frontal convexity. Measuri ng up to 2 mm in thickness. Small air-fluid level in the left sphenoid sinus, may represent changes of acut e sinusitis or small volume mucosal hemorrhage in the setting of trauma. Results reported telephonically to RADHA Blair by Dr. Wu at 7:31 PM on 12/01/2023.
--- NOTE | 2023-12-01 18:10 | ED.FALL ---
HPI - Fall General Chief Complaint: Fall Stated Complaint: fall Time Seen by Provider: 12/01/23 18:10 Source: patient Mode of arrival: ambulatory Limitations: no limitations History of Present Illness HPI Narrative: This is a 68-year-old male with PMH of CVA, frequent falls, dementia, HTN, HLD who presents to the ED the EMS from group home with chief complaint of a fall that occurred just prior to arrival. EMS reports that patient fell forwards out of his wheelchair, and landed directly on his face. Patient is alert oriented x4 and giving full history of the presentation. He reports that he was in his wheelchair and dropped this over on the ground. Patient states that he tried to reach over to get it and was unable to stop self falling forward. Patient reports that he fell directly forward onto his face. Denies LOC. endorses laceration to the nose. denies subsequent neck pain or back pain. Denies any further sites of pain or injury. Related Data Home Medications Medication Instructions Recorded Confirmed aspirin 81 mg tablet 81 mg PO DAILY 08/10/21 12/21/22 donepezil 10 mg tablet 5 mg PO DAILY 08/10/21 12/21/22 escitalopram oxalate 20 mg tablet 20 mg PO DAILY 08/10/21 12/21/22 metoprolol succinate 100 mg 50 mg PO DAILY 08/10/21 12/21/22 tablet,extended release 24 hr multivitamin with minerals-folic 1 tablet PO DAILY 08/10/21 12/21/22 acid 0.4 mg tablet omeprazole 20 mg capsule,delayed 20 mg PO DAILY 08/10/21 12/21/22 release atorvastatin 20 mg tablet 20 mg PO DAILY 07/05/22 12/21/22 bupropion HCl 150 mg 24 hr tablet, 150 mg PO DAILY 07/05/22 12/21/22 extended release diclofenac sodium 50 mg 50 mg PO BID 07/05/22 12/21/22 tablet,delayed release hydrocodone 5 mg-acetaminophen 325 1 tablet PO Q6H PRN Pain 07/05/22 12/21/22 mg tablet lisinopril 20 1 tablet PO DAILY 07/05/22 12/21/22 mg-hydrochlorothiazide 12.5 mg tablet buspirone 5 mg tablet 5 mg PO BID 09/06/22 12/21/22 diazepam 2 mg tablet 2 mg PO PRN PRN Muscle Spasm 09/06/22 09/06/22 ondansetron 4 mg oral soluble film 4 mg PO Q6H PRN Nausea 12/21/22 12/21/22 Allergies Allergy/AdvReac Type Severity Reaction Status Date / Time No Known Allergies Allergy Verified 05/19/23 06:06 Review of Systems Review of Systems: All systems as dictated in [facility] Past Medical History Medical History Anxiety Cervical spondylosis Chronic GERD CVA (cerebral vascular accident) Dementia Depression with anxiety Family history of colon cancer requiring screening colonoscopy Hyperlipidemia Hypertension PVD (peripheral vascular disease) Surgical History Surgical History H/O cardiac catheterization H/O cerebral aneurysm repair H/O shoulder surgery right History of colonoscopy History of removal of pigmented skin lesion History of surgery on upper extremity last Family History Family History Unknown Family history unknown Social History Social History Social History: the patient stated that he lives with his brother and [id number]. His hjjait-zi-syb Ginny is the durable power assistant county attorney for health care for him. The patient is and has no children. 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 The patient is a former smoker and quit several years ago. He states that he does not use alcohol marijuana or any other illicit drugs. Code status full code Smoking status: Former smoker Alcohol intake: never Substance use: never Lack of Transportation: No Lack of Food: Never True Current Housing: I Have Housing Concerned About Future Housing: No Difficulty Paying Gas/Electric Bills: No Difficulty Paying for Meds: No Currently Unemployed: No Education: Trade/Vocational Certificate Difficulty
== END 2023-12-01 23:05 | disposition short-term general hospital (02) ==
PROVIDERS: Emergency Provider Physician Assistant; PCP Hospitalist
DX: S06.5X0A Traumatic subdural hemorrhage without loss of consciousness, initial encounter (principal); S02.2XXA Fracture of nasal bones, initial encounter for closed fracture; F03.90 Unspecified dementia, unspecified severity, without behavioral disturbance, psychotic disturbance, mood disturbance, and anxiety; I10 Essential (primary) hypertension; I73.9 Peripheral vascular disease, unspecified; E78.5 Hyperlipidemia, unspecified; K21.9 Gastro-esophageal reflux disease without esophagitis; F41.8 Other specified anxiety disorders; Z86.73 Personal history of transient ischemic attack (TIA), and cerebral infarction without residual deficits; Z87.891 Personal history of nicotine dependence; Z79.82 Long term (current) use of aspirin; W05.0XXA Fall from non-moving wheelchair, initial encounter
CPT/HCPCS: 70450; 70486; 72125; 99291

== ENCOUNTER 2023-12-14 19:51 | Emergency (ER) | payer MEDICARE, SELFPAY ==
--- NOTE | ~2023-12-14 | CT_ITS ---
EXAMINATION: CT pelvis wo con DATE: 12/14/2023 21:31 INDICATION: Pelvis injury. Pelvic pain. TECHNIQUE: Computed tomography (CT) of the pelvis was performed without intravenous contrast. Automat ed exposure control and iterative reconstruction technique were employed. The dose-length product was 374.56 mGy-cm. COMPARISON: Pelvis CT 07/05/2022 FINDINGS: The bladder is distended. There is a right inguinal hernia containing fat. There are no pat hologically enlarged lymph nodes. There is no free intraperitoneal fluid. There is severe lumbar spon dylosis. There are chronic bilateral L5 pars defects. There is moderate osteoarthritis of the hips. IMPRESSION: 1. No acute fracture 2. Moderate osteoarthritis of the hips. 3. Right inguinal hernia containing fat. Reviewed, dictated and finalized at location E.
--- NOTE | ~2023-12-14 | CT_ITS ---
EXAMINATION: CT brain wo con DATE: 12/14/2023 21:31 INDICATION: Fall. TECHNIQUE: Computed tomography (CT) of the head was performed without intravenous contrast. The mA wa s adjusted according to patient size. Iterative reconstruction technique was employed. The dose-lengt h product was 681.00 mGy-cm. COMPARISON: Head CT 12/01/2023 FINDINGS: There is an aneurysm clip in right sylvian fissure. There are changes of right-sided cranio nain. There is chronic encephalomalacia in right frontotemporal region. There is no intracranial hemo rrhage, acute infarction, or abnormal intracranial mass lesion. There is ex vacuo dilatation of right lateral ventricle. The orbits are normal. There is mild mucosal thickening in the paranasal sinuses. The mastoid air cells are normal. IMPRESSION: 1. Chronic encephalomalacia in right frontotemporal region. Reviewed, dictated and finalized at location E.
--- NOTE | ~2023-12-14 | CT_ITS ---
EXAMINATION: CT lumbar spine wo con DATE: 12/14/2023 21:32 INDICATION: Low back injury. TECHNIQUE: Computed tomography (CT) of the lumbar spine was performed without intravenous contrast. A utomated exposure control and iterative reconstruction technique were employed. The dose-length produ ct was 1051.54 mGy-cm. COMPARISON: Lumbar spine CT 10/03/2022 FINDINGS: There is a 4.3 cm cyst in right kidney. There are chronic bilateral L5 pars defects. There is 10 degrees levoscoliosis of lumbar spine. There is 3 mm retrolisthesis of T12 on L1, L1 on L2, and L2 on L3, 6 mm retrolisthesis of L4 on L5, and 7 mm anterolisthesis of L5 on S1. There is mild chron ic anterior wedging of T11-L1 vertebral bodies. There is severely decreased disc height from T12-L1 t hrough L5-S1. There is interbody fusion at L4-L5. The following disc levels are specifically discusse d: L1-L2: The disc is bulging. There is severe bilateral facet joint osteoarthritis. There is severe rig ht and moderate left neural foraminal stenosis. There is mild central canal stenosis. L2-L3: The disc is bulging. There is severe bilateral facet joint osteoarthritis. There is moderate b ilateral neural foraminal stenosis. There is mild central canal stenosis. L3-L4: The disc is bulging. There is severe bilateral facet joint osteoarthritis. There is moderate b ilateral neural foraminal stenosis. There is moderate central canal stenosis. L4-L5: There is severe bilateral facet joint osteoarthritis. There is moderate bilateral neural dionne inal stenosis. There is mild central canal stenosis. L5-S1: The disc does not extend beyond the endplate margin. There is severe bilateral facet joint ost eoarthritis. There is moderate bilateral neural foraminal stenosis. There is no central canal stenosi s. IMPRESSION: 1. No acute fracture. 2. Severe lumbar spondylosis. 3. Chronic bilateral L5 pars defects with grade 1 anterolisthesis of L5 on S1. 4. Lumbar levoscoliosis. Reviewed, dictated and finalized at location E.
[2023-12-14 19:57] VITALS: BP 122/76; PULSE 55; RESP 18; TEMP 37.1; O2SAT 100
[2023-12-14 19:58] VITALS: BP 127/76; PULSE 64; RESP 18; O2SAT 96
[2023-12-14 20:01] VITALS: BP 121/68; PULSE 72; RESP 22; O2SAT 95
[2023-12-14 20:16] VITALS: BP 106/77; PULSE 78; RESP 16; O2SAT 94
[2023-12-14 20:46] VITALS: BP 107/73; PULSE 64; RESP 20; O2SAT 94
--- NOTE | 2023-12-14 20:47 | ED.FALL ---
HPI - Fall General Chief Complaint: Fall Stated Complaint: fall Time Seen by Provider: 12/14/23 20:03 Source: patient Mode of arrival: EMS Limitations: no limitations History of Present Illness HPI Narrative: Patient is a 68-year-old male, with PMH of CVA, dementia, cerebral aneurysm repair, who presents the ED via EMS with report of a fall. Patient is currently residing at [facility] and rehab for rehab after sustaining lumbar fractures. He states he is waiting to undergo surgery. He was attempting to transfer from his wheelchair to a chair when the chair slipped out from underneath him, causing him to fall. He landed his bottom. He states he did not hit his head or lose consciousness. He denies significant pain. He states he was sent here for further evaluation due to being on blood thinners. Per med rec, no blood thinners on records. He denies any numbness or tingling, weakness of lower extremities, incontinence, saddle anesthesia, abdominal pain, chest pain dizziness, lightheadedness. Related Data Home Medications Medication Instructions Recorded Confirmed aspirin 81 mg tablet 81 mg PO DAILY 08/10/21 12/21/22 donepezil 10 mg tablet 5 mg PO DAILY 08/10/21 12/21/22 escitalopram oxalate 20 mg tablet 20 mg PO DAILY 08/10/21 12/21/22 metoprolol succinate 100 mg 50 mg PO DAILY 08/10/21 12/21/22 tablet,extended release 24 hr multivitamin with minerals-folic 1 tablet PO DAILY 08/10/21 12/21/22 acid 0.4 mg tablet omeprazole 20 mg capsule,delayed 20 mg PO DAILY 08/10/21 12/21/22 release atorvastatin 20 mg tablet 20 mg PO DAILY 07/05/22 12/21/22 bupropion HCl 150 mg 24 hr tablet, 150 mg PO DAILY 07/05/22 12/21/22 extended release diclofenac sodium 50 mg 50 mg PO BID 07/05/22 12/21/22 tablet,delayed release hydrocodone 5 mg-acetaminophen 325 1 tablet PO Q6H PRN Pain 07/05/22 12/21/22 mg tablet lisinopril 20 1 tablet PO DAILY 07/05/22 12/21/22 mg-hydrochlorothiazide 12.5 mg tablet buspirone 5 mg tablet 5 mg PO BID 09/06/22 12/21/22 diazepam 2 mg tablet 2 mg PO PRN PRN Muscle Spasm 09/06/22 09/06/22 ondansetron 4 mg oral soluble film 4 mg PO Q6H PRN Nausea 12/21/22 12/21/22 Allergies Allergy/AdvReac Type Severity Reaction Status Date / Time No Known Allergies Allergy Verified 12/14/23 20:01 Review of Systems Review of Systems: CONSTITUTIONAL: Denies fever, chills, or sweats. CARDIOVASCULAR: Denies chest pain. RESPIRATORY: Denies dyspnea. GASTROINTESTINAL: Denies abdominal pain, nausea, vomiting, or diarrhea. GENITOURINARY: Denies dysuria or hematuria. MUSCULOSKELETAL: See HPI. NEUROLOGIC: Denies headache, dizziness, numbness, or weakness. All systems reviewed & are unremarkable except as noted in HPI and below PMFSH Past Medical History Medical History Anxiety Cervical spondylosis Chronic GERD CVA (cerebral vascular accident) Dementia Depression with anxiety Family history of colon cancer requiring screening colonoscopy Hyperlipidemia Hypertension PVD (peripheral vascular disease) Surgical History Surgical History H/O cardiac catheterization H/O cerebral aneurysm repair H/O shoulder surgery right History of colonoscopy History of removal of pigmented skin lesion History of surgery on upper extremity last Family History Family History Unknown Family history unknown Social History Social History Social History: the patient stated that he lives with his brother and [id number]. His hfdyxx-se-las Ginny is the durable power integrated circuit design engineer for health care for him. The patient is and has no children. 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 The patient is a former smoker and quit several years ago. He states that he does not use al
[2023-12-14 21:01] VITALS: BP 110/74; PULSE 68; RESP 21; O2SAT 95
== END 2023-12-14 23:20 ==
PROVIDERS: Emergency Provider Physician Assistant; PCP Hospitalist
DX: M54.50 Low back pain, unspecified (principal); I10 Essential (primary) hypertension; I73.9 Peripheral vascular disease, unspecified; E78.5 Hyperlipidemia, unspecified; K21.9 Gastro-esophageal reflux disease without esophagitis; F41.8 Other specified anxiety disorders; Z87.891 Personal history of nicotine dependence; Z86.73 Personal history of transient ischemic attack (TIA), and cerebral infarction without residual deficits; Z79.82 Long term (current) use of aspirin; G93.89 Other specified disorders of brain; M16.0 Bilateral primary osteoarthritis of hip; K40.90 Unilateral inguinal hernia, without obstruction or gangrene, not specified as recurrent; M47.816 Spondylosis without myelopathy or radiculopathy, lumbar region; W05.0XXA Fall from non-moving wheelchair, initial encounter
CPT/HCPCS: 70450; 72131; 72192; 99284

== ENCOUNTER 2024-04-04 13:52 | Emergency (ER) | payer OTHER, SELFPAY ==
--- NOTE | ~2024-04-04 | CT_ITS ---
EXAMINATION: CT facial & cervical spine wo DATE: 04/04/2024 15:04 INDICATION: Head injury. TECHNIQUE: Computed tomography (CT) of the maxillofacial region and cervical spine was performed with out intravenous contrast. Automated exposure control and iterative reconstruction technique were empl oyed. The dose-length product was 346.04 mGy-cm. COMPARISON: CT 12/01/2023 FINDINGS: MAXILLOFACIAL CT: There is an aneurysm clip in the right sylvian fissure. There are changes of right-sided craniotomy. There is mild mucosal thickening in the paranasal sinuses. There are old fracture deformities of the nasal bones. There is rightward deviation of the nasal septum. CERVICAL SPINE CT: There is 2 mm anterolisthesis of C3 on C4 and C4 on C5 and C7 on T1. Vertebral body heights are yazmin l. There is severely decreased disc at C3-C4, mildly decreased disc height at C4-C5, and severely dec reased disc height from C5-C6 through C7-T1. The following disc levels are specifically discussed: C2-C3: There is moderate right and severe left uncovertebral joint osteoarthritis. There is severe bi lateral facet joint osteoarthritis. There is mild right and moderate left neural foraminal stenosis. There is mild central canal stenosis. C3-C4: There is severe bilateral uncovertebral joint osteoarthritis. There is severe bilateral facet joint osteoarthritis. There is moderate bilateral neural foraminal stenosis. There is moderate centra l canal stenosis. C4-C5: There is severe right and moderate left uncovertebral joint osteoarthritis. There is severe bi lateral facet joint osteoarthritis. There is mild bilateral neural foraminal stenosis. There is mild central canal stenosis. C5-C6: There is severe bilateral uncovertebral joint osteoarthritis. There is severe right and modera te left facet joint osteoarthritis. There is mild bilateral neural foraminal stenosis. There is mild central canal stenosis. C6-C7: There is severe bilateral uncovertebral joint osteoarthritis. There is severe bilateral facet joint osteoarthritis. There is mild right and moderate left neural foraminal stenosis. There is mild central canal stenosis. C7-T1: There is moderate bilateral uncovertebral joint osteoarthritis. There is severe bilateral face t joint osteoarthritis. There is mild bilateral neural foraminal stenosis. There is mild central pete l stenosis. IMPRESSION: 1. No acute fracture. 2. Severe cervical spondylosis. Reviewed, dictated and finalized at location A.
--- NOTE | ~2024-04-04 | CT_ITS ---
EXAMINATION: CT brain wo con DATE: 04/04/2024 15:04 INDICATION: Head injury TECHNIQUE: Computed tomography (CT) of the head was performed without intravenous contrast. Sagittal and coronal reconstructions were performed. The mA was adjusted according to patient size. Iterative reconstruction technique was employed. The dose-length product was 832.33 mGy-cm. COMPARISON: head CT dated 12/14/2023 FINDINGS: No fracture. Prior right temporal craniotomy with underlying aneurysm clip likely along one of the ri t middle cerebral artery branches at the anterior sylvian fissure. Small region of chronic encephal omalacia at the insula and anterior right temporal lobe. No acute intracranial hemorrhage, acute infa rction or abnormal extra axial fluid collection. There is mild scattered white matter hypoattenuation consistent with chronic small vessel ischemic disease. Mild ex vacuo dilation at the anterior and te mporal horns of the right lateral ventricle. Ventricles are otherwise normal and symmetric. No mass/m ass effect. The orbits, paranasal sinuses and mastoid air cells are normal. IMPRESSION: 1. No fracture or acute intracranial process. 2. Chronic encephalomalacia in the right frontotemporal region with change of prior right temporal cr aniotomy and underlying aneurysm clipping at the right sylvian fissure. 3. Mild scattered white matter hypoattenuation consistent with chronic small vessel ischemic disease. Reviewed, dictated and finalized at location A. IMPRESSION: 1. No fracture or acute intracranial process. 2. Chronic encephalomalacia in the right frontotemporal region with change of p rior right temporal craniotomy and underlying aneurysm clipping at the right sy lvian fissure. 3. Mild scattered white matter hypoattenuation consistent with chronic small ve ssel ischemic disease.
[2024-04-04 14:03] VITALS: BP 121/74; PULSE 52; RESP 16; TEMP 36.6; O2SAT 100
--- NOTE | 2024-04-04 21:24 | PC.NURSE ---
Cervical collar removed per EDP; no injuries on cervical CT
--- NOTE | 2024-04-04 22:47 | ECG_ITS ---
Test Date: 2024-04-04 23:06:44 Measurements Intervals Aiken Rate: 51 P: 39 HI: 271 QRS: -12 QRSD: 106 T: 11 QT: 490 QTc: 453 Interpretive Statements SINUS BRADYCARDIA WITH FIRST DEGREE AV BLOCK VOLTAGE CRITERIA FOR LVH MINIMAL Q WAVES- HIGH LATERAL LEADS BASELINE ARTIFACT- I, II, III, AVR, AVL, V1, V3 BORDERLINE ECG No previous ECG available for comparison Electronically Signed On 04-05-2024 06:34:18 CDT by Carlos Caal D.O.
[2024-04-04] MEDS: SODIUM CHLORIDE 0.9% IV 1,000 ML 999 ML IV CONT (23:04)
[2024-04-04] MEDS: HYDROcodone/acetaminophen (*CRX) 5-325 MG TABLET 1 TAB PO (23:04)
[2024-04-04 23:11] LABS: Basophils Percent Auto 0.5 % (0.2-1.2); Eosinophils Absolute Auto 0.2 K/mm3 (0-0.3); Eosinophils Percent Auto 2.6 % (0-4.4); Hematocrit 37.9 % (42.0-52.0); Hemoglobin 12.9 g/dL (14.0-18.0); Immature Granulocyte Absolute 0.02 K/mm3 (0.00-0.031); Immature Granulocyte Percent A 0.3 % (0-0.5); Lymphocytes Absolute Auto 2.05 K/mm3 (0.9-3.2); Lymphocytes Percent Auto 26.3 % (18.3-44.2); Mean Corpuscular Hemoglobin 30.4 pg (26-34); Mean Corpuscular Volume 89.4 fl (80-100); Mean Platelet Volume 8.8 fl (7.4-10.4); Monocytes Absolute Auto 0.8 K/mm3 (0.1-0.6); Monocytes Percent Auto 10.2 % (2.6-8.5); Neutrophils Absolute Auto 4.7 K/mm3 (1.3-6.7); Neutrophils Percent Auto 60.1 % (45.5-73.1); Platelet Count Result 201 k/mm3 (150-375); Red Blood Count 4.24 M/mm3 (4.6-6.20); Red Cell Distribution Width 13.7 % (11.5-14.5); White Blood Count 7.8 K/mm3 (4.5-10.0)
[2024-04-04 23:21] LABS: Alanine Aminotransferase 15 U/L (6-50); Albumin Level 3.8 g/dL (3.5-5.1); Alkaline Phosphatase 72 U/L (38-126); Anion Gap 7 mmol/L (4-12); Aspartate Amino Transferase 25 U/L (17-59); Bilirubin,Total 0.4 mg/dL (0.2-1.3); Blood Urea Nitrogen 17 mg/dL (9-20); Calcium 8.5 mg/dL (8.4-10.2); Carbon Dioxide 30 mmol/L (22-30); Chloride 100 mmol/L (98-107); Estimated CRCL calculation 85 ml/min; Estimated Glomerular Filt Rate > 60; Glucose 78 mg/dL (65-110); Magnesium 2.1 mg/dL (1.6-2.3); Potassium 3.5 mmol/L (3.4-5.0); Sodium 137 mmol/L (137-145)
[2024-04-04 23:23] LABS: INR 1.1; Prothrombin Time 14.6 Seconds (11.1-14.7)
[2024-04-04 23:24] LABS: Partial Thromboplastin Time 29.2 Seconds (22.3-36.8)
[2024-04-04 23:32] LABS: Troponin I < 0.012 ng/mL (0.000-0.034)
--- NOTE | 2024-04-05 01:07 | ED.FALL ---
HPI - Fall General Chief Complaint: Fall Stated Complaint: Fall with lac R eye Time Seen by Provider: 04/04/24 21:04 Source: patient Mode of arrival: EMS Limitations: no limitations History of Present Illness HPI Narrative: Patient is a 68-year-old male who presents to the ER after a fall earlier in the day at the [facility]term where he [facility]. He reports he was sitting on the toilet and try to get up but fell forward and hit his forehead on the bathtub. Pt reports he has a laceration on his R forehead, but bleeding is controlled. Patient denies loss of consciousness, but endorses headache. He reports history of stroke that left him with left-sided deficits. Patient denies chest pain, shortness for breath, or new onset of tingling weakness or numbness. MD complaint: fall Fall from: chair Fall witnessed: no Place fall occurred: longterm[facility] Loss of consciousness: none Symptoms prior to fall: none Location of injury: head Related Data Home Medications Medication Instructions Recorded Confirmed aspirin 81 mg tablet 81 mg PO DAILY 08/10/21 12/21/22 donepezil 10 mg tablet 5 mg PO DAILY 08/10/21 12/21/22 escitalopram oxalate 20 mg tablet 20 mg PO DAILY 08/10/21 12/21/22 metoprolol succinate 100 mg 50 mg PO DAILY 08/10/21 12/21/22 tablet,extended release 24 hr multivitamin with minerals-folic 1 tablet PO DAILY 08/10/21 12/21/22 acid 0.4 mg tablet omeprazole 20 mg capsule,delayed 20 mg PO DAILY 08/10/21 12/21/22 release atorvastatin 20 mg tablet 20 mg PO DAILY 07/05/22 12/21/22 bupropion HCl 150 mg 24 hr tablet, 150 mg PO DAILY 07/05/22 12/21/22 extended release diclofenac sodium 50 mg 50 mg PO BID 07/05/22 12/21/22 tablet,delayed release hydrocodone 5 mg-acetaminophen 325 1 tablet PO Q6H PRN Pain 07/05/22 12/21/22 mg tablet lisinopril 20 1 tablet PO DAILY 07/05/22 12/21/22 mg-hydrochlorothiazide 12.5 mg tablet buspirone 5 mg tablet 5 mg PO BID 09/06/22 12/21/22 diazepam 2 mg tablet 2 mg PO PRN PRN Muscle Spasm 09/06/22 09/06/22 ondansetron 4 mg oral soluble film 4 mg PO Q6H PRN Nausea 12/21/22 12/21/22 Allergies Allergy/AdvReac Type Severity Reaction Status Date / Time No Known Allergies Allergy Verified 12/14/23 20:01 Review of Systems Review of Systems: All systems reviewed & are unremarkable except as noted in HPI and below PMFSH Past Medical History Medical History Anxiety Cervical spondylosis Chronic GERD CVA (cerebral vascular accident) Dementia Depression with anxiety Family history of colon cancer requiring screening colonoscopy Hyperlipidemia Hypertension PVD (peripheral vascular disease) Surgical History Surgical History H/O cardiac catheterization H/O cerebral aneurysm repair H/O shoulder surgery right History of colonoscopy History of removal of pigmented skin lesion History of surgery on upper extremity last Family History Family History Unknown Family history unknown Social History Social History Social History: the patient stated that he lives with his brother and [id number]. His gnyokn-qt-rwm Ginny is the durable power senior attorney for health care for him. The patient is and has no children. 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 The patient is a former smoker and quit several years ago. He states that he does not use alcohol marijuana or any other illicit drugs. Code status full code Smoking status: Former smoker Alcohol intake: never Substance use: never Lack of Transportation: No Lack of Food: Never True Current Housing: I Have Housing Concerned About Future Housing: No Difficulty Paying Gas/Electric Bills: No Difficulty Paying for Meds: No Currently Unemployed: No Education: Tra
[2024-04-05 01:11] LABS: Add Urine Microscopic? NO; Appearance Urine Clear (Clear); Bilirubin Urine Negative (Negative); Blood Urine Negative (Negative); Color Urine Yellow (Yellow); Glucose Urine UA Negative (Negative); Ketones Urine Negative (Negative); Leukocyte Esterase Ur Negative LEU/UL (Negative); Nitrate Urine Negative (Negative); Protein Urine Negative (Negative); Specific Grav Ur 1.015 (1.001-1.035); Urobilinogen Urine 0.2 mg/dL (<2.0); pH Urine 5.5 (5.0-9.0)
[2024-04-05 01:23] VITALS: BP 134/80; PULSE 64; RESP 15; O2SAT 97
== END 2024-04-05 03:40 ==
PROVIDERS: Emergency Provider Registered Nurse; PCP Internal Medicine
DX: S01.81XA Laceration without foreign body of other part of head, initial encounter (principal); W18.12XA Fall from or off toilet with subsequent striking against object, initial encounter; K21.9 Gastro-esophageal reflux disease without esophagitis; F41.8 Other specified anxiety disorders; E78.5 Hyperlipidemia, unspecified; I10 Essential (primary) hypertension; F03.90 Unspecified dementia, unspecified severity, without behavioral disturbance, psychotic disturbance, mood disturbance, and anxiety; F17.210 Nicotine dependence, cigarettes, uncomplicated; Z79.82 Long term (current) use of aspirin; I73.9 Peripheral vascular disease, unspecified; Z86.73 Personal history of transient ischemic attack (TIA), and cerebral infarction without residual deficits
CPT/HCPCS: 12013; 36415; 70450; 70486; 72125; 80053; 81003; 83735; 84484; 85025; 85610; 85730; 86850; 86900; 86901; 93005; 96360; 99284; A9270; J7030

== ENCOUNTER 2024-10-01 13:34 | Emergency (ER) | payer MEDICARE, MEDICAID, SELFPAY ==
--- NOTE | ~2024-10-01 | CT_ITS ---
CLINICAL INDICATION: History of a urinary tract infection, now with hematuria COMPARISON: 06/19/2022. TECHNIQUE: Multiple contiguous axial images of the abdomen and pelvis were performed without the admi nistration of intravenous contrast The dose-length product (DLP) was 705.19 mGy-cm. Automated exposure control and iterative reconstruction technique were employed. FINDINGS/OBSERVATIONS: Visualized lower thorax: The bilateral lung bases are clear. The heart is of normal size, without pericardial effusion. Small hiatal hernia is present. Liver: The liver demonstrates homogeneous attenuation and is borderline enlarged measuring 19 cm in longitud inal dimension. Gallbladder and biliary system: The gallbladder is only minimally distended, and otherwise unremarkable. Pancreas: Limited evaluation of the pancreas secondary to the lack of intravenous contrast. Spleen: The spleen demonstrates homogeneous attenuation and is not enlarged measuring 11 cm in longitudinal d imension. Kidneys: Multiple rounded foci of decreased attenuation in the bilateral kidneys back to 06/19/2022. The remainder of the bilateral kidneys are otherwise unremarkable, without hydronephrosis or renal ca lculi. Adrenal glands: Unremarkable. Gastrointestinal tract: Colonic diverticulosis without surrounding inflammatory change. Fecal stasis within the colon. Appendix: The air-filled appendix is of normal caliber (axial series, images 117 through 141). Vasculature: Densely calcified atherosclerotic disease with significant tortuosity of the abdominal aorta. Lymph nodes: No pathologically enlarged or morphologically suspicious lymph nodes within the retroperitoneum or at the root of the mesentery. Pelvic structures: The prostate gland is minimally enlarged, demonstrating mass effect on the base of the bladder. Redemonstration of the thick walled bladder, which is minimally distended. Posterior to the area of mass effect from the prostate gland is an indeterminate focus of increased a ttenuation measuring 14 x 24 mm for which direct visualization is recommended. This area is demonstrated on axial series, image 152 and the sagittal series, image 80. Body wall and musculoskeletal: Small fat-containing umbilical hernia. Significant degenerative disease within the lumbosacral spine. 12 degrees of levoscoliotic curvature is identified. Osteophyte formation, disc space narrowing, endplate changes and vacuum phenomena are also present. Ankylosis of L4 and L5 is demonstrated, consistent with significant progression of the degenerative d isease. No lytic or blastic lesions are identified within the visualized osseous structures. IMPRESSION: Within the posterior wall of the bladder is a focus of increased attenuation which is indeterminate, for which direct visualization is recommended. This is an interval finding from the 2021 examination. Reviewed, dictated and finalized at location A. SAFETY COORDINATOR IMPRESSION: Within the posterior wall of the bladder is a focus of increased attenuation wh ich is indeterminate, for which direct visualization is recommended. This is an interval finding from the 2021 examination.
[2024-10-01 13:37] VITALS: BP 139/86; PULSE 54; RESP 13; TEMP 36.9; O2SAT 100
[2024-10-01 14:47] LABS: Add Urine Microscopic? YES; Appearance Urine Clear (Clear); Bacteria Urine None Seen /hpf; Bilirubin Urine Negative (Negative); Blood Urine 2+ (Negative); Color Urine Yellow (Yellow); Glucose Urine UA Negative (Negative); Ketones Urine Negative (Negative); Leukocyte Esterase Ur Negative LEU/UL (Negative); Nitrate Urine Negative (Negative); Protein Urine Negative (Negative); Specific Grav Ur 1.008 (1.001-1.035); Squamous Epithelial Cell Urine None Seen /hpf (Few); Urobilinogen Urine 0.2 mg/dL (<2.0); WBC Urine 0-5 /hpf (0-3)
--- NOTE | 2024-10-01 14:53 | ED_ITS ---
HPI - General Adult General Chief complaint: Urogenital-Male Stated complaint: trouble urinating Time Seen by Provider: 10/01/24 13:51 History of Present Illness HPI narrative: 69-year-old male presents to the emergency department for evaluation for 3 weeks of increased urinary frequency and burning with urination. Patient denies any prior history urinary retention or prostate issues. Patient presents to the emergency department today case he felt symptoms were worsening. Patient denies any associated nausea vomiting or diarrhea. Related Data Home Medications ?Medication ?Instructions ?Recorded ?Confirmed ?Last Taken ?Type aspirin 81 mg tablet 81 mg PO DAILY 08/10/21 12/21/22 Unknown History donepezil 10 mg tablet 5 mg PO DAILY 08/10/21 12/21/22 Unknown History escitalopram oxalate 20 mg tablet 20 mg PO DAILY 08/10/21 12/21/22 Unknown History metoprolol succinate 100 mg 50 mg PO DAILY 08/10/21 12/21/22 Unknown History tablet,extended release 24 hr multivitamin with minerals-folic 1 tablet PO DAILY 08/10/21 12/21/22 Unknown History acid 0.4 mg tablet omeprazole 20 mg capsule,delayed 20 mg PO DAILY 08/10/21 12/21/22 Unknown History release atorvastatin 20 mg tablet 20 mg PO DAILY 07/05/22 12/21/22 Unknown History bupropion HCl 150 mg 24 hr tablet, 150 mg PO DAILY 07/05/22 12/21/22 Unknown History extended release diclofenac sodium 50 mg 50 mg PO BID 07/05/22 12/21/22 Unknown History tablet,delayed release hydrocodone 5 mg-acetaminophen 325 1 tablet PO Q6H PRN Pain 07/05/22 12/21/22 Unknown History mg tablet lisinopril 20 1 tablet PO DAILY 07/05/22 12/21/22 Unknown History mg-hydrochlorothiazide 12.5 mg tablet buspirone 5 mg tablet 5 mg PO BID 09/06/22 12/21/22 Unknown History diazepam 2 mg tablet 2 mg PO PRN PRN Muscle Spasm 09/06/22 09/06/22 Unknown History ondansetron 4 mg oral soluble film 4 mg PO Q6H PRN Nausea 12/21/22 12/21/22 Unknown History Allergies Allergy/AdvReac Type Severity Reaction Status Date / Time No Known Allergies Allergy Verified 12/14/23 20:01 Review of Systems 2 Review of Systems: All systems reviewed & are unremarkable except as noted in HPI and below PMFSH Past Medical History Medical History Anxiety Cervical spondylosis Chronic GERD CVA (cerebral vascular accident) Dementia Depression with anxiety Family history of colon cancer requiring screening colonoscopy Hyperlipidemia Hypertension PVD (peripheral vascular disease) Surgical History Surgical History H/O cardiac catheterization H/O cerebral aneurysm repair H/O shoulder surgery right History of colonoscopy History of removal of pigmented skin lesion History of surgery on upper extremity last Family History Family History Unknown Family history unknown Social History Social History Social History: the patient stated that he lives with his brother and [id number]. His xafixb-xa-spt Ginny is the durable power insurance attorney for health care for him. The patient is and has no children. The patient is retired from [employer]. The patient is a former smoker and quit several years ago. He states that he does not use alcohol marijuana or any other illicit drugs. Code status full code Smoking status: Former smoker Alcohol intake: never Substance use: never Lack of Transportation: No Lack of Food: Never True Current Housing: I Have Housing Concerned About Future Housing: No Difficulty Paying Gas/Electric Bills: No Difficulty Paying for Meds: No Currently Unemployed: No Education: Trade/Vocational Certificate Difficulty w/ Childcare or Family Care: No Living arrangements: with family Spiritual care concerns: No Exam 2 Narrative: APPEARANCE: Well appearing, no pain, no distress, well-nourished. HEAD: normocephalic, atraumatic. EYES: PERRLA/EOMI, conjunctivae clear. NOSE: Normal no drainage EARS:TMS clear with good light reflex. THROAT: Pharynx clear, no exudate. NECK: Supple. No adenopathy, no masses. RESPIRATORY: Airway patent, respirations nonlabored. Clear to auscultation bilaterally, no rales, rhonchi, wheezing. CARDIOVASCULAR: Regular rate and rhythm without murmurs rubs or gallops. ABDOMINAL: Soft, nontender, nondistended, normal bowel sounds MUSCULOSKELETAL: Moves all extremities. Strength/ROM intact, No edema, No calf tenderness. NEURO: Alert. Cranial nerves II through XII intact. Grossly intact SKIN: Warm, dry. Normal Color Course Vital Signs Vital signs: Vital Signs Temperature 98.5 F 10/01/24 13:37 Pulse Rate 54 L 10/01/24 13:37 Respiratory Rate 13 10/01/24 13:37 Blood Pressure 139/86 10/01/24 13:37 Pulse Oximetry 100 10/01/24 13:37 Oxygen Delivery Room Air 10/01/24 13:37 Temperature 98.5 F 10/01/24 13:37 Pulse Rate 56 L 10/01/24 18:16 Respiratory Rate 19 10/01/24 18:16 Blood Pressure 133/84 10/01/24 18:16 Pulse Oximetry 100 10/01/24 18:16 Oxygen Delivery Room Air 10/01/24 13:37 Medical Decision Making MDM Narrative Medical decision making narrative: 69-year-old male present to the emergency department for evaluation for intermittent urinary issues and burning with urination. Patient is currently afebrile with no leukocytosis and hemoglobin of 12.2. Patient had no urinary retention on postvoid residual bladder scan. UA was positive for hematuria but negative for infection. CT scan did show Within the posterior wall of the bladder is a focus of increased attenuation which is indeterminate, for which direct visualization is recommended. Patient will be provided outpatient follow-up with Urology. All questions concerns were addressed. Differential Diagnosis Differential Diagnosis: Ureteral calculi, UTI, urinary retention Vital Signs Vital Signs: Vital Signs Temperature 98.5 F 10/01/24 13:37 Pulse Rate 54 L 10/01/24 13:37 Respiratory Rate 13 10/01/24 13:37 Blood Pressure 139/86 10/01/24 13:37 Pulse Oximetry 100 10/01/24 13:37 Oxygen Delivery Room Air 10/01/24 13:37 Temperature 98.5 F 10/01/24 13:37 Pulse Rate 56 L 10/01/24 18:16 Respiratory Rate 19 10/01/24 18:16 Blood Pressure 133/84 10/01/24 18:16 Pulse Oximetry 100 10/01/24 18:16 Oxygen Delivery Room Air 03/05/25 13:37 Lab Data Lab results reviewed: Yes I reviewed the patient's lab results. 10/01/24 15:30 10/01/24 15:31 Labs: Lab Results 10/01/24 10/01/24 10/01/24 Range/Units 14:34 15:30 15:31 WBC 5.9 (4.5-10.0) K/mm3 RBC 4.11 L (4.6-6.20) M/mm3 Hgb 12.2 L (14.0-18.0) g/dL Hct 36.3 L (42.0-52.0) % MCV 88.3 (80-100) fl MCH 29.7 (26-34) pg MCHC 33.6 (32-36) g/dl RDW 13.9 (11.5-14.5) % Plt Count 207 (150-375) k/mm3 MPV 9.1 (7.4-10.4) fl Immature Gran % (Auto) 0.3 (0-0.5) % Neut % (Auto) 57.3 (45.5-73.1) % Lymph % (Auto) 30.5 (18.3-44.2) % [place] % (Auto) 8.9 H (2.6-8.5) % Eos % (Auto) 2.2 (0-4.4) % Baso % (Auto) 0.8 (0.2-1.2) % Lymph # (Auto) 1.81 (0.9-3.2) K/mm3 [place] # (Auto) 0.5 (0.1-0.6) K/mm3 Eos # (Auto) 0.1 (0-0.3) K/mm3 Baso # (Auto) 0.1 (0.0-0.1) K/mm3 Abs Immat Gran (auto) 0.02 (0.00-0.031) K/mm3 Absolute Neuts (auto) 3.4 (1.3-6.7) K/mm3 Absolute Nucleated RBC 0.000 (0.0-0.012) K/mm3 Nucleated RBC % 0.0 (0.0-0.2) % Sodium 141 (137-145) mmol/L Potassium 3.9 (3.4-5.0) mmol/L Chloride 103 (98-107) mmol/L Carbon Dioxide 31 H (22-30) mmol/L Anion Gap 7 (4-12) mmol/L BUN 18 (9-20) mg/dL Creatinine 0.88 (0.7-1.3) mg/dL Estim Creat Clear Calc 75 ml/min Estimated GFR > 60 (59 - ) Glucose 94 (65-110) mg/dL Calcium 8.6 (8.4-10.2) mg/dL Total Bilirubin 0.3 (0.2-1.3) mg/dL AST 24 (17-59) U/L ALT 19 (6-50) U/L Alkaline Phosphatase 61 (38-126) U/L Total Protein 7.0 (6.3-8.2) g/dL Albumin 3.6 (3.5-5.1) g/dL Urine Color Yellow (Yellow) Urine Appearance Clear (Clear) Urine pH 6.0 (5.0-9.0) Ur Specific [place] 1.008 (1.001-1.035) Urine Protein Negative (Negative) mg/dL Urine Glucose (UA) Negative (Negative) mg/dL Urine Ketones Negative (Negative) mg/dL Ur Blood (Man) 2+ H (Negative) Urine Nitrate Negative (Negative) Urine Bilirubin Negative (Negative) Urine Urobilinogen 0.2 (<2.0) mg/dL Leukocyte Esterase Rfl Negative (Negative) TERESA/UL Urine RBC 6-10 H (0-2) /hpf Urine WBC 0-5 (0-3) /hpf Ur Squamous Epith Cells None seen (Few) /hpf Urine Bacteria None seen /hpf Urine Casts 3-5 Imaging Data Radiologist's impression: Impressions Abdomen/Pelvis CT 10/01/24 15:22 IMPRESSION: Within the posterior wall of the bladder is a focus of increased attenuation which is indeterminate, for which direct visualization is recommended. This is an interval finding from the 2021 examination. Discharge Plan Discharge Clinical Impression: Hematuria, Bladder wall thickening Patient Disposition: Home, Self-Care Condition: Stable Instructions: Antibiotic Form Additional Instructions: Have close follow-up with Urology for hematuria and suspected bladder wall abnormality seen on CT scan. If you have any worsening symptoms please call or return to the emergency department. Patient Language: Upper Sorbian Prescriptions: No Action diazepam 2 mg tablet 2 mg PO PRN PRN (Reason: Muscle Spasm) buspirone 5 mg Tablet 5 mg PO BID lidocaine 5 % adhesive patch,medicated 1 patch topical DAILY Qty: 15 0RF Rx Instructions: leave on most painful area for up to 12 hrs donepezil 10 mg tablet 5 mg PO DAILY metoprolol succinate 100 mg tablet extended release 24 hr 50 mg PO DAILY omeprazole 20 mg capsule,delayed release(DR/EC) 20 mg PO DAILY aspirin 81 mg Tablet 81 mg PO DAILY escitalopram oxalate 20 mg tablet 20 mg PO DAILY multivit with min-folic acid 0.4 mg Tablet 1 tablet PO DAILY atorvastatin 20 mg tablet 20 mg PO DAILY lisinopril-hydrochlorothiazide 20-12.5 mg tablet 1 tablet PO DAILY hydrocodone-acetaminophen 5-325 mg tablet 1 tablet PO Q6H PRN (Reason: Pain) diclofenac sodium 50 mg tablet,delayed release (DR/EC) 50 mg PO BID bupropion HCl 150 mg tablet extended release 24 hr 150 mg PO DAILY oxycodone 5 mg tablet 5 mg PO Q8H PRN (Reason: pain) Qty: 20 0RF ondansetron 4 mg Film 4 mg PO Q6H PRN (Reason: Nausea) Follow-up/Referrals: Mary Carmen,MD Tres [Primary Care Provider] - Romero,Flakita Minaya [Non-Staff] -
[2024-10-01 15:02] VITALS: BP 144/82; PULSE 56; RESP 19; O2SAT 95
--- OUTSIDE RECORDS SUMMARY | 2024-10-01 15:25 | XMS_ITS | Clinical Summary ---
Author Organization [facility] Address [address] [place], [address] [address] Phone Care Team Providers Care Mechanical Systems Design Engineer Name Role Phone Victor M Leslie MD Primary Care Provider [phone] Allergies No known active allergies Medications No known medications Family History Medical History Relation Name Comments Arthritis Father Hypertension Father Arthritis Mother High Cholesterol Mother Hypertension Mother Relation Name Status Comments Father Mother Social History Tobacco Use Types Packs/Day Years Used Date Smoking Tobacco: Former Cigarettes Smokeless Tobacco: Never Comments:Quit 20 yrs ago Alcohol Use Standard Drinks/Week Comments Not Currently 0 (1 standard drink = 0.6 oz pur e alcohol) Sex and Gender Information Value Date Recorded Sex Assigned at Not on file 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 Gender Identity Not on file Sexual Orientation Not on file Last Filed Vital Signs Vital Sign Reading Time Taken Comments Blood Pressure - - Pulse - - Temperature - - Respiratory Rate - - Oxygen Saturation - - Inhaled Oxygen Concentration - - Weight 104.3 kg (230 lb) 01/07/2020 11:00 AM CDT Height 175.3 cm (5' 9 ) 01/07/2020 11:00 AM CDT Body Mass Index 33.97 01/07/2020 11:00 AM CDT Plan of Treatment Health Maintenance Due Date Last Done Comments Hepatitis C Virus (HCV) Screening 1955 TdaP Immunization 1955 Colonoscopy 2001 Colorectal Cancer Screening 2001 Cologuard 2006 Immunochemical Fecal Occult Blood 2006 Pneumococcal Immunization (5 0+ years) (1 of 1 - PCV) 2006 Zoster Immunization (1 of 2) 2006 PSA Discussion 2011 Influenza Immunization (#1) 2024 SARS-COV-2 Immunization ( season) 2024 Respiratory Syncytial Virus (RSV) Immunization (Adult) (1 - 1-dose 75+ series) 2031 Hepatitis B Immunization Aged Out No longer eligible based on patient's age to complete this topic Meningococcal Immunization (ACWY) Aged Out No longer eligible based on patient's age to complete this topic Rotavirus Immunization Aged Out No lo nger eligible based on patient's age to complete this topic Insurance MEDICARE Care Teams Mechanical Systems Design Engineer Relationship Specialty Start Date End Date Victor M Leslie MD [address] [address] PCP - General Family Medicine 09/10/19
[2024-10-01 15:41] LABS: Basophils Absolute Auto 0.1 K/mm3 (0.0-0.1); Basophils Percent Auto 0.8 % (0.2-1.2); Eosinophils Absolute Auto 0.1 K/mm3 (0-0.3); Eosinophils Percent Auto 2.2 % (0-4.4); Hematocrit 36.3 % (42.0-52.0); Hemoglobin 12.2 g/dL (14.0-18.0); Immature Granulocyte Absolute 0.02 K/mm3 (0.00-0.031); Immature Granulocyte Percent A 0.3 % (0-0.5); Lymphocytes Absolute Auto 1.81 K/mm3 (0.9-3.2); Lymphocytes Percent Auto 30.5 % (18.3-44.2); Mean Corpuscular HGB Conc 33.6 g/dl (32-36); Mean Corpuscular Hemoglobin 29.7 pg (26-34); Mean Corpuscular Volume 88.3 fl (80-100); Mean Platelet Volume 9.1 fl (7.4-10.4); Monocytes Absolute Auto 0.5 K/mm3 (0.1-0.6); Monocytes Percent Auto 8.9 % (2.6-8.5); Neutrophils Absolute Auto 3.4 K/mm3 (1.3-6.7); Neutrophils Percent Auto 57.3 % (45.5-73.1); Platelet Count Result 207 k/mm3 (150-375); Red Blood Count 4.11 M/mm3 (4.6-6.20); Red Cell Distribution Width 13.9 % (11.5-14.5); White Blood Count 5.9 K/mm3 (4.5-10.0)
[2024-10-01 15:52] LABS: Alanine Aminotransferase 19 U/L (6-50); Albumin Level 3.6 g/dL (3.5-5.1); Alkaline Phosphatase 61 U/L (38-126); Anion Gap 7 mmol/L (4-12); Aspartate Amino Transferase 24 U/L (17-59); Bilirubin,Total 0.3 mg/dL (0.2-1.3); Blood Urea Nitrogen 18 mg/dL (9-20); Calcium 8.6 mg/dL (8.4-10.2); Carbon Dioxide 31 mmol/L (22-30); Chloride 103 mmol/L (98-107); Estimated CRCL calculation 75 ml/min; Estimated Glomerular Filt Rate > 60; Glucose 94 mg/dL (65-110); Potassium 3.9 mmol/L (3.4-5.0); Sodium 141 mmol/L (137-145)
[2024-10-01 17:54] VITALS: BP 154/90; PULSE 56; RESP 14; O2SAT 100
[2024-10-01 18:16] VITALS: BP 133/84; PULSE 56; RESP 19; O2SAT 100
== END 2024-10-01 18:42 | disposition home or self-care (01) ==
PROVIDERS: Emergency Provider Emergency Medicine; PCP Internal Medicine
DX: R31.9 Hematuria, unspecified (principal); N32.89 Other specified disorders of bladder; F03.90 Unspecified dementia, unspecified severity, without behavioral disturbance, psychotic disturbance, mood disturbance, and anxiety; I10 Essential (primary) hypertension; I73.9 Peripheral vascular disease, unspecified; E78.5 Hyperlipidemia, unspecified; K21.9 Gastro-esophageal reflux disease without esophagitis; M47.812 Spondylosis without myelopathy or radiculopathy, cervical region; F41.8 Other specified anxiety disorders; Z86.73 Personal history of transient ischemic attack (TIA), and cerebral infarction without residual deficits; Z87.891 Personal history of nicotine dependence; Z79.82 Long term (current) use of aspirin; Z79.899 Other long term (current) drug therapy
CPT/HCPCS: 36415; 74176; 80053; 81001; 85025; 99284

== ENCOUNTER 2025-01-19 09:35 | Emergency (ER) | payer MEDICARE, MEDICAID, SELFPAY ==
[2025-01-19] VITALS (15 sets, daily range): BP systolic 100–144; BP diastolic 77–100; PULSE 57–80; RESP 13–25; TEMP 36.9; O2SAT 92–98
--- NOTE | ~2025-01-19 | CT_ITS ---
CT cervical spine wo con Ordering provider: Clemencia Montejo History: . fall, neck pain-all over . Comparison: None. Technique: CT of the cervical spine was performed without contrast. Sagittal and coronal reformatted images were also obtained and reviewed. Automated exposure control and iterative reconstruction dviya hnique were employed. The dose-length product was 425.84 mGy-cm. FINDINGS: VERTEBRAE: No subluxation or acute fracture. The occipital condyles are intact. Kyphosis centered at the level of C5. DISC SPACES: Narrowing of the disc C3-C4, C4-C5, C5-C6 and C6-C7. Multilevel facet joint disease. Mul tilevel uncovertebral joint osteoarthritic changes. Multilevel intervertebral foraminal narrowing. PA RASPINOUS SOFT TISSUES: Normal. Bilateral maxillary sinus disease. IMPRESSION: No acute osseous abnormality cervical spine. Multilevel degenerative disc disease. Reviewed, dictated and finalized at location A.
--- NOTE | ~2025-01-19 | CT_ITS ---
CTA brain carotid Ordering provider: Clemencia Montejo MD History: . dizziness, multiple falls, LT side deficits,hx aneurysm clip . Comparison: January 19, 2025 Technique: CT angiogram head and neck was performed following timed intravenous injection of contrast . Thin slice axial images and reformatted coronal images were obtained. Three dimensional reformatted images of the brain were also obtained using a Meilish[employer] workstation. Radiation reduction technique ut ilized. The dose-length product was 1194.02 mGy-cm. 100 mL Omnipaque 350 was given IV. FINDINGS: HEAD: --ANTERIOR AND MIDDLE CEREBRAL ARTERIES AND BRANCHES: Normal caliber and contour. Postoperative combs es in the right middle cerebral artery is seen. --INTERNAL CAROTID ARTERIES: Mild atheromatous disease but no significant stenosis. No occlusion. --BASILAR ARTERY AND BRANCHES: Normal caliber and contour. No atheromatous disease. --POSTERIOR CEREBRAL ARTERIES: Normal caliber and contour --POSTERIOR COMMUNICATING ARTERIES: Not visualized which is probably related to congenital absence or small size. --ANEURYSM: None visualized. --BRAIN: Please refer to report of CT head performed the same day. --BONES AND SUPERFICIAL SOFT TISSUES: Please refer to report of CT head performed the same day. --PARANASAL SINUSES AND MASTOIDS: Please refer to report of CT head done the same day. NECK: --RIGHT CERVICAL CAROTID SYSTEM: Mild atheromatous disease of the carotid bulb and proximal internal carotid artery without significant stenosis. Percent stenosis per NASCET criteria is 0% No carotid d issection. Otherwise, no significant atheromatous disease or stenosis of the cervical carotid system. --LEFT CERVICAL CAROTID SYSTEM: Mild atheromatous disease of the carotid bulb and proximal internal c arotid artery without significant stenosis. Percent stenosis per NASCET criteria is 0%. No carotid d issection. Otherwise, no significant atheromatous disease or stenosis of the cervical carotid system. --VERTEBRAL ARTERIES: Normal caliber and contour. --VISUALIZED AORTIC ARCH AND BRANCHING VESSELS: Mild atheromatous disease but no significant stenosis . --SOFT TISSUES: Normal. --CERVICAL SPINE: Age appropriate degenerative changes. IMPRESSION: 1. CTA head with postoperative changes in the right MCA distribution. No occlusion or significant na rrowing. 2. CTA neck. Percent stenosis per NASCET criteria is 0%. Reviewed, dictated and finalized at location A. IMPRESSION: 1. CTA head with postoperative changes in the right MCA distribution. No occlu pam or significant narrowing. 2. CTA neck. Percent stenosis per NASCET criteria is 0%.
--- NOTE | ~2025-01-19 | CT_ITS ---
EXAMINATION: CT brain wo con DATE: 01/19/2025 12:17 INDICATION: Multiple falls in the past 2-3 days with posterior head injury TECHNIQUE: Computed tomography (CT) of the head was performed without intravenous contrast. Sagittal and coronal reconstructions were performed. The mA was adjusted according to patient size. Iterative reconstruction technique was employed. The dose-length product was 605.33 mGy-cm. COMPARISON: head CT dated 04/04/2024 FINDINGS: No fracture. 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 Small region of encephalomalacia at the insula and anterior right temporal lobe. No acute intracranial hemorrhage, acute infarction o r abnormal extra axial fluid collection. There is mild scattered white matter hypoattenuation consist ent with chronic small vessel ischemic disease. Ventricles are normal and symmetric. No mass/mass eff ect. Moderate mucosal thickening scattered throughout the paranasal sinuses. The orbits and mastoid a ir cells are normal. IMPRESSION: 1. No fracture or acute intracranial process. 2. 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 3. Mild scattered white matter hypoattenuation consistent with chronic small vessel ischemic disease. Reviewed, dictated and finalized at location A. IMPRESSION: 1. No fracture or acute intracranial process. 2. Chronic encephalomalacia in the right frontotemporal region with changes of prior right temporal craniotomy and underlying aneurysm clipping at the anterio r right sylvian fissure. 3. Mild scattered white matter hypoattenuation consistent with chronic small ve ssel ischemic disease.
--- NOTE | 2025-01-19 11:59 | ECG_ITS ---
Test Date: 2025-01-19 12:21:16 Measurements Intervals [place] Rate: 61 P: 41 ND: 252 QRS: -13 QRSD: 106 T: -6 QT: 440 QTc: 445 Interpretive Statements SINUS RHYTHM WITH FIRST DEGREE AV BLOCK LEFT VENTRICULAR HYPERTROPHY MINIMAL Q WAVES- HIGH LATERAL LEADS BORDERLINE ST-T WAVE ABNORMALITY- ANT/INF LEADS BASELINE WANDER- V3 BORDERLINE ECG Compared to ECG 04/04/2024 23:06:44 HEART RATE HAS INCREASED Electronically Signed On 01-19-2025 13:03:22 CDT by Carlos Caal D.O.
--- NOTE | 2025-01-19 12:24 | ED.DIZZY ---
HPI - Dizziness General Chief Complaint: Dizziness Stated Complaint: dizzy Time Seen by Provider: 01/19/25 11:34 Source: patient and RN notes reviewed Mode of arrival: EMS Limitations: dementia History of Present Illness HPI Narrative: Patient presents with report of dizziness this morning. He reports that the episodes last approximately 20 minutes although he has a history of dementia and history of aneurysm status post coil (1999) so history is perhaps somewhat limited although he does answer all questions. He reports attempting to stand to urinate and when he made the position change from seated to standing is when his symptoms occurred and caused him to slide down between the bed and wheelchair which she typically uses due to some left-sided deficits. Denies any symptom being preceded by head position changes. He notes the onset was quick. Denies any slurred speech. Was reported that he had a few falls this week and including hitting his head on Sunday. He is on 81 mg aspirin. Not otherwise on anticoagulation. He denied losing consciousness. He reports that he felt off balance denied any spinning/rotational movement. He felt lightheaded. No ear pain, tinnitus, or hearing changes. Denies vision changes including no blurred or double vision. No chest pain or shortness of breath. Denies syncope or acute unilateral symptoms (only the deficits at baseline). Related Data Home Medications ?Medication ?Instructions ?Recorded ?Confirmed ?Last Taken ?Type aspirin 81 mg tablet 81 mg PO DAILY 08/10/21 12/21/22 Unknown History donepezil 10 mg tablet 5 mg PO DAILY 08/10/21 12/21/22 Unknown History escitalopram oxalate 20 mg tablet 20 mg PO DAILY 08/10/21 12/21/22 Unknown History metoprolol succinate 100 mg 50 mg PO DAILY 08/10/21 12/21/22 Unknown History tablet,extended release 24 hr multivitamin with minerals-folic 1 tablet PO DAILY 08/10/21 12/21/22 Unknown History acid 0.4 mg tablet omeprazole 20 mg capsule,delayed 20 mg PO DAILY 08/10/21 12/21/22 Unknown History release atorvastatin 20 mg tablet 20 mg PO DAILY 07/05/22 12/21/22 Unknown History bupropion HCl 150 mg 24 hr tablet, 150 mg PO DAILY 07/05/22 12/21/22 Unknown History extended release diclofenac sodium 50 mg 50 mg PO BID 07/05/22 12/21/22 Unknown History tablet,delayed release hydrocodone 5 mg-acetaminophen 325 1 tablet PO Q6H PRN Pain 07/05/22 12/21/22 Unknown History mg tablet lisinopril 20 1 tablet PO DAILY 07/05/22 12/21/22 Unknown History mg-hydrochlorothiazide 12.5 mg tablet buspirone 5 mg tablet 5 mg PO BID 09/06/22 12/21/22 Unknown History diazepam 2 mg tablet 2 mg PO PRN PRN Muscle Spasm 09/06/22 09/06/22 Unknown History ondansetron 4 mg oral soluble film 4 mg PO Q6H PRN Nausea 12/21/22 12/21/22 Unknown History Allergies Allergy/AdvReac Type Severity Reaction Status Date / Time No Known Allergies Allergy Verified 01/19/25 09:44 [facility] Past Medical History Medical History (Updated 01/20/25 @ 00:00 by Emery Pimentel) 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 Nontraumatic subdural hemorrhage, unspecified Cervical spondylosis Chronic GERD Depression with anxiety Family history of colon cancer requiring screening colonoscopy Anxiety PVD (peripheral vascular disease) Hyperlipidemia Hypertension Dementia CVA (cerebral vascular accident) Surgical History Surgical History Other specified postprocedural states Right temporal craniotomy H/O cardiac catheterization History of removal of pigmented skin lesion History of colonoscopy History of surgery on upper extremity last H/O shoulder surgery right H/O cerebral aneurysm repair clip, [facility] 1999 Family History Family History Unknown Family history unknown Social History Social History (Updated 01/19/25 @ 13:08 by Clemencia Montejo MD) Social History: the patient previously lived with his brother and [id number]. His [id number] Ginny is the durable power criminal attorney for health care for him. The patient is and has no children. 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 The patient is a former smoker and quit several years ago. He states that he does not use alcohol marijuana or any other illicit drugs. Code status DNR per senior living documentation (No POLST) Smoking status: Former smoker Alcohol intake: never Substance use: never Lack of Transportation: No Lack of Food: Never True Current Housing: I Have Housing Concerned About Future Housing: No Difficulty Paying Gas/Electric Bills: No Difficulty Paying for Meds: No Currently Unemployed: No Education: Trade/Vocational Certificate Difficulty w/ Childcare or Family Care: No Living arrangements: senior living Additional living arrangements comments: [facility] Spiritual care concerns: No Exam Narrative: GENERAL: Well-appearing, well-nourished, and in no acute distress. HEAD: Normocephalic, atraumatic. EYES: Non injected, non icteric. Left beating nystagmus bilaterally initially but not seen on repeat assessment. ENT: Nares clear, no rhinorrhea or epistaxis. Gross auditory acuity intact. Bilateral tympanic membranes obscured due to significant cerumen. Tacky mucous membranes NECK: Supple. No meningismus. CHEST: Speaking in full sentences. No respiratory distress. HEART: Regular rate and rhythm. . ABDOMEN: Soft, nondistended. EXTREMITIES: Normal range of motion. No lower extremity edema. SKIN: Warm, dry, no rash. NEURO: Alert and oriented. Answering questions. Following commands. Normal speech without aphasia or dysarthria. PSYCH: Normal mood and affect. Course Vital Signs Vital signs: Vital Signs Temperature 98.4 F 01/19/25 09:34 Pulse Rate 69 01/19/25 09:34 Respiratory Rate 13 01/19/25 09:34 Blood Pressure 114/81 01/19/25 09:34 Pulse Oximetry 93 01/19/25 09:34 Oxygen Delivery Room Air 01/19/25 09:34 Temperature 98.4 F 01/19/25 09:34 Pulse Rate 71 01/19/25 18:59 Respiratory Rate 18 01/19/25 18:59 Blood Pressure 138/100 H 01/19/25 18:59 Pulse Oximetry 96 01/19/25 18:59 Oxygen Delivery Room Air 01/19/25 09:34 MDM - Dizziness MDM Narrative Medical decision making narrative: Very pleasant 69 yo male presents with report of dizziness which she further describes as lightheadedness feeling balance. In particular this episode occurred when he went to go from seated to standing position to use his urinal and he then slid down between his been in his wheelchair. He uses a wheelchair at baseline due to a history a aneurysm status post coil. Also history of dementia. Not on anticoagulation. Denies loss of consciousness/syncope. In the emergency department they are afebrile with vital signs within normal limits (initially documented as 93%, 94% on repeat). Patient does not describe vertiginous symptoms although considered: Central causes: infection ( encephalitis, meningitis, cerebritis); vertebrobasilar arterial insufficiency, subclavian steal syndrome, cerebellar or brainstem hemorrhage or infarction, vertebrobasilar migraine, trauma ( temporal bone fracture, post concussive syndrome); tumor (brainstem or cerebellum); MS; temporal lobe epilepsy Peripheral causes: Foreign body, cerumen impaction, acute otitis media, labyrinthitis, benign paroxysmal positional vertigo, Meniere's disease, vestibular neuronitis, perilymphatic fistula, trauma, motion sickness, acoustic neuroma, ototoxic medications Meclizine given as first line agent (although again, does not sound consistent with BPPV initially), rather orthostatic. Patient did have a nearly 20 mm mercury drop of his systolic blood pressure on orthostatic assessment however this was prior to him receiving 1 L IV fluids. He had tacky mucous membranes on exam further supporting this. Normocytic anemia, stable from previous. He had very mild hypokalemia which we repleted orally. Ear irrigation is ordered and performed due to bilateral cerumen that had appeared somewhat impacted. Imaging as below without acute process. Patient stable for discharge back to facility. There is a delay in being discharged from ED due to pending EMS transportation given his wheelchair status requiring ambulance arrangements. Lab Data Attestation: I reviewed the patient's lab results. 01/19/25 13:16 01/19/25 13:16 Labs: Lab Results 01/19/25 01/19/25 Range/Units 13:16 14:12 WBC 6.6 (4.5-10.0) K/mm3 RBC 3.93 L (4.6-6.20) M/mm3 Hgb 11.3 L (14.0-18.0) g/dL Hct 34.3 L (42.0-52.0) % MCV 87.3 (80-100) fl MCH 28.8 (26-34) pg MCHC 32.9 (32-36) g/dl RDW 13.2 (11.5-14.5) % Plt Count 223 (150-375) k/mm3 MPV 8.8 (7.4-10.4) fl Immature Gran % (Auto) 0.3 (0-0.5) % Neut % (Auto) 61.6 (45.5-73.1) % Lymph % (Auto) 23.8 (18.3-44.2) % [place] % (Auto) 11.3 H (2.6-8.5) % Eos % (Auto) 2.4 (0-4.4) % Baso % (Auto) 0.6 (0.2-1.2) % Lymph # (Auto) 1.56 (0.9-3.2) K/mm3 [place] # (Auto) 0.7 H (0.1-0.6) K/mm3 Eos # (Auto) 0.2 (0-0.3) K/mm3 Baso # (Auto) 0.0 (0.0-0.1) K/mm3 Abs Immat Gran (auto) 0.02 (0.00-0.031) K/mm3 Absolute Neuts (auto) 4.0 (1.3-6.7) K/mm3 Absolute Nucleated RBC 0.000 (0.0-0.012) K/mm3 Nucleated RBC % 0.0 (0.0-0.2) % Sodium 139 (137-145) mmol/L Potassium 3.3 L (3.4-5.0) mmol/L Chloride 102 (98-107) mmol/L Carbon Dioxide 30 (22-30) mmol/L Anion Gap 7 (4-12) mmol/L BUN 10 D (9-20) mg/dL Creatinine 0.80 (0.7-1.3) mg/dL Estim Creat Clear Calc 81 ml/min Estimated GFR > 60 (59 - ) Glucose 106 (65-110) mg/dL Calcium 8.6 (8.4-10.2) mg/dL Urine Color Yellow (Yellow) Urine Appearance Clear (Clear) Urine pH 6.0 (5.0-9.0) Ur Specific [place] 1.020 (1.001-1.035) Urine Protein Negative (Negative) mg/dL Urine Glucose (UA) Negative (Negative) mg/dL Urine Ketones Negative (Negative) mg/dL Ur Blood (Man) Negative (Negative) Urine Nitrate Negative (Negative) Urine Bilirubin Negative (Negative) Urine Urobilinogen 0.2 (<2.0) mg/dL Leukocyte Esterase Rfl Trace H (Negative) TERESA/UL Urine RBC 0-2 (0-2) /hpf Urine WBC 0-5 (0-3) /hpf Ur Squamous Epith Cells None seen (Few) /hpf Urine Bacteria None seen /hpf Urine Casts 0-2 Imaging Data Radiologist's impression: IMPRESSION: 1. No fracture or acute intracranial process. 2. Chronic encephalomalacia in the right frontotemporal region with changes of prior right temporal craniotomy and underlying aneurysm clipping at the anterior right sylvian fissure. 3. Mild scattered white matter hypoattenuation consistent with chronic small vessel ischemic disease. IMPRESSION: No acute osseous abnormality cervical spine. Multilevel degenerative disc disease. IMPRESSION: 1. CTA head with postoperative changes in the right MCA distribution. No occlusion or significant narrowing. 2. CTA neck. Percent stenosis per NASCET criteria is 0%. ECG Data EKG #1: Attestation: I personally reviewed and interpreted this ECG as follows: ECG completion date: 01/19/25 ECG completion time: 12:21 Prior ECG tracings: available for review (Previous EKG is reviewed which did not demonstrate same morphology in V3) Interpretation: Normal sinus rhythm at a rate of 61 beats per minute. MS interval prolonged at 252 milliseconds consistent with a first-degree AV block. QRS 106. QT/QTC 440/443. Good R-wave progression across the precordial leads. T-wave inversion in 2 and flat in AVF but otherwise upright in contiguous inferior lead 2. Patient is a slightly biphasic T-wave with ST depression in V3 but otherwise appears normal in contiguous leads V4. No other T-wave inversions in V4 through V6. This is possibly due to lead placement. Does not appear to be Wellens. Discharge Plan Discharge Clinical Impression: Encephalomalacia, Status post craniotomy, Status post cerebral aneurysm repair, Orthostatic dizziness, Degenerative disc disease, Hypokalemia, Normocytic anemia Patient Disposition: NH Shelter/Asst Living Condition: Stable Instructions: Antibiotic Form, Hypokalemia (ED), Dizziness (ED), Anemia (ED), Degenerative Disc Disease (ED) Additional Instructions: Patient had mild hypokalemia which we gave supplemental oral potassium for. Symptoms sound consistent with orthostatic process and he did appear slightly dehydrated on exam so was given IV fluids. Make sure maintaining hydration especially when it is warm. Follow-up with primary care physician/facility medical coding auditor. Return to the emergency department any new worsening or unmanaged symptoms. Otherwise continue taking all medications as prescribed. Patient Language: Urdu Prescriptions: No Action diazepam 2 mg tablet 2 mg PO PRN PRN (Reason: Muscle Spasm) buspirone 5 mg Tablet 5 mg PO BID lidocaine 5 % adhesive patch,medicated 1 patch topical DAILY Qty: 15 0RF Rx Instructions: leave on most painful area for up to 12 hrs donepezil 10 mg tablet 5 mg PO DAILY metoprolol succinate 100 mg tablet extended release 24 hr 50 mg PO DAILY omeprazole 20 mg capsule,delayed release(DR/EC) 20 mg PO DAILY aspirin 81 mg Tablet 81 mg PO DAILY escitalopram oxalate 20 mg tablet 20 mg PO DAILY multivit with min-folic acid 0.4 mg Tablet 1 tablet PO DAILY atorvastatin 20 mg tablet 20 mg PO DAILY lisinopril-hydrochlorothiazide 20-12.5 mg tablet 1 tablet PO DAILY hydrocodone-acetaminophen 5-325 mg tablet 1 tablet PO Q6H PRN (Reason: Pain) diclofenac sodium 50 mg tablet,delayed release (DR/EC) 50 mg PO BID bupropion HCl 150 mg tablet extended release 24 hr 150 mg PO DAILY oxycodone 5 mg tablet 5 mg PO Q8H PRN (Reason: pain) Qty: 20 0RF ondansetron 4 mg Film 4 mg PO Q6H PRN (Reason: Nausea) Follow-up/Referrals: Mary Carmen,MD [facility] [Primary Care Provider] - Stand Alone Forms: Halfway Discharge Time of Disposition: 16:26
[2025-01-19] MEDS: MECLIZINE HCL 25 MG TABLET PO (13:16)
[2025-01-19] MEDS: SODIUM CHLORIDE 0.9% IV 1,000 ML 999 ML IV CONT (13:16)
--- NOTE | 2025-01-19 13:20 | PC.NURSE ---
Pt states unable to pee at this time
[2025-01-19 13:24] LABS: Basophils Percent Auto 0.6 % (0.2-1.2); Eosinophils Absolute Auto 0.2 K/mm3 (0-0.3); Eosinophils Percent Auto 2.4 % (0-4.4); Hematocrit 34.3 % (42.0-52.0); Hemoglobin 11.3 g/dL (14.0-18.0); Immature Granulocyte Absolute 0.02 K/mm3 (0.00-0.031); Immature Granulocyte Percent A 0.3 % (0-0.5); Lymphocytes Absolute Auto 1.56 K/mm3 (0.9-3.2); Lymphocytes Percent Auto 23.8 % (18.3-44.2); Mean Corpuscular HGB Conc 32.9 g/dl (32-36); Mean Corpuscular Hemoglobin 28.8 pg (26-34); Mean Corpuscular Volume 87.3 fl (80-100); Mean Platelet Volume 8.8 fl (7.4-10.4); Monocytes Absolute Auto 0.7 K/mm3 (0.1-0.6); Monocytes Percent Auto 11.3 % (2.6-8.5); Neutrophils Percent Auto 61.6 % (45.5-73.1); Platelet Count Result 223 k/mm3 (150-375); Red Blood Count 3.93 M/mm3 (4.6-6.20); Red Cell Distribution Width 13.2 % (11.5-14.5); White Blood Count 6.6 K/mm3 (4.5-10.0)
[2025-01-19 13:33] LABS: Chloride 102 mmol/L (98-107)
[2025-01-19 13:34] LABS: Anion Gap 7 mmol/L (4-12); Blood Urea Nitrogen 10 mg/dL (9-20); Calcium 8.6 mg/dL (8.4-10.2); Carbon Dioxide 30 mmol/L (22-30); Estimated CRCL calculation 81 ml/min; Estimated Glomerular Filt Rate > 60; Glucose 106 mg/dL (65-110); Potassium 3.3 mmol/L (3.4-5.0); Sodium 139 mmol/L (137-145)
--- NOTE | 2025-01-19 14:09 | PC.NURSE ---
This RN spoke with Denny DONAHUE at [facility] [place] and gave her update regarding pt status
[2025-01-19 14:33] LABS: Add Urine Microscopic? YES; Appearance Urine Clear (Clear); Bacteria Urine None Seen /hpf; Bilirubin Urine Negative (Negative); Blood Urine Negative (Negative); Color Urine Yellow (Yellow); Glucose Urine UA Negative (Negative); Ketones Urine Negative (Negative); Leukocyte Esterase Ur Trace LEU/UL (Negative); Nitrate Urine Negative (Negative); Non Pathogenic Casts 0-2; Protein Urine Negative (Negative); RBC Urine 0-2 /hpf (0-2); Squamous Epithelial Cell Urine None Seen /hpf (Few); Urobilinogen Urine 0.2 mg/dL (<2.0); WBC Urine 0-5 /hpf (0-3)
[2025-01-19] MEDS: POTASSIUM BICARBONATE 25 MEQ TABEF PO (15:18)
== END 2025-01-19 21:23 ==
PROVIDERS: Emergency Provider Student in an Organized Health Care Education/Training Program; PCP Internal Medicine
DX: R42 Dizziness and giddiness (principal); E87.6 Hypokalemia; D64.9 Anemia, unspecified; G93.89 Other specified disorders of brain; M50.31 Other cervical disc degeneration, high cervical region; M48.02 Spinal stenosis, cervical region; F03.90 Unspecified dementia, unspecified severity, without behavioral disturbance, psychotic disturbance, mood disturbance, and anxiety; I69.354 Hemiplegia and hemiparesis following cerebral infarction affecting left non-dominant side; I73.9 Peripheral vascular disease, unspecified; I10 Essential (primary) hypertension; E78.5 Hyperlipidemia, unspecified; K21.9 Gastro-esophageal reflux disease without esophagitis; F41.8 Other specified anxiety disorders; Z66 Do not resuscitate; Z87.891 Personal history of nicotine dependence; Z79.82 Long term (current) use of aspirin; Z79.899 Other long term (current) drug therapy; I44.0 Atrioventricular block, first degree; I51.7 Cardiomegaly; R94.31 Abnormal electrocardiogram [ECG] [EKG]
CPT/HCPCS: 36415; 70450; 70496; 70498; 72125; 80048; 81001; 85025; 93005; 96360; 99284; A9270; J7030; Q9967